=== PATIENT | male | born 1945 | race Caucasian/White ===

== ENCOUNTER 2017-10-19 10:55 | Inpatient (IN) | payer OTHER ==
[~2017-10-19] VITALS: Ht 170.2 cm; Wt 89.4 kg
[~2017-10-19 10:55] MED LIST: ALBUTEROL 3 ML3 ML INH; ASPIR 8181 MG PO; ATORVASTATIN CA10 MG PO; ATROVENT 0.02%2.5 ML INH; CADUET 5 MG-101 TAB PO; COUMADIN 5 MG TA5 MG PO; Compazine PO; HYGROTON 25MG T25 MG PO; LOVENOX40 MG/0.4 SC; PREDNISONE5 MG PO; PREVACID 30MG30 MG PO; PRINIVIL 5MG5 MG PO; ZOFRAN 4MG ORALL4 MG PO; [UNRECOGNIZED DRUG - OTHER] PO
--- NOTE | 2017-10-19 11:20 | ED DYSPNEA/ASTHMA COMPLAINT ---
History of Present Illness General Chief Complaint: General Adult Stated Complaint: WEAK,LOW O2 SAT,COUGH,CONGESTION FEVE Source: patient, old records Exam Limitations: no limitations Vital Signs & Intake/Output Vital Signs & Intake/Output Vital Signs Date Time Temp Pulse Resp B/P B/P Pulse O2 O2 Flow FiO2 Mean Ox Delivery Rate 10/19 1310 96.9 101 24 118/69 96 Venti Mask 45% 10/19 1154 84 Nasal 6.0L Cannula 10/19 1106 97.2 110 22 123/76 86 Nasal 2.5L Cannula Allergies Coded Allergies: NO KNOWN ALLERGIES (10/05/14) Reconcile Medications Apixaban (Eliquis) 5 MG TABLET 1 TAB PO BID BLOOD THINNER (Reported) Atorvastatin Calcium (Lipitor) 10 MG TABLET 1 TAB PO DAILY CHOLESTEROL ( Reported) Lisinopril 5 MG TABLET 1 TAB PO DAILY BP (Reported) Prednisone 20 MG TABLET 1 TAB PO DAILY STEROID (Reported) Triage Note: PT STATES THAT HE IS O2 DEPENDENT AND HAS HISTORY OF LUNG CANCER AND THAT HE STARTED WITH A COUGH CLEAR SPUTUM FRIDAY AND THEN LAST PM HE STARTED WITH INCREASED SOB, ON 2.5L VIA NC AT TRIAGE O2 SAT 84-86 % . DENIES CP. Triage Nurses Notes Reviewed? yes HPI: 71 year old male with past medical history significant for hypertension, hyperlipidemia, lung cancer (08/2015 presented with b/l PNA/PE and right hilar/ subcarinal lymphadenopathy) presents with acute hypoxic respiratory failure, dyspnea, increased cough and congestion. The patient has been undergoing chemotherapy weekly since diagnosis with Dr. Ross. For the past week the patient has had worsening cough with white sputum production and hypoxia with acute worsening of chronic exertional dyspnea. The patient has been on continuous supplemental oxygen for over the past year at two liters nasal cannula. He has had some nasal congestion and chills, denies any sore throat or fevers. He has had sick contact with his who is currently admitted to with bronchitis and hypoxic respiratory failure. (Vladimir NICOLAS,Dru) Past History Travel History Traveled to [place] past 21 day No Medical History Any Pertinent Medical History? see below for history Neurological: NONE EENT: NONE Cardiovascular: hyperlipidemia Respiratory: COPD, pneumonia Gastrointestinal: NONE Hepatic: NONE Renal: NONE Musculoskeletal: NONE Psychiatric: NONE Endocrine: NONE Blood Disorders: PE Cancer(s): lung cancer History of MRSA: No History of VRE: No History of CDIFF: No Pneumonia Vaccine: 09/29/12 Influenza Vaccine: 08/29/14 Surgical History Surgical History: mediastinoscopy Psychosocial History Who do you live with Spouse What is your primary language Spanish Tobacco Use: Quit >30 days ago ETOH Use: denies use Illicit Drug Use: denies illicit drug use Family History Family History, If Any: FATHER, , Age 40-50; Cause: Myocardial infarct. BROTHER, ; Cause: Heart disease. BROTHER FH: CABG (coronary artery bypass surgery) MOTHER FH: cancer of genital organ Hx Contributory? No (Dru Gilbert MD) Review of Systems Review of Systems Constitutional: Reports: chills. Denies: fever. EENTM: Reports: nasal congestion. Respiratory: Reports: cough, orthopnea, short of breath, sputum production. Cardiovascular: Denies: chest pain, peripheral edema. GI: Denies: abdominal pain, constipation, diarrhea, nausea, vomiting. Genitourinary: Denies: dysuria, frequency. Musculoskeletal: Reports: no symptoms. Skin: Reports: no symptoms. Neurological/Psychological: Reports: no symptoms. Hematologic/Endocrine: Reports: no symptoms. Immunologic/Allergic: Reports: no symptoms. All Other Systems: Reviewed and Negative (Dru Gilbert MD) Physical Exam Physical Exam General Appearance: well developed/nourished, no apparent distress, alert, awake , moderate distress (respiratory), tachypnea with accessory muscle use Head: atraumatic, normal appearance Eyes: Bilateral: normal appearance, PERRL, EOMI. Respiratory: chest non-tender, decreased breath sounds, rhonchi, respiratory distress, diminished at the bases, diffuse rhonchi Cardiovascular: regular rate/rhythm, normal peripheral pulses, tachycardia Gastrointestinal: normal bowel sounds, soft, non-tender Extremities: normal inspection, no edema Core Measures ACS in differential dx? No CVA/TIA Diagnosis No Sepsis Present: No Sepsis Focused Exam Completed? No (Dru Gilbert MD) Progress Differential Diagnosis: asthma, AMI, bronchitis, COPD, pulmonary embolism, pneumonia, progression of lung cancer Plan of Care: Orders Procedure Date/time Status Heart Healthy Diet 10/19 D Active LACTIC ACID 10/19 1500 Active Vital Signs 10/19 1338 Active ED Holding Orders 10/19 1331 Active Admit to inpatient 10/19 1331 Active Code Status 10/19 1331 Active CULTURE,URINE 10/19 1325 Active URINALYSIS 10/19 1325 Active Add-on Test (ER Only) 10/19 1234 Active Lab Add-on Test 10/19 1230 Active Lab Add-on Test 10/19 1216 Active TROPONIN LEVEL 10/19 1148 Complete PARTIAL THROMBOPLASTIN TIME 10/19 1148 Active PROTHROMBIN TIME 10/19 1148 Active LACTIC ACID 10/19 1148 Complete ARTERIAL BLOOD GAS (GEN) 10/19 1145 Complete COMPREHENSIVE METABOLIC PANEL 10/19 1119 Complete CBC WITHOUT DIFFERENTIAL 10/19 1119 Complete EKG 10/19 1056 Active Laboratory Tests 10/19/17 1155: pH 7.53 H, pCO2 24 L, pO2 54 L, HCO3 20 L, ABG O2 Sat (Measured) 87.0 L, P- 50 (Temp Corrected) N, Carboxyhemoglobin 0.7 L, O2 Concentration % 5LPM, O2 Delivery Method NC, Phlebotomy Draw Site RIGHT RADIAL 10/19/17 1148: Anion Gap 15, Estimated GFR > 60, BUN/Creatinine Ratio 27.1 H, Glucose 128 H, Lactic Acid 3.2 H, Calcium 8.8, Total Bilirubin 1.2, AST 25, ALT 50, Alkaline Phosphatase 96, Troponin I 0.02, Total Protein 6.5, Albumin 3.9, Globulin 2.6, Albumin/Globulin Ratio 1.5, CBC w Diff NO MAN DIFF REQ, RBC 4.42 L, MCV 90.4, MCH 29.8, RDW 16.2 H, MPV 8.1, Gran % 93.8 H, Lymphocytes % 3.0 L, Monocytes % 2.8, Eosinophils % 0.1, Basophils % 0.3, Absolute Granulocytes 7.2 H, Absolute Lymphocytes 0.2 L, Absolute Monocytes 0.2, Absolute Eosinophils 0, Absolute Basophils 0, PUBS MCHC 32.9 L Microbiology 10/19 132 URINE ROUT: Urine Culture - ORD Initial ED EKG: right bundle branch block (Vladimir NICOLAS,Dru) Departure Departure Time of Disposition: 1338 Disposition: STILL A PATIENT Condition: Stable Clinical Impression Primary Impression: Acute hypoxemic respiratory failure Referrals: Gabbi Farias DO (PCP/Family) Departure Forms: Customer Survey General Discharge Information Admission Note Spoke With: Bryant Redd MD Documentation of Exam: Documentation of any treatments & extenuating circumstances including Concerns Regarding Discharge (functional status, medication knowledge or non-compliance, living conditions, etc.) that warrant an admission rather than observation: sepsis with lactic acidemia, acute on chronic hypoxemic respiratory failure, intravenous steroids, high fio2 requirement and tachypnea with possible mechanical respiratory failure with increased work of breathing (Dru Gilbert MD) Resident Co-Sign Statement Statement: ED Attending supervision documentation- [X] I saw and evaluated the patient. I have also reviewed all the pertinent lab results and diagnostic results. I agree with the findings and the plan of care as documented in the Resident's documentation. [X] I have reviewed the ED Record and agree with the Resident's documentation. [] Additions or exceptions (if any) to the Resident's note and plan are summarized below: [Patient to be admitted for hypoxic respiratory failure. Patient does have a history of lung cancer as well as pulmonary embolus. Patient is already on Elaquis. Patient is requiring high levels FiO2. A pulmonary consultation.] (Betsy NICOLAS,Ayan Kang) Critical Care Note Critical Care Note Critical Care Time: non-applicable (Dru Gilbert MD)
[2017-10-19 11:56] LABS: ABSOLUTE BASOPHIL COUNT 0 /CUMM (0.0-0.2); ABSOLUTE EOSINOPHIL COUNT 0 /CUMM (0.0-0.7); ABSOLUTE GRANULOCYTE CT 7.2 /CUMM (1.4-6.5); ABSOLUTE LYMPH COUNT 0.2 /CUMM (1.2-3.4); ABSOLUTE MONOCYTE COUNT 0.2 /CUMM (0.10-0.60); BASOPHIL % 0.3 % (0.0-2.0); EOSINOPHIL % 0.1 % (0-5); HEMATOCRIT 39.9 % (42-52); MEAN CORPUSCULAR HGB 29.8 PG (27.0-31.0); MEAN CORPUSCULAR HGB CONC 32.9 G/DL (33.0-37.0); MEAN CORPUSCULAR VOLUME 90.4 FL (80.0-94.0); MEAN PLATELET VOLUME 8.1 FL (7.4-10.4); PLATELET COUNT 284 /CUMM (130-400); RBC DISTRIBUTION WIDTH 16.2 % (11.5-14.5); RED BLOOD CELL CT 4.42 /CUMM (4.70-6.10); WHITE BLOOD CELL COUNT 7.7 /CUMM (4.8-10.8)
[2017-10-19 12:10] LABS: GRANULOCYTE % 93.8 % (42.2-75.2)
--- NOTE | 2017-10-19 13:14 | RADIOLOGY REPORT ---
EXAMINATION: XR PORTABLE CHEST CLINICAL INFORMATION: Cough. Previous lung cancer. COMPARISON: Chest 02/28/2017. CT PET exam 09/16/2017. TECHNIQUE: Portable frontal view of the chest was obtained. FINDINGS: Is cardiomegaly with normal-appearing pulmonary vascularity. There is a right paramediastinal soft tissue density likely scarring. The lungs are expanded with bibasilar patchy atelectasis and/or scarring or atelectatic vessels. No gross bony abnormality seen. IMPRESSION: Cardiomegaly. Bibasilar patchy atelectasis and/or scarring. Prominent right paramediastinal soft tissue density likely scarring overall ectatic vessels. No abnormality was seen on the CT PET exam 09/16/2017.
--- NOTE | 2017-10-19 13:27 | RADIOLOGY REPORT ---
EXAMINATION: XR PORTABLE CHEST CLINICAL INFORMATION: Cough. COMPARISON: Chest done on 02/28/2017. TECHNIQUE: Portable frontal view of the chest was obtained. FINDINGS: Mild diffuse linear prominent interstitial lung markings are present predominantly at both mid to lower lung field, similar to prior study, appear chronic. Mild hyperinflation is noted at both upper lobes. Persistent asymmetric low lung volume is noted within the right hemithorax. The cardiomediastinal silhouette is remarkable for abnormal widening of the aorta however, appear unchanged. There is no pleural or pericardial effusion present. There is no pneumothorax seen. The visualized upper abdomen is unremarkable. IMPRESSION: Persistent nonspecific linear mild diffuse interstitial lung markings are noted with asymmetric low right sided lung volume, appears similar to 02/28/2017. No radiographic evidence of any new abnormalities.
[2017-10-19] MEDS ORDERED: LIPITOR10 M1 PO (13:35)
[2017-10-19] MEDS ORDERED: ELIQUIS5 M1 PO (13:36)
[2017-10-19] MEDS ORDERED: PREDNISONE20 M1 PO (13:36)
[2017-10-19] MEDS ORDERED: LISINOPRIL5 M1 PO (13:36)
--- NOTE | 2017-10-19 14:10 | History & Physical ---
Belkis Segal MD 10/19/17 1410: General Information and HPI MD Statement: I have seen and personally examined DALTON TAMEZ SR and documented this H&P. The patient is a 71 year old M who presented with a patient stated chief complaint of [weakness, runny nose, cough, frequent desaturation]. Source of Information: patient, old records Exam Limitations: no limitations History of Present Illness: 71 years old male with past medical history of hypertension, hyperlipidemia, lung cancer (08/2015) is on weekly chemotherapy and follow-up with Dr. Barron , and home oxygen of 2 L nasal cannula, who presents to [facility] complaining of runny nose, weakness, chills, cough, whitish sputum, frequent oxygen desaturation which he measured at home which was in the range of 88, of note the patient's was admitted to [facility] over the weekend for complaints of COPD exacerbation. Patient denies any fever, chest pain, palpitation, dizziness, orthopneaa, he also denies any recent travel Patient is an ex-smoker he used to smoke one pack of cigarettes daily for 40 years, quit 10 years ago,Drink alcohol 2 glasses of wine daily, Denies recreational drug use In the ED the patient was noticed to have respiratory alkalosis with frequent desaturation and he had to be started on 45% Ventimask He received 1 dose of IV Solu-Medrol 125 mg, albuterol inhaler, Atrovent Allergies/Medications Allergies: Coded Allergies: NO KNOWN ALLERGIES (10/05/14) Home Med list Apixaban (Eliquis) 5 MG TABLET 1 TAB PO BID BLOOD THINNER (Reported) Atorvastatin Calcium (Lipitor) 10 MG TABLET 1 TAB PO DAILY CHOLESTEROL ( Reported) Lisinopril 5 MG TABLET 1 TAB PO DAILY BP (Reported) Prednisone 20 MG TABLET 1 TAB PO DAILY STEROID (Reported) Past History Travel History Traveled to [place] past 21 day No Medical History Neurological: NONE EENT: NONE Cardiovascular: hyperlipidemia Respiratory: COPD, pneumonia Gastrointestinal: NONE Hepatic: NONE Renal: NONE Musculoskeletal: NONE Psychiatric: NONE Endocrine: NONE Blood Disorders: PE Cancer(s): lung cancer History of MRSA: No History of VRE: No History of CDIFF: No Pneumonia Vaccine: 09/29/12 Influenza Vaccine: 08/29/14 Surgical History Surgical History: mediastinoscopy Past Family/Social History Family History Relations & Conditions if any FATHER, , Age 40-50; Cause: Myocardial infarct. BROTHER, ; Cause: Heart disease. BROTHER FH: CABG (coronary artery bypass surgery) MOTHER FH: cancer of genital organ Psychosocial History Smoking Status: Former Smoker ETOH Use: denies use (2 glasses of wine/daily), occasional use Illicit Drug Use: denies illicit drug use Review of Systems Review of Systems Constitutional: Reports: chills, diaphoresis, malaise, weakness. Denies: fever. EENTM: Reports: nasal congestion, throat pain. Cardiovascular: Denies: chest pain, edema, orthopena, palpitations, peripheral edema. Respiratory: Reports: cough, orthopnea, short of breath, sputum production. GI: Denies: bloating, constipation, diarrhea, nausea, vomiting. Genitourinary: Denies: no symptoms. Musculoskeletal: Denies: no symptoms. Skin: Denies: no symptoms. Neurological/Psychological: Denies: no symptoms. Hematologic/Endocrine: Denies: no symptoms. Exam & Diagnostic Data Last 24 Hrs of Vital Signs/I&O Vital Signs Date Time Temp Pulse Resp B/P B/P Pulse O2 O2 Flow FiO2 Mean Ox Delivery Rate 10/19 1515 96.0 89 20 119/69 95 Venti Mask 45% 10/19 1310 96.9 101 24 118/69 96 Venti Mask 45% 10/19 1200 87 Nasal 5.0L Cannula 10/19 1154 84 Nasal 6.0L Cannula 10/19 1106 97.2 110 22 123/76 86 Nasal 2.5L Cannula Intake & Output 10/19 1600 10/19 0800 10/19 0000 Intake Total 2000 Output Total Balance 2000 Intake, IV 2000 Patient 197 lb Weight Physical Exam General Appearance Alert, Oriented X3, Cooperative HEENT Atraumatic, PERRLA, EOMI, Mucous Membr. moist/pink Neck Supple, No JVD, No thryomegaly Cardiovascular Normal S1, Normal S2, No Murmurs Lungs bilateral rales, crep and wheezes Abdomen Normal Bowel Sounds, Soft, No Tenderness Neurological Normal Speech Extremities No Clubbing, No Cyanosis, No Edema Vascular Normal Pulses Sepsis Peripheral Pulse Location: Radial Sepsis Peripheral Pulse Exam: Normal Assessment/Plan Assessment: 71 years old male with past medical history of hypertension, hyperlipidemia, high lung cancer (08/2015) home is on weekly chemotherapy and follow-up with Dr. Orrell , and home oxygen of 2 L nasal cannula, who presents to [facility] complaining of runny nose, weakness, chills, cough, whitish sputum, frequent oxygen desaturation which he measured at home which was in the range of 88, of note the patient's was admitted to [facility] over the weekend for complaints of COPD exacerbation. Vital Signs on admission: Blood pressure 118/69, pulse 101, temperature 96.9, pulse ox 96 on 45% Ventimask Labs on admission: WBC 7.7, RBCs 4.42, hemoglobin 13.1, platelet 284, sodium 138 , potassium 4.5, co2 24, anion gap 15, BUN 19, creatinine 0.7, glucose 128, lactic acid 3.2, ABG was significant for respiratory alkalosis with pH 7.53, PCO2 24, PO2 54, HCO3 20 rapid flu test was negative EKG showed heart rate showed RBBB, hr 110, NC 148, QTC 504 Chest x-ray: Cardiomegaly. Bibasilar patchy atelectasis and/or scarring. Prominent right paramediastinal soft tissue density likely scarring overall ectatic vessels. No abnormality was seen on the CT PET exam 09/16/2017 Persistent nonspecific linear mild diffuse interstitial lung markings are noted with asymmetric low right sided lung volume, appears similar to 02/28/2017. No radiographic evidence of any new abnormalities. Problem list: 1.Acute on chronic hypoxic resp failure 2.hx of PE 3. 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 COPD 5. Hyperlipidemia 6.Hypertension # Acute on chronic hypoxic respiratory failure Most likely the cause is due to the history of lung cancer in addition to possible acute bronchits pt is on chemotherapy, we have to rule out cardiac cause of his SOB as well - admit to floor - edda down the oxygen to high flow oxygen -TRC, Nebs -Solumedrol 60 Q 8 - Pulm consult appreciated -onc consult muriel #Hx of PE: Continue home dose of Eliquis # chronic medical cond including HTN, HLD continue home meds Full code DVT prophylaxis with subcutaneous heparin Regular diet As Ranked By This Provider Problem List: 1. Acute hypoxemic respiratory failure Core Measures/Misc (06/15) Acute Coronary Syndrome ACS Diagnosis: No Congestive Heart Failure Congestive Heart Failure Diagnosis No Cerebrovascular Accident CVA/TIA Diagnosis: No VTE (View Protocol) VTE Risk Factors Age>40 No Mechanical VTE Prophylaxis d/t N/A MechProphylax Ordered No VTE Pharm Prophylaxis d/t NA PharmProphylax ordered Sepsis (View protocol) Sepsis Present: No Hima Crews 10/19/17 2204: Resident Review Statement Resident Statement: examined this patient, discussed with lab intern, agreed with lab intern, reviewed EMR data (avail), discussed with nursing, discussed with case mgmt, reviewed images, amended to note Other Findings: This is 71 years old male with medical history of hypertension, hyperlipidemia, squamous cell lung cancer currently on weekly chemotherapy and follow-up with Dr. Barron , COPD on home oxygen of 2 L nasal cannula, pulmonary embolism currently on Eliquis. He presented to the emergency department with chief complain of of runny nose, weakness, chills, cough, whitish sputum, frequent oxygen desaturation which he measured at home which was in the range of 88%, denying any fever, heart racing. Chest x-ray in ED showed persistent nonspecific leaner moderate diffuse interstitial lung marking. Patient received nebs treatment and 125 IV Solu-Medrol along with one IV fluid bolus in the ED. Physical examination, lab and imaging as above. Problem list: -Acute and chronic hypoxic respiratory failure -COPD exacerbation -Lactic acidosis -Squamous cell lung CA currently on chemotherapy. Plan: -Admit patient to general medicine floor -Vitals every shift -IV Solu-Medrol 60 mg every 8 -TRC nebs as needed -Trend his lactic acid -Pulmonary consultation in a.m. -Cardiac consultation in a.m. -Continue home medication including Eliquis -Hold off home medication of prednisone -Repeat CBC and basic electrolyte in a.m. -Accu-Chek every 8 -Start the patient on PPI -Heart healthy diet -Pain pathway -DVT prophylaxis on eliquis -full code Bryant Redd MD 10/19/17 2342: Attending MD Review Statement Attending Statement Attending MD Statement: examined this patient, discuss w/resident/PA/PHARMACY SERVICES REPRESENTATIVE, agreed w/resident/PA/PHARMACY SERVICES REPRESENTATIVE, discussed with nursing Attending Assessment/Plan: 71 y/o male with PMH of HTN, DLD, Lung cancer (08/2015 on weekly chemo - follows up with Dr. Ross, on 2 liters of home oxygen presents with flu like symptoms and oxygen desaturation to mid 80's. The patient's was admitted to [facility] over the weekend for complaints of COPD exacerbation. Rapid flu negative. Acute on chronic hypoxic respiratory failure with chronic respiratory alkalosis. Solumedrol q 8 hrly. Obtain pulmonology consult. Patient currently requiring venti mask - but talking in between giving breaks for the mask. Can be tried on hi-fawad oxygen as needed. Cxr is not remarkable for acute process.
[2017-10-19 16:31] LABS: PT 16.6 SEC (9.4-12.5); PTT 29 SEC (25-37)
[2017-10-19 17:36] VITALS: BP 122/78
[2017-10-19 21:57] VITALS: BP 128/76
[2017-10-20 06:42] VITALS: BP 102/62
--- NOTE | 2017-10-20 07:17 | Cons- Oncology ---
General Information and HPI Consulting Request Date of Consult: 10/20/17 Requested By: Bryant Redd MD History of Present Illness: 71-year-old man with known with locally advanced non-small cell lung carcinomanow admitted with marked shortness of breath nonproductive cough. patient denies hemoptysis chest pain or leg swelling.The patient has severe underlying COPD,oxygen dependent. Patient also has a pulmonary embolism on a anticoagulation, diagnosed several years ago. Patient is currently being treated with single agent Taxol. Allergies/Medications Allergies: Coded Allergies: NO KNOWN ALLERGIES (10/05/14) Home Med List: Apixaban (Eliquis) 5 MG TABLET 1 TAB PO BID BLOOD THINNER (Reported) Atorvastatin Calcium (Lipitor) 10 MG TABLET 1 TAB PO DAILY CHOLESTEROL ( Reported) Lisinopril 5 MG TABLET 1 TAB PO DAILY BP (Reported) Prednisone 20 MG TABLET 1 TAB PO DAILY STEROID (Reported) Current Medications: Current Medications Sig/Joel Start time Last Medication Dose Route Stop Time Status Admin Acetaminophen 650 MG Q6P PRN 10/19 1530 AC PO Albuterol Sulfate 3 ML EVERY 4 HRS/AWAKE 10/19 2000 AC 10/19 INH 2027 Albuterol Sulfate 2 PUF Q4 PRN 10/19 1615 AC 10/20 INH 0605 Albuterol Sulfate 3 ML ONCE ONE 10/19 1145 DC 10/19 INH 10/19 1146 1200 Apixaban 5 MG BID 10/19 2200 AC PO Atorvastatin Calcium 10 MG DAILY 10/20 1000 AC PO Ibuprofen 600 MG Q6P PRN 10/19 1530 DC PO Ipratropium [place] 2.5 ML ONCE ONE 10/19 1200 DC 10/19 INH 10/19 1201 1200 Lisinopril 5 MG DAILY 10/20 1000 AC PO Methylprednisolone 60 MG Q8 10/19 2200 AC 10/20 IV 0601 Methylprednisolone 125 MG ONCE ONE 10/19 1200 DC 10/19 IV 10/19 1201 1159 Methylprednisolone 0 .STK-MED ONE 10/19 1200 DC .ROUTE Omeprazole 20 MG DAILY AC 10/20 0700 AC 10/20 PO 0601 Oxycodone/ 2 TAB Q6P PRN 10/19 1530 AC Acetaminophen PO Sodium Chloride 2,680.74 ML ONCE ONE 10/19 1315 DC 10/19 IV 10/19 1316 1326 Review of Systems Review of Systems: Patient denies headaches or dizziness. patient denies nausea vomiting diarrhea change in bowel habits.Patient denies dysuria or hematuria. Patient denies bone aches or focal neurologic deficit Past History Travel History Traveled to [place] past 21 day No Medical History Blood Transfusion Hx: No Neurological: NONE EENT: NONE Cardiovascular: hyperlipidemia Respiratory: COPD, pneumonia Gastrointestinal: NONE Hepatic: NONE Renal: NONE Musculoskeletal: NONE Psychiatric: NONE Endocrine: NONE Blood Disorders: PE Cancer(s): lung cancer Surgical History Surgical History: mediastinoscopy Family History Relations & Conditions If Any: FATHER, , Age 40-50; Cause: Myocardial infarct. BROTHER, ; Cause: Heart disease. BROTHER FH: CABG (coronary artery bypass surgery) MOTHER FH: cancer of genital organ Psychosocial History Where Do You Live? Home Smoking Status: Former Smoker ETOH Use: denies use (2 glasses of wine/daily), occasional use Illicit Drug Use: denies illicit drug use Exam & Diagnostic Data Vital Signs and I&O Vital Signs Date Time Temp Pulse Resp B/P B/P Pulse O2 O2 Flow FiO2 Mean Ox Delivery Rate 10/20 0652 97.4 10/20 0642 97.8 80 20 102/62 92 10/20 0000 Venti Mask 45% 10/19 2157 98.4 92 20 128/76 93 Room Air 10/19 1736 97.5 100 20 122/78 94 Venti Mask 75% 10/19 1730 94 Venti Mask 45% 10/19 1630 Venti Mask 55% 10/19 1515 96.0 89 20 119/69 95 Venti Mask 45% 10/19 1310 96.9 101 24 118/69 96 Venti Mask 45% 10/19 1200 87 Nasal 5.0L Cannula 10/19 1154 84 Nasal 6.0L Cannula 10/19 1106 97.2 110 22 123/76 86 Nasal 2.5L Cannula Intake & Output 10/20 0800 10/20 0000 10/19 1600 Intake Total 210 983 5736 Output Total 450 1 Balance -135 687 7281 Intake, IV 40 10 2000 Intake, Oral 240 240 Number 0 0 Bowel Movements Output, Stool 1 Output, Urine 450 Patient 197 lb 197 lb Weight Weight Reported by Patient Measurement Method Gen.: in NAD,Ricardo mass ENT: Sclera anicteric Chest: decreased breath sounds Cor: RRR, no extra sounds Abdomen: Soft, bowel sounds present, no tenderness, no rebound Extremities: Without clubbing, cyanosis, or asymmetric edema Neurology: Alert and oriented 3, no gross deficit Skin: No rashes Last 48 Hours of Lab Results: Laboratory Tests 10/20 10/19 0350 1605 Chemistry Lactic Acid (0.7 - 2.1 mmol/L) 1.9 Coagulation PT (9.4 - 12.5 SEC) 16.6 H INR (0.90 - 1.17) 1.59 H APTT (25 - 37 SEC) 29 Urines Urine Color (YEL,AMB,STR) YEL Urine Clarity (CLEAR) CLEAR Urine pH (5.0 - 8.0) 6.0 Ur Specific [place] (1.001 - 1.035) >= 1.030 Urine Protein (NEG,<30 MG/DL) NEG Urine Ketones (NEG) TRACE H Urine Nitrite (NEG) NEG Urine Bilirubin (NEG) NEG Urine Urobilinogen (0.1 - 1.0 EU/dl) 0.2 Ur Leukocyte Esterase (NEG) NEG Ur Microscopic EXAM NOT REQUIRED Urine Hemoglobin (NEG) NEG Urine Glucose (N MG/DL) 250 H 10/19 10/19 1155 1148 Blood Gas pH (7.35 - 7.45 PH) 7.53 H pCO2 (35 - 45 TORR) 24 L pO2 (80 - 100 TORR) 54 L HCO3 (21 - 28 MEQ/L) 20 L ABG O2 Sat (Measured) (>96.0 %) 87.0 L P-50 (Temp Corrected) N Carboxyhemoglobin (1.5 - 5.0 %) 0.7 L O2 Concentration % 5LPM O2 Delivery Method NC Chemistry Sodium (137 - 145 mmol/L) 138 Potassium (3.5 - 5.1 mmol/L) 4.5 Chloride (98 - 107 mmol/L) 99 Carbon Dioxide (22 - 30 mmol/L) 24 Anion Gap (5 - 16) 15 BUN (9 - 20 mg/dL) 19 Creatinine (0.7 - 1.2 mg/dL) 0.7 Estimated GFR (>60 ml/min) > 60 BUN/Creatinine Ratio (7 - 25 %) 27.1 H Glucose (65 - 99 mg/dL) 128 H Lactic Acid (0.7 - 2.1 mmol/L) 3.2 H Calcium (8.4 - 10.2 mg/dL) 8.8 Total Bilirubin (0.2 - 1.3 mg/dL) 1.2 AST (17 - 59 U/L) 25 ALT (21 - 72 U/L) 50 Alkaline Phosphatase (< 127 U/L) 96 Troponin I (<0.11 ng/ml) 0.02 Gyu-W-Wjkarigvmqo Pept (<125 pg/mL) 582 H Total Protein (6.3 - 8.2 g/dL) 6.5 Albumin (3.5 - 5.0 g/dL) 3.9 Globulin (1.9 - 4.2 gm/dL) 2.6 Albumin/Globulin Ratio (1.1 - 2.2 %) 1.5 Hematology CBC w Diff NO MAN DIFF REQ WBC (4.8 - 10.8 /CUMM) 7.7 RBC (4.70 - 6.10 /CUMM) 4.42 L Hgb (14.0 - 18.0 G/DL) 13.1 L Hct (42 - 52 %) 39.9 L MCV (80.0 - 94.0 FL) 90.4 MCH (27.0 - 31.0 PG) 29.8 RDW (11.5 - 14.5 %) 16.2 H Plt Count (130 - 400 /CUMM) 284 MPV (7.4 - 10.4 FL) 8.1 Gran % (42.2 - 75.2 %) 93.8 H Lymphocytes % (20.5 - 51.1 %) 3.0 L Monocytes % (1.7 - 9.3 %) 2.8 Eosinophils % (0 - 5 %) 0.1 Basophils % (0.0 - 2.0 %) 0.3 Absolute Granulocytes (1.4 - 6.5 /CUMM) 7.2 H Absolute Lymphocytes (1.2 - 3.4 /CUMM) 0.2 L Absolute Monocytes (0.10 - 0.60 /CUMM) 0.2 Absolute Eosinophils (0.0 - 0.7 /CUMM) 0 Absolute Basophils (0.0 - 0.2 /CUMM) 0 PUBS MCHC (33.0 - 37.0 G/DL) 32.9 L Miscellaneous Phlebotomy Draw Site RIGHT RADIAL Imaging/Other Studies: chest x-ray-no acute processes Assessment/Plan Assessment: 1.respiratory failure-in the setting of severe COPD and locally advanced non- small cell lung carcinoma.there is no obvious pneumonia on chest x-ray or progression of his cancer. Patient is being treated for exacerbation of COPD. Recommend- Continue current therapy Strongly consider CTA given his degree of desaturation 2. Non-small cell lung carcinoma-chemotherapy on hold Recommendations: .. Consult Acknowledgment - Thank you for your consult request.
--- NOTE | 2017-10-20 08:35 | PN- Housestaff ---
Luzma NICOLAS,Belkis 10/20/17 0835: Subjective Follow-up For: 1.Acute on chronic hypoxic resp failure 2.hx of PE 3. non small cell lung cancer on chemotherapy 4. COPD 5. Hyperlipidemia 6.Hypertension Subjective: Patient is seen and examined at bedside, he continues to complain of productive cough, with whitish sputum, denies fever, chills, nausea, vomiting remains on the high flow mask Review of Systems Constitutional: Denies: no symptoms. Cardiovascular: Denies: no symptoms. Respiratory: Reports: cough, sputum production. Gastrointestinal: Denies: no symptoms. Genitourinary: Denies: no symptoms. Musculoskeletal: Denies: no symptoms. Objective Last 24 Hrs of Vital Signs/I&O Vital Signs Date Time Temp Pulse Resp B/P B/P Pulse O2 O2 Flow FiO2 Mean Ox Delivery Rate 10/20 0915 94 Venti Mask 55% 10/20 0800 Venti Mask 45% 10/20 0652 97.4 10/20 0642 97.8 80 20 102/62 92 10/20 0000 Venti Mask 45% 10/19 2157 98.4 92 20 128/76 93 Room Air 10/19 1736 97.5 100 20 122/78 94 Venti Mask 75% 10/19 1730 94 Venti Mask 45% 10/19 1630 Venti Mask 55% 10/19 1515 96.0 89 20 119/69 95 Venti Mask 45% Intake & Output 10/20 1600 10/20 0800 10/20 0000 Intake Total 750 280 250 Output Total 450 1 Balance 750 -170 249 Intake, IV 50 40 10 Intake, Oral 700 240 240 Number 0 0 0 Bowel Movements Output, Stool 1 Output, Urine 450 Patient 197 lb Weight Weight Reported by Patient Measurement Method Physical Exam General Appearance: Alert, Oriented X3, Cooperative, No Acute Distress HEENT: Atraumatic, PERRLA, EOMI, Mucous Membr. moist/pink Cardiovascular: Normal S1, Normal S2, No Murmurs Lungs: rales and wheezes Abdomen: Normal Bowel Sounds, Soft, No Tenderness Neurological: Normal Speech, Strength at 5/5 X4 Ext, Normal Tone Extremities: No Clubbing, No Cyanosis, No Edema Assessment/Plan Assessment: 71 years old male with past medical history of hypertension, hyperlipidemia, high lung cancer (08/2015) home is on weekly chemotherapy and follow-up with Dr. Barron , and home oxygen of 2 L nasal cannula, who presents to [facility] complaining of runny nose, weakness, chills, cough, whitish sputum, frequent oxygen desaturation which he measured at home which was in the range of 88, of note the patient's was admitted to [facility] over the weekend for complaints of COPD exacerbation. Vital Signs on admission: Blood pressure 118/69, pulse 101, temperature 96.9, pulse ox 96 on 45% Ventimask Labs on admission: WBC 7.7, RBCs 4.42, hemoglobin 13.1, platelet 284, sodium 138 , potassium 4.5, co2 24, anion gap 15, BUN 19, creatinine 0.7, glucose 128, lactic acid 3.2, ABG was significant for respiratory alkalosis with pH 7.53, PCO2 24, PO2 54, HCO3 20 rapid flu test was negative EKG showed heart rate showed RBBB, hr 110, OK 148, QTC 504 Chest x-ray: Cardiomegaly. Bibasilar patchy atelectasis and/or scarring. Prominent right paramediastinal soft tissue density likely scarring overall ectatic vessels. No abnormality was seen on the CT PET exam 09/16/2017 Persistent nonspecific linear mild diffuse interstitial lung markings are noted with asymmetric low right sided lung volume, appears similar to 02/28/2017. No radiographic evidence of any new abnormalities. # Acute on chronic hypoxic respiratory failure Most likely the cause is due to the history of lung cancer in addition to possible acute bronchits pt is on chemotherapy, we have to rule out cardiac cause of his SOB as well - admit to floor - edda down the oxygen to high flow oxygen -TRC, Nebs -Solumedrol 60 Q 8 - Pulm consult appreciated -onc consult muriel #Hx of PE: Continue home dose of Eliquis # chronic medical cond including HTN, HLD continue home meds Full code DVT prophylaxis with Eliquis Regular diet Problem List: 1. Acute hypoxemic respiratory failure Pain Ratin Pain Location: n/a Pain Goal: Remain pain free Pain Plan: pathway Tomorrow's Labs & Rationales: cbc bep DVT/Prophylaxis: mechanical, pharmacological Oseas Pratt MD 10/20/17 1906: Attending Review Statement Attending Statement Attending Statement: examined this patient, discuss w/resident/PA/INSERT MOLDING OPERATOR, agreed w/resident/PA/INSERT MOLDING OPERATOR, reviewed EMR data (avail), discussed with case mgmt, reviewed images, amended to note Attending Assessment/Plan: The patient was seen and discussed with house staff. Appreciate pulmonary input. Patient states slightly improved, still with cough. Some possible erosion of tumor into distal esophagus noted on CT. Agree with GI consult re narrowing of esophagus. Continue Medrol/aerosol as per pulmonary.
--- NOTE | 2017-10-20 08:45 | CT SCAN REPORT ---
EXAMINATION: CT ANGIOGRAM CHEST CLINICAL INFORMATION: History lung carcinoma. Frequent desaturation. Shortness of breath COMPARISON: Multiple prior CT chest and PET/CT with most recent prior dated 09/16/2017 TECHNIQUE: Multiple axial images were obtained through the chest after the administration of 95 mL of Optiray 350 intravenous contrast. Images were reviewed on a dedicated 3-D workstation. DLP: 543.16 mGy-cm FINDINGS: Vasculature: There is no CT evidence of acute pulmonary embolism. Limited assessment of the right lower lobe pulmonary artery branches due to surrounding consolidation. No evidence of pulmonary embolism noted in the central or visualized portions of the segmental pulmonary arteries. Narrowed right lower lobe pulmonary artery segmental branches (series 201 image 60) by surrounding masslike consolidation. Atherosclerotic disease of the aorta and coronary arteries. LUNGS: Masslike consolidation right infrahilar region (image 37/65). It appears to be encasing right lower lobe pulmonary artery branches. There is mass effect on the bronchovascular structures. Narrowing of the lower lobe segmental pulmonary arteries and bronchi (series 201 image 60). There is mass effect and narrowing of the esophagus. Lesion measures approximately 4.1 x 4.1 cm (series 4 image 38) with associated moderate atelectatic changes noted in the right lower lobe. This has increased over the interval. Underlying reticular changes bilateral lungs compatible with chronic underlying interstitial lung disease. This has remained stable compared to the prior study. No new or suspicious pulmonary nodules identified. Mild bronchiectatic changes right middle lobe and right lower lobe similar to the prior study. Mediastinum: Right hilar adenopathy appears inseparable from the right infrahilar mass. Subcarinal lymphadenopathy measuring approximately 3 cm, with no significant interval change compared to the prior examination. Prevascular lymph node measuring approximately 1 cm in short axis. Mildly enlarged pretracheal and right paratracheal lymph nodes.There is mass effect with narrowing of the mid to distal esophagus. Invasion of the esophageal wall cannot be excluded. (Series 4 image 29) Upper abdomen: Adrenal glands are within normal limits. Visualized liver, spleen, pancreas are within normal limits. Osseous structures: No gross bony destructive changes identified. IMPRESSION: 1. There is no definite CTA evidence of acute pulmonary embolism. 2. Right hilar/infrahilar mass encasing right lower lobe vessels with narrowing of the right lower lobe pulmonary artery branches. 3. No significant interval change in the overall size of the mass or associated lymphadenopathy. 4. Interval increase in the atelectatic changes right lower lobe. 5. There is mass effect with narrowing of the mid to distal esophagus. Invasion of the esophageal wall cannot be excluded.
[2017-10-20 12:14] LABS: ABSOLUTE BASOPHIL COUNT 0 /CUMM (0.0-0.2); ABSOLUTE EOSINOPHIL COUNT 0 /CUMM (0.0-0.7); ABSOLUTE GRANULOCYTE CT 6.5 /CUMM (1.4-6.5); ABSOLUTE LYMPH COUNT 0.2 /CUMM (1.2-3.4); ABSOLUTE MONOCYTE COUNT 0.1 /CUMM (0.10-0.60); BASOPHIL % 0 % (0.0-2.0); EOSINOPHIL % 0 % (0-5); GRANULOCYTE % 95.8 % (42.2-75.2); HEMATOCRIT 36.6 % (42-52); MEAN CORPUSCULAR HGB 29.8 PG (27.0-31.0); MEAN CORPUSCULAR HGB CONC 32.7 G/DL (33.0-37.0); MEAN CORPUSCULAR VOLUME 91.1 FL (80.0-94.0); MEAN PLATELET VOLUME 9.1 FL (7.4-10.4); PLATELET COUNT 241 /CUMM (130-400); RBC DISTRIBUTION WIDTH 15.9 % (11.5-14.5); RED BLOOD CELL CT 4.01 /CUMM (4.70-6.10)
[2017-10-20 14:29] LABS: WHITE BLOOD CELL COUNT 6.8 /CUMM (4.8-10.8)
--- NOTE | 2017-10-20 15:25 | Cons- Pulmonary ---
General Information and HPI Consulting Request Date of Consult: 10/20/17 Requested By: medical team Reason for Consult: dyspnea Source of Information: patient Exam Limitations: no limitations History of Present Illness: Consultation for dyspnea. 71 year old man. NSCLC. Hx of PE on a/c. Treated with Taxol by Dr. Ross. Progressive dyspnea, dry cough, no hemoptysis. Has been on home oxygen. Has had ILD changes. No PFTs on record. ECHO 2014 showed pulmonary htn. CTA without acute PE. Right hilar/infrahilar mass encasing RLLL vessels, narrowing of RLL PA branches. No signficant change. RLL atelectasis, mass effect with narrowing of the mid to distal esophagus. Difficulty swallowing that was intermitent, but now has been persistent. 84% spo2 on admission. Now on 55% ventimask. Allergies/Medications Allergies: Coded Allergies: NO KNOWN ALLERGIES (10/05/14) Home Med List: Apixaban (Eliquis) 5 MG TABLET 1 TAB PO BID BLOOD THINNER (Reported) Atorvastatin Calcium (Lipitor) 10 MG TABLET 1 TAB PO DAILY CHOLESTEROL ( Reported) Lisinopril 5 MG TABLET 1 TAB PO DAILY BP (Reported) Prednisone 20 MG TABLET 1 TAB PO DAILY STEROID (Reported) Current Medications: Current Medications Sig/Joel Start time Last Medication Dose Route Stop Time Status Admin Acetaminophen 650 MG Q6P PRN 10/19 1530 AC PO Albuterol Sulfate 3 ML EVERY 4 HRS/AWAKE 10/19 2000 AC 10/20 INH 1152 Albuterol Sulfate 2 PUF Q4 PRN 10/19 1615 AC 10/20 INH 0605 Apixaban 5 MG BID 10/19 2200 AC 10/20 PO 1028 Atorvastatin Calcium 10 MG 1700 10/20 1700 AC PO Atorvastatin Calcium 10 MG DAILY 10/20 1000 DC PO Benzonatate 100 MG TID 10/20 1006 AC 10/20 PO 1211 Budesonide/ 2 PUF BID 10/20 1502 AC Formoterol Fumarate INH Guaifenesin 600 MG Q12 10/20 1006 AC 10/20 PO 1028 Ibuprofen 600 MG Q6P PRN 10/19 1530 DC PO Lisinopril 5 MG DAILY 10/20 1000 AC 10/20 PO 1028 Methylprednisolone 60 MG Q8 10/19 2200 AC 10/20 IV 1336 Omeprazole 20 MG DAILY AC 10/20 0700 AC 10/20 PO 0601 Oxycodone/ 2 TAB Q6P PRN 10/19 1530 AC Acetaminophen PO Review of Systems Comments 18 point review of systems was performed and reviewed. Please see pertinent positives and pertinent negatives in the HPI. Otherwise ROS is negative. Past History Travel History Traveled to [place] past 21 day No Medical History Blood Transfusion Hx: No Neurological: NONE EENT: NONE Cardiovascular: hyperlipidemia Respiratory: COPD, pneumonia Gastrointestinal: NONE Hepatic: NONE Renal: NONE Musculoskeletal: NONE Psychiatric: NONE Endocrine: NONE Blood Disorders: PE Cancer(s): lung cancer Surgical History Surgical History: mediastinoscopy Family History Relations & Conditions If Any: FATHER, , Age 40-50; Cause: Myocardial infarct. BROTHER, ; Cause: Heart disease. BROTHER FH: CABG (coronary artery bypass surgery) MOTHER FH: cancer of genital organ Psychosocial History Where Do You Live? Home Smoking Status: Former Smoker ETOH Use: denies use (2 glasses of wine/daily), occasional use Illicit Drug Use: denies illicit drug use Exam & Diagnostic Data Last 24 Hrs of Vital Signs/I&O Vital Signs Date Time Temp Pulse Resp B/P B/P Pulse O2 O2 Flow FiO2 Mean Ox Delivery Rate 10/20 0915 94 Venti Mask 55% 10/20 0800 Venti Mask 45% 10/20 0652 97.4 10/20 0642 97.8 80 20 102/62 92 10/20 0000 Venti Mask 45% 10/19 2157 98.4 92 20 128/76 93 Room Air 10/19 1736 97.5 100 20 122/78 94 Venti Mask 75% 10/19 1730 94 Venti Mask 45% 10/19 1630 Venti Mask 55% Intake & Output 10/20 1600 10/20 0800 10/20 0000 Intake Total 750 280 250 Output Total 450 1 Balance 750 -170 249 Intake, IV 50 40 10 Intake, Oral 700 240 240 Number 0 0 0 Bowel Movements Output, Stool 1 Output, Urine 450 Patient 197 lb Weight Weight Reported by Patient Measurement Method Physical Exam Other Physical Findings: Generally - Awake, alert Head and neck - wearing a Ventimask Cardiovascular - S1, S2 Lungs -rare rhonchi Abdomen - Bowel sounds positive, soft, non-tender Extremities - without edema Last 48 Hrs of Labs/Luis: Laboratory Tests 10/20/17 1117: CBC w Diff NO MAN DIFF REQ, RBC 4.01 L, MCV 91.1, MCH 29.8, RDW 15.9 H, MPV 9.1, Gran % 95.8 H, Lymphocytes % 2.3 L, Monocytes % 1.9, Eosinophils % 0, Basophils % 0, Absolute Granulocytes 6.5, Absolute Lymphocytes 0.2 L, Absolute Monocytes 0.1, Absolute Eosinophils 0, Absolute Basophils 0, PUBS MCHC 32.7 L 10/20/17 1113: Anion Gap 15, Estimated GFR > 60, BUN/Creatinine Ratio 28.3 H 10/20/17 0350: Urine Color YEL, Urine Clarity CLEAR, Urine pH 6.0, Ur Specific [place] >= 1.030 , Urine Protein NEG, Urine Ketones TRACE H, Urine Nitrite NEG, Urine Bilirubin NEG, Urine Urobilinogen 0.2, Ur Leukocyte Esterase NEG, Ur Microscopic EXAM NOT REQUIRED, Urine Hemoglobin NEG, Urine Glucose 250 H 10/19/17 1605: Lactic Acid 1.9, PT 16.6 H, INR 1.59 H, APTT 29 10/19/17 1155: pH 7.53 H, pCO2 24 L, pO2 54 L, HCO3 20 L, ABG O2 Sat (Measured) 87.0 L, P- 50 (Temp Corrected) N, Carboxyhemoglobin 0.7 L, O2 Concentration % 5LPM, O2 Delivery Method NC, Phlebotomy Draw Site RIGHT RADIAL 10/19/17 1148: Anion Gap 15, Estimated GFR > 60, BUN/Creatinine Ratio 27.1 H, Glucose 128 H, Lactic Acid 3.2 H, Calcium 8.8, Total Bilirubin 1.2, AST 25, ALT 50, Alkaline Phosphatase 96, Troponin I 0.02, Rwr-L-Rzftxclwtge Pept 582 H, Total Protein 6.5, Albumin 3.9, Globulin 2.6, Albumin/Globulin Ratio 1.5, CBC w Diff NO MAN DIFF REQ, RBC 4.42 L, MCV 90.4, MCH 29.8, RDW 16.2 H, MPV 8.1, Gran % 93.8 H, Lymphocytes % 3.0 L, Monocytes % 2.8, Eosinophils % 0.1, Basophils % 0.3, Absolute Granulocytes 7.2 H, Absolute Lymphocytes 0.2 L, Absolute Monocytes 0.2, Absolute Eosinophils 0, Absolute Basophils 0, PUBS MCHC 32.9 L [facility] 10/20 1134 NASOPHARYN: Influenza Virus A & B Rapid Smear - COMP 10/19 1550 NASOPHARYN: Influenza Virus A & B Rapid Smear - COMP Assessment/Plan Impression/Plan: Impression Consultation for dyspnea. 71 year old man. NSCLC. Hx of PE on a/c. Treated with Taxol by Dr. Ross. Progressive dyspnea, dry cough, no hemoptysis. Has been on home oxygen. Has had ILD changes. No PFTs on record. ECHO 2014 showed pulmonary htn. CTA without acute PE. Right hilar/infrahilar mass encasing RLL vessels, narrowing of RLL PA branches. No signficant change. RLL atelectasis, mass effect with narrowing of the mid to distal esophagus. Difficulty swallowing that was intermitent, but now has been persistent. 84% spo2 on admission. Now on 55% ventimask. * Acute hypoxemic respiratory failure - this could be secondary to significant pulmonary hypertension which needs to be investigated or possibly an exacerbation of COPD * Non-small cell lung carcinoma * Difficulty swallowing with a narrowing of the mid to distal esophagus * hx of PE on eliquis Plan -solumedrol - continue today - reduce tomorrow -trc/nebs -begin symbicort with rinsing of the mouth -tessalon perles for cough -check ECHO -would investigate esophageal narrowing and recommend GI evaluation -incentive spirometry -flutter device -out of bed as tolerated -reduce fio2 to a goal spo2 of >92% DVT prophylaxis at all times Consult Acknowledgment - Thank you for your consult request.
[2017-10-20 17:00] VITALS: BP 110/60
[2017-10-20 22:59] VITALS: BP 130/70
--- NOTE | 2017-10-21 06:57 | PN- Oncology ---
Subjective Subjective: Feeling somewhat improved, less short of breath Review of Systems: 12 point review of systems otherwise unchanged Objective Vital Signs and I&Os Vital Signs Date Time Temp Pulse Resp B/P B/P Pulse O2 O2 Flow FiO2 Mean Ox Delivery Rate 10/21 0000 Venti Mask 50% 10/20 2259 99.7 68 20 130/70 95 Nasal Cannula 10/20 1700 99.1 99 24 110/60 91 Venti Mask 50% 10/20 1630 93 Venti Mask 50% 10/20 1600 91 Venti Mask 50% 10/20 0915 94 Venti Mask 55% 10/20 0800 Venti Mask 45% Intake & Output 10/21 0800 10/21 0000 10/20 1600 10/20 0800 10/20 0000 10/19 1600 Intake Total 480 450 750 242 837 9968 Output Total 500 450 1 Balance 480 -50 750 -672 569 4144 Intake, IV 50 40 10 2000 Intake, Oral 480 450 700 240 240 Number 1 0 0 0 Bowel Movements Output, Stool 1 Output, Urine 500 450 Patient 197 lb 197 lb Weight Weight Reported by Patient Measurement Method Gen.: in NAD ENT: Sclera anicteric Chest: Decreased breath sounds Cor: RRR, no extra sounds Abdomen: Soft, bowel sounds present, no tenderness, no rebound Extremities: Without clubbing, cyanosis, or asymmetric edema Neurology: Alert and oriented 3, n Current Medications: Current Medications Sig/Joel Start time Last Medication Dose Route Stop Time Status Admin Acetaminophen 650 MG Q6P PRN 10/19 1530 AC PO Albuterol Sulfate 3 ML EVERY 4 HRS/AWAKE 10/19 2000 AC 10/20 INH 2110 Albuterol Sulfate 2 PUF Q4 PRN 10/19 1615 AC 10/20 INH 0605 Apixaban 5 MG BID 10/19 2200 AC 10/20 PO 2207 Atorvastatin Calcium 10 MG 1700 10/20 1700 AC 10/20 PO 1659 Atorvastatin Calcium 10 MG DAILY 10/20 1000 DC PO Benzonatate 100 MG TID 10/20 1006 AC 10/20 PO 2208 Budesonide/ 2 PUF BID 10/20 1502 AC 10/20 Formoterol Fumarate INH 2208 Guaifenesin 600 MG Q12 10/20 1006 AC 10/20 PO 2207 Lisinopril 5 MG DAILY 10/20 1000 AC 10/20 PO 1028 Methylprednisolone 60 MG Q8 10/19 2200 AC 10/21 IV 0508 Omeprazole 20 MG DAILY AC 10/20 0700 AC 10/21 PO 0509 Oxycodone/ 2 TAB Q6P PRN 10/19 1530 AC Acetaminophen PO Results Last 24 Hours of Lab Results: Laboratory Tests 10/20 10/20 10/20 1735 1117 1113 Chemistry Sodium (137 - 145 mmol/L) 134 L Potassium (3.5 - 5.1 mmol/L) 3.9 Chloride (98 - 107 mmol/L) 99 Carbon Dioxide (22 - 30 mmol/L) 21 L Anion Gap (5 - 16) 15 BUN (9 - 20 mg/dL) 17 Creatinine (0.7 - 1.2 mg/dL) 0.6 L Estimated GFR (>60 ml/min) > 60 BUN/Creatinine Ratio (7 - 25 %) 28.3 H Hematology CBC w Diff NO MAN DIFF REQ WBC (4.8 - 10.8 /CUMM) 6.8 RBC (4.70 - 6.10 /CUMM) 4.01 L Hgb (14.0 - 18.0 G/DL) 12.0 L Hct (42 - 52 %) 36.6 L MCV (80.0 - 94.0 FL) 91.1 MCH (27.0 - 31.0 PG) 29.8 RDW (11.5 - 14.5 %) 15.9 H Plt Count (130 - 400 /CUMM) 241 MPV (7.4 - 10.4 FL) 9.1 Gran % (42.2 - 75.2 %) 95.8 H Lymphocytes % (20.5 - 51.1 %) 2.3 L Monocytes % (1.7 - 9.3 %) 1.9 Eosinophils % (0 - 5 %) 0 Basophils % (0.0 - 2.0 %) 0 Absolute Granulocytes (1.4 - 6.5 /CUMM) 6.5 Absolute Lymphocytes (1.2 - 3.4 /CUMM) 0.2 L Absolute Monocytes (0.10 - 0.60 /CUMM) 0.1 Absolute Eosinophils (0.0 - 0.7 /CUMM) 0 Absolute Basophils (0.0 - 0.2 /CUMM) 0 PUBS MCHC (33.0 - 37.0 G/DL) 32.7 L Toxicology Serum Alcohol (<10 MG/DL) < 10.0 Recent Imaging Studies: [id number] pulmonary emboli, obvious changes of lung cancer, external compression of esophagus Assessment/Plan Assessment/Recommendations: 1. Respiratory failure-etiology most likely exacerbation of COPD Recommend-as per Dr. Boykin 2. Lung cancer-systemic chemotherapy to continue as an outpatient
--- NOTE | 2017-10-21 07:45 | PN- Housestaff ---
Luzma NICOLAS,Belkis 10/21/17 0745: Subjective Follow-up For: 1.Acute on chronic hypoxic resp failure 2.hx of PE 3. non small cell lung cancer on chemotherapy 4. COPD 5. Hyperlipidemia 6.Hypertension Subjective: Patient is seen and examined at bedside, he continues to complain of productive cough, with whitish sputum, denies fever, chills, nausea, vomiting remains on the high flow mask, yesterday he was started on 2 L nasal cannula however the patient felt short of breath and had to be put back on the high flow mask Review of Systems Constitutional: Denies: no symptoms. Cardiovascular: Denies: no symptoms. Respiratory: Reports: cough, short of breath, sputum production. Gastrointestinal: Denies: no symptoms. Genitourinary: Denies: no symptoms. Musculoskeletal: Denies: no symptoms. Objective Last 24 Hrs of Vital Signs/I&O Vital Signs Date Time Temp Pulse Resp B/P B/P Pulse O2 O2 Flow FiO2 Mean Ox Delivery Rate 10/21 1022 98.3 90 18 102/60 92 10/21 0859 68 122/70 10/21 0805 89 Venti Mask 55% 10/21 0800 Venti Mask 55% 10/21 0000 Venti Mask 50% 10/20 2259 99.7 68 20 130/70 95 Nasal Cannula 10/20 1700 99.1 99 24 110/60 91 Venti Mask 50% 10/20 1630 93 Venti Mask 50% 10/20 1600 91 Venti Mask 50% Intake & Output 10/21 1600 10/21 0800 10/21 0000 Intake Total 480 450 Output Total 500 Balance 480 -50 Intake, Oral 480 450 Number 1 1 Bowel Movements Output, Urine 500 Physical Exam General Appearance: Alert, Oriented X3, Cooperative, No Acute Distress HEENT: Atraumatic, PERRLA, EOMI, Mucous Membr. moist/pink Cardiovascular: Normal S1, Normal S2, No Murmurs Lungs: Clear to Auscultation Abdomen: Normal Bowel Sounds, Soft, No Tenderness Extremities: No Clubbing, No Cyanosis, No Edema Vascular: Normal Pulses Assessment/Plan Assessment: 71 years old male with past medical history of hypertension, hyperlipidemia, high lung cancer (08/2015) home is on weekly chemotherapy and follow-up with Dr. Barron , and home oxygen of 2 L nasal cannula, who presents to [facility] complaining of runny nose, weakness, chills, cough, whitish sputum, frequent oxygen desaturation which he measured at home which was in the range of 88, of note the patient's was admitted to [facility] over the weekend for complaints of COPD exacerbation. Vital Signs on admission: Blood pressure 118/69, pulse 101, temperature 96.9, pulse ox 96 on 45% Ventimask Labs on admission: WBC 7.7, RBCs 4.42, hemoglobin 13.1, platelet 284, sodium 138 , potassium 4.5, co2 24, anion gap 15, BUN 19, creatinine 0.7, glucose 128, lactic acid 3.2, ABG was significant for respiratory alkalosis with pH 7.53, PCO2 24, PO2 54, HCO3 20 rapid flu test was negative EKG showed heart rate showed RBBB, hr 110, CA 148, QTC 504 Chest x-ray: Cardiomegaly. Bibasilar patchy atelectasis and/or scarring. Prominent right paramediastinal soft tissue density likely scarring overall ectatic vessels. No abnormality was seen on the CT PET exam 09/16/2017 Persistent nonspecific linear mild diffuse interstitial lung markings are noted with asymmetric low right sided lung volume, appears similar to 02/28/2017. No radiographic evidence of any new abnormalities. # Acute on chronic hypoxic respiratory failure Most likely due to COPD exacerbation PE was ruled out with CTA -continue to monitor on GM floor - edda down the oxygen to high flow oxygen -TRC, Nebs -incentive spirometery -Symbicort with rinsing of the mouth -Flutter device -Out of bed as toleratedo -Solumedrol 60 Q 8 - folow up on Pulm and Oncology recomm. #Hx of PE: Continue home dose of Eliquis # chronic medical cond including HTN, HLD continue home meds Full code DVT prophylaxis with Eliquis Regular diet Problem List: 1. Acute hypoxemic respiratory failure Pain Ratin Pain Location: N/A Pain Goal: Remain pain free Pain Plan: per pathway Tomorrow's Labs & Rationales: cbc bep DVT/Prophylaxis: mechanical, pharmacological Kervin Aguirre MD 10/21/17 1333: Attending Review Statement Attending Statement Attending MD Statement: examined this patient, discuss w/resident/PA/CRACKER SPRAYER, agreed w/resident/PA/CRACKER SPRAYER, reviewed EMR data (avail) Attending Assessment/Plan: 71M PMH HTN, HLD, locally advanced non-small cell lung cancer receiving chemotherapy admitted with shortness of breath and hypoxia in the setting of COPD exacerbation, being treated with nebulizer treatments and Solumedrol taper. Imaging shows esophageal narrowing likely secondary to mass effect from malignancy. Breathing steadily improving, but still short of breath when not on venti mask. 1. Acute hypoxemic respiratory failure 2. COPD Exacerbation 3. Non-small cell lung cancer of the right lung Plan - Continue on general medicine - Solumedrol 40mg q8h - Nebulizer treatments - Obtain Echocardiogram - Obtain GI consult for esophageal narrowing - Follow pulmonary recommendations - Continue home medications - DVT PPx
[2017-10-21 09:01] LABS: ABSOLUTE BASOPHIL COUNT 0 /CUMM (0.0-0.2); ABSOLUTE EOSINOPHIL COUNT 0 /CUMM (0.0-0.7); ABSOLUTE GRANULOCYTE CT 6.8 /CUMM (1.4-6.5); ABSOLUTE LYMPH COUNT 0.3 /CUMM (1.2-3.4); ABSOLUTE MONOCYTE COUNT 0.2 /CUMM (0.10-0.60); BASOPHIL % 0 % (0.0-2.0); EOSINOPHIL % 0 % (0-5); HEMATOCRIT 32.9 % (42-52); MEAN CORPUSCULAR HGB 30.1 PG (27.0-31.0); MEAN CORPUSCULAR HGB CONC 33.2 G/DL (33.0-37.0); MEAN CORPUSCULAR VOLUME 90.6 FL (80.0-94.0); PLATELET COUNT 233 /CUMM (130-400); RBC DISTRIBUTION WIDTH 16.6 % (11.5-14.5); RED BLOOD CELL CT 3.63 /CUMM (4.70-6.10); WHITE BLOOD CELL COUNT 7.3 /CUMM (4.8-10.8)
[2017-10-21 10:22] VITALS: BP 102/60
[2017-10-21 11:06] LABS: GRANULOCYTE % 93.1 % (42.2-75.2)
--- NOTE | 2017-10-21 11:39 | PN- Pulmonary ---
Subjective HPI/Critical Care Issues: Patient seen and examined this morning. He appears to be less labored in his breathing. He is awaiting studies and evaluation by GI. Objective Current Medications: Current Medications Sig/Joel Start time Last Medication Dose Route Stop Time Status Admin Acetaminophen 650 MG Q6P PRN 10/19 1530 AC PO Albuterol Sulfate 3 ML EVERY 4 HRS/AWAKE 10/19 2000 AC 10/21 INH 0805 Albuterol Sulfate 2 PUF Q4 PRN 10/19 1615 AC 10/20 INH 0605 Apixaban 5 MG BID 10/19 2200 AC 10/21 PO 0858 Atorvastatin Calcium 10 MG 1700 10/20 1700 AC 10/20 PO 1659 Benzonatate 100 MG TID 10/20 1006 AC 10/21 PO 0858 Budesonide/ 2 PUF BID 10/20 1502 AC 10/21 Formoterol Fumarate INH 0859 Guaifenesin 600 MG Q12 10/20 1006 AC 10/21 PO 0858 Lisinopril 5 MG DAILY 10/20 1000 AC 10/21 PO 0859 Methylprednisolone 60 MG Q8 10/19 2200 AC 10/21 IV 0508 Omeprazole 20 MG DAILY AC 10/20 0700 AC 10/21 PO 0509 Oxycodone/ 2 TAB Q6P PRN 10/19 1530 AC Acetaminophen PO Vital Signs & I&O Last 24 Hrs of Vitals and I&O: Vital Signs Date Time Temp Pulse Resp B/P B/P Pulse O2 O2 Flow FiO2 Mean Ox Delivery Rate 10/21 1022 98.3 90 18 102/60 92 10/21 0859 68 122/70 10/21 0805 89 Venti Mask 55% 10/21 08 Venti Mask 55% 10/21 0000 Venti Mask 50% 10/20 2259 99.7 68 20 130/70 95 Nasal Cannula 10/20 1700 99.1 99 24 110/60 91 Venti Mask 50% 10/20 1630 93 Venti Mask 50% 10/20 1600 91 Venti Mask 50% Intake & Output 10/21 1600 10/21 0800 10/21 0000 Intake Total 480 450 Output Total 500 Balance 480 -50 Intake, Oral 480 450 Number 1 1 Bowel Movements Output, Urine 500 Exam Other Physical Findings: Generally - Awake, alert Head and neck - wearing a Ventimask Cardiovascular - S1, S2 Lungs -rare rhonchi Abdomen - Bowel sounds positive, soft, non-tender Extremities - without edema Results Last 24 Hrs of Lab Results: Laboratory Tests 10/21/17 0735: Anion Gap 14, Estimated GFR > 60, BUN/Creatinine Ratio 31.7 H, CBC w Diff NO MAN DIFF REQ, RBC 3.63 L, MCV 90.6, MCH 30.1, RDW 16.6 H, MPV 9.0, Gran % 93.1 H, Lymphocytes % 3.7 L, Monocytes % 3.2, Eosinophils % 0, Basophils % 0, Absolute Granulocytes 6.8 H, Absolute Lymphocytes 0.3 L, Absolute Monocytes 0.2, Absolute Eosinophils 0, Absolute Basophils 0, PUBS MCHC 33.2 10/20/17 1735: Serum Alcohol < 10.0 Impression/Plan Impression/Plan Impression/Plan: Impression 71 year old man. NSCLC. Hx of PE on a/c. Treated with Taxol by Dr. Ross. * Acute hypoxemic respiratory failure - this could be secondary to significant pulmonary hypertension which needs to be investigated or possibly an exacerbation of COPD * Non-small cell lung carcinoma * Difficulty swallowing with a narrowing of the mid to distal esophagus * hx of PE on eliquis Plan -REDUCE solumedrol to 40mg iv q8h -trc/nebs -begin symbicort with rinsing of the mouth -tessalon perles for cough -check ECHO -would investigate esophageal narrowing and recommend GI evaluation -incentive spirometry - ensure in room and instructed on use -flutter device -out of bed as tolerated -reduce fio2 to a goal spo2 of >92% DVT prophylaxis at all times
--- NOTE | 2017-10-21 13:52 | Cons- Gastroenterology ---
General Information and HPI Consulting Request Date of Consult: 10/21/17 Requested By: Kervin Aguirre MD Reason for Consult: Dysphagia, abnormal ct scan showing esophageal narrowing. Source of Information: patient, old records Exam Limitations: no limitations History of Present Illness: Mr. Soriano is a 51 year old male with with locally advanced non-small cell lung carcinoma on taxol and a PE/DVT on eliquis who was admitted to on for progressive shortness of breath being treated as a COPD exacerbation. Secondary to his history of PEs a ct scan of his chest was obtained which was negaive for a PE, but did show esophageal narrowing from extrinsic compression, but a tumor infiltrating his esophagus could not be ruled out. He notes that he has had some intermittent dysphagia to solids over the past few months, but not to liquids. All the food he eats does eventually go down and he is without any vomiting. He also denies any abdominal pain or heartburn which he states has been an issue for him in the past. He also notes that his malignancy was initially discovered after presenting with dysphagia which he notes improved after getting chemotherapy. He also ultimately received radiation which he notes also caused problems swallowing, but that discomfort has since resolved. He also notes that the dysphagia he is experiencing now isn't as severe as when he was first diatgnosed. He is without any rectal bleeding or melena and for the most part he has normal bowel movements. He has had improvement in his shortness of breath since admission, but he is still requiring supplemental oxygen. Allergies/Medications Allergies: Coded Allergies: NO KNOWN ALLERGIES (10/05/14) Home Med List: Apixaban (Eliquis) 5 MG TABLET 1 TAB PO BID BLOOD THINNER (Reported) Atorvastatin Calcium (Lipitor) 10 MG TABLET 1 TAB PO DAILY CHOLESTEROL ( Reported) Lisinopril 5 MG TABLET 1 TAB PO DAILY BP (Reported) Prednisone 20 MG TABLET 1 TAB PO DAILY STEROID (Reported) Current Medications: Current Medications Sig/Joel Start time Last Medication Dose Route Stop Time Status Admin Acetaminophen 650 MG Q6P PRN 10/19 1530 AC PO Albuterol Sulfate 3 ML EVERY 4 HRS/AWAKE 10/19 1999 AC 10/21 INH 1142 Albuterol Sulfate 2 PUF Q4 PRN 10/19 1615 AC 10/20 INH 0605 Apixaban 5 MG BID 10/19 2200 AC 10/21 PO 0858 Atorvastatin Calcium 10 MG 1700 10/20 1700 AC 10/20 PO 1659 Benzonatate 100 MG TID 10/20 1006 AC 10/21 PO 0858 Budesonide/ 2 PUF BID 10/20 1502 AC 10/21 Formoterol Fumarate INH 0859 Guaifenesin 600 MG Q12 10/20 1006 AC 10/21 PO 0858 Lisinopril 5 MG DAILY 10/20 1000 AC 10/21 PO 0859 Methylprednisolone 60 MG Q8 10/19 2200 AC 10/21 IV 1337 Omeprazole 20 MG DAILY AC 10/20 0700 AC 10/21 PO 0509 Oxycodone/ 2 TAB Q6P PRN 10/19 1530 AC Acetaminophen PO Past History Travel History Traveled to [place] past 21 day No Medical History Blood Transfusion Hx: No Neurological: NONE EENT: NONE Cardiovascular: hyperlipidemia Respiratory: COPD, pneumonia Gastrointestinal: NONE Hepatic: NONE Renal: NONE Musculoskeletal: NONE Psychiatric: NONE Endocrine: NONE Blood Disorders: PE Cancer(s): lung cancer Surgical History Surgical History: mediastinoscopy Family History Relations & Conditions If Any: FATHER, , Age 40-50; Cause: Myocardial infarct. BROTHER, ; Cause: Heart disease. BROTHER FH: CABG (coronary artery bypass surgery) MOTHER FH: cancer of genital organ Psychosocial History Where Do You Live? Home Smoking Status: Former Smoker ETOH Use: denies use (2 glasses of wine/daily), occasional use Illicit Drug Use: denies illicit drug use Review of Systems Review of Systems Constitutional: Reports: malaise, weakness. Denies: diaphoresis, fever. EENTM: Denies: no symptoms. Cardiovascular: Reports: orthopena. Denies: chest pain, palpitations, syncope. Respiratory: Reports: cough, short of breath. Denies: hemoptysis, sputum production. GI: Reports: see HPI. Genitourinary: Denies: no symptoms. Musculoskeletal: Reports: joint pain. Denies: joint swelling, muscle pain, muscle stiffness. Skin: Denies: no symptoms. Neurological/Psychological: Denies: no symptoms. Hematologic/Endocrine: Denies: no symptoms. Immunologic/Allergic: Denies: no symptoms. All Other Systems: Reviewed and Negative Exam & Diagnostic Data Vital Signs and I&O Vital Signs Date Time Temp Pulse Resp B/P B/P Pulse O2 O2 Flow FiO2 Mean Ox Delivery Rate 10/21 1022 98.3 90 18 102/60 92 10/21 0859 68 122/70 10/21 0805 89 Venti Mask 55% 10/21 0800 Venti Mask 55% 10/21 0000 Venti Mask 50% 10/20 2259 99.7 68 20 130/70 95 Nasal Cannula 10/20 1700 99.1 99 24 110/60 91 Venti Mask 50% 10/20 1630 93 Venti Mask 50% 10/20 1600 91 Venti Mask 50% Intake & Output 10/21 1600 10/21 0400 10/20 1600 10/20 0400 10/19 1600 10/19 0400 Intake Total 548 798 7005 250 2000 Output Total 500 250 201 Balance 480 -50 570 42 0323 Intake, IV 90 10 1999 Intake, Oral 480 450 940 240 Number 1 1 0 0 Bowel Movements Output, Stool 1 Output, Urine 500 250 200 Patient 197 lb 197 lb Weight Weight Reported by Patient Measurement Method Physical Exam General Appearance: well developed/nourished, alert, awake, mild distress Head: atraumatic, normal appearance Eyes: Bilateral: normal appearance. Ears, Nose, Throat: normal pharynx, normal ENT inspection Neck: normal inspection, supple, full range of motion Respiratory: decreased breath sounds, wheezing Cardiovascular: regular rate/rhythm Gastrointestinal: normal bowel sounds, soft, non-tender, no organomegaly Rectal: deferred Back: normal inspection, normal range of motion Extremities: normal inspection, no edema Neurologic/Psych: no motor/sensory deficits, awake, alert, oriented x 3 Skin: intact, normal color, warm/dry Results Pertinent Lab Results: Laboratory Tests 10/21 10/20 0735 1735 Chemistry Sodium (137 - 145 mmol/L) 137 Potassium (3.5 - 5.1 mmol/L) 4.4 Chloride (98 - 107 mmol/L) 100 Carbon Dioxide (22 - 30 mmol/L) 24 Anion Gap (5 - 16) 14 BUN (9 - 20 mg/dL) 19 Creatinine (0.7 - 1.2 mg/dL) 0.6 L Estimated GFR (>60 ml/min) > 60 BUN/Creatinine Ratio (7 - 25 %) 31.7 H Hematology CBC w Diff NO MAN DIFF REQ WBC (4.8 - 10.8 /CUMM) 7.3 RBC (4.70 - 6.10 /CUMM) 3.63 L Hgb (14.0 - 18.0 G/DL) 10.9 L Hct (42 - 52 %) 32.9 L MCV (80.0 - 94.0 FL) 90.6 MCH (27.0 - 31.0 PG) 30.1 RDW (11.5 - 14.5 %) 16.6 H Plt Count (130 - 400 /CUMM) 233 MPV (7.4 - 10.4 FL) 9.0 Gran % (42.2 - 75.2 %) 93.1 H Lymphocytes % (20.5 - 51.1 %) 3.7 L Monocytes % (1.7 - 9.3 %) 3.2 Eosinophils % (0 - 5 %) 0 Basophils % (0.0 - 2.0 %) 0 Absolute Granulocytes (1.4 - 6.5 /CUMM) 6.8 H Absolute Lymphocytes (1.2 - 3.4 /CUMM) 0.3 L Absolute Monocytes (0.10 - 0.60 /CUMM) 0.2 Absolute Eosinophils (0.0 - 0.7 /CUMM) 0 Absolute Basophils (0.0 - 0.2 /CUMM) 0 PUBS MCHC (33.0 - 37.0 G/DL) 33.2 Toxicology Serum Alcohol (<10 MG/DL) < 10.0 10/20 10/20 1117 1113 Chemistry Sodium (137 - 145 mmol/L) 134 L Potassium (3.5 - 5.1 mmol/L) 3.9 Chloride (98 - 107 mmol/L) 99 Carbon Dioxide (22 - 30 mmol/L) 21 L Anion Gap (5 - 16) 15 BUN (9 - 20 mg/dL) 17 Creatinine (0.7 - 1.2 mg/dL) 0.6 L Estimated GFR (>60 ml/min) > 60 BUN/Creatinine Ratio (7 - 25 %) 28.3 H Hematology CBC w Diff NO MAN DIFF REQ WBC (4.8 - 10.8 /CUMM) 6.8 RBC (4.70 - 6.10 /CUMM) 4.01 L Hgb (14.0 - 18.0 G/DL) 12.0 L Hct (42 - 52 %) 36.6 L MCV (80.0 - 94.0 FL) 91.1 MCH (27.0 - 31.0 PG) 29.8 RDW (11.5 - 14.5 %) 15.9 H Plt Count (130 - 400 /CUMM) 241 MPV (7.4 - 10.4 FL) 9.1 Gran % (42.2 - 75.2 %) 95.8 H Lymphocytes % (20.5 - 51.1 %) 2.3 L Monocytes % (1.7 - 9.3 %) 1.9 Eosinophils % (0 - 5 %) 0 Basophils % (0.0 - 2.0 %) 0 Absolute Granulocytes (1.4 - 6.5 /CUMM) 6.5 Absolute Lymphocytes (1.2 - 3.4 /CUMM) 0.2 L Absolute Monocytes (0.10 - 0.60 /CUMM) 0.1 Absolute Eosinophils (0.0 - 0.7 /CUMM) 0 Absolute Basophils (0.0 - 0.2 /CUMM) 0 PUBS MCHC (33.0 - 37.0 G/DL) 32.7 L 10/20 10/19 0350 1605 Chemistry Lactic Acid (0.7 - 2.1 mmol/L) 1.9 Coagulation PT (9.4 - 12.5 SEC) 16.6 H INR (0.90 - 1.17) 1.59 H APTT (25 - 37 SEC) 29 Urines Urine Color (YEL,AMB,STR) YEL Urine Clarity (CLEAR) CLEAR Urine pH (5.0 - 8.0) 6.0 Ur Specific [place] (1.001 - 1.035) >= 1.030 Urine Protein (NEG,<30 MG/DL) NEG Urine Ketones (NEG) TRACE H Urine Nitrite (NEG) NEG Urine Bilirubin (NEG) NEG Urine Urobilinogen (0.1 - 1.0 EU/dl) 0.2 Ur Leukocyte Esterase (NEG) NEG Ur Microscopic EXAM NOT REQUIRED Urine Hemoglobin (NEG) NEG Urine Glucose (N MG/DL) 250 H 10/19 10/19 1155 1148 Blood Gas pH (7.35 - 7.45 PH) 7.53 H pCO2 (35 - 45 TORR) 24 L pO2 (80 - 100 TORR) 54 L HCO3 (21 - 28 MEQ/L) 20 L ABG O2 Sat (Measured) (>96.0 %) 87.0 L P-50 (Temp Corrected) N Carboxyhemoglobin (1.5 - 5.0 %) 0.7 L O2 Concentration % 5LPM O2 Delivery Method NC Chemistry Sodium (137 - 145 mmol/L) 138 Potassium (3.5 - 5.1 mmol/L) 4.5 Chloride (98 - 107 mmol/L) 99 Carbon Dioxide (22 - 30 mmol/L) 24 Anion Gap (5 - 16) 15 BUN (9 - 20 mg/dL) 19 Creatinine (0.7 - 1.2 mg/dL) 0.7 Estimated GFR (>60 ml/min) > 60 BUN/Creatinine Ratio (7 - 25 %) 27.1 H Glucose (65 - 99 mg/dL) 128 H Lactic Acid (0.7 - 2.1 mmol/L) 3.2 H Calcium (8.4 - 10.2 mg/dL) 8.8 Total Bilirubin (0.2 - 1.3 mg/dL) 1.2 AST (17 - 59 U/L) 25 ALT (21 - 72 U/L) 50 Alkaline Phosphatase (< 127 U/L) 96 Troponin I (<0.11 ng/ml) 0.02 Mou-O-Hsjmxrolfvv Pept (<125 pg/mL) 582 H Total Protein (6.3 - 8.2 g/dL) 6.5 Albumin (3.5 - 5.0 g/dL) 3.9 Globulin (1.9 - 4.2 gm/dL) 2.6 Albumin/Globulin Ratio (1.1 - 2.2 %) 1.5 Hematology CBC w Diff NO MAN DIFF REQ WBC (4.8 - 10.8 /CUMM) 7.7 RBC (4.70 - 6.10 /CUMM) 4.42 L Hgb (14.0 - 18.0 G/DL) 13.1 L Hct (42 - 52 %) 39.9 L MCV (80.0 - 94.0 FL) 90.4 MCH (27.0 - 31.0 PG) 29.8 RDW (11.5 - 14.5 %) 16.2 H Plt Count (130 - 400 /CUMM) 284 MPV (7.4 - 10.4 FL) 8.1 Gran % (42.2 - 75.2 %) 93.8 H Lymphocytes % (20.5 - 51.1 %) 3.0 L Monocytes % (1.7 - 9.3 %) 2.8 Eosinophils % (0 - 5 %) 0.1 Basophils % (0.0 - 2.0 %) 0.3 Absolute Granulocytes (1.4 - 6.5 /CUMM) 7.2 H Absolute Lymphocytes (1.2 - 3.4 /CUMM) 0.2 L Absolute Monocytes (0.10 - 0.60 /CUMM) 0.2 Absolute Eosinophils (0.0 - 0.7 /CUMM) 0 Absolute Basophils (0.0 - 0.2 /CUMM) 0 PUBS MCHC (33.0 - 37.0 G/DL) 32.9 L Miscellaneous Phlebotomy Draw Site RIGHT RADIAL Imaging/Other Studies: SERVICE DATE: 10/20/17- EXAM TYPE: CAT - CTA CHEST EXAMINATION: CT ANGIOGRAM CHEST CLINICAL INFORMATION: History lung carcinoma. Frequent desaturation. Shortness of breath COMPARISON: Multiple prior CT chest and PET/CT with most recent prior dated 09/16/2017 TECHNIQUE: Multiple axial images were obtained through the chest after the administration of 95 mL of Optiray 350 intravenous contrast. Images were reviewed on a dedicated 3-D workstation. DLP: 543.16 mGy-cm FINDINGS: Vasculature: There is no CT evidence of acute pulmonary embolism. Limited assessment of the right lower lobe pulmonary artery branches due to surrounding consolidation. No evidence of pulmonary embolism noted in the central or visualized portions of the segmental pulmonary arteries. Narrowed right lower lobe pulmonary artery segmental branches (series 201 image 60) by surrounding masslike consolidation. Atherosclerotic disease of the aorta and coronary arteries. LUNGS: Masslike consolidation right infrahilar region (image 37/65). It appears to be encasing right lower lobe pulmonary artery branches. There is mass effect on the bronchovascular structures. Narrowing of the lower lobe segmental pulmonary arteries and bronchi (series 201 image 60). There is mass effect and narrowing of the esophagus. Lesion measures approximately 4.1 x 4.1 cm (series 4 image 38) with associated moderate atelectatic changes noted in the right lower lobe. This has increased over the interval. Underlying reticular changes bilateral lungs compatible with chronic underlying interstitial lung disease. This has remained stable compared to the prior study. No new or suspicious pulmonary nodules identified. Mild bronchiectatic changes right middle lobe and right lower lobe similar to the prior study. Mediastinum: Right hilar adenopathy appears inseparable from the right infrahilar mass. Subcarinal lymphadenopathy measuring approximately 3 cm, with no significant interval change compared to the prior examination. Prevascular lymph node measuring approximately 1 cm in short axis. Mildly enlarged pretracheal and right paratracheal lymph nodes.There is mass effect with narrowing of the mid to distal esophagus. Invasion of the esophageal wall cannot be excluded. (Series 4 image 29) Upper abdomen: Adrenal glands are within normal limits. Visualized liver, spleen, pancreas are within normal limits. Osseous structures: No gross bony destructive changes identified. IMPRESSION: 1. There is no definite CTA evidence of acute pulmonary embolism. 2. Right hilar/infrahilar mass encasing right lower lobe vessels with narrowing of the right lower lobe pulmonary artery branches. 3. No significant interval change in the overall size of the mass or associated lymphadenopathy. 4. Interval increase in the atelectatic changes right lower lobe. 5. There is mass effect with narrowing of the mid to distal esophagus. Invasion of the esophageal wall cannot be excluded. Assessment/Plan Assessment/Recommendations: Assessment: Mr. Soriano is a 71 year old male with non-small cell lung cancer for which he is currently on taxol who was admitted for shortness of breath which is currnently being attributed to a COPD exacerbation who has been noted to have a narrowed esophagus on a ct scan which was done to rule out a PE which he didn't have. He does have some intermittent dysphagia which is quite likely secondary to the extrinsic compression appreciated on the ct scan. Tumor ingrowth into the esophagus was not able to be ruled out and it would not be unreasonable to pursue a diagnostic EGD to assess for this, but as his dysphagia is mild and not limiting what he can eat this isn't urgent and I would therefore wait until his respiratory status improves. He may also ultimately benefit from an esophageal stent, but would only pursue this if he has tumor ingrowth otherwise a stent will likely migrate having nothing to 'attach' to and hold it in place. Would also wait until his dysphagia worsens and all other modalities to shrink the tumor have been exhausted to consider stenting. Recommendations: 1. Treatment of COPD exacerbation by primary care team. 2. Once respiratory status improves will plan for a diagnostic EGD to further evaluate the ct scan findings and will plan to do this on his anticoagulation considering it will likely only be a diagnostic test. This can also be pursued as an outpatient. 3. Diet as tolerated. 4. Anti-secretroy therapy as needed for heartburn or dyspeptic symptoms. I will continue to follow this patient and make further recommendations based on his clinical course and the results of the upper endoscopy if and when it is performed. Problem List: 1. Mediastinal lymphadenopathy 2. Emphysema lung Copies To: Cody NICOLAS,Stephen Ramirez. Consult Acknowledgment - Thank you for your consult request.
[2017-10-21 14:14] VITALS: BP 94/50
[2017-10-21 22:54] VITALS: BP 118/78
[2017-10-22 06:58] VITALS: BP 126/80
--- NOTE | 2017-10-22 07:11 | PN- Housestaff ---
Luzma NICOLAS,Belkis 10/22/17 0711: Subjective Follow-up For: 1.Acute on chronic hypoxic resp failure 2.hx of PE 3. non small cell lung cancer on chemotherapy 4. COPD 5. Hyperlipidemia 6.Hypertension Subjective: Symptoms seen and examined at bedside, he is on 60% high flow oxygen, started on IV Solu-Medrol 60 every 8, reports improvement of his cough and expectoration, denies fever, chills, nausea, vomiting or diarrhea Review of Systems Constitutional: Denies: no symptoms. Cardiovascular: Denies: no symptoms. Respiratory: Reports: cough, short of breath, sputum production. Gastrointestinal: Denies: no symptoms. Genitourinary: Denies: no symptoms. Musculoskeletal: Denies: no symptoms. Skin: Denies: no symptoms. Objective Last 24 Hrs of Vital Signs/I&O Vital Signs Date Time Temp Pulse Resp B/P B/P Pulse O2 O2 Flow FiO2 Mean Ox Delivery Rate 10/22 0834 91 Nasal 60% Cannula 10/22 0658 98.1 69 26 126/80 99 10/22 0242 96 Nasal 60% Cannula 10/22 0000 Nasal 60% Cannula 10/21 2254 98.4 69 22 118/78 98 Room Air 10/21 2049 90 Nasal 60% Cannula 10/21 1600 Nasal 55% Cannula 10/21 1555 93 Nasal 55% Cannula 10/21 1414 Venti Mask 55% 10/21 1414 98.3 91 22 94/50 90 10/21 1022 98.3 90 18 102/60 92 Intake & Output 10/22 1600 10/22 0800 10/22 0000 Intake Total 240 Output Total 451 Balance 240 -451 Intake, Oral 240 Output, Stool 1 Output, Urine 450 Physical Exam General Appearance: Alert, Oriented X3, Cooperative, No Acute Distress HEENT: Atraumatic, PERRLA, EOMI, Mucous Membr. moist/pink Neck: Supple, No JVD Cardiovascular: Normal S1, Normal S2, No Murmurs Lungs: mild wheezes on the right side Abdomen: Normal Bowel Sounds, Soft, No Tenderness Extremities: No Clubbing, No Cyanosis, No Edema Assessment/Plan Assessment: 71 years old male with past medical history of hypertension, hyperlipidemia, high lung cancer (08/2015) home is on weekly chemotherapy and follow-up with Dr. Barron , and home oxygen of 2 L nasal cannula, who presents to [place] ED complaining of runny nose, weakness, chills, cough, whitish sputum, frequent oxygen desaturation which he measured at home which was in the range of 88, of note the patient's was admitted to [facility] over the weekend for complaints of COPD exacerbation. Vital Signs on admission: Blood pressure 118/69, pulse 101, temperature 96.9, pulse ox 96 on 45% Ventimask Labs on admission: WBC 7.7, RBCs 4.42, hemoglobin 13.1, platelet 284, sodium 138 , potassium 4.5, co2 24, anion gap 15, BUN 19, creatinine 0.7, glucose 128, lactic acid 3.2, ABG was significant for respiratory alkalosis with pH 7.53, PCO2 24, PO2 54, HCO3 20 rapid flu test was negative EKG showed heart rate showed RBBB, hr 110, ME 148, QTC 504 Chest x-ray: Cardiomegaly. Bibasilar patchy atelectasis and/or scarring. Prominent right paramediastinal soft tissue density likely scarring overall ectatic vessels. No abnormality was seen on the CT PET exam 09/16/2017 Persistent nonspecific linear mild diffuse interstitial lung markings are noted with asymmetric low right sided lung volume, appears similar to 02/28/2017. No radiographic evidence of any new abnormalities. # Acute on chronic hypoxic respiratory failure Most likely due to COPD exacerbation PE was ruled out with CTA -continue to monitor on [facility] floor - edda down the oxygen to a goal PO2 > 92% -TRC, Nebs -incentive spirometery -Symbicort with rinsing of the mouth -Flutter device -Out of bed as toleratedo -Solumedrol 40 Q 8 - folow up on Pulm and Oncology recomm. #Hx of PE: Continue home dose of Eliquis # chronic medical cond including HTN, HLD continue home meds Full code DVT prophylaxis with Eliquis Regular diet Problem List: 1. Acute hypoxemic respiratory failure Pain Ratin Pain Location: N/A Pain Goal: Remain pain free Pain Plan: pain pathway Tomorrow's Labs & Rationales: cbc bep DVT/Prophylaxis: mechanical, pharmacological Oseas Pratt MD 10/22/17 1732: Attending Review Statement Attending Statement Attending Statement: examined this patient, discuss w/resident/PA/PAYROLL TECHNICIAN, agreed w/resident/PA/PAYROLL TECHNICIAN, reviewed EMR data (avail), discussed with case mgmt, amended to note Attending Assessment/Plan: The patient was seen and discussed with house staff. Appreciate pulmonary follow -up. Breath sounds improved today compared to my last prior exam 2 days ago. Now on high flow nasal catheter. Continue to wean as able. Steroids as per Dr. Boykin. No GI intervention needed at present for esophageal compression.
[2017-10-22 08:20] LABS: ABSOLUTE BASOPHIL COUNT 0 /CUMM (0.0-0.2); ABSOLUTE EOSINOPHIL COUNT 0 /CUMM (0.0-0.7); ABSOLUTE GRANULOCYTE CT 6.2 /CUMM (1.4-6.5); ABSOLUTE LYMPH COUNT 0.3 /CUMM (1.2-3.4); ABSOLUTE MONOCYTE COUNT 0.4 /CUMM (0.10-0.60); BASOPHIL % 0 % (0.0-2.0); EOSINOPHIL % 0 % (0-5); GRANULOCYTE % 90.9 % (42.2-75.2); HEMATOCRIT 33.2 % (42-52); MEAN CORPUSCULAR HGB 30.2 PG (27.0-31.0); MEAN CORPUSCULAR HGB CONC 33.4 G/DL (33.0-37.0); MEAN CORPUSCULAR VOLUME 90.4 FL (80.0-94.0); MEAN PLATELET VOLUME 8.8 FL (7.4-10.4); PLATELET COUNT 229 /CUMM (130-400); RBC DISTRIBUTION WIDTH 16.6 % (11.5-14.5); RED BLOOD CELL CT 3.67 /CUMM (4.70-6.10)
--- NOTE | 2017-10-22 09:03 | Discharge Summary ---
Visit Information Visit Dates Admission Date: 10/19/17 Discharge Date: 10/27/17 Hospital Course Course Attending Physician: Kervin Aguirre MD [facility] 71 years old male with past medical history of hypertension, hyperlipidemia, non -small cell lung carcinoma (08/2015) is currently being treated with single agent Taxol. and follow-up with Dr. Barron , on home oxygen of 2 L nasal cannula , who presents to [place] [facility] complaining of runny nose, weakness, chills, cough, whitish sputum, frequent oxygen desaturation which he measured at home which was in the range of 88, Patient is an ex-smoker he used to smoke one pack of cigarettes daily for 40 years, quit 10 years ago,Drink alcohol 2 glasses of wine daily, Denies recreational drug use In the ED the patient was noticed to have respiratory alkalosis with frequent desaturation and he had to be started on 45% Ventimask He received 1 dose of IV Solu-Medrol 125 mg, albuterol inhaler, Atrovent Vital Signs on admission: Blood pressure 118/69, pulse 101, temperature 96.9, pulse ox 96 on 45% Ventimask Labs on admission: WBC 7.7, RBCs 4.42, hemoglobin 13.1, platelet 284, sodium 138 , potassium 4.5, co2 24, anion gap 15, BUN 19, creatinine 0.7, glucose 128, lactic acid 3.2, ABG was significant for respiratory alkalosis with pH 7.53, PCO2 24, PO2 54, HCO3 20 rapid flu test was negative EKG showed heart rate showed RBBB, hr 110, CO 148, QTC 504 Chest x-ray: Cardiomegaly. Bibasilar patchy atelectasis and/or scarring. Prominent right paramediastinal soft tissue density likely scarring overall ectatic vessels. No abnormality was seen on the CT PET exam 09/16/2017 Persistent nonspecific linear mild diffuse interstitial lung markings are noted with asymmetric low right sided lung volume, appears similar to 02/28/2017. No radiographic evidence of any new abnormalities. CTA chest: 1. There is no definite CTA evidence of acute pulmonary embolism. 2. Right hilar/infrahilar mass encasing right lower lobe vessels with narrowing of the right lower lobe pulmonary artery branches. 3. No significant interval change in the overall size of the mass or associated lymphadenopathy. 4. Interval increase in the atelectatic changes right lower lobe. 5. There is mass effect with narrowing of the mid to distal esophagus. Invasion of the esophageal wall cannot be excluded. ECHO 10/16 Mild right ventricular dilatation, mild aortic regurg, mild aortic dilatation at the level of sinus of Valsalva, mildly dilated inferior vena cava, ef > 65 # Acute on chronic hypoxic respiratory failure -Most likely due to COPD exacerbation -PE was ruled out with CTA -He was treated on floor -Was treated with high flow oxygen to a goal PO2 > 92%, on the day of leaving the hospital AMA the patient was on high flow oxygen 55% -He was also treated with TRC, Nebs, incentive spirometery, Symbicort with rinsing of the mouth -Flutter device -Solumedrol taper, on the day of leaving he was on Solu-Medrol 40 mg every 12 hours, he was discharged on prednisone taper 60x4, 50x4, 40x4, 30x4, 20x4, stay on 10 until he sees his casting operator helper #Hx of PE: Was kept on home dose of Eliquis # chronic medical cond including HTN, HLD Was kept on home meds Full code DVT prophylaxis with Eliquis Regular diet Allergies: Coded Allergies: NO KNOWN ALLERGIES (10/05/14) Disposition Summary Disposition Principal Diagnosis: Acute on chronic hypoxic respiratory failure Most likely due to COPD exacerbation Additional Diagnosis: -Hx of PE -chronic medical cond including HTN, HLD Discharge Disposition: home health services Discharge Instructions General Discharge Information Code Status: Full Code Patient's Diet: regular diet Patient's Activity: as tolerated Follow-Up Instructions/Appts: 1- Please follow up with your PCP in 1 week of discharge 2- Please follow up with casting operator helper in 1week of discharge 3- Please follow up with oncologist in 1 week of discharge Medications at Discharge Discharge Medications: Stop taking the following medications: Prednisone (Prednisone) 20 MG TABLET ORAL DAILY Qty = 30 Continue taking these medications: Atorvastatin Calcium (Lipitor) 10 MG TABLET 1 Tablet ORAL DAILY Qty = 90 Comments: Last Taken:10/26/17 Time:5:25 PM Apixaban (Eliquis) 5 MG TABLET 1 Tablet ORAL TWICE DAILY Qty = 90 Comments: Last Taken:10/27/17 Time:9:26 AM Lisinopril (Lisinopril) 5 MG TABLET 1 Tablet ORAL DAILY Qty = 90 Comments: Last Taken:10/27/17 Time:9:26 AM Start taking the following new medications: Albuterol Sulfate (Ventolin Hfa) 90 MCG HFA.AER.AD 2 Puff Inhale through mouth Every 4 hours as needed for SOB/WHEEZING Qty = 3 No Refills Instructions: . Benzonatate (Benzonatate) 100 MG CAPSULE 100 Milligram ORAL THREE TIMES DAILY as needed for cough Qty = 60 No Refills Instructions: . Comments: Last Taken:10/27/17 Time:9:26 AM Budesonide/Formoterol Fumarate (Symbicort 80-4.5 Mcg Inhaler) 80 MCG-4.5 MCG/ ACTUATION HFA.AER.AD 2 Puff Inhale through mouth TWICE DAILY as needed for SOB Qty = 3 No Refills Instructions: . Comments: Last Taken:10/27/17 Time:9:26 AM Guaifenesin (Guaifenesin ER) 600 MG TAB.ER.12H 600 Milligram ORAL EVERY 12 HOURS as needed for COUGH Qty = 30 No Refills Instructions: . Comments: Last Taken:10/27/17 Time:9:26 AM Omeprazole (Omeprazole) 20 MG CAPSULE.DR 20 Milligram ORAL DAILY BEFORE BREAKFAST Qty = 30 No Refills Instructions: . Comments: Last Taken:10/27/17 Time:5:35 AM Prednisone (Prednisone) 10 MG TABLET 1 Tablet ORAL DAILY Qty = 78 No Refills Instructions: . Comments: take 6 tabs on 10/28-10/30 take 5 tabs on 10/31-11/03 take 4 tabs on 11/04-11/07 take 3 tabs on 11/08-11/11 take 2 tabs on 11/12-11/15 take one tab on 11/16-11/19 then stop Last Taken:10/27/17: 60 MG GIVEN Time:12:18 PM Copies To: Gabbi Farias DO
[2017-10-22 09:46] LABS: WHITE BLOOD CELL COUNT 6.9 /CUMM (4.8-10.8)
[2017-10-22] MEDS ORDERED: GUAIFENESIN ER600 MG PO (13:56)
[2017-10-22] MEDS ORDERED: BENZONATATE100 M1 PO (13:56)
--- NOTE | 2017-10-22 13:58 | Patient Discharge Instructions ---
Discharge Instructions General Discharge Information You were seen/treated for: Acute hypoxic resp failure due to COPD exacerbation Special Instructions: 1- Please follow up with your PCP in 1 week of discharge 2- Please follow up with inbound ingredient logistics specialist in 1week of discharge 3- Please follow up with oncologist in 1 week of discharge 4- Please come back to the ED if you experience SOB Diet Continue normal diet: Yes Activity Full Activity/No Limits: Yes Acute Coronary Syndrome Inclusion Criteria At DC or during hospital stay patient has or had the following: ACS DIAGNOSIS No Discharge Core Measures Meds if any: Prescribed or Continued at Discharge Meds if any: NOT Prescribed or Continued at Discharge Congestive Heart Failure Inclusion Criteria At DC or during hospital stay patient has or had the following: CHF DIAGNOSIS No Discharge Core Measures Meds if any: Prescribed or Continued at Discharge Meds if any: NOT Prescribed or Continued at Discharge Cerebrovascular accident Inclusion Criteria At DC or during hospital stay patient has or had the following: CVA/TIA Diagnosis No Discharge Core Measures Meds if any: Prescribed or Continued at Discharge Meds if any: NOT Prescribed or Continued at Discharge Venous thromboembolism Inclusion Criteria VTE Diagnosis No VTE Type NONE VTE Confirmed by (Test) NONE Discharge Core Measures - Per Current guidelines, there needs to be overlap - treatment for the first 5 days of Warfarin therapy. - If discharged on Warfarin prior to 5 days of - overlap therapy, the patient will need to be - assessed for post discharge needs including - *Post discharge parental anticoagulation - *Warfarin and/or parental anticoagulation education - *Follow up date to check INR post discharge At least 5 days overlap therapy as Inpatient No Meds if any: Prescribed or Continued at Discharge Note: Overlap Therapy is Warfarin and Anticoagulant Meds if any: NOT Prescribed or Continued at Discharge
--- NOTE | 2017-10-22 14:13 | PN- Pulmonary ---
Subjective HPI/Critical Care Issues: Patient seen and examined this morning. He is on high flow oxygen feeling relatively well today. Objective Current Medications: Current Medications Sig/Joel Start time Last Medication Dose Route Stop Time Status Admin Acetaminophen 650 MG Q6P PRN 10/19 1530 AC PO Albuterol Sulfate 3 ML EVERY 4 HRS/AWAKE 10/19 2000 AC 10/22 INH 1141 Albuterol Sulfate 2 PUF Q4 PRN 10/19 1615 AC 10/20 INH 0605 Apixaban 5 MG BID 10/19 2200 AC 10/22 PO 1043 Atorvastatin Calcium 10 MG 1700 10/20 1700 AC 10/21 PO 1632 Benzonatate 100 MG TID 10/20 1006 AC 10/22 PO 1044 Budesonide/ 2 PUF BID 10/20 1502 AC 10/22 Formoterol Fumarate INH 1045 Guaifenesin 600 MG Q12 10/20 1006 AC 10/22 PO 1043 Lisinopril 5 MG DAILY 10/20 1000 AC 10/22 PO 1043 Methylprednisolone 40 MG Q8 10/21 2200 AC 10/22 IV 0619 Methylprednisolone 60 MG Q8 10/19 2200 DC 10/21 IV 1337 Omeprazole 20 MG DAILY AC 10/20 0700 AC 10/22 PO 0619 Oxycodone/ 2 TAB Q6P PRN 10/19 1530 AC Acetaminophen PO Patient Medication 1 ED ONE ONE 10/22 1100 DC Teaching ED 10/22 1101 Vital Signs & I&O Last 24 Hrs of Vitals and I&O: Vital Signs Date Time Temp Pulse Resp B/P B/P Pulse O2 O2 Flow FiO2 Mean Ox Delivery Rate 10/22 1157 90 Nasal 60% Cannula 10/22 1043 69 126/80 10/22 0834 91 Nasal 60% Cannula 10/22 0800 92 Nasal 60% Cannula 10/22 0658 98.1 69 26 126/80 99 10/22 0242 96 Nasal 60% Cannula 10/22 0000 Nasal 60% Cannula 10/21 2254 98.4 69 22 118/78 98 Room Air 10/21 2049 90 Nasal 60% Cannula 10/21 1600 Nasal 55% Cannula 10/21 1555 93 Nasal 55% Cannula 10/21 1414 Venti Mask 55% 10/21 1414 98.3 91 22 94/50 90 Intake & Output 10/22 1600 10/22 0800 10/22 0000 Intake Total 240 Output Total 451 Balance 240 -451 Intake, Oral 240 Output, Stool 1 Output, Urine 450 Exam Other Physical Findings: Generally - Awake, alert Head and neck - wearing a Ventimask Cardiovascular - S1, S2 Lungs -rare rhonchi Abdomen - Bowel sounds positive, soft, non-tender Extremities - without edema Results Last 24 Hrs of Lab Results: Laboratory Tests 10/22/17 0710: Anion Gap 14, Estimated GFR > 60, BUN/Creatinine Ratio 38.3 H, CBC w Diff NO MAN DIFF REQ, RBC 3.67 L, MCV 90.4, MCH 30.2, RDW 16.6 H, MPV 8.8, Gran % 90.9 H, Lymphocytes % 4.0 L, Monocytes % 5.1, Eosinophils % 0, Basophils % 0, Absolute Granulocytes 6.2, Absolute Lymphocytes 0.3 L, Absolute Monocytes 0.4, Absolute Eosinophils 0, Absolute Basophils 0, PUBS MCHC 33.4 Impression/Plan Impression/Plan Impression/Plan: Impression 71 year old man. NSCLC. Hx of PE on a/c. Treated with Taxol by Dr. Ross. * Acute hypoxemic respiratory failure - this could be secondary to significant pulmonary hypertension which needs to be investigated or possibly an exacerbation of COPD * Non-small cell lung carcinoma * Difficulty swallowing with a narrowing of the mid to distal esophagus * hx of PE on eliquis Plan -keep solumedrol to 40mg iv q8h - plan for q12h tomorrow if no events -trc/nebs -begin symbicort with rinsing of the mouth -tessalon perlhayde for cough -f/u GI recs -f/u ECHO -incentive spirometry - ensure in room and instructed on use -flutter device -out of bed as tolerated -reduce fio2 to a goal spo2 of >92% DVT prophylaxis at all times
[2017-10-22 14:50] VITALS: BP 124/64
[2017-10-22 22:40] VITALS: BP 110/72
[2017-10-23 05:44] VITALS: BP 138/72
--- NOTE | 2017-10-23 07:16 | PN- Housestaff ---
Luzma NICOLAS,Belkis 10/23/17 0716: Subjective Follow-up For: Acute hypoxemic respiratory failure - this could be secondary to significant pulmonary hypertension which needs to be investigated or possibly an exacerbation of COPD Non-small cell lung carcinoma Difficulty swallowing with a narrowing of the mid to distal esophagus hx of PE on eliquis Subjective: Patient is seen and examined at bedside, saturating at 92 on 60% nasal cannula, continues to complain of cough and expectoration of whitish sputum, denies any chest pain, nausea, vomiting, diarrhea or constipation Review of Systems Constitutional: Denies: no symptoms. Cardiovascular: Denies: no symptoms. Respiratory: Reports: cough, short of breath, sputum production. Gastrointestinal: Denies: no symptoms. Genitourinary: Denies: no symptoms. Musculoskeletal: Denies: no symptoms. Skin: Denies: no symptoms. Objective Last 24 Hrs of Vital Signs/I&O Vital Signs Date Time Temp Pulse Resp B/P B/P Pulse O2 O2 Flow FiO2 Mean Ox Delivery Rate 10/23 0829 92 Nasal 60% Cannula 10/23 0544 97.9 80 24 138/72 91 10/23 0159 Nasal 60% Cannula 10/23 0000 Nasal 60% Cannula 10/22 2240 98.2 73 20 110/72 90 Venti Mask 45% 10/22 1650 89 Nasal 60% Cannula 10/22 1450 98.9 90 22 124/64 89 T Piece 60% 10/22 1157 90 Nasal 60% Cannula 10/22 1043 69 126/80 Intake & Output 10/23 1600 10/23 0800 10/23 0000 Intake Total 480 240 Output Total 300 Balance 180 240 Intake, Oral 480 240 Number 1 Bowel Movements Output, Urine 300 Physical Exam General Appearance: Alert, Oriented X3, Cooperative, No Acute Distress Skin: No Rashes, No Breakdown, No Significant Lesion HEENT: Atraumatic, PERRLA, EOMI, Mucous Membr. moist/pink Cardiovascular: Normal S1, Normal S2, No Murmurs Lungs: wide soread rales and mild wheezing Abdomen: Soft, No Tenderness Neurological: Normal Speech, Strength at 5/5 X4 Ext, Normal Tone Extremities: No Clubbing, No Cyanosis, No Edema Vascular: Normal Pulses Assessment/Plan Assessment: 71 years old male with past medical history of hypertension, hyperlipidemia, high lung cancer (08/2015) home is on weekly chemotherapy and follow-up with Dr. Barron , and home oxygen of 2 L nasal cannula, who presents to [facility] ED complaining of runny nose, weakness, chills, cough, whitish sputum, frequent oxygen desaturation which he measured at home which was in the range of 88, of note the patient's was admitted to [facility] over the weekend for complaints of COPD exacerbation. Vital Signs on admission: Blood pressure 118/69, pulse 101, temperature 96.9, pulse ox 96 on 45% Ventimask Labs on admission: WBC 7.7, RBCs 4.42, hemoglobin 13.1, platelet 284, sodium 138 , potassium 4.5, co2 24, anion gap 15, BUN 19, creatinine 0.7, glucose 128, lactic acid 3.2, ABG was significant for respiratory alkalosis with pH 7.53, PCO2 24, PO2 54, HCO3 20 rapid flu test was negative EKG showed heart rate showed RBBB, hr 110, NJ 148, QTC 504 Chest x-ray: Cardiomegaly. Bibasilar patchy atelectasis and/or scarring. Prominent right paramediastinal soft tissue density likely scarring overall ectatic vessels. No abnormality was seen on the CT PET exam 09/16/2017 Persistent nonspecific linear mild diffuse interstitial lung markings are noted with asymmetric low right sided lung volume, appears similar to 02/28/2017. No radiographic evidence of any new abnormalities. # Acute on chronic hypoxic respiratory failure Most likely due to COPD exacerbation , with possible Pulm hypertension PE was ruled out with CTA -continue to monitor on GM floor - edda down the oxygen to a goal PO2 > 92% -TRC, Nebs -incentive spirometery -Symbicort with rinsing of the mouth -Flutter device -Out of bed as toleratedo -Solumedrol 40 Q 8 - folow up on Pulm and Oncology recomm. #Hx of PE: Continue home dose of Eliquis # chronic medical cond including HTN, HLD continue home meds Full code DVT prophylaxis with Eliquis Regular diet Problem List: 1. Acute hypoxemic respiratory failure Pain Ratin Pain Location: n/a Pain Goal: Remain pain free Pain Plan: pain pathway Tomorrow's Labs & Rationales: cbc bep DVT/Prophylaxis: mechanical, pharmacological Kervin Aguirre MD 10/23/17 1225: Attending MD Review Statement Attending Statement Attending MD Statement: examined this patient, discuss w/resident/PA/HADOOP ADMINISTRATOR, agreed w/resident/PA/HADOOP ADMINISTRATOR, reviewed EMR data (avail) Attending Assessment/Plan: 71M PMH HTN, HLD, locally advanced non-small cell lung cancer receiving chemotherapy admitted with shortness of breath and hypoxia in the setting of COPD exacerbation, being treated with nebulizer treatments and Solumedrol taper. Imaging shows esophageal narrowing likely secondary to mass effect from malignancy. Breathing steadily improving, still on high flow oxygen. 1. Acute hypoxemic respiratory failure 2. COPD Exacerbation 3. Non-small cell lung cancer of the right lung Plan - Continue on general medicine - Continue high flow oxygen, titrate down as tolerated - Solumedrol 40mg q12h - Nebulizer treatments - Follow GI and pulmonary recommendations - Continue home medications - DVT PPx
[2017-10-23 08:24] LABS: ABSOLUTE BASOPHIL COUNT 0 /CUMM (0.0-0.2); ABSOLUTE EOSINOPHIL COUNT 0 /CUMM (0.0-0.7); ABSOLUTE GRANULOCYTE CT 5.9 /CUMM (1.4-6.5); ABSOLUTE LYMPH COUNT 0.3 /CUMM (1.2-3.4); ABSOLUTE MONOCYTE COUNT 0.2 /CUMM (0.10-0.60); BASOPHIL % 0.2 % (0.0-2.0); EOSINOPHIL % 0 % (0-5); HEMATOCRIT 34.4 % (42-52); MEAN CORPUSCULAR HGB 30.1 PG (27.0-31.0); MEAN CORPUSCULAR HGB CONC 33.2 G/DL (33.0-37.0); MEAN CORPUSCULAR VOLUME 90.8 FL (80.0-94.0); MEAN PLATELET VOLUME 8.9 FL (7.4-10.4); PLATELET COUNT 226 /CUMM (130-400); RBC DISTRIBUTION WIDTH 16.2 % (11.5-14.5); RED BLOOD CELL CT 3.79 /CUMM (4.70-6.10); WHITE BLOOD CELL COUNT 6.5 /CUMM (4.8-10.8)
--- NOTE | 2017-10-23 12:05 | PN- Pulmonary ---
Subjective HPI/Critical Care Issues: Patient seen and examined. He appears to be doing much better however remains on high flow oxygen. Objective Current Medications: Current Medications Sig/Joel Start time Last Medication Dose Route Stop Time Status Admin Acetaminophen 650 MG Q6P PRN 10/19 1530 AC PO Albuterol Sulfate 3 ML EVERY 4 HRS/AWAKE 10/19 1999 AC 10/23 INH 1132 Albuterol Sulfate 2 PUF Q4 PRN 10/19 1615 AC 10/20 INH 0605 Apixaban 5 MG BID 10/19 2200 AC 10/23 PO 0945 Atorvastatin Calcium 10 MG 1700 10/20 1700 AC 10/22 PO 1556 Benzonatate 100 MG TID 10/20 1006 AC 10/23 PO 0945 Budesonide/ 2 PUF BID 10/20 1502 AC 10/23 Formoterol Fumarate INH 0945 Guaifenesin 600 MG Q12 10/20 1006 AC 10/23 PO 0945 Lisinopril 5 MG DAILY 10/20 1000 AC 10/23 PO 0945 Melatonin 5 MG AT BEDTIME 10/23 2199 AC PO Methylprednisolone 40 MG Q8 10/21 2200 AC 10/23 IV 0517 Omeprazole 20 MG DAILY AC 10/20 0700 AC 10/23 PO 0517 Oxycodone/ 2 TAB Q6P PRN 10/19 1530 AC Acetaminophen PO Vital Signs & I&O Last 24 Hrs of Vitals and I&O: Vital Signs Date Time Temp Pulse Resp B/P B/P Pulse O2 O2 Flow FiO2 Mean Ox Delivery Rate 10/23 0945 138/72 10/23 0829 92 Nasal 60% Cannula 10/23 08 Nasal 65% Cannula 10/23 0544 97.9 80 24 138/72 91 10/23 0159 Nasal 60% Cannula 10/23 0000 Nasal 60% Cannula 10/22 2240 98.2 73 20 110/72 90 Venti Mask 45% 10/22 1650 89 Nasal 60% Cannula 10/22 1450 98.9 90 22 124/64 89 T Piece 60% Intake & Output 10/23 1600 10/23 0800 10/23 0000 Intake Total 480 240 Output Total 300 Balance 180 240 Intake, Oral 480 240 Number 1 Bowel Movements Output, Urine 300 Exam Other Physical Findings: Generally - Awake, alert Head and neck - wearing a Ventimask Cardiovascular - S1, S2 Lungs -rare rhonchi Abdomen - Bowel sounds positive, soft, non-tender Extremities - without edema Results Last 24 Hrs of Lab Results: Laboratory Tests 10/23/17 0740: Anion Gap 14, Estimated GFR > 60, BUN/Creatinine Ratio 43.3 H, CBC w Diff NO MAN DIFF REQ, RBC 3.79 L, MCV 90.8, MCH 30.1, MCHC 33.2, RDW 16.2 H, MPV 8.9, Gran % 91.0 H, Lymphocytes % 5.2 L, Monocytes % 3.6, Eosinophils % 0, Basophils % 0.2, Absolute Granulocytes 5.9, Absolute Lymphocytes 0.3 L, Absolute Monocytes 0.2, Absolute Eosinophils 0, Absolute Basophils 0 Impression/Plan Impression/Plan Impression/Plan: Impression 71 year old man. NSCLC. Hx of PE on a/c. Treated with Taxol by Dr. Ross. * Acute hypoxemic respiratory failure - this could be secondary to significant pulmonary hypertension which needs to be investigated or possibly an exacerbation of COPD * Non-small cell lung carcinoma * Difficulty swallowing with a narrowing of the mid to distal esophagus * hx of PE on eliquis Plan -change solumedrol to q12h -trc/nebs -begin symbicort with rinsing of the mouth -tessalon perles for cough -f/u GI recs -f/u ECHO -incentive spirometry - ensure in room and instructed on use -flutter device -out of bed as tolerated -reduce fio2 to a goal spo2 of >92% DVT prophylaxis at all times
[2017-10-23 14:00] VITALS: BP 130/70
[2017-10-23 22:29] VITALS: BP 120/64
[2017-10-24 05:30] VITALS: BP 128/86
--- NOTE | 2017-10-24 07:19 | PN- Housestaff ---
Luzma NICOLAS,Belkis 10/24/17 0719: Subjective Follow-up For: Acute hypoxemic respiratory failure - this could be secondary to significant pulmonary hypertension which needs to be investigated or possibly an exacerbation of COPD Non-small cell lung carcinoma Difficulty swallowing with a narrowing of the mid to distal esophagus hx of PE on eliquis Subjective: Patient is seen and examined at bedside, saturating at 92 on 60% nasal cannula, continues to complain of cough and expectoration of whitish sputum, denies any chest pain, nausea, vomiting, diarrhea or constipation Review of Systems Constitutional: Denies: no symptoms. Cardiovascular: Denies: no symptoms. Respiratory: Reports: cough, short of breath, sputum production, wheezing. Gastrointestinal: Denies: no symptoms. Genitourinary: Denies: no symptoms. Musculoskeletal: Denies: no symptoms. Skin: Denies: no symptoms. Objective Last 24 Hrs of Vital Signs/I&O Vital Signs Date Time Temp Pulse Resp B/P B/P Pulse O2 O2 Flow FiO2 Mean Ox Delivery Rate 10/24 1633 90 Nasal 60% Cannula 10/24 1351 98.1 79 20 110/70 93 Nasal 45% Cannula 10/24 1024 84 110/86 10/24 0853 89 Nasal 60% Cannula 10/24 0800 89 Nasal 60% Cannula 10/24 0530 97.8 66 26 128/86 92 10/24 0133 98 Nasal 60% Cannula 10/24 0000 90 Nasal 60% Cannula 10/23 2229 97.7 78 20 120/64 90 Intake & Output 10/24 1600 10/24 0800 10/24 0000 Intake Total 250 Output Total 300 300 Balance -300 -50 Intake, IV 250 Number 1 Bowel Movements Output, Urine 300 300 Physical Exam General Appearance: Alert, Oriented X3, Cooperative, No Acute Distress HEENT: Atraumatic, PERRLA, EOMI, Mucous Membr. moist/pink Neck: Supple, No JVD Cardiovascular: Normal S1, Normal S2 Lungs: Clear to Auscultation Abdomen: Normal Bowel Sounds, Soft, No Tenderness Neurological: Normal Speech, Strength at 5/5 X4 Ext, Normal Tone Extremities: No Clubbing, No Cyanosis, No Edema Assessment/Plan Assessment: 71 years old male with past medical history of hypertension, hyperlipidemia, high lung cancer (08/2015) home is on weekly chemotherapy and follow-up with Dr. Orrell , and home oxygen of 2 L nasal cannula, who presents to [place] ED complaining of runny nose, weakness, chills, cough, whitish sputum, frequent oxygen desaturation which he measured at home which was in the range of 88, of note the patient's was admitted to [facility] over the weekend for complaints of COPD exacerbation. Vital Signs on admission: Blood pressure 118/69, pulse 101, temperature 96.9, pulse ox 96 on 45% Ventimask Labs on admission: WBC 7.7, RBCs 4.42, hemoglobin 13.1, platelet 284, sodium 138 , potassium 4.5, co2 24, anion gap 15, BUN 19, creatinine 0.7, glucose 128, lactic acid 3.2, ABG was significant for respiratory alkalosis with pH 7.53, PCO2 24, PO2 54, HCO3 20 rapid flu test was negative EKG showed heart rate showed RBBB, hr 110, GA 148, QTC 504 Chest x-ray: Cardiomegaly. Bibasilar patchy atelectasis and/or scarring. Prominent right paramediastinal soft tissue density likely scarring overall ectatic vessels. No abnormality was seen on the CT PET exam 09/16/2017 Persistent nonspecific linear mild diffuse interstitial lung markings are noted with asymmetric low right sided lung volume, appears similar to 02/28/2017. No radiographic evidence of any new abnormalities. # Acute on chronic hypoxic respiratory failure Most likely due to COPD exacerbation PE was ruled out with CTA -continue to monitor on GM floor - edda down the oxygen to a goal PO2 > 92% -TRC, Nebs -incentive spirometery -Symbicort with rinsing of the mouth -Flutter device -Out of bed as toleratedo -Solumedrol 40 Q 12 , then to taper over the weekend - folow up on Pulm and Oncology recomm. -Follow up on ECHO results #Hx of PE: Continue home dose of Eliquis # chronic medical cond including HTN, HLD continue home meds Full code DVT prophylaxis with Eliquis Regular diet Problem List: 1. Acute hypoxemic respiratory failure Pain Ratin Pain Location: N/a Pain Goal: Remain pain free Pain Plan: pain pathway Tomorrow's Labs & Rationales: cbc bep DVT/Prophylaxis: mechanical, pharmacological Kervin Aguirre MD 10/24/17 1117: Attending MD Review Statement Attending Statement Attending MD Statement: examined this patient, discuss w/resident/PA/PROJECT CONTROLS SCHEDULER, agreed w/resident/PA/PROJECT CONTROLS SCHEDULER, reviewed EMR data (avail) Attending Assessment/Plan: 71M PMH HTN, HLD, locally advanced non-small cell lung cancer receiving chemotherapy admitted with shortness of breath and hypoxia in the setting of COPD exacerbation, being treated with nebulizer treatments and Solumedrol taper. Imaging shows esophageal narrowing likely secondary to mass effect from malignancy. Still dyspneic, requiring 60% high flow oxygen, desaturates to 85% just by talking. Rhonchi bilaterally on exam. Patient is anxious to go home. Refuses rehab. 1. Acute hypoxemic respiratory failure 2. COPD Exacerbation 3. Non-small cell lung cancer of the right lung Plan - Continue on general medicine - Give single dose of Lasix 40mg IV, monitor renal function tomorrow - Continue high flow oxygen, titrate down as tolerated - Solumedrol 40mg q12h - Nebulizer treatments - Follow GI and pulmonary recommendations - Continue home medications - DVT PPx
[2017-10-24 08:43] LABS: ABSOLUTE BASOPHIL COUNT 0 /CUMM (0.0-0.2); ABSOLUTE EOSINOPHIL COUNT 0 /CUMM (0.0-0.7); ABSOLUTE LYMPH COUNT 0.5 /CUMM (1.2-3.4); ABSOLUTE MONOCYTE COUNT 0.5 /CUMM (0.10-0.60); BASOPHIL % 0 % (0.0-2.0); EOSINOPHIL % 0 % (0-5); GRANULOCYTE % 86.6 % (42.2-75.2); HEMATOCRIT 33.6 % (42-52); MEAN CORPUSCULAR HGB 29.9 PG (27.0-31.0); MEAN CORPUSCULAR HGB CONC 33.1 G/DL (33.0-37.0); MEAN CORPUSCULAR VOLUME 90.2 FL (80.0-94.0); MEAN PLATELET VOLUME 8.5 FL (7.4-10.4); PLATELET COUNT 224 /CUMM (130-400); RBC DISTRIBUTION WIDTH 15.9 % (11.5-14.5); RED BLOOD CELL CT 3.72 /CUMM (4.70-6.10)
[2017-10-24 13:51] VITALS: BP 110/70
--- NOTE | 2017-10-24 14:53 | PN- Pulmonary ---
Subjective HPI/Critical Care Issues: Patient seen and examined this morning. He remains on 60% high flow oxygen. Objective Current Medications: Current Medications Sig/Joel Start time Last Medication Dose Route Stop Time Status Admin Acetaminophen 650 MG Q6P PRN 10/19 1530 AC PO Albuterol Sulfate 3 ML EVERY 4 HRS/AWAKE 10/19 2000 AC 10/24 INH 1143 Albuterol Sulfate 2 PUF Q4 PRN 10/19 1615 AC 10/20 INH 0605 Apixaban 5 MG BID 10/19 2200 AC 10/24 PO 1023 Atorvastatin Calcium 10 MG 1700 10/20 1700 AC 10/23 PO 1732 Benzonatate 100 MG TID 10/20 1006 AC 10/24 PO 1024 Budesonide/ 2 PUF BID 10/20 1502 AC 10/24 Formoterol Fumarate INH 1023 Furosemide 40 MG ONCE ONE 10/24 1045 DC 10/24 IV 10/24 1046 1138 Guaifenesin 600 MG Q12 10/20 1006 AC 10/24 PO 1024 Lisinopril 5 MG DAILY 10/20 1000 AC 10/24 PO 1024 Melatonin 5 MG AT BEDTIME 10/23 2200 AC 10/23 PO 2128 Methylprednisolone 40 MG Q12 10/23 2200 AC 10/24 IV 1023 Omeprazole 20 MG DAILY AC 10/20 0700 AC 10/24 PO 0541 Oxycodone/ 2 TAB Q6P PRN 10/19 1530 AC Acetaminophen PO Vital Signs & I&O Last 24 Hrs of Vitals and I&O: Vital Signs Date Time Temp Pulse Resp B/P B/P Pulse O2 O2 Flow FiO2 Mean Ox Delivery Rate 10/24 1351 98.1 79 20 110/70 93 Nasal 45% Cannula 10/24 1024 84 110/86 10/24 0853 89 Nasal 60% Cannula 10/24 0800 89 Nasal 60% Cannula 10/24 0530 97.8 66 26 128/86 92 10/24 0133 98 Nasal 60% Cannula 10/24 0000 90 Nasal 60% Cannula 10/23 2229 97.7 78 20 120/64 90 10/23 1643 89 Nasal 60% Cannula 10/23 1600 92 Nasal 65% Cannula Intake & Output 10/24 1600 10/24 0800 10/24 0000 Intake Total 250 Output Total 300 300 Balance -300 -50 Intake, IV 250 Number 1 Bowel Movements Output, Urine 300 300 Exam Other Physical Findings: Generally - Awake, alert Head and neck -high flow oxygen Cardiovascular - S1, S2 Lungs - rhonchi scattered bilaterally Abdomen - Bowel sounds positive, soft, non-tender Extremities - without edema Results Last 24 Hrs of Lab Results: Laboratory Tests 10/24/17 0742: Anion Gap 10, Estimated GFR > 60, BUN/Creatinine Ratio 40.0 H, Pro-B- Natriuretic Pept 729 H, CBC w Diff NO MAN DIFF REQ, RBC 3.72 L, MCV 90.2, MCH 29.9, MCHC 33.1, RDW 15.9 H, MPV 8.5, Gran % 86.6 H, Lymphocytes % 6.6 L, Monocytes % 6.8, Eosinophils % 0, Basophils % 0, Absolute Granulocytes 6.0, Absolute Lymphocytes 0.5 L, Absolute Monocytes 0.5, Absolute Eosinophils 0, Absolute Basophils 0 Impression/Plan Impression/Plan Impression/Plan: Impression 71 year old man. NSCLC. Hx of PE on a/c. Treated with Taxol by Dr. Ross. * Acute hypoxemic respiratory failure - this could be secondary to significant pulmonary hypertension which needs to be investigated or possibly an exacerbation of COPD * Non-small cell lung carcinoma * Difficulty swallowing with a narrowing of the mid to distal esophagus * hx of PE on eliquis Plan -keep solumedrol to q12h, taper over weekend -recommend trial of lasix today -trc/nebs -begin symbicort with rinsing of the mouth -tessalon perles for cough -f/u GI recs -f/u ECHO results?? -incentive spirometry - ensure in room and instructed on use -flutter device -out of bed as tolerated -reduce fio2 to a goal spo2 of >92% DVT prophylaxis at all times
[2017-10-24 22:21] VITALS: BP 118/64
[2017-10-25 06:33] VITALS: BP 120/78
[2017-10-25 09:06] LABS: ABSOLUTE BASOPHIL COUNT 0 /CUMM (0.0-0.2); ABSOLUTE EOSINOPHIL COUNT 0 /CUMM (0.0-0.7); ABSOLUTE LYMPH COUNT 0.4 /CUMM (1.2-3.4); ABSOLUTE MONOCYTE COUNT 0.2 /CUMM (0.10-0.60); BASOPHIL % 0.2 % (0.0-2.0); EOSINOPHIL % 0 % (0-5); GRANULOCYTE % 91.7 % (42.2-75.2); HEMATOCRIT 36.8 % (42-52); MEAN CORPUSCULAR HGB 29.8 PG (27.0-31.0); MEAN CORPUSCULAR HGB CONC 32.8 G/DL (33.0-37.0); MEAN CORPUSCULAR VOLUME 90.9 FL (80.0-94.0); MEAN PLATELET VOLUME 8.5 FL (7.4-10.4); PLATELET COUNT 253 /CUMM (130-400); RBC DISTRIBUTION WIDTH 16.2 % (11.5-14.5); RED BLOOD CELL CT 4.05 /CUMM (4.70-6.10)
--- NOTE | 2017-10-25 09:14 | PN- Housestaff ---
[facility]: Subjective Follow-up For: Acute hypoxic respiratory failure probably due to pulmonary hypertension and COPD exacerbation. Non-small cell lung carcinoma Subjective: No overnight events. Patient remained afebrile overnight. Seen and examined this morning. Patient denied any chest pain, palpitation, nausea, vomiting, chills, fever, abdominal pain dysuria. He is on high flow oxygen and maintaining saturation 93%. He is walking to restroom without any difficulty. Review of Systems Constitutional: Reports: no symptoms. EENTM: Reports: no symptoms. Cardiovascular: Reports: no symptoms. Respiratory: Reports: see HPI. Gastrointestinal: Reports: no symptoms. Genitourinary: Reports: no symptoms. Musculoskeletal: Reports: no symptoms. Neurological/Psychological: Reports: no symptoms. Objective Last 24 Hrs of Vital Signs/I&O Vital Signs Date Time Temp Pulse Resp B/P B/P Pulse O2 O2 Flow FiO2 Mean Ox Delivery Rate 10/25 0945 120/7 10/25 0633 98.0 64 24 120/78 93 10/25 0328 Nasal 60% Cannula 10/25 0000 92 Nasal 60% Cannula 10/24 2221 97.6 73 20 118/64 92 Room Air 10/24 1633 90 Nasal 60% Cannula 10/24 1351 98.1 79 20 110/70 93 Nasal 45% Cannula 10/24 1024 84 110/86 Intake & Output 10/25 1600 10/25 0800 10/25 0000 Intake Total 250 620 Output Total 825 Balance -575 620 Intake, IV 10 20 Intake, Oral 240 600 Number 2 Bowel Movements Output, Urine 825 Physical Exam General Appearance: Alert, Oriented X3, Cooperative Skin Temp/Moisture Exam: Warm/Dry Sepsis Skin Exam (color): Normal for Ethnicity HEENT: Atraumatic, PERRLA, EOMI Neck: Supple Cardiovascular: Normal S1, Normal S2 Lungs: Clear to Auscultation Neurological: Normal Speech, Strength at 5/5 X4 Ext, Normal Tone, Sensation Intact Extremities: No Edema Assessment/Plan Assessment: 71 years old male with past medical history of hypertension, hyperlipidemia, high lung cancer (08/2015) home is on weekly chemotherapy and follow-up with Dr. Barron , and home oxygen of 2 L nasal cannula, who presents to [place] ED complaining of runny nose, weakness, chills, cough, whitish sputum, frequent oxygen desaturation which he measured at home which was in the range of 88, of note the patient's was admitted to [facility] over the weekend for complaints of COPD exacerbation. Vital Signs on admission: Blood pressure 118/69, pulse 101, temperature 96.9, pulse ox 96 on 45% Ventimask Labs on admission: WBC 7.7, RBCs 4.42, hemoglobin 13.1, platelet 284, sodium 138 , potassium 4.5, co2 24, anion gap 15, BUN 19, creatinine 0.7, glucose 128, lactic acid 3.2, ABG was significant for respiratory alkalosis with pH 7.53, PCO2 24, PO2 54, HCO3 20 rapid flu test was negative Acute on chronic hypoxic respiratory failure: -Most likely due to COPD exacerbation -PE was ruled out with CTA - On high flow oxygen, edda down the oxygen to a goal PO2 > 92% -TRC, Nebs -incentive spirometery -Symbicort with rinsing of the mouth -Out of bed as toleratedo -Solumedrol 40 Q 12 , then to taper over the weekend - folow up on Pulm and Oncology recomm. -Follow up on ECHO results Hx of PE: Continue home dose of Eliquis chronic medical cond including HTN, HLD: continue home meds CODE STATUS: Full code DVT prophylaxis: Eliquis Problem List: 1. Acute hypoxemic respiratory failure Pain Ratin Pain Location: none Pain Goal: Remain pain free Pain Plan: tylenol for mild pain Tomorrow's Labs & Rationales: cbc/bep Kervin Aguirre MD 10/25/17 1224: Attending MD Review Statement Attending Statement Attending MD Statement: examined this patient, discuss w/resident/PA/MANAGER SOFTWARE DEVELOPMENT, agreed w/resident/PA/MANAGER SOFTWARE DEVELOPMENT, reviewed EMR data (avail) Attending Assessment/Plan: 71M PMH HTN, HLD, locally advanced non-small cell lung cancer receiving chemotherapy admitted with shortness of breath and hypoxia in the setting of COPD exacerbation, being treated with nebulizer treatments and Solumedrol taper. Imaging shows esophageal narrowing likely secondary to mass effect from malignancy. Still dyspneic, requiring 60% high flow oxygen, desaturates to 85% just by talking. Rhonchi bilaterally on exam. Patient is anxious to go home. Refuses rehab. 1. Acute hypoxemic respiratory failure 2. COPD Exacerbation 3. Non-small cell lung cancer of the right lung Plan - Continue on general medicine - Continue high flow oxygen, titrate down as tolerated - Solumedrol 40mg q12h - Nebulizer treatments - Follow GI and pulmonary recommendations - Continue home medications - DVT PPx
[2017-10-25 10:08] LABS: WHITE BLOOD CELL COUNT 7.6 /CUMM (4.8-10.8)
--- NOTE | 2017-10-25 10:59 | PN- Pulmonary ---
Subjective HPI/Critical Care Issues: Patient feels well without complaints. Remains on FiO2 0.6. Objective Current Medications: Current Medications Sig/Joel Start time Last Medication Dose Route Stop Time Status Admin Acetaminophen 650 MG Q6P PRN 10/19 1530 AC PO Albuterol Sulfate 3 ML EVERY 4 HRS/AWAKE 10/19 2000 AC 10/25 INH 0847 Albuterol Sulfate 2 PUF Q4 PRN 10/19 1615 AC 10/20 INH 0605 Apixaban 5 MG BID 10/19 2200 AC 10/25 PO 0945 Atorvastatin Calcium 10 MG 1700 10/20 1700 AC 10/24 PO 1705 Benzonatate 100 MG TID 10/20 1006 AC 10/25 PO 0945 Budesonide/ 2 PUF BID 10/20 1502 AC 10/25 Formoterol Fumarate INH 0946 Guaifenesin 600 MG Q12 10/20 1006 AC 10/25 PO 0945 Lisinopril 5 MG DAILY 10/20 1000 AC 10/25 PO 0945 Melatonin 5 MG AT BEDTIME 10/23 2200 AC 10/24 PO 2128 Methylprednisolone 40 MG Q12 10/23 2200 AC 10/25 IV 0945 Omeprazole 20 MG DAILY AC 10/20 0700 AC 10/25 PO 0601 Oxycodone/ 2 TAB Q6P PRN 10/19 1530 AC Acetaminophen PO Vital Signs & I&O Last 24 Hrs of Vitals and I&O: Vital Signs Date Time Temp Pulse Resp B/P B/P Pulse O2 O2 Flow FiO2 Mean Ox Delivery Rate 10/25 0945 120/7 10/25 0820 86 Nasal 60% Cannula 10/25 0633 98.0 64 24 120/78 93 10/25 0328 Nasal 60% Cannula 10/25 0000 92 Nasal 60% Cannula 10/24 2221 97.6 73 20 118/64 92 Room Air 10/24 1633 90 Nasal 60% Cannula 10/24 1351 98.1 79 20 110/70 93 Nasal 45% Cannula Intake & Output 10/25 1600 10/25 0800 10/25 0000 Intake Total 250 620 Output Total 825 Balance -575 620 Intake, IV 10 20 Intake, Oral 240 600 Number 2 Bowel Movements Output, Urine 825 Oxygen saturation FiO2 0.6 remains borderline exam of his chest shows decreased breath sounds are no wheezes heard cardiac exam shows regular S1 and S2 without murmurs Impression/Plan Impression/Plan Impression/Plan: 71-year-old gentleman with persistent hypoxic respiratory failure Recommendations: Follow-up cardiac ultrasound results. Decrease steroids to 30 mg every 12 hours. Taper FiO2 his saturations allow.
[2017-10-25 14:03] VITALS: BP 122/74
[2017-10-25 22:54] VITALS: BP 124/65
[2017-10-26 07:38] VITALS: BP 135/83
[2017-10-26 08:34] LABS: ABSOLUTE BASOPHIL COUNT 0 /CUMM (0.0-0.2); ABSOLUTE EOSINOPHIL COUNT 0 /CUMM (0.0-0.7); ABSOLUTE GRANULOCYTE CT 6.8 /CUMM (1.4-6.5); ABSOLUTE LYMPH COUNT 0.3 /CUMM (1.2-3.4); ABSOLUTE MONOCYTE COUNT 0 /CUMM (0.10-0.60); BASOPHIL % 0.1 % (0.0-2.0); EOSINOPHIL % 0 % (0-5); HEMATOCRIT 37.8 % (42-52); MEAN CORPUSCULAR HGB 29.7 PG (27.0-31.0); MEAN CORPUSCULAR HGB CONC 32.8 G/DL (33.0-37.0); MEAN CORPUSCULAR VOLUME 90.5 FL (80.0-94.0); MEAN PLATELET VOLUME 8.7 FL (7.4-10.4); PLATELET COUNT 270 /CUMM (130-400); RBC DISTRIBUTION WIDTH 16.1 % (11.5-14.5); RED BLOOD CELL CT 4.18 /CUMM (4.70-6.10); WHITE BLOOD CELL COUNT 7.2 /CUMM (4.8-10.8)
[2017-10-26 09:49] LABS: GRANULOCYTE % 94.6 % (42.2-75.2)
--- NOTE | 2017-10-26 10:59 | PN- Pulmonary ---
Subjective HPI/Critical Care Issues: Patient is comfortable continues to require high flow oxygen. His cough is more productive Objective Current Medications: Current Medications Sig/Joel Start time Last Medication Dose Route Stop Time Status Admin Acetaminophen 650 MG Q6P PRN 10/19 1530 AC PO Albuterol Sulfate 3 ML EVERY 4 HRS/AWAKE 10/19 2000 AC 10/26 INH 0816 Albuterol Sulfate 2 PUF Q4 PRN 10/19 1615 AC 10/20 INH 0605 Apixaban 5 MG BID 10/19 2200 AC 10/26 PO 1015 Atorvastatin Calcium 10 MG 1700 10/20 1700 AC 10/25 PO 1701 Benzonatate 100 MG TID 10/20 1006 AC 10/26 PO 1015 Budesonide/ 2 PUF BID 10/20 1502 AC 10/26 Formoterol Fumarate INH 1015 Guaifenesin 600 MG Q12 10/20 1006 AC 10/26 PO 1015 Lisinopril 5 MG DAILY 10/20 1000 AC 10/26 PO 1015 Melatonin 5 MG AT BEDTIME 10/23 2200 AC 10/25 PO 2112 Methylprednisolone 30 MG Q12 10/25 2200 AC 10/26 IV 1015 Methylprednisolone 40 MG Q12 10/23 2200 DC 10/25 IV 0945 Omeprazole 20 MG DAILY AC 10/20 0700 AC 10/25 PO 0601 Oxycodone/ 2 TAB Q6P PRN 10/19 1530 AC Acetaminophen PO Potassium Chloride 40 MEQ ONCE ONE 10/25 1315 DC 10/25 PO 10/25 1316 1701 Vital Signs & I&O Last 24 Hrs of Vitals and I&O: Vital Signs Date Time Temp Pulse Resp B/P B/P Pulse O2 O2 Flow FiO2 Mean Ox Delivery Rate 10/26 1015 138/83 10/26 0738 97.8 67 20 135/83 93 Nasal 55% Cannula 10/26 0232 92 Nasal 60% Cannula 10/26 0000 90 Nasal 55% Cannula 10/25 2254 98.5 94 20 124/65 88 Nasal 55% Cannula 10/258 89 Nasal 55% Cannula 10/25 2000 98 Nasal 60% Cannula 10/25 1645 90 Nasal 60% Cannula 10/25 1600 92 Nasal 60% Cannula 10/25 1403 97.8 89 22 122/74 91 Nasal Cannula Intake & Output 10/26 1600 10/26 0800 10/26 0000 Intake Total 250 610 Output Total Balance 250 610 Intake, IV 10 10 Intake, Oral 240 600 Number 1 Bowel Movements Oxygen decreased to 55% exam of his chest continues to show scattered rhonchi and wheezing cardiac exam shows regular S1 and S2 without murmurs Impression/Plan Impression/Plan Impression/Plan: 71-year-old gentleman with persistent hypoxic respiratory failure he has evidence of persistent bronchospasm Recommendations: Follow-up cardiac ultrasound results. Decrease steroids to 30 mg every 12 hours. Taper FiO2 his saturations allow. Increase mobility out of bed
--- NOTE | 2017-10-26 13:22 | PN- Att Addend ---
Attending Addendum Attending Brief Note 71M PMH HTN, HLD, locally advanced non-small cell lung cancer receiving chemotherapy admitted with shortness of breath and hypoxia in the setting of COPD exacerbation, being treated with nebulizer treatments and Solumedrol taper. Imaging shows esophageal narrowing likely secondary to mass effect from malignancy. Still dyspneic, requiring 55% high flow oxygen, desaturates to 85% just by talking. Rhonchi bilaterally on exam. Patient is anxious to go home. Refuses rehab. AFVSS NAD NCAT MMM Supple RRR Bilateral rhonchi Soft, NTND No c/c/e Pulses intact A&Ox3 no focal deficits Current Medications Sig/Joel Start time Last Medication Dose Route Stop Time Status Admin Acetaminophen 650 MG Q6P PRN 10/19 1530 AC PO Albuterol Sulfate 3 ML EVERY 4 HRS/AWAKE 10/19 2000 AC 10/26 INH 1320 Albuterol Sulfate 2 PUF Q4 PRN 10/19 1615 AC 10/20 INH 0605 Apixaban 5 MG BID 10/19 2200 AC 10/26 PO 1015 Atorvastatin Calcium 10 MG 1700 10/20 1700 AC 10/25 PO 1701 Benzonatate 100 MG TID 10/20 1006 AC 10/26 PO 1015 Budesonide/ 2 PUF BID 10/20 1502 AC 10/26 Formoterol Fumarate INH 1015 Guaifenesin 600 MG Q12 10/20 1006 AC 10/26 PO 1015 Lisinopril 5 MG DAILY 10/20 1000 AC 10/26 PO 1015 Melatonin 5 MG AT BEDTIME 10/23 2200 AC 10/25 PO 2112 Methylprednisolone 30 MG Q12 10/25 2200 AC 10/26 IV 1015 Methylprednisolone 40 MG Q12 10/23 2200 DC 10/25 IV 0945 Omeprazole 20 MG DAILY AC 10/20 0700 AC 10/25 PO 0601 Oxycodone/ 2 TAB Q6P PRN 10/19 1530 AC Acetaminophen PO Laboratory Tests 10/26 0730 Chemistry Sodium (137 - 145 mmol/L) 141 Potassium (3.5 - 5.1 mmol/L) 4.2 Chloride (98 - 107 mmol/L) 98 Carbon Dioxide (22 - 30 mmol/L) 29 Anion Gap (5 - 16) 13 BUN (9 - 20 mg/dL) 28 H Creatinine (0.7 - 1.2 mg/dL) 0.6 L Estimated GFR (>60 ml/min) > 60 BUN/Creatinine Ratio (7 - 25 %) 46.7 H Hematology CBC w Diff NO MAN DIFF REQ WBC (4.8 - 10.8 /CUMM) 7.2 RBC (4.70 - 6.10 /CUMM) 4.18 L Hgb (14.0 - 18.0 G/DL) 12.4 L Hct (42 - 52 %) 37.8 L MCV (80.0 - 94.0 FL) 90.5 MCH (27.0 - 31.0 PG) 29.7 MCHC (33.0 - 37.0 G/DL) 32.8 L RDW (11.5 - 14.5 %) 16.1 H Plt Count (130 - 400 /CUMM) 270 MPV (7.4 - 10.4 FL) 8.7 Gran % (42.2 - 75.2 %) 94.6 H Lymphocytes % (20.5 - 51.1 %) 4.7 L Monocytes % (1.7 - 9.3 %) 0.6 L Eosinophils % (0 - 5 %) 0 Basophils % (0.0 - 2.0 %) 0.1 Absolute Granulocytes (1.4 - 6.5 /CUMM) 6.8 H Absolute Lymphocytes (1.2 - 3.4 /CUMM) 0.3 L Absolute Monocytes (0.10 - 0.60 /CUMM) 0 L Absolute Eosinophils (0.0 - 0.7 /CUMM) 0 Absolute Basophils (0.0 - 0.2 /CUMM) 0 Vital Signs Date Time Temp Pulse Resp B/P B/P Pulse O2 O2 Flow FiO2 Mean Ox Delivery Rate 10/26 1015 138/83 10/26 0800 Nasal 55% Cannula 10/26 0738 97.8 67 20 135/83 93 Nasal 55% Cannula 10/26 0232 92 Nasal 60% Cannula 10/26 0000 90 Nasal 55% Cannula 10/25 2254 98.5 94 20 124/65 88 Nasal 55% Cannula 10/25 2148 89 Nasal 55% Cannula 10/25 2000 98 Nasal 60% Cannula 10/25 1645 90 Nasal 60% Cannula 10/25 1600 92 Nasal 60% Cannula 10/25 1403 97.8 89 22 122/74 91 Nasal Cannula Intake & Output 10/26 1600 10/26 0800 10/26 0000 Intake Total 250 610 Output Total 350 Balance -350 250 610 Intake, IV 10 10 Intake, Oral 240 600 Number 1 Bowel Movements Output, Urine 350 1. Acute hypoxemic respiratory failure 2. COPD Exacerbation 3. Non-small cell lung cancer of the right lung Plan - Continue on general medicine - Give single dose of Lasix 40mg IV, monitor renal function tomorrow - Continue high flow oxygen, titrate down as tolerated - Solumedrol 40mg q12h - Nebulizer treatments - Follow GI and pulmonary recommendations - Continue home medications - DVT PPx
[2017-10-26 14:02] VITALS: BP 118/64
[2017-10-26 22:06] VITALS: BP 122/72
[2017-10-27 05:49] VITALS: BP 130/62
--- NOTE | 2017-10-27 07:08 | PN- Housestaff ---
Luzma NICOLAS,Belkis 10/27/17 0708: Subjective Follow-up For: 71 years old male with past medical history of hypertension, hyperlipidemia, high lung cancer (08/2015) home is on weekly chemotherapy and follow-up with Dr. Barron , and home oxygen of 2 L nasal cannula, who presents to [place] ED complaining of runny nose, weakness, chills, cough, whitish sputum, frequent oxygen desaturation which he measured at home which was in the range of 88 Subjective: No overnight events. Patient remained afebrile overnight. Seen and examined this morning. Patient denied any chest pain, palpitation, nausea, vomiting, chills, fever, abdominal pain dysuria. He is on high flow oxygen and maintaining saturation 90%. on 55 % nasal oxygen Review of Systems Constitutional: Denies: no symptoms. Cardiovascular: Denies: no symptoms. Respiratory: Reports: cough, short of breath, sputum production. Gastrointestinal: Denies: no symptoms. Genitourinary: Denies: no symptoms. Musculoskeletal: Denies: no symptoms. Skin: Denies: no symptoms. Objective Last 24 Hrs of Vital Signs/I&O Vital Signs Date Time Temp Pulse Resp B/P B/P Pulse O2 O2 Flow FiO2 Mean Ox Delivery Rate 10/27 0926 72 128/70 10/27 0809 92 Nasal 60% Cannula 10/27 0800 Nasal 55% Cannula 10/27 0549 98.1 71 22 130/62 90 10/27 0000 Nasal 55% Cannula 10/26 2206 91 Nasal 60% Cannula 10/26 2206 98.4 77 22 122/72 90 10/26 1900 90 Nasal 60% Cannula 10/26 1645 89 Nasal 60% Cannula 10/26 1600 Nasal 55% Cannula 10/26 1402 98.0 88 20 118/64 91 Nasal 55% Cannula Intake & Output 10/27 1600 10/27 0800 10/27 0000 Intake Total Output Total 600 Balance -600 Output, Urine 600 Physical Exam General Appearance: Alert, Oriented X3, Cooperative, No Acute Distress HEENT: Atraumatic, PERRLA, EOMI, Mucous Membr. moist/pink Cardiovascular: Normal S1, Normal S2, No Murmurs Lungs: bilateral rales and wheezes more on the right side Abdomen: Normal Bowel Sounds, Soft, No Tenderness Neurological: Normal Speech Extremities: No Clubbing, No Cyanosis, No Edema Assessment/Plan Assessment: 71 years old male with past medical history of hypertension, hyperlipidemia, high lung cancer (08/2015) home is on weekly chemotherapy and follow-up with Dr. Barron , and home oxygen of 2 L nasal cannula, who presents to [place] ED complaining of runny nose, weakness, chills, cough, whitish sputum, frequent oxygen desaturation which he measured at home which was in the range of 88, of note the patient's was admitted to [facility] over the weekend for complaints of COPD exacerbation. Vital Signs on admission: Blood pressure 118/69, pulse 101, temperature 96.9, pulse ox 96 on 45% Ventimask Labs on admission: WBC 7.7, RBCs 4.42, hemoglobin 13.1, platelet 284, sodium 138 , potassium 4.5, co2 24, anion gap 15, BUN 19, creatinine 0.7, glucose 128, lactic acid 3.2, ABG was significant for respiratory alkalosis with pH 7.53, PCO2 24, PO2 54, HCO3 20 rapid flu test was negative Acute on chronic hypoxic respiratory failure: -Most likely due to COPD exacerbation -PE was ruled out with CTA - On high flow oxygen, edda down the oxygen to a goal PO2 > 92% -TRC, Nebs -incentive spirometery -Symbicort with rinsing of the mouth -Out of bed as toleratedo -Solumedrol 40 Q 12 , (pt refused IV solu this Am and had to be given 60 mg PO Prednisone) - folow up on Pulm and Oncology recomm. -ECHO showed: Mild right ventricular dilatation, mild aortic regurg, mild aortic dilatation at the level of sinus of Valsalva, mildly dilated inferior vena cava Hx of PE: Continue home dose of Eliquis chronic medical cond including HTN, HLD: continue home meds CODE STATUS: Full code DVT prophylaxis: Eliquis Problem List: 1. Acute hypoxemic respiratory failure Pain Ratin Pain Location: n/a Pain Goal: Remain pain free Pain Plan: pathway Tomorrow's Labs & Rationales: none DVT/Prophylaxis: mechanical, pharmacological Kervin Aguirre MD 10/27/17 1054: Attending Review Statement Attending Statement Attending MD Statement: examined this patient, discuss w/resident/PA/EDUCATION SITE MANAGER, agreed w/resident/PA/EDUCATION SITE MANAGER, reviewed EMR data (avail) Attending Assessment/Plan: 71M PMH HTN, HLD, locally advanced non-small cell lung cancer receiving chemotherapy admitted with shortness of breath and hypoxia in the setting of COPD exacerbation, being treated with nebulizer treatments and Solumedrol taper. Imaging shows esophageal narrowing likely secondary to mass effect from malignancy. Patient has decided to leave against medical advice. He is still on 55% high flow oxygen. It has been explained that he will likely not be able to tolerate going home and all the risks involved, including respiratory failure, UT, coma, . His oxygen saturation was 96% when he was discussing this, and he had clear decision making capacity and insight. He understands the risks, and just wishes to go home. 1. Acute hypoxemic respiratory failure 2. COPD Exacerbation 3. Non-small cell lung cancer of the right lung Plan - Leaving AMA - Continue oxygen on discharge - Slow Prednisone taper - Continue home medications
[2017-10-27 08:54] LABS: ABSOLUTE BASOPHIL COUNT 0 /CUMM (0.0-0.2); ABSOLUTE EOSINOPHIL COUNT 0 /CUMM (0.0-0.7); ABSOLUTE GRANULOCYTE CT 7.6 /CUMM (1.4-6.5); ABSOLUTE LYMPH COUNT 0.4 /CUMM (1.2-3.4); ABSOLUTE MONOCYTE COUNT 0.3 /CUMM (0.10-0.60); BASOPHIL % 0.2 % (0.0-2.0); EOSINOPHIL % 0 % (0-5); GRANULOCYTE % 91.8 % (42.2-75.2); MEAN CORPUSCULAR HGB 29.8 PG (27.0-31.0); MEAN CORPUSCULAR HGB CONC 33.1 G/DL (33.0-37.0); MEAN CORPUSCULAR VOLUME 89.9 FL (80.0-94.0); MEAN PLATELET VOLUME 8.8 FL (7.4-10.4); PLATELET COUNT 262 /CUMM (130-400); RBC DISTRIBUTION WIDTH 16.3 % (11.5-14.5); RED BLOOD CELL CT 4.45 /CUMM (4.70-6.10); WHITE BLOOD CELL COUNT 8.3 /CUMM (4.8-10.8)
[2017-10-27 09:26] VITALS: BP 128/70
[2017-10-27] MEDS ORDERED: OMEPRAZOLE20 M2 PO ×2 (10:22→10:53)
[2017-10-27] MEDS ORDERED: VENTOLIN HFA18 GM INH ×2 (10:22→10:53)
[2017-10-27] MEDS ORDERED: SYMBICORT 80-10.2 GM INH ×2 (10:22→10:53)
[2017-10-27] MEDS ORDERED: PREDNISONE10 M2 PO ×2 (10:52→10:53)
[2017-10-27] MEDS ORDERED: BENZONATATE100 M1 PO (10:53)
[2017-10-27] MEDS ORDERED: GUAIFENESIN ER600 MG PO (10:53)
--- NOTE | 2017-10-27 11:04 | Event Note ---
Event Note Event Note: Situation: Patient requested to leave AGAINST MEDICAL ADVICE, he is still on the IV Solu- Medrol 40 mg Q 12 and saturating at 91% on high flow oxygen 55%, he was advised that he needs to stay in the hospital to taper his steroids and his oxygen, He was also advised that leaving at this point can cause deterioration of his breathing, worsening resp failure, right heart strain, GA and even endanger his life. Dr. Boykin operations team leader saw him this morning and advised him as well , to stay for the aforementioned reasons, however the patient insisted on leaving AMAPatrick Blanton refused his morning dose of IV Solu-Medrol, he was given by mouth prednisone 60 mg, he was prescribed prednisone taper which was sent to his pharmacy. He was provided a referral see Dr. Boykin within 1 week. Background: 71 years old male with past medical history of hypertension, hyperlipidemia, high lung cancer (08/2015) home is on weekly chemotherapy and follow-up with Dr. Barron , and home oxygen of 2 L nasal cannula, who presents to [place] ED complaining of runny nose, weakness, chills, cough, whitish sputum, frequent oxygen desaturation which he measured at home which was in the range of 88
--- NOTE | 2017-10-27 12:18 | PN- Pulmonary ---
Subjective HPI/Critical Care Issues: Patient seen and examined this morning. She continues to be on high flow oxygen and he is mentating fully and his oxygen status is acceptable to make a decision and informed decision to leave the hospital against routine advice. Objective Current Medications: Current Medications Sig/Joel Start time Last Medication Dose Route Stop Time Status Admin Acetaminophen 650 MG Q6P PRN 10/19 1530 AC PO Albuterol Sulfate 3 ML EVERY 4 HRS/AWAKE 10/19 2000 AC 10/27 INH 1200 Albuterol Sulfate 2 PUF Q4 PRN 10/19 1615 AC 10/20 INH 0605 Apixaban 5 MG BID 10/19 2200 AC 10/27 PO 0926 Atorvastatin Calcium 10 MG 1700 10/20 1700 AC 10/26 PO 1725 Benzonatate 100 MG TID 10/20 1006 AC 10/27 PO 0926 Budesonide/ 2 PUF BID 10/20 1502 AC 10/27 Formoterol Fumarate INH 0926 Furosemide 40 MG ONCE ONE 10/26 1830 DC 10/26 IV 10/26 1831 2134 Guaifenesin 600 MG Q12 10/20 1006 AC 10/27 PO 0926 Lisinopril 5 MG DAILY 10/20 1000 AC 10/27 PO 0926 Melatonin 5 MG AT BEDTIME 10/23 2200 AC 10/26 PO 2140 Methylprednisolone 40 MG Q12 10/26 2200 DC 10/26 IV 2145 Methylprednisolone 30 MG Q12 10/25 2200 DC 10/26 IV 1015 Omeprazole 20 MG DAILY AC 10/20 0700 AC 10/27 PO 0535 Oxycodone/ 2 TAB Q6P PRN 10/19 1530 DC Acetaminophen PO Prednisone 60 MG ONCE ONE 10/27 1045 DC PO 10/27 1046 Vital Signs & I&O Last 24 Hrs of Vitals and I&O: Vital Signs Date Time Temp Pulse Resp B/P B/P Pulse O2 O2 Flow FiO2 Mean Ox Delivery Rate 10/27 0926 72 128/70 10/27 0809 92 Nasal 60% Cannula 10/27 0800 Nasal 55% Cannula 10/27 0549 98.1 71 22 130/62 90 10/27 0000 Nasal 55% Cannula 10/26 2206 91 Nasal 60% Cannula 10/266 98.4 77 22 122/72 90 10/26 1900 90 Nasal 60% Cannula 10/26 1645 89 Nasal 60% Cannula 10/26 1599 Nasal 55% Cannula 10/26 1402 98.0 88 20 118/64 91 Nasal 55% Cannula Intake & Output 10/27 1600 10/27 0800 10/27 0000 Intake Total Output Total 600 Balance -600 Output, Urine 600 Exam Other Physical Findings: Generally - Awake, alert Head and neck -high flow oxygen Cardiovascular - S1, S2 Lungs - rhonchi scattered bilaterally Abdomen - Bowel sounds positive, soft, non-tender Extremities - without edema Results Last 24 Hrs of Lab Results: Laboratory Tests 10/27/17 0800: Anion Gap 15, Estimated GFR > 60, BUN/Creatinine Ratio 44.3 H, CBC w Diff NO MAN DIFF REQ, RBC 4.45 L, MCV 89.9, MCH 29.8, MCHC 33.1, RDW 16.3 H, MPV 8.8, Gran % 91.8 H, Lymphocytes % 5.0 L, Monocytes % 3.0, Eosinophils % 0, Basophils % 0.2, Absolute Granulocytes 7.6 H, Absolute Lymphocytes 0.4 L, Absolute Monocytes 0.3, Absolute Eosinophils 0, Absolute Basophils 0 Impression/Plan Impression/Plan Impression/Plan: Impression 71 year old man. NSCLC. Hx of PE on a/c. Treated with Taxol by Dr. Ross. * Acute hypoxemic respiratory failure - this could be secondary to significant pulmonary hypertension which needs to be investigated or possibly an exacerbation of COPD * Non-small cell lung carcinoma * Difficulty swallowing with a narrowing of the mid to distal esophagus * hx of PE on eliquis Plan -prednisone taper 60x4, 50x4, 40x4, 30x4, 20x4, stay on 10 until seen in office -pt understands risks of dc, he is clear that he understands risks including not doing well and even , he will leave against our advice. -nebs -symbicort with rinsing of the mouth -tessalon perles for cough -f/u GI recs -incentive spirometry - ensure in room and instructed on use -flutter device -out of bed as tolerated -reduce fio2 to a goal spo2 of >92% DVT prophylaxis at all times
--- NOTE | 2017-10-27 17:28 | ECHOCARDIOGRAM REPORT ---
DALTON TAMEZ Age: 71 : 1945 Gender: M Exam Date: 10/20/2017 16:18 Exam Location: [address] [place] [address] Ht (in): 67 Wt (lb): 197 BSA: 2.08 BP: 102 / 62 Ordering Physician: Hima Crews MD Referring Physician: Hima Crews MD Technologist: Triny De La Cruz [facility] Room Number: 219-01 Indications: SHORTNESS OF BREATH Rhythm: Sinus Technical Quality: Poor FINDINGS Left Ventricle Normal size left ventricle. Normal left ventricular wall thickness. No obvious regional wall motion abnormalities. Normal left ventricular ejection fraction visually estimated at >65%. Abnormal relaxation filling pattern of the left ventricle for age (stage 1 diastolic dysfunction). Right Ventricle Mild right ventricular dilatation. Right Atrium Normal right atrial size. Left Atrium Normal left atrial size. Mitral Valve Mild mitral annular calcification. Mitral valve thickened. No mitral regurgitation. Aortic Valve Aortic valve not well visualized. Diffuse thickening of the aortic valve cusps with reduced excursion. No hemodynamically significant aortic stenosis. Mild aortic regurgitation. Tricuspid Valve Tricuspid valve not well visualized, grossly normal. No tricuspid regurgitation. Pulmonic Valve Pulmonic valve not well visualized, grossly normal. No pulmonic regurgitation. Pericardium No pericardial effusion. Great Vessels Mild aortic dilatation at the level of the sinuses of valsalva (root). Mildly dilated proximal ascending aorta (tube). Mildly dilated inferior vena cava. CONCLUSIONS Normal size left ventricle. Normal left ventricular wall thickness. Normal left ventricular ejection fraction visually estimated at > 65%. Abnormal relaxation filling pattern of the left ventricle for age (stage 1 diastolic dysfunction). Mild right ventricular dilatation. Normal atrial size. Mild aortic regurgitation. Mild aortic dilatation at the level of the sinuses of valsalva (root). Mildly dilated proximal ascending aorta (tube). Mildly dilated inferior vena cava. Report amended to correct patient identifiers.. Myron Gaytan M.D. (Electronically Signed) Final Date: 21 October 2017 14:27 Amended: 24 October 2017 19:45 MEASUREMENTS (Male / Female) Normal Values 2D ECHO LV Diastolic Diameter PLAX 4.1 cm 4.2 - 5.9 / 3.9 - 5.3 cm LV Systolic Diameter PLAX 2.3 cm 2.1 - 4.0 cm LV Fractional Shortening PLAX 43.9 % 25 - 46 % LV Ejection Fraction 2D Teich 75.6 % IVS Diastolic Thickness 1.0 cm LVPW Diastolic Thickness 1.1 cm LV Relative Wall Thickness 0.5 RV Internal Dim ED PLAX 4.1 cm 1.9 - 3.8 cm LVOT Diameter 2.2 cm Aortic Root Diameter 3.9 cm LA Systolic Diameter LX 3.0 cm 3.0 - 4.0 / 2.7 - 3.8 cm Ascending Aorta Diameter 3.6 cm DOPPLER AV Peak Velocity 185.0 cm/s AV Peak Gradient 13.7 mmHg AV Mean Velocity 126.0 cm/s AV Mean Gradient 7.0 mmHg AV Velocity Time Integral 25.0 cm LVOT Peak Velocity 121.0 cm/s LVOT Peak Gradient 5.9 mmHg LVOT Mean Velocity 87.2 cm/s LVOT Mean Gradient 4.0 mmHg LVOT Velocity Time Integral 17.1 cm LVOT Stroke Volume 65.0 cm AV Area Cont Eq vti 2.6 cm AV Area Cont Eq pk 2.5 cm MV Peak Velocity 146.0 cm/s MV Peak Gradient 8.5 mmHg MV Mean Velocity 71.2 cm/s MV Mean Gradient 2.0 mmHg Mitral E Point Velocity 53.3 cm/s Mitral A Point Velocity 71.6 cm/s Mitral E to A Ratio 0.7 MV PHT Velocity 152.0 cm/s MV Deceleration [place] 1279.0 cm/s MV Pressure Half Time 35.7 ms MV Area PHT 6.2 cm MV Deceleration Time 137.0 ms PV Peak Velocity 135.0 cm/s PV Peak Gradient 7.3 mmHg PV Mean Velocity 78.6 cm/s PV Mean Gradient 3.0 mmHg PV Velocity Time Integral 19.4 cm LV E' Lateral Velocity 17.2 cm/s Mitral E to LV E' Lateral Ratio 3.1 LV E' Septal Velocity 17.9 cm/s Mitral E to LV E' Septal Ratio 3.0
== END 2017-10-27 13:41 | disposition home health service (06) | DRG 189 ==
LOC: ERH 10:55 → 2NB 13:31 → ERHI 13:31 → ENRESERV 14:08 → CANRESERV 14:08 → ENRESERV 15:52 → ENTRNSPT 17:06 → EDTRNSPTSTS 17:09 → 2NB 17:15 → CMPTRNSPT 17:32 → 2NB 10-21 09:34 → ENTRNSPT 10-27 13:26 → EDTRNSPT 10-27 13:38 → EDTRNSPTSTS 10-27 13:38 → 2NB 10-27 13:41 → CMPTRNSPT 10-27 13:42
PROVIDERS: Internal Medicine Hematology & Oncology; Student in an Organized Health Care Education/Training Program
DX: J96.21 Acute and chronic respiratory failure with hypoxia (principal); E87.2 Acidosis; I27.20 Pulmonary hypertension, unspecified; E87.3 Alkalosis; J44.1 Chronic obstructive pulmonary disease with (acute) exacerbation; Z99.81 Dependence on supplemental oxygen; K22.2 Esophageal obstruction; C34.91 Malignant neoplasm of unspecified part of right bronchus or lung; Z86.718 Personal history of other venous thrombosis and embolism; Z79.01 Long term (current) use of anticoagulants; Z92.21 Personal history of antineoplastic chemotherapy; E78.5 Hyperlipidemia, unspecified; Z87.891 Personal history of nicotine dependence; Z82.49 Family history of ischemic heart disease and other diseases of the circulatory system; Z80.49 Family history of malignant neoplasm of other genital organs; Z92.241 Personal history of systemic steroid therapy
CPT/HCPCS: 2NSBP; 36415; 71045; 81003; 82436; 87070; 87071; 87086; 87804; 87804-59; 93005; 93010; 93306; 96374; 97116-GO; 97161-GP; 97530-GO; G0480; J1940; J2920; J2930; J3490

== ENCOUNTER 2017-11-29 09:35 | Inpatient (IN) | payer OTHER ==
[~2017-11-29] VITALS: Ht 182.9 cm; Wt 84.0 kg
[~2017-11-29 09:35] MED LIST changes: +BENZONATATE100 M1 PO; +ELIQUIS5 M1 PO; +GUAIFENESIN ER600 MG PO; +LIPITOR10 M1 PO; +LISINOPRIL5 M1 PO; +OMEPRAZOLE20 M2 PO; +PREDNISONE10 M2 PO; +PREDNISONE20 M1 PO; +SYMBICORT 80-10.2 GM INH; +VENTOLIN HFA18 GM INH
--- NOTE | 2017-11-29 09:55 | ED DYSPNEA/ASTHMA COMPLAINT ---
History of Present Illness General Chief Complaint: Dyspnea (COPD, CHF, Other) Stated Complaint: BIBA SOB Source: patient Exam Limitations: no limitations Vital Signs & Intake/Output Vital Signs & Intake/Output Vital Signs Date Time Temp Pulse Resp B/P B/P Pulse O2 O2 Flow FiO2 Mean Ox Delivery Rate 11/29 1141 95 Nasal 5.0L Cannula 11/29 1035 Non 100% ReBreather 11/29 1009 98.3 112 32 123/71 97 Non 10L ReBreather Allergies Coded Allergies: NO KNOWN ALLERGIES (10/05/14) Triage Nurses Notes Reviewed? yes Onset: Gradual Duration: day(s): (2) Timing: recent history Severity: moderate Activities at Onset: none Prior Episodes/Possible Cause: occasional episodes HPI: Patient is a 72-year-old male with history of lung cancer, COPD presenting to the emergency department via EMS with chief complaint of worsening shortness of breath over the past 2 days. Patient also reporting generalized malaise and weakness. He felt too weak to even get out of bed today. History of similar symptoms when he was diagnosed with pneumonia. Patient still getting treatment for his lung cancer and has been for the past 3 years. Patient also reports history of pulmonary and wasn't is on request. No changes in medication recently. Denies sick contacts or travel. Patient does report that over the past day he developed some right-sided chest pressure, he describes as an ache that comes and goes with movement. No nausea or vomiting. Denies any change in bowel or bladder function. Denies abdominal pain. Patient does report coughing with slight sputum production but says that this is normal for him. (Beau BLACKWOOD,Leigh) Reconcile Medications Albuterol Sulfate (Ventolin Hfa) 90 MCG HFA.AER.AD 2 PUF INH AD PRN RESP. ( Reported) Apixaban (Eliquis) 5 MG TABLET 1 TAB PO BID BLOOD THINNER (Reported) Atorvastatin Calcium (Lipitor) 10 MG TABLET 1 TAB PO DAILY CHOLESTEROL ( Reported) Budesonide/Formoterol Fumarate (Symbicort 80-4.5 Mcg Inhaler) 80 MCG-4.5 MCG/ ACTUATION HFA.AER.AD 2 PUF INH BID PRN SOB . Lisinopril 5 MG TABLET 1 TAB PO DAILY BP (Reported) (Lizet NICOLAS,Elias Pinto) Past History Travel History Traveled to [place] past 21 day No Medical History Any Pertinent Medical History? see below for history Neurological: NONE EENT: NONE Cardiovascular: hyperlipidemia Respiratory: COPD, pneumonia Gastrointestinal: NONE Hepatic: NONE Renal: NONE Musculoskeletal: NONE Psychiatric: NONE Endocrine: NONE Blood Disorders: PE Cancer(s): lung cancer History of MRSA: No History of VRE: No History of CDIFF: No Influenza Vaccine: 09/25/17 Surgical History Surgical History: mediastinoscopy Psychosocial History Who do you live with Spouse What is your primary language [place] Tobacco Use: Quit >30 days ago ETOH Use: denies use Illicit Drug Use: denies illicit drug use Family History Family History, If Any: FATHER, , Age 40-50; Cause: Myocardial infarct. BROTHER, ; Cause: Heart disease. BROTHER FH: CABG (coronary artery bypass surgery) MOTHER FH: cancer of genital organ Hx Contributory? No (Leigh Jimenez) Review of Systems Review of Systems Constitutional: Reports: see HPI, chills, malaise, weakness. Comments Review of systems: See HPI, All other systems negative. Constitutional, no fever or weight loss HEENT: No visual changes no sore throat Cardiovascular: No palpitation , orthopnea or ankle swelling Skin, no jaundice no rashes Respiratory: No hemoptysis GI: No nausea no vomiting : No dysuria No hematuria Muscle skeletal: no back pain, no neck pain, Neurologic: No numbness no confusion, no headaches Psych: No stress anxiety or depression,. Heme/endocrine: No bruising no bleeding no polyuria or polydipsia Immunology: No splenectomy or history of AIDS (Leigh Jimenez) Physical Exam Physical Exam General Appearance: well developed/nourished, alert, awake, moderate distress Respiratory: decreased breath sounds, accessory muscle use, respiratory distress Comments: Well-developed well-nourished person in MILD-MOD DISTRESS HEENT:Pupils equally round and reactive to light and accommodation. Nose is atraumatic. External auditory canal and Tympanic membranes clear. Moderate pharyngeal erythema, white spots noted in the posterior pharynx. No tonsillar enlargement. Dry oral mucosa. Neck: Normal inspection Back: Nontender Cardiovascular: Tachycardic rate and rhythms Respiratory: Chest nontender. Moderate respiratory distress.breath sounds diminished to auscultation bilaterally at the bases, increased work of breathing Abdomen: Soft, nontender nondistended, no appreciable organomegaly. Normal bowel sounds. No ascites, no rebound or guarding. Extremity: No edema, no calf tenderness to palpation, normal and equal pulses. Neuro: Alert oriented x3, motor sensory normal, cranial nerves II through XII grossly intact. Skin: No appreciable rash on exposed skin, skin is warm and dry. Psych: Mood and affect is normal, memory and judgment is normal. Core Measures ACS in differential dx? Yes CVA/TIA Diagnosis No Sepsis Present: No Sepsis Focused Exam Completed? No (Beau BLACKWOOD,Leigh) Progress Differential Diagnosis: asthma, AMI, bronchitis, costochondritis, CHF, COPD, pericarditis, pulmonary embolism, pneumonia Plan of Care: Orders Procedure Date/time Status Clear Liquid Diet 11/29 D Active Misc Message 11/29 1317 Active ED Holding Orders 11/29 1317 Active Admit to inpatient 11/29 1317 Active Vital Signs 11/29 1317 Active Code Status 11/29 1317 Active Add-on Test (ER Only) 11/29 1259 Active BLOOD CULTURE 11/29 1259 Active RAPID VIRAL INFLUENZA A 11/29 1258 Active ARTERIAL BLOOD GAS (GEN) 11/29 1002 Active LACTIC ACID 11/29 0956 Complete TROPONIN LEVEL 11/29 0954 Complete PARTIAL THROMBOPLASTIN TIME 11/29 0954 Complete PROTHROMBIN TIME 11/29 0954 Complete COMPREHENSIVE METABOLIC PANEL 11/29 0954 Complete CBC WITHOUT DIFFERENTIAL 11/29 0954 Complete B-TYPE NATRIURETIC PEP (BNP) 11/29 0954 Complete EKG 11/29 0936 Active Current Medications Sig/Joel Start time Last Medication Dose Stop Time Status Admin Sodium Chloride 1,000 ML ONCE ONE 11/29 1330 AC (Normal Saline 0.9%) 11/30 0249 Azithromycin 500 MG ONCE ONE 11/29 1315 AC (Zithromax) 11/29 1414 Dextrose/Water 250 ML (D5W) Laboratory Tests 11/29/17 1035: pH 7.53 H, pCO2 24 L, pO2 154 H, HCO3 19 L, ABG O2 Sat (Measured) 98.0, P-50 (Temp Corrected) N, Carboxyhemoglobin 0.4 L, O2 Concentration % 100%, Temperature 98.3, O2 Delivery Method NRB, Phlebotomy Draw Site LEFT RADIAL 11/29/17 0956: Lactic Acid 2.7 H 11/29/17 0956: Anion Gap 13, Estimated GFR > 60, BUN/Creatinine Ratio 23.3, Glucose 114 H, Calcium 8.5, Total Bilirubin 1.6 H, AST 18, ALT 33, Alkaline Phosphatase 96, Troponin I 0.02, Fjt-[id number] Pept 1460 H, Total Protein 5.9 L, Albumin 3.2 L, Globulin 2.7, Albumin/Globulin Ratio 1.2, PT 17.3 H, INR 1.66 H, APTT 31, CBC w Diff MAN DIFF ORDERED, RBC 4.24 L, MCV 86.2, MCH 28.7, MCHC 33.3, RDW 16.6 H, MPV 9.0, Gran % 88.2 H, Lymphocytes % 7.3 L, Monocytes % 4.2, Eosinophils % 0.1, Basophils % 0.2, Absolute Granulocytes 8.2 H, Absolute Lymphocytes 0.7 L, Absolute Monocytes 0.4, Absolute Eosinophils 0, Absolute Basophils 0, Platelet Estimate ADEQUATE, Hypochromic-Microcytic 1+, Poikilocytosis 2+, Anisocytosis 2+ Microbiology 11/29 1259 BLOOD: Blood Culture - ORD 11/29 1259 BLOOD: Blood Culture - ORD 11/29 1258 NASOPHARYN: Influenza Virus A & B Rapid Smear - ORD Patient on arrival is in mild respiratory distress with increased work of breathing. Breathing treatment ordered. Patient reports that he has some improvement after breathing treatment. He is informed of all lab work results and imaging study results. Patient desats to the 80s with supplemental oxygen while seated at bedside. Discussed with attending, patient will be admitted for pneumonitis and COPD exacerbation. IV antibiotics initiated. Blood cultures ordered. CT negative for pulmonary embolus. Diagnostic Imaging: Viewed by Me: CT Scan. Discussed w/RAD: CT Scan. Radiology Impression: PATIENT: DALTON TAMEZ PRESENT AGE: 72 PATIENT ACCOUNT NO: [id number] : 46 LOCATION: [facility] ORDERING PHYSICIAN: Leigh BLACKWOOD SERVICE DATE: 11/29/171001 EXAM TYPE: CAT - CTA CHEST-PULMONARY EMBOLISM EXAMINATION: CT ANGIOGRAM OF THE CHEST WITH AND WITHOUT CONTRAST (CT PULMONARY ANGIOGRAM FOR PE) CLINICAL INFORMATION: Reason for Study:
Presumptive Dx: ro pe
Signs Symptoms: sob, tachy, hx of pe
right lung cancer. COMPARISON: October 20, 2017 TECHNIQUE: Prior to contrast administration, noncontrast localization images were obtained. Subsequently, multidetector volumetric imaging was performed from the thoracic inlet to below the diaphragms following the administration of 100 mL Optiray 350 intravenous contrast. No contrast reaction reported. Sagittal, coronal, and MIP oblique sagittal reformatted images were obtained on the CT workstation, uploaded to PACS, and reviewed. Total exam dose-length product 505.07 mGy-cm. FINDINGS: QUALITY OF STUDY/CONTRAST BOLUS: Satisfactory PULMONARY ARTERIES: No central or segmental pulmonary emboli. THORACIC AORTA: There is enlargement of the ascending thoracic aorta to approximately 4.4 cm in diameter. No thoracic aortic dissection. LUNG: There has been progression in disease within the right lower lobe with right hilar mass encasing lower lobe bronchi and pulmonary vessels with appearance of postobstructive pneumonitis. There are significant changes of centrilobular emphysema seen as well as bilateral regions of bronchiectasis. There are scattered regions of groundglass opacity most prominent in regions of bronchiectasis. PLEURA: There is pleural thickening seen bilaterally as well as development of a small right pleural effusion. MEDIASTINUM: There is a large amount of streak artifact from contrast present somewhat limiting evaluation for lymphadenopathy. Heart normal size. Coronary artery calcifications present. Right hilar lymphadenopathy is seen. Subcarinal lymphadenopathy is present No evidence of septal bowing or right heart strain. CHEST WALL/AXILLA: No axillary or internal mammary lymphadenopathy. OSSEOUS STRUCTURES: There is multilevel degenerative disc disease seen. No definite destructive bony lesions appreciated. UPPER ABDOMEN: There are some enlarged supraceliac lymph nodes present. No adrenal gland masses. Remainder of upper abdominal organs imaged appear unremarkable. No reflux of contrast into the hepatic veins to suggest elevated right heart pressures. IMPRESSION: No evidence of acute pulmonary artery embolus. Encasement of right lower lobe bronchi and vessels with progression in disease with post obstructive pneumonitis within the right lower lobe and development of a small pleural effusion. Emphysematous change with bilateral regions of bronchiectasis. Right hilar and mediastinal lymphadenopathy. 4.4 cm diameter ascending thoracic aorta. DICTATED BY: Bladimir Mckinley MD DATE/TIME DICTATED:11/29/171151 DRIVE IN THEATER ATTENDANT:MARIA TERESA DATE/ TIME TRANSCRIBED:11/29/171151 CONFIDENTIAL, DO NOT COPY WITHOUT APPROPRIATE AUTHORIZATION. <Electronically signed in Other Vendor System> SIGNED BY: Bladimir Mckinley MD 11/29/17 1226 Initial ED EKG: SINUS TACHY (Leigh Jimenez) Departure Departure Time of Disposition: 1321 Disposition: STILL A PATIENT Condition: Stable Clinical Impression Primary Impression: Pneumonitis Secondary Impressions: COPD exacerbation, Respiratory alkalosis Referrals: Gabbi Farias DO (PCP/Family) Departure Forms: Customer Survey General Discharge Information Admission Note Spoke With: Oseas Pratt MD Documentation of Exam: Documentation of any treatments & extenuating circumstances including Concerns Regarding Discharge (functional status, medication knowledge or non-compliance, living conditions, etc.) that warrant an admission rather than observation: Patient requiring multidose day for admission of pneumonitis and legs COPD exacerbation, requiring serial DuoNeb treatments, IV antibiotics for likely developing pneumonia, pulmonology consultation. Patient requiring more oxygen and at baseline. Discharge at this time is medically harmful. (Leigh Jimenez) PA/PAINTER FOREMAN Co-Sign Statement Statement: ED Attending supervision documentation- [X] I saw and evaluated the patient. I have also reviewed all the pertinent lab results and diagnostic results. I agree with the findings and the plan of care as documented in the PA's/PAINTER FOREMAN's documentation. Patient presents for evaluation of severe shortness of breath and the presence of a known history of COPD and lung cancer. Patient is currently taking chemotherapy and has had radiation therapy in the past. Physical examination reveals a dyspneic-appearing patient who is otherwise alert cooperative but speaking in a breathless voice. [] I have reviewed the ED Record and agree with the PA's/PAINTER FOREMAN's documentation. [] Additions or exceptions (if any) to the PAs/PAINTER FOREMAN's note and plan are summarized below: [] (Lizet NICOLAS,Elias Pinto) Critical Care Note Critical Care Note Critical Care Time: 30-74 min (Leigh Jimenez)
[2017-11-29 10:14] LABS: PT 17.3 SEC (9.4-12.5); PTT 31 SEC (25-37)
[2017-11-29 10:15] LABS: ABSOLUTE BASOPHIL COUNT 0 /CUMM (0.0-0.2); ABSOLUTE EOSINOPHIL COUNT 0 /CUMM (0.0-0.7); ABSOLUTE GRANULOCYTE CT 8.2 /CUMM (1.4-6.5); ABSOLUTE LYMPH COUNT 0.7 /CUMM (1.2-3.4); ABSOLUTE MONOCYTE COUNT 0.4 /CUMM (0.10-0.60); BASOPHIL % 0.2 % (0.0-2.0); EOSINOPHIL % 0.1 % (0-5); GRANULOCYTE % 88.2 % (42.2-75.2); HEMATOCRIT 36.5 % (42-52); MEAN CORPUSCULAR HGB 28.7 PG (27.0-31.0); MEAN CORPUSCULAR HGB CONC 33.3 G/DL (33.0-37.0); MEAN CORPUSCULAR VOLUME 86.2 FL (80.0-94.0); PLATELET COUNT 315 /CUMM (130-400); RBC DISTRIBUTION WIDTH 16.6 % (11.5-14.5); RED BLOOD CELL CT 4.24 /CUMM (4.70-6.10); WHITE BLOOD CELL COUNT 9.3 /CUMM (4.8-10.8)
--- NOTE | 2017-11-29 12:26 | CT SCAN REPORT ---
EXAMINATION: CT ANGIOGRAM OF THE CHEST WITH AND WITHOUT CONTRAST (CT PULMONARY ANGIOGRAM FOR PE) CLINICAL INFORMATION: Reason for Study:
Presumptive Dx: ro pe
Signs Symptoms: sob, tachy, hx of pe
right lung cancer. COMPARISON: October 20, 2017 TECHNIQUE: Prior to contrast administration, noncontrast localization images were obtained. Subsequently, multidetector volumetric imaging was performed from the thoracic inlet to below the diaphragms following the administration of 100 mL Optiray 350 intravenous contrast. No contrast reaction reported. Sagittal, coronal, and MIP oblique sagittal reformatted images were obtained on the CT workstation, uploaded to PACS, and reviewed. Total exam dose-length product 505.07 mGy-cm. FINDINGS: QUALITY OF STUDY/CONTRAST BOLUS: Satisfactory PULMONARY ARTERIES: No central or segmental pulmonary emboli. THORACIC AORTA: There is enlargement of the ascending thoracic aorta to approximately 4.4 cm in diameter. No thoracic aortic dissection. LUNG: There has been progression in disease within the right lower lobe with right hilar mass encasing lower lobe bronchi and pulmonary vessels with appearance of postobstructive pneumonitis. There are significant changes of centrilobular emphysema seen as well as bilateral regions of bronchiectasis. There are scattered regions of groundglass opacity most prominent in regions of bronchiectasis. PLEURA: There is pleural thickening seen bilaterally as well as development of a small right pleural effusion. MEDIASTINUM: There is a large amount of streak artifact from contrast present somewhat limiting evaluation for lymphadenopathy. Heart normal size. Coronary artery calcifications present. Right hilar lymphadenopathy is seen. Subcarinal lymphadenopathy is present No evidence of septal bowing or right heart strain. CHEST WALL/AXILLA: No axillary or internal mammary lymphadenopathy. OSSEOUS STRUCTURES: There is multilevel degenerative disc disease seen. No definite destructive bony lesions appreciated. UPPER ABDOMEN: There are some enlarged supraceliac lymph nodes present. No adrenal gland masses. Remainder of upper abdominal organs imaged appear unremarkable. No reflux of contrast into the hepatic veins to suggest elevated right heart pressures. IMPRESSION: No evidence of acute pulmonary artery embolus. Encasement of right lower lobe bronchi and vessels with progression in disease with post obstructive pneumonitis within the right lower lobe and development of a small pleural effusion. Emphysematous change with bilateral regions of bronchiectasis. Right hilar and mediastinal lymphadenopathy. 4.4 cm diameter ascending thoracic aorta.
[2017-11-29] MEDS ORDERED: VENTOLIN HFA18 GM INH (13:42)
--- NOTE | 2017-11-29 14:23 | History & Physical ---
Tanner NICOLAS,[facility] 11/29/17 1422: General Information and HPI MD Statement: I have seen and personally examined DALTON TAMEZ SR and documented this H&P. The patient is a 72 year old M who presented with a patient stated chief complaint of shortness of breath. Source of Information: patient Exam Limitations: no limitations History of Present Illness: 71 years old male with past medical history of hypertension, hyperlipidemia, non -small cell lung carcinoma (08/2015) is currently being treated with single agent Taxol, hx of PE, PULMONARY HYPERTENSION on home oxygen of 2 L nasal cannula, recently discharged from [facility] in October 27 for acute on chronic hypoxic resp failure is BIBA after complaining of shortness of breath. Pt reports that at baseline he does have shortness of breath, however he experienced acute worsening today and decided to activate EMS, his woresning shortness of breath was not aggravated by exertion. He reports for the past 3 days, he has experienced more fatigue and lethargy. Denies any chest pain, fever /chills, cough, sputum production,abdominal pain or dysuria. No recent URI or sick contacts. Denies any weigh gain, LE edema, or PND. ED records indicate a saturation levele of 77 % on arrival by EMS. Of note, pt is seen By Dr Ross for his NSCLC and rceives Taxol (last given on Sunday 12/24). Allergies/Medications Allergies: Coded Allergies: NO KNOWN ALLERGIES (10/05/14) Home Med list Albuterol Sulfate (Ventolin Hfa) 90 MCG HFA.AER.AD 2 PUF INH AD PRN RESP. ( Reported) Apixaban (Eliquis) 5 MG TABLET 1 TAB PO BID BLOOD THINNER (Reported) Atorvastatin Calcium (Lipitor) 10 MG TABLET 1 TAB PO DAILY CHOLESTEROL ( Reported) Budesonide/Formoterol Fumarate (Symbicort 80-4.5 Mcg Inhaler) 80 MCG-4.5 MCG/ ACTUATION HFA.AER.AD 2 PUF INH BID PRN SOB . Lisinopril 5 MG TABLET 1 TAB PO DAILY BP (Reported) Past History Travel History Traveled to [place] past 21 day No Medical History Neurological: NONE EENT: NONE Cardiovascular: hyperlipidemia Respiratory: COPD, pneumonia Gastrointestinal: NONE Hepatic: NONE Renal: NONE Musculoskeletal: NONE Psychiatric: NONE Endocrine: NONE Blood Disorders: PE Cancer(s): lung cancer History of MRSA: No History of VRE: No History of CDIFF: No Influenza Vaccine: 09/25/17 Surgical History Surgical History: mediastinoscopy Past Family/Social History Family History Relations & Conditions if any FATHER, , Age 40-50; Cause: Myocardial infarct. BROTHER, ; Cause: Heart disease. BROTHER FH: CABG (coronary artery bypass surgery) MOTHER FH: cancer of genital organ Psychosocial History ETOH Use: denies use Illicit Drug Use: denies illicit drug use Review of Systems Review of Systems Constitutional: Reports: see HPI. EENTM: Reports: no symptoms. Cardiovascular: Reports: no symptoms. Respiratory: Reports: see HPI. GI: Reports: no symptoms. Genitourinary: Reports: no symptoms. Musculoskeletal: Reports: no symptoms. Skin: Reports: no symptoms. Neurological/Psychological: Reports: no symptoms. Hematologic/Endocrine: Reports: no symptoms. Immunologic/Allergic: Reports: no symptoms. All Other Systems: Reviewed and Negative Exam & Diagnostic Data Last 24 Hrs of Vital Signs/I&O Vital Signs Date Time Temp Pulse Resp B/P B/P Pulse O2 O2 Flow FiO2 Mean Ox Delivery Rate 11/29 1412 98.7 100 20 94/63 92 Nasal 5.0L Cannula 11/29 1225 98.9 98 22 110/70 94 Nasal 2.0L Cannula 11/29 1141 95 Nasal 5.0L Cannula 11/29 1035 Non 100% ReBreather 11/29 1009 98.3 112 32 123/71 97 Non 10L ReBreather Intake & Output 11/29 1600 11/29 0800 11/29 0000 Intake Total Output Total Balance Patient 85.729 kg Weight Weight Reported by Patient Measurement Method Physical Exam General Appearance Alert, Oriented X3, Cooperative Skin No Significant Lesion Skin Temp/Moisture Exam: Warm/Dry Sepsis Skin Exam (color): Normal for Ethnicity HEENT Atraumatic, Mucous Membr. moist/pink Neck Supple, No JVD Cardiovascular Regular Rate, Normal S1, Normal S2 Lungs diminished breath sounds b/l Abdomen Normal Bowel Sounds, Soft, No Tenderness Neurological Normal Speech, Strength at 5/5 X4 Ext, Normal Tone, Sensation Intact Extremities No Edema Vascular Normal Pulses, Pulses Symmetrical Sepsis Peripheral Pulse Location: Dorsalis Pedis Sepsis Peripheral Pulse Exam: Normal Sepsis Cap Refill Exam: <2 Sec Last 24 Hrs of Labs/Luis: Laboratory Tests 11/29/17 1035: pH 7.53 H, pCO2 24 L, pO2 154 H, HCO3 19 L, ABG O2 Sat (Measured) 98.0, P-50 (Temp Corrected) N, Carboxyhemoglobin 0.4 L, O2 Concentration % 100%, Temperature 98.3, O2 Delivery Method NRB, Phlebotomy Draw Site LEFT RADIAL 11/29/17 0956: Lactic Acid 2.7 H 11/29/17 0956: Anion Gap 13, Estimated GFR > 60, BUN/Creatinine Ratio 23.3, Glucose 114 H, Calcium 8.5, Total Bilirubin 1.6 H, AST 18, ALT 33, Alkaline Phosphatase 96, Troponin I 0.02, Wzo-I-Sicwwkhugjr Pept 1460 H, Total Protein 5.9 L, Albumin 3.2 L, Globulin 2.7, Albumin/Globulin Ratio 1.2, PT 17.3 H, INR 1.66 H, APTT 31, CBC w Diff MAN DIFF ORDERED, RBC 4.24 L, MCV 86.2, MCH 28.7, MCHC 33.3, RDW 16.6 H, MPV 9.0, Gran % 88.2 H, Lymphocytes % 7.3 L, Monocytes % 4.2, Eosinophils % 0.1, Basophils % 0.2, Absolute Granulocytes 8.2 H, Absolute Lymphocytes 0.7 L, Absolute Monocytes 0.4, Absolute Eosinophils 0, Absolute Basophils 0, Platelet Estimate ADEQUATE, Hypochromic-Microcytic 1+, Poikilocytosis 2+, Anisocytosis 2+ Microbiology 11/29 1414 NASOPHARYN: Influenza Virus A & B Rapid Smear - COMP 11/29 1413 BLOOD: Blood Culture - RECD 11/29 1401 BLOOD: Blood Culture - RECD Diagnostic Data Other Results SERVICE DATE: 11/29/17-1001 EXAM TYPE: CAT - CTA CHEST-PULMONARY EMBOLISM EXAMINATION: CT ANGIOGRAM OF THE CHEST WITH AND WITHOUT CONTRAST (CT PULMONARY ANGIOGRAM FOR PE) CLINICAL INFORMATION: Reason for Study:
Presumptive Dx: ro pe
Signs Symptoms: sob, tachy, hx of pe
right lung cancer. COMPARISON: October 20, 2017 TECHNIQUE: Prior to contrast administration, noncontrast localization images were obtained. Subsequently, multidetector volumetric imaging was performed from the thoracic inlet to below the diaphragms following the administration of 100 mL Optiray 350 intravenous contrast. No contrast reaction reported. Sagittal, coronal, and MIP oblique sagittal reformatted images were obtained on the CT workstation, uploaded to PACS, and reviewed. Total exam dose-length product 505.07 mGy-cm. FINDINGS: QUALITY OF STUDY/CONTRAST BOLUS: Satisfactory PULMONARY ARTERIES: No central or segmental pulmonary emboli. THORACIC AORTA: There is enlargement of the ascending thoracic aorta to approximately 4.4 cm in diameter. No thoracic aortic dissection. LUNG: There has been progression in disease within the right lower lobe with right hilar mass encasing lower lobe bronchi and pulmonary vessels with appearance of postobstructive pneumonitis. There are significant changes of centrilobular emphysema seen as well as bilateral regions of bronchiectasis. There are scattered regions of groundglass opacity most prominent in regions of bronchiectasis. PLEURA: There is pleural thickening seen bilaterally as well as development of a small right pleural effusion. MEDIASTINUM: There is a large amount of streak artifact from contrast present somewhat limiting evaluation for lymphadenopathy. Heart normal size. Coronary artery calcifications present. Right hilar lymphadenopathy is seen. Subcarinal lymphadenopathy is present No evidence of septal bowing or right heart strain. CHEST WALL/AXILLA: No axillary or internal mammary lymphadenopathy. OSSEOUS STRUCTURES: There is multilevel degenerative disc disease seen. No definite destructive bony lesions appreciated. UPPER ABDOMEN: There are some enlarged supraceliac lymph nodes present. No adrenal gland masses. Remainder of upper abdominal organs imaged appear unremarkable. No reflux of contrast into the hepatic veins to suggest elevated right heart pressures. IMPRESSION: No evidence of acute pulmonary artery embolus. Encasement of right lower lobe bronchi and vessels with progression in disease with post obstructive pneumonitis within the right lower lobe and development of a small pleural effusion. Emphysematous change with bilateral regions of bronchiectasis. Right hilar and mediastinal lymphadenopathy. 4.4 cm diameter ascending thoracic aorta. DICTATED BY: Bladimir Mckinley MD Assessment/Plan Assessment: 72 yo male with significant hx of NSCLC on Taxol treatment, and baseline shortness of breath, presents with acute hypoxic respiratory failure in the setting of radiological finding suggestive of post obstructive PNA. Impression * Acute on chronic Hypoxic respiratory failure. As evident by ED triage note indicating a sat level of 77% on arrival. Most likely 2/2 to post obstructive pneumonitis vs Post obstructive Community acquired pneumonia (Even though there is no leukocytosis or fever, infection is not ruled out as patient chemotherapy can exert myelosuppressive properties preventing a rising WBC). PE was a very high clinical concern given the malignancy and an ABG showing hypocarbia with resp alkalosis, however CTA was negative. * Hyperlactetemia. Most likely 2/2 to hypoxia, given the desturation to 77%. Expected to correct with o2 supplementation. 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 TR/nebs Sputum cultures Legionella and strep antigen Consider Pulm consult am, if resp status worsens, may need bronchial stent placement? Continue chronic home meds Surveillance if descending thoraci aneurysm on outpatient basis, probably annual. DVT PPX: Patient already being managed with Eliquis (LMWH enoxaparin would be the ideal choice for PE ppx in a malignant patient). As Ranked By This Provider Problem List: 1. Acute hypoxemic respiratory failure 2. Hypoxia 3. Pneumonitis Core Measures/Misc (06/15) Acute Coronary Syndrome ACS Diagnosis: No Congestive Heart Failure Congestive Heart Failure Diagnosis No Cerebrovascular Accident CVA/TIA Diagnosis: No VTE (View Protocol) VTE Risk Factors Acute Medical Illness No Mechanical VTE Prophylaxis d/t N/A MechProphylax Ordered No VTE Pharm Prophylaxis d/t Other (already on a NOAC) Sepsis (View protocol) Sepsis Present: No Oseas Pratt MD 11/30/17 0826: Attending MD Review Statement Attending Statement Attending MD Statement: examined this patient, discuss w/resident/PA/CUP MACHINE OPERATOR, agreed w/resident/PA/CUP MACHINE OPERATOR, reviewed EMR data (avail), reviewed images, amended to note Attending Assessment/Plan: The patient is a 71 yo male with h/o HTN, HL, NSC lung ca (09/12- on Taxol, followed by Dr. Ross), h/o pulmonary embolism/pulmonary HTN on chronic oxygen at home (2L nasal) who presented in the ED on the day of admission with c/o increased dyspnea. He also described increased fatigue x 3 days. Denied any CP, palpitations, fever/chills, cough/sputum production. On arrival he was noted to have a pulse of of 77% (?on oxygen). He initially required a non-rebreather mask. Last chemotherapy was 12/24. Physical Exam: VS: T 98.3, P 112-100, R 32-20, BP 123/71-94/63, PO 97% on NRB then 92% on 5 L nasal HEENT: eyes- PERRLA, EOMI adair- dry mucosa, no lesions Neck: no JVD/bruits Chest: severely diminished breath sounds diffusely Cor: RRR (at time of my later exam- prior was tachy), nl S1, S2 w/o murm Abd: BS+, soft, NT Ext: no edema, pulses 2+ Neuro: patient was fatigued, however easily aroused, non-focal exam Labs/Tests- as above Impression/Plan: #Acute on Chronic Hypoxic Respiratory Failure- patient normally only requiring 2 L nasal at home and now requiring significant increase in oxygen to maintain saturation. Symptoms most likely related to COPD and obstructive pneumonitis/ post obstructive pneumonia. CTA was negative. Plan: Admit to medical service. Close respiratory monitoring. Maintain O2 sat >= 90%. Agree with Abx- Ceftriaxone/Zithromax initially- may need to broaden if not responding. Pulmonary consultation- Dr. Boykin. Check sputum C&S if able. Will discuss steroids with Dr. Boykin. #RLL Post Obstructive Pneumonitis- on CTA. Plan: As above, will begin antibiotics- pulmonary consult pending. #NSC Lung Ca- right hilar and mediastinal mets on CT. Plan: Chemo as per Oncology- currently has been receiving Taxol. #H/O PE- on Apixaban. Negative CTPA for new PE. Plan: Continue Apixaban. #HTN- on Lisinopril. Plan: Continue Lisinopril.
[2017-11-29 16:23] VITALS: BP 94/62
[2017-11-29 21:43] VITALS: BP 122/90; BP 150/72
--- NOTE | 2017-11-30 00:15 | Admission Certification ---
Admission Certification Certification Statement - As attending physician, I certify that at the time of - admission, based on clinical presentation, severity of - symptoms, need for further diagnostic testing and - therapeutic interventions, and risk of adverse outcomes - without in-hospital treatment, in my clinical assessment, - this patient requires an acute hospital stay for a minimum - of two nights or longer. I have also considered psychsocial - factors such as support system, advanced age, financial - issues, cognitive issues, and failed out-patient treatments, - past re-admission history, safety of patient, and lack of - compliance as applicable. Specific rationale supporting this admission is: The patient with h/o non-small cell lung ca on Taxol Rx, dyspnea/hypoxie noted. Acute hypoxemic respiratory filure (77% pulse ox). Needs admission for treatment for pneumonia. Folllow-up H/H.
[2017-11-30 05:44] VITALS: BP 100/50
[2017-11-30 08:53] LABS: ABSOLUTE BASOPHIL COUNT 0 /CUMM (0.0-0.2); ABSOLUTE EOSINOPHIL COUNT 0 /CUMM (0.0-0.7); ABSOLUTE GRANULOCYTE CT 6.4 /CUMM (1.4-6.5); EOSINOPHIL % 0.3 % (0-5)
[2017-11-30 09:19] LABS: ABSOLUTE MONOCYTE COUNT 0.1 /CUMM (0.10-0.60); BASOPHIL % 0.4 % (0.0-2.0); GRANULOCYTE % 84.4 % (42.2-75.2); HEMATOCRIT 31.8 % (42-52); MEAN CORPUSCULAR HGB 28.3 PG (27.0-31.0); MEAN CORPUSCULAR HGB CONC 32.4 G/DL (33.0-37.0); MEAN CORPUSCULAR VOLUME 87.4 FL (80.0-94.0); MEAN PLATELET VOLUME 9.3 FL (7.4-10.4); PLATELET COUNT 270 /CUMM (130-400); RBC DISTRIBUTION WIDTH 16.4 % (11.5-14.5); RED BLOOD CELL CT 3.64 /CUMM (4.70-6.10); WHITE BLOOD CELL COUNT 7.6 /CUMM (4.8-10.8)
--- NOTE | 2017-11-30 10:29 | PN- Housestaff ---
See Addendum Subjective Follow-up For: post obstructive pneumonia Subjective: Patient was seen and examined at bedside. He was found to be hypoxic at 82% on 6L of oxygen. RT gave a neb treatment and switched him to high flow which increased his pulse ox > 90%. Patient himself feels much better from yesterday. He denies feeling short of breath and offers no complaints. Review of Systems Constitutional: Reports: no symptoms. Objective Last 24 Hrs of Vital Signs/I&O Vital Signs Date Time Temp Pulse Resp B/P B/P Pulse O2 O2 Flow FiO2 Mean Ox Delivery Rate 12/01 543 98.3 65 20 100/50 92 / 0000 Nasal 6.0L Cannula 11/29 2210 93 Nasal 6.0L Cannula 11/29 2143 98.6 96 20 122/90 90 Nasal 5.0L Cannula 11/29 2018 Nasal 5.0L Cannula 11/29 1623 98.6 95 22 94/62 93 Nasal 5.0L Cannula 11/29 1615 93 Nasal 5.0L Cannula 11/29 1609 88 24 112/68 95 Nasal 5.0L Cannula 11/29 1412 98.7 100 20 94/63 92 Nasal 5.0L Cannula 11/29 1225 98.9 98 22 110/70 94 Nasal 2.0L Cannula 11/29 1141 95 Nasal 5.0L Cannula Intake & Output 11/30 1600 /04 0800 / 0000 Intake Total 240 480 Output Total 250 Balance 240 230 Intake, Oral 240 480 Number 0 Bowel Movements Output, Urine 250 Patient 188 lb 189 lb Weight Weight Bed scale Reported by Patient Measurement Method Physical Exam General Appearance: Alert, Oriented X3, Cooperative, Mild Distress Skin: No Rashes, No Breakdown Skin Temp/Moisture Exam: Warm/Dry Sepsis Skin Exam (color): Normal for Ethnicity HEENT: Atraumatic Cardiovascular: Normal S1, Normal S2, No Murmurs Lungs: Normal Air Movement, wheezes b/l Abdomen: Soft, No Tenderness Neurological: Normal Speech Extremities: No Edema Assessment/Plan Assessment: 72 yo male with significant hx of NSCLC on Taxol treatment, and baseline shortness of breath, presents with acute hypoxic respiratory failure in the setting of radiological finding suggestive of post obstructive PNA. Assessment: 1. Acute on chronic Hypoxic respiratory failure. Most likely 2/2 to post obstructive pneumonitis vs post obstructive Community acquired pneumonia 2. Hyperlactetemia. No metabolic acidosis. 3. Small pleural effusion 4. 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 Mild hyponatremia Plan: * Cotninue 02 supplementation to keep sats above 90%. Currently on high flow. * Continue Ceftriaxone and Azithromycin for possible CAP. * TRC/nebs as needed * Will follow up Sputum cultures * Pulm consult * Continue chronic home meds * DVT PPX: Eliquis (LMWH enoxaparin would be the ideal choice for PE ppx in a malignant patient). * Diet: Regular * Code: DNR/DNI Problem List: 1. COPD exacerbation Pain Ratin Pain Location: none Pain Goal: Remain pain free Pain Plan: none Tomorrow's Labs & Rationales: CBC, BEP
--- NOTE | 2017-11-30 14:29 | Cons- Pulmonary ---
See Addendum General Information and HPI Consulting Request Date of Consult: 11/30/17 Requested By: Dr. Pratt Reason for Consult: dyspnea Source of Information: patient Exam Limitations: no limitations History of Present Illness: Consultation for dyspnea. 72 year old man. NSCLC. Hx of PE on a/c. Treated with Taxol by Dr. Ross. Progressive dyspnea, dry cough, no hemoptysis. Has been on home oxygen. Has had ILD changes. No PFTs on record. ECHO 2018 - diastolic dysfunction, RV dilatation. CTA without acute PE. Right hilar/infrahilar mass encasing RLL vessels, narrowing of RLL PA branches. No signficant change. RLL atelectasis, mass effect with narrowing of the mid to distal esophagus. Small pleural effusion. Patient has had worsened dyspnea over past few days and presented to ED. No cp, no n/v/d/c. Has had issues swallowing previously, not an issue at present, no leg edema or tenderness. Previous admission left with a low o2 sat after informed decision making and risks. Hypoxemic, now on inhalers. On steroids, abx, feels better. Allergies/Medications Allergies: Coded Allergies: NO KNOWN ALLERGIES (10/05/14) Home Med List: Albuterol Sulfate (Ventolin Hfa) 90 MCG HFA.AER.AD 2 PUF INH AD PRN RESP. ( Reported) Apixaban (Eliquis) 5 MG TABLET 1 TAB PO BID BLOOD THINNER (Reported) Atorvastatin Calcium (Lipitor) 10 MG TABLET 1 TAB PO DAILY CHOLESTEROL ( Reported) Budesonide/Formoterol Fumarate (Symbicort 80-4.5 Mcg Inhaler) 80 MCG-4.5 MCG/ ACTUATION HFA.AER.AD 2 PUF INH BID PRN SOB . Lisinopril 5 MG TABLET 1 TAB PO DAILY BP (Reported) Current Medications: Current Medications Sig/Joel Start time Last Medication Dose Route Stop Time Status Admin Albuterol Sulfate 3 ML EVERY 4 HRS/AWAKE 11/30 1999 AC 11/30 INH 1138 Apixaban 5 MG BID 11/30 1000 AC 11/30 PO 0916 Azithromycin 500 MG DAILY@1400 11/30 1400 AC 11/30 Dextrose/Water 250 ML IV 1409 Benzonatate 100 MG TID 11/29 1848 AC 11/30 PO 0916 Ceftriaxone Sodium 1,000 MG DAILY@1400 11/30 1400 AC 11/30 IV 1404 Sodium Chloride 1,000 ML ONCE ONE 11/29 1330 DC 11/29 IV 11/30 0249 1417 Review of Systems Comments 18 point review of systems was performed and reviewed. Please see pertinent positives and pertinent negatives in the HPI. Otherwise ROS is negative. Past History Travel History Traveled to [place] past 21 day No Medical History Blood Transfusion Hx: No Neurological: NONE EENT: NONE Cardiovascular: hypertension, hyperlipidemia Respiratory: COPD, pulmonary embolism, pneumonia, NON-SM CELL CA Gastrointestinal: NONE Hepatic: NONE Renal: NONE Musculoskeletal: R KNEE REPAIR Psychiatric: NONE Endocrine: NONE Blood Disorders: PE Cancer(s): lung cancer Surgical History Surgical History: mediastinoscopy R KNEE REPAIR Family History Relations & Conditions If Any: FATHER, , Age 40-50; Cause: Myocardial infarct. BROTHER, ; Cause: Heart disease. BROTHER FH: CABG (coronary artery bypass surgery) MOTHER FH: cancer of genital organ Psychosocial History Where Do You Live? Home Smoking Status: Former Smoker ETOH Use: denies use Illicit Drug Use: denies illicit drug use Exam & Diagnostic Data Last 24 Hrs of Vital Signs/I&O Vital Signs Date Time Temp Pulse Resp B/P B/P Pulse O2 O2 Flow FiO2 Mean Ox Delivery Rate 11/30 0840 82 Nasal 6.0L Cannula 11/30 0800 95 Nasal 70% Cannula 11/30 0544 98.3 65 20 100/50 92 11/30 0000 Nasal 6.0L Cannula 11/29 2210 93 Nasal 6.0L Cannula 11/29 2143 98.6 96 20 122/90 90 Nasal 5.0L Cannula 11/29 2018 Nasal 5.0L Cannula 11/29 1623 98.6 95 22 94/62 93 Nasal 5.0L Cannula 11/29 1615 93 Nasal 5.0L Cannula 11/29 1609 88 24 112/68 95 Nasal 5.0L Cannula Intake & Output 11/30 1600 11/30 0800 11/30 0000 Intake Total 240 480 Output Total 250 Balance 240 230 Intake, Oral 240 480 Number 0 Bowel Movements Output, Urine 250 Patient 188 lb 189 lb Weight Weight Bed scale Reported by Patient Measurement Method Physical Exam Other Physical Findings: Generally - Awake, alert Head and neck -high flow oxygen Cardiovascular - S1, S2 Lungs - rhonchi scattered bilaterally Abdomen - Bowel sounds positive, soft, non-tender Extremities - without edema Last 48 Hrs of Labs/Luis: Laboratory Tests 11/30/17 0720: Anion Gap 8, Estimated GFR > 60, BUN/Creatinine Ratio 24.0, CBC w Diff NO MAN DIFF REQ, RBC 3.64 L, MCV 87.4, MCH 28.3, MCHC 32.4 L, RDW 16.4 H, MPV 9.3, Gran % 84.4 H, Lymphocytes % 13.2 L, Monocytes % 1.7, Eosinophils % 0.3, Basophils % 0.4, Absolute Granulocytes 6.4, Absolute Lymphocytes 1.0 L, Absolute Monocytes 0.1, Absolute Eosinophils 0, Absolute Basophils 0 11/29/17 1035: pH 7.53 H, pCO2 24 L, pO2 154 H, HCO3 19 L, ABG O2 Sat (Measured) 98.0, P-50 (Temp Corrected) N, Carboxyhemoglobin 0.4 L, O2 Concentration % 100%, Temperature 98.3, O2 Delivery Method NRB, Phlebotomy Draw Site LEFT RADIAL 11/29/17 0956: Lactic Acid 2.7 H 11/29/17 0956: Anion Gap 13, Estimated GFR > 60, BUN/Creatinine Ratio 23.3, Glucose 114 H, Calcium 8.5, Total Bilirubin 1.6 H, AST 18, ALT 33, Alkaline Phosphatase 96, Troponin I 0.02, Rrk-F-Isaczynaugr Pept 1460 H, Total Protein 5.9 L, Albumin 3.2 L, Globulin 2.7, Albumin/Globulin Ratio 1.2, PT 17.3 H, INR 1.66 H, APTT 31, CBC w Diff MAN DIFF ORDERED, RBC 4.24 L, MCV 86.2, MCH 28.7, MCHC 33.3, RDW 16.6 H, MPV 9.0, Gran % 88.2 H, Lymphocytes % 7.3 L, Monocytes % 4.2, Eosinophils % 0.1, Basophils % 0.2, Absolute Granulocytes 8.2 H, Absolute Lymphocytes 0.7 L, Absolute Monocytes 0.4, Absolute Eosinophils 0, Absolute Basophils 0, Platelet Estimate ADEQUATE, Hypochromic-Microcytic 1+, Poikilocytosis 2+, Anisocytosis 2+ Microbiology 11/29 1414 NASOPHARYN: Influenza Virus A & B Rapid Smear - COMP Assessment/Plan Impression/Plan: Consultation for dyspnea. 72 year old man. NSCLC. Hx of PE on a/c. Treated with Taxol by Dr. Ross. Progressive dyspnea, dry cough, no hemoptysis. Has been on home oxygen. Has had ILD changes. No PFTs on record. ECHO 2018 - diastolic dysfunction, RV dilatation. CTA without acute PE. Right hilar/infrahilar mass encasing RLL vessels, narrowing of RLL PA branches. No signficant change. RLL atelectasis, mass effect with narrowing of the mid to distal esophagus. Small pleural effusion. Patient has had worsened dyspnea over past few days and presented to ED. No cp, no n/v/d/c. Has had issues swallowing previously, not an issue at present, no leg edema or tenderness. Previous admission left with a low o2 sat after informed decision making and risks. Hypoxemic, now on inhalers. On steroids, abx, feels better. Impression 71 year old man. NSCLC. Hx of PE on a/c. Treated with Taxol by Dr. Ross. * Acute hypoxemic respiratory failure - this could be secondary to significant pulmonary hypertension which needs to be investigated or possibly an exacerbation of COPD * Non-small cell lung carcinoma * Difficulty swallowing with a narrowing of the mid to distal esophagus * hx of PE on eliquis Plan -cont solumedrol -trc/nebs -empiric abx -sputum cx -given extent of disease and encasement of the RLL vessels and vessels, interventional pulmonary procedures may not be feasible and given his high flow use, bronchoscopy will pose a risk for indefinite intubation, will continue to monitor -please alert oncology that patient has been admitted -symbicort with rinsing of the mouth -incentive spirometry - ensure in room and instructed on use -flutter device -out of bed if tolerated -reduce fio2 to a goal spo2 of >88% DVT prophylaxis at all times Consult Acknowledgment - Thank you for your consult request.
[2017-11-30 15:15] VITALS: BP 100/60
[2017-11-30 22:45] VITALS: BP 100/61
[2017-12-01 06:28] VITALS: BP 100/62
--- NOTE | 2017-12-01 07:28 | PN- Housestaff ---
Yue NICOLAS,[facility] 12/01/17 0727: Subjective Follow-up For: Shortness of breath Non small cell lung cancer Subjective: Patient was seen and examined at bedside. He reports feeling better than yesterday. Denies feeling short of breath. Offers no complaints. No active issues. Review of Systems Constitutional: Reports: no symptoms. Objective Last 24 Hrs of Vital Signs/I&O Vital Signs Date Time Temp Pulse Resp B/P B/P Pulse O2 O2 Flow FiO2 Mean Ox Delivery Rate 12/02 627 99.0 82 20 100/62 92 12/01 0104 91 Nasal 70% Cannula 12/01 0000 96 Nasal 70% Cannula 11/30 2248 94 Nasal 70% Cannula 11/30 2245 100.0 87 18 100/61 95 T Piece 11/30 2024 93 Nasal 70% Cannula 11/30 1601 93 Nasal 70% Cannula 11/30 1600 96 Nasal 70% Cannula 11/30 1515 98.3 92 18 100/60 96 Nasal 70% Cannula 11/30 0840 82 Nasal 6.0L Cannula Intake & Output 12/01 1600 12/01 0800 12/01 0000 Intake Total 240 720 Output Total 750 Balance 240 -30 Intake, Oral 240 720 Number 1 Bowel Movements Output, Urine 750 Patient 190 lb Weight Physical Exam General Appearance: Alert, Oriented X3, Cooperative, Mild Distress Skin: No Rashes, No Breakdown Skin Temp/Moisture Exam: Warm/Dry Sepsis Skin Exam (color): Normal for Ethnicity HEENT: Atraumatic Cardiovascular: Normal S1, Normal S2, No Murmurs Lungs: decreased air entry on right, with wheezing Abdomen: Soft, No Tenderness Neurological: Normal Speech Extremities: No Edema Assessment/Plan Assessment: 72 yo male with significant hx of NSCLC on Taxol treatment, and baseline shortness of breath, presents with acute hypoxic respiratory failure in the setting of radiological finding suggestive of post obstructive PNA. Assessment: 1. Acute on chronic Hypoxic respiratory failure. Most likely 2/2 to post obstructive pneumonitis vs post obstructive Community acquired pneumonia 2. Hyperlactetemia. No metabolic acidosis. 3. Small pleural effusion 4. 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 Hyponatremia Plan: * Cotninue O2 supplementation to keep sats above 90%. Currently on high flow at 70%. His home oxygen is 2L. * Continue Ceftriaxone and Azithromycin for possible CAP. * TRC/nebs as needed * Sputum cultures * Pulm recs appreciated. * Goals of care discussion. * Dr Ross has been informed of patient's admission. * Continue chronic home meds. Will hold lisinopril as the patient is borderline hypotensive. * DVT PPX: Eliquis (LMWH enoxaparin would be the ideal choice for PE ppx in a malignant patient). * Diet: Regular * Code: DNR/DNI Problem List: 1. COPD exacerbation Pain Ratin Pain Location: none Pain Goal: Remain pain free Pain Plan: none Tomorrow's Labs & Rationales: CBC, BEP Tereza Rayo 12/01/17 1055: Attending MD Review Statement Attending Statement Attending MD Statement: examined this patient, discuss w/resident/PA/GREEN HOUSE MANAGER, agreed w/resident/PA/GREEN HOUSE MANAGER, discussed with family, reviewed EMR data (avail), discussed with nursing, discussed with case mgmt, reviewed images, amended to note Attending Assessment/Plan: ASSESSMENT AND PLAN #Acute on Chronic Hypoxic Respiratory Failure- patient normally only requiring 2 L nasal at home and now requiring significant increase in oxygen to maintain saturation. Symptoms most likely related to COPD and obstructive pneumonitis/ post obstructive pneumonia. CTA was negative. Plan: Continue with abx, afebrile Pulmonary f/u f/u sputum C&S if able. #RLL Post Obstructive Pneumonitis- on CTA. Plan: continue antibiotics- f/u pulmoanry. #NSC Lung Ca- right hilar and mediastinal mets on CT. Plan: Chemo as per Oncology- currently has been receiving Taxol. Inform oncology Dr Ross. #H/O PE- on Apixaban. Negative CTA for new PE. Plan: Continue Apixaban. #HTN- on Lisinopril. Plan: Continue Lisinopril. DNR/DNI. Goals of care discussion with family/oncology.
[2017-12-01 08:10] LABS: ABSOLUTE BASOPHIL COUNT 0 /CUMM (0.0-0.2); ABSOLUTE EOSINOPHIL COUNT 0 /CUMM (0.0-0.7); ABSOLUTE GRANULOCYTE CT 5.5 /CUMM (1.4-6.5); ABSOLUTE LYMPH COUNT 0.7 /CUMM (1.2-3.4); ABSOLUTE MONOCYTE COUNT 0.4 /CUMM (0.10-0.60); BASOPHIL % 0.3 % (0.0-2.0); EOSINOPHIL % 0.3 % (0-5); HEMATOCRIT 29.5 % (42-52); MEAN CORPUSCULAR HGB 29.1 PG (27.0-31.0); MEAN CORPUSCULAR HGB CONC 33.6 G/DL (33.0-37.0); MEAN CORPUSCULAR VOLUME 86.6 FL (80.0-94.0); MEAN PLATELET VOLUME 9.2 FL (7.4-10.4); PLATELET COUNT 265 /CUMM (130-400); RBC DISTRIBUTION WIDTH 16.2 % (11.5-14.5); RED BLOOD CELL CT 3.41 /CUMM (4.70-6.10); WHITE BLOOD CELL COUNT 6.6 /CUMM (4.8-10.8)
[2017-12-01 09:13] LABS: GRANULOCYTE % 83.2 % (42.2-75.2)
--- NOTE | 2017-12-01 11:59 | PN- Pulmonary ---
Subjective HPI/Critical Care Issues: pt seen and examined tmax 100 saturating 92% on 70% high flow o2 Objective Current Medications: Current Medications Sig/Joel Start time Last Medication Dose Route Stop Time Status Admin Albuterol Sulfate 3 ML EVERY 4 HRS/AWAKE 11/30 1999 AC 12/01 INH 0812 Apixaban 5 MG BID 11/30 1000 AC 12/01 PO 0848 Azithromycin 500 MG DAILY@11/30 1400 AC 11/30 Dextrose/Water 250 ML IV 1409 Benzonatate 100 MG TID 11/29 1848 AC 12/01 PO 0848 Ceftriaxone Sodium 1,000 MG DAILY@11/30 1400 AC 11/30 IV 1404 Melatonin 5 MG AT BEDTIME 12/01 2200 AC PO Vital Signs & I&O Last 24 Hrs of Vitals and I&O: Vital Signs Date Time Temp Pulse Resp B/P B/P Pulse O2 O2 Flow FiO2 Mean Ox Delivery Rate 12/01 0819 92 Nasal 70% Cannula 12/01 0800 92 Nasal 70% Cannula 12/01 0628 99.0 82 20 100/62 92 12/01 0104 91 Nasal 70% Cannula 12/01 0000 96 Nasal 70% Cannula 11/30 2248 94 Nasal 70% Cannula 11/30 2245 100.0 87 18 100/61 95 T Piece 11/30 2025 93 Nasal 70% Cannula 11/30 1601 93 Nasal 70% Cannula 11/30 1600 96 Nasal 70% Cannula / 1515 98.3 92 18 100/60 96 Nasal 70% Cannula Intake & Output 12/01 1600 12/01 0800 03/ 0000 Intake Total 240 720 Output Total 750 Balance 240 -30 Intake, Oral 240 720 Number 1 Bowel Movements Output, Urine 750 Patient 190 lb Weight Exam Other Physical Findings: Generally - Awake, alert Head and neck -high flow oxygen Cardiovascular - S1, S2 Lungs - rhonchi scattered bilaterally Abdomen - Bowel sounds positive, soft, non-tender Extremities - without edema Results Last 24 Hrs of Lab Results: Laboratory Tests 12/01/17 0700: Anion Gap 8, Estimated GFR > 60, BUN/Creatinine Ratio 16.7, CBC w Diff NO MAN DIFF REQ, RBC 3.41 L, MCV 86.6, MCH 29.1, MCHC 33.6, RDW 16.2 H, MPV 9.2, Gran % 83.2 H, Lymphocytes % 10.7 L, Monocytes % 5.5, Eosinophils % 0.3, Basophils % 0.3, Absolute Granulocytes 5.5, Absolute Lymphocytes 0.7 L, Absolute Monocytes 0.4, Absolute Eosinophils 0, Absolute Basophils 0 Impression/Plan Impression/Plan Impression/Plan: Impression 71 year old man. NSCLC. Hx of PE on a/c. Treated with Taxol by Dr. Ross. * Acute hypoxemic respiratory failure - this could be secondary to significant pulmonary hypertension which needs to be investigated or possibly an exacerbation of COPD * Non-small cell lung carcinoma * Difficulty swallowing with a narrowing of the mid to distal esophagus * hx of PE on eliquis Plan -cont solumedrol -trc/nebs -empiric abx -sputum cx -given extent of disease and encasement of the RLL vessels and vessels, interventional pulmonary procedures may not be feasible and given his high flow use, bronchoscopy will pose a risk for indefinite intubation, will continue to monitor -please alert oncology that patient has been admitted -symbicort with rinsing of the mouth -incentive spirometry - ensure in room and instructed on use -flutter device -out of bed if tolerated -reduce fio2 to a goal spo2 of >88% DVT prophylaxis at all times DNR/DNI
[2017-12-01 14:21] VITALS: BP 108/68
[2017-12-01 22:35] VITALS: BP 106/56
[2017-12-02 06:43] VITALS: BP 100/66
--- NOTE | 2017-12-02 07:01 | PN- Housestaff ---
Yeu NICOLAS,[facility] 12/02/17 0701: Subjective Follow-up For: Shortness of breath Non small cell lung cancer Subjective: Patient was seen and examined at bedside. He reports doing okay. His breathing has been the same. He managed to get a good night sleep. Offers no complaints. Review of Systems Constitutional: Reports: no symptoms. Objective Last 24 Hrs of Vital Signs/I&O Vital Signs Date Time Temp Pulse Resp B/P B/P Pulse O2 O2 Flow FiO2 Mean Ox Delivery Rate 12/02 0736 70 12/02 0643 97.7 42 20 100/66 95 Nasal Cannula 12/02 0039 92 Nasal 75% Cannula 12/02 0000 93 Nasal 75% Cannula 12/01 2235 98.9 47 20 106/56 91 Nasal 75% Cannula 12/01 2018 91 Nasal 75% Cannula 12/01 1600 95 Nasal 75% Cannula 12/01 1421 99.3 94 20 108/68 94 Nasal 70% Cannula 12/01 0819 92 Nasal 70% Cannula 12/01 0800 92 Nasal 70% Cannula Intake & Output 12/02 0800 12/02 0000 12/01 1600 Intake Total 100 400 300 Output Total 150 Balance -50 400 300 Intake, IV 200 Intake, Oral 100 200 300 Number 0 0 Bowel Movements Output, Urine 150 Patient 180 lb Weight Physical Exam General Appearance: Alert, Oriented X3, Cooperative, No Acute Distress Skin: No Rashes, No Breakdown Skin Temp/Moisture Exam: Warm/Dry Sepsis Skin Exam (color): Normal for Ethnicity HEENT: Atraumatic Cardiovascular: Normal S1, Normal S2, No Murmurs Lungs: diminished air entry on right Abdomen: Soft, No Tenderness Neurological: Normal Speech Extremities: No Edema Assessment/Plan Assessment: 72 yo male with significant hx of NSCLC on Taxol treatment, and baseline shortness of breath, presents with acute hypoxic respiratory failure in the setting of radiological finding suggestive of post obstructive PNA. Assessment: 1. Acute on chronic Hypoxic respiratory failure. Most likely 2/2 to post obstructive pneumonitis vs post obstructive Community acquired pneumonia 2. Hyperlactetemia. No metabolic acidosis. 3. Small pleural effusion 4. 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 Hyponatremia Plan: * Cotninue O2 supplementation to keep sats above 90%. Currently on high flow at 75%. His home oxygen is 2L. * Switch to PO Augmentin today. * TRC/nebs as needed * Pulm recs appreciated. * Goals of care discussion. * Oncology consult. * His hyponatremia is improving. would continue fluid restriction. * Continue chronic home meds. Will hold lisinopril as the patient continues to be borderline hypotensive. * DVT PPX: Eliquis (LMWH enoxaparin would be the ideal choice for PE ppx in a malignant patient). * Diet: Regular. * Likely discharge tomorrow to pulmonary rehab. * Code: DNR/DNI Problem List: 1. Acute hypoxemic respiratory failure Pain Ratin Pain Location: none Pain Goal: Remain pain free Pain Plan: none Tomorrow's Labs & Rationales: CBC, BEP Tereza Rayo 12/02/17 1147: Attending MD Review Statement Attending Statement Attending MD Statement: examined this patient, discuss w/resident/PA/LIME BOILER, agreed w/resident/PA/LIME BOILER, discussed with family, reviewed EMR data (avail), discussed with nursing, discussed with case mgmt, reviewed images, amended to note Attending Assessment/Plan: Patient with known history of lung cancer admitted for acute on chronic hypoxic respiratroy failure 2/2 pneumoniaits and requiring iv antibiotics. Pulmonary consulted, remains in high flow oxygen and ask pumonary if ok to change PO abx. Informed oncology. Chemotherapy plan as per oncology as outpatient. Appointment with oncology. Anticipate dc planning to pulmonary rehab. gi/dvt prophyalxis DNR /DNI.
[2017-12-02 07:58] LABS: ABSOLUTE BASOPHIL COUNT 0 /CUMM (0.0-0.2); ABSOLUTE EOSINOPHIL COUNT 0 /CUMM (0.0-0.7); ABSOLUTE GRANULOCYTE CT 5.2 /CUMM (1.4-6.5); ABSOLUTE MONOCYTE COUNT 0.5 /CUMM (0.10-0.60); BASOPHIL % 0.4 % (0.0-2.0); EOSINOPHIL % 0.6 % (0-5); HEMATOCRIT 29.1 % (42-52); MEAN CORPUSCULAR HGB 28.6 PG (27.0-31.0); MEAN CORPUSCULAR HGB CONC 33.2 G/DL (33.0-37.0); MEAN CORPUSCULAR VOLUME 86.1 FL (80.0-94.0); MEAN PLATELET VOLUME 9.1 FL (7.4-10.4); PLATELET COUNT 290 /CUMM (130-400); RBC DISTRIBUTION WIDTH 16.3 % (11.5-14.5); RED BLOOD CELL CT 3.38 /CUMM (4.70-6.10); WHITE BLOOD CELL COUNT 6.8 /CUMM (4.8-10.8)
--- NOTE | 2017-12-02 11:25 | PN- Pulmonary ---
Subjective HPI/Critical Care Issues: Patient seen and examined this morning. He is still high flow oxygen we will evaluate him for outpatient rehabilitation. Objective Current Medications: Current Medications Sig/Joel Start time Last Medication Dose Route Stop Time Status Admin Albuterol Sulfate 3 ML EVERY 4 HRS/AWAKE 11/30 1999 AC 12/02 INH 1122 Apixaban 5 MG BID 11/30 1000 AC 12/02 PO 0929 Atorvastatin Calcium 10 MG DAILY 12/01 1407 AC 12/02 PO 0929 Azithromycin 500 MG DAILY@1400 11/30 1400 AC 12/01 Dextrose/Water 250 ML IV 1433 Benzonatate 100 MG TID 11/29 1848 AC 12/02 PO 0929 Ceftriaxone Sodium 1,000 MG DAILY@1400 11/30 1400 AC 12/01 IV 1427 Melatonin 5 MG AT BEDTIME 12/01 2200 AC 12/01 PO 2305 Patient Medication 1 ED ONE ONE 12/01 1600 DC 12/01 Teaching ED 12/01 1601 1624 Vital Signs & I&O Last 24 Hrs of Vitals and I&O: Vital Signs Date Time Temp Pulse Resp B/P B/P Pulse O2 O2 Flow FiO2 Mean Ox Delivery Rate 12/02 0805 93 Nasal 75% Cannula 12/02 08 95 Nasal 75% Cannula 12/02 0736 70 12/02 0643 97.7 42 20 100/66 95 Nasal Cannula 12/02 0039 92 Nasal 75% Cannula 12/02 0000 93 Nasal 75% Cannula 12/01 2235 98.9 47 20 106/56 91 Nasal 75% Cannula 12/01 2018 91 Nasal 75% Cannula 12/01 1600 95 Nasal 75% Cannula 12/01 1421 99.3 94 20 108/68 94 Nasal 70% Cannula Intake & Output 12/02 1600 12/02 0800 03 0000 Intake Total 100 400 Output Total 150 Balance -50 400 Intake, IV 200 Intake, Oral 100 200 Number 0 0 Bowel Movements Output, Urine 150 Patient 180 lb Weight Exam Other Physical Findings: Generally - Awake, alert Head and neck -high flow oxygen Cardiovascular - S1, S2 Lungs - rhonchi scattered bilaterally Abdomen - Bowel sounds positive, soft, non-tender Extremities - without edema Results Last 24 Hrs of Lab Results: Laboratory Tests 12/02/17 0615: Anion Gap 9, Estimated GFR > 60, BUN/Creatinine Ratio 20.0, CBC w Diff NO MAN DIFF REQ, RBC 3.38 L, MCV 86.1, MCH 28.6, MCHC 33.2, RDW 16.3 H, MPV 9.1, Gran % 77.0 H, Lymphocytes % 14.0 L, Monocytes % 8.0, Eosinophils % 0.6, Basophils % 0.4, Absolute Granulocytes 5.2, Absolute Lymphocytes 1.0 L, Absolute Monocytes 0.5, Absolute Eosinophils 0, Absolute Basophils 0 Impression/Plan Impression/Plan Impression/Plan: Impression 71 year old man. NSCLC. Hx of PE on a/c. Treated with Taxol by Dr. Ross. * Acute hypoxemic respiratory failure - this could be secondary to significant pulmonary hypertension which needs to be investigated or possibly an exacerbation of COPD * Non-small cell lung carcinoma * Difficulty swallowing with a narrowing of the mid to distal esophagus * hx of PE on eliquis Plan -add prednisone 40 mg today for 5 days -trc/nebs -empiric abx -sputum cx -given extent of disease and encasement of the RLL vessels and vessels, interventional pulmonary procedures may not be feasible and given his high flow use, bronchoscopy will pose a risk for indefinite intubation, will continue to monitor -please alert oncology that patient has been admitted -symbicort with rinsing of the mouth -incentive spirometry - ensure in room and instructed on use -flutter device -out of bed if tolerated -reduce fio2 to a goal spo2 of >88% DVT prophylaxis at all times DNR/DNI
--- NOTE | 2017-12-02 12:23 | Cons- Oncology ---
General Information and HPI Consulting Request Date of Consult: 12/02/17 Requested By: Girma NICOLAS,Tereza History of Present Illness: 72-year-old man well known to me with locally advanced non-small cell lung carcinoma now admitted with progressive respiratory distress. Patient denied high fevers, rigors productive sputum or hemoptysis,. Patient has been treated in the past with irradiation and chemotherapy, now on single agent Taxol, Allergies/Medications Allergies: Coded Allergies: NO KNOWN ALLERGIES (10/05/14) Home Med List: Albuterol Sulfate (Ventolin Hfa) 90 MCG HFA.AER.AD 2 PUF INH AD PRN RESP. ( Reported) Apixaban (Eliquis) 5 MG TABLET 1 TAB PO BID BLOOD THINNER (Reported) Atorvastatin Calcium (Lipitor) 10 MG TABLET 1 TAB PO DAILY CHOLESTEROL ( Reported) Budesonide/Formoterol Fumarate (Symbicort 80-4.5 Mcg Inhaler) 80 MCG-4.5 MCG/ ACTUATION HFA.AER.AD 2 PUF INH BID PRN SOB . Lisinopril 5 MG TABLET 1 TAB PO DAILY BP (Reported) Current Medications: Current Medications Sig/Joel Start time Last Medication Dose Route Stop Time Status Admin Albuterol Sulfate 3 ML EVERY 4 HRS/AWAKE 11/29 2000 AC 12/02 INH 1122 Apixaban 5 MG BID 11/30 1000 AC / PO 0929 Atorvastatin Calcium 10 MG DAILY 12/01 1407 AC / PO 0929 Azithromycin 500 MG DAILY@1400 / 1400 AC 03/ Dextrose/Water 250 ML IV 1433 Benzonatate 100 MG TID 11/29 1848 AC / PO 0929 Ceftriaxone Sodium 1,000 MG DAILY@1400 /04 1400 AC 03/ IV 1427 Melatonin 5 MG AT BEDTIME 12/01 2200 AC / PO 2305 Patient Medication 1 ED ONE ONE 12/01 1600 DC 12/01 Teaching ED 12/01 1601 1624 Prednisone 40 MG DAILY 12/02 1127 AC PO Review of Systems Review of Systems: Patient denies new headaches or dizziness. Patient denies nausea vomiting or abdominal pain. Patient denies dysuria or hematuria. Patient denies bone aches or focal neurologic deficit Past History Travel History Traveled to [place] past 21 day No Medical History Blood Transfusion Hx: No Neurological: NONE EENT: NONE Cardiovascular: hypertension, hyperlipidemia Respiratory: COPD, pulmonary embolism, pneumonia, NON-SM CELL CA Gastrointestinal: NONE Hepatic: NONE Renal: NONE Musculoskeletal: R KNEE REPAIR Psychiatric: NONE Endocrine: NONE Blood Disorders: PE Cancer(s): lung cancer Surgical History Surgical History: mediastinoscopy R KNEE REPAIR Family History Relations & Conditions If Any: FATHER, , Age 40-50; Cause: Myocardial infarct. BROTHER, ; Cause: Heart disease. BROTHER FH: CABG (coronary artery bypass surgery) MOTHER FH: cancer of genital organ Psychosocial History Where Do You Live? Home Smoking Status: Former Smoker ETOH Use: denies use Illicit Drug Use: denies illicit drug use Exam & Diagnostic Data Vital Signs and I&O Vital Signs Date Time Temp Pulse Resp B/P B/P Pulse O2 O2 Flow FiO2 Mean Ox Delivery Rate 12/02 1216 Nasal 75% Cannula 12/02 1201 Nasal 75% Cannula 12/02 0805 93 Nasal 75% Cannula 12/02 0800 95 Nasal 75% Cannula 12/02 0736 70 12/02 0643 97.7 42 20 100/66 95 Nasal Cannula 12/02 0039 92 Nasal 75% Cannula 12/02 0000 93 Nasal 75% Cannula 12/01 2235 98.9 47 20 106/56 91 Nasal 75% Cannula 12/01 2018 91 Nasal 75% Cannula 12/01 1600 95 Nasal 75% Cannula 12/01 1421 99.3 94 20 108/68 94 Nasal 70% Cannula Intake & Output 12/02 1600 12/02 0800 03/ 0000 Intake Total 100 400 Output Total 150 Balance -50 400 Intake, IV 200 Intake, Oral 100 200 Number 0 0 Bowel Movements Output, Urine 150 Patient 180 lb Weight Gen.: in NAD ENT: Sclera anicteric Chest: Markedly decreased breath sounds Cor: RRR, no extra sounds Abdomen: Soft, bowel sounds present, no tenderness, no rebound Extremities: Without clubbing, cyanosis, or asymmetric edema Neurology: Alert and oriented 3, no gross deficit Skin: No rashes Last 48 Hours of Lab Results: Laboratory Tests 12/02 12/01 0615 0700 Chemistry Sodium (137 - 145 mmol/L) 133 L 131 L Potassium (3.5 - 5.1 mmol/L) 3.5 3.5 Chloride (98 - 107 mmol/L) 98 96 L Carbon Dioxide (22 - 30 mmol/L) 27 27 Anion Gap (5 - 16) 9 8 BUN (9 - 20 mg/dL) 10 10 Creatinine (0.7 - 1.2 mg/dL) 0.5 L 0.6 L Estimated GFR (>60 ml/min) > 60 > 60 BUN/Creatinine Ratio (7 - 25 %) 20.0 16.7 Hematology CBC w Diff NO MAN DIFF REQ NO MAN DIFF REQ WBC (4.8 - 10.8 /CUMM) 6.8 6.6 RBC (4.70 - 6.10 /CUMM) 3.38 L 3.41 L Hgb (14.0 - 18.0 G/DL) 9.7 L 9.9 L Hct (42 - 52 %) 29.1 L 29.5 L MCV (80.0 - 94.0 FL) 86.1 86.6 MCH (27.0 - 31.0 PG) 28.6 29.1 MCHC (33.0 - 37.0 G/DL) 33.2 33.6 RDW (11.5 - 14.5 %) 16.3 H 16.2 H Plt Count (130 - 400 /CUMM) 290 265 MPV (7.4 - 10.4 FL) 9.1 9.2 Gran % (42.2 - 75.2 %) 77.0 H 83.2 H Lymphocytes % (20.5 - 51.1 %) 14.0 L 10.7 L Monocytes % (1.7 - 9.3 %) 8.0 5.5 Eosinophils % (0 - 5 %) 0.6 0.3 Basophils % (0.0 - 2.0 %) 0.4 0.3 Absolute Granulocytes (1.4 - 6.5 /CUMM) 5.2 5.5 Absolute Lymphocytes (1.2 - 3.4 /CUMM) 1.0 L 0.7 L Absolute Monocytes (0.10 - 0.60 /CUMM) 0.5 0.4 Absolute Eosinophils (0.0 - 0.7 /CUMM) 0 0 Absolute Basophils (0.0 - 0.2 /CUMM) 0 0 Imaging/Other Studies: [id number] pulmonary emboli, progression of cancer Assessment/Plan Assessment: 1. Respiratory failure likely multifactorial in origin including progression of his known lung cancer. 2. Locally advanced non-small cell lung carcinoma-patient has not documented progression. He has never been a surgical candidate. He has received radiation therapy in the past. Recommend- Patient will require a change in his systemic therapy I will ask pathology to perform tumor profiling Overall prognosis-poor. I have Discussed this with the patient and his family. He has persistently avoided a discussion about code status Recommendations: .. Consult Acknowledgment - Thank you for your consult request.
[2017-12-02 14:27] VITALS: BP 110/72
--- NOTE | 2017-12-02 15:58 | Patient Discharge Instructions ---
Discharge Instructions General Discharge Information You were seen/treated for: Postobstructive Pneumonia Special Instructions: Please follow up with your PCP, oncologist and world language teacher within one week of discharge. Diet Continue normal diet: Yes Activity Full Activity/No Limits: Yes Acute Coronary Syndrome Inclusion Criteria At DC or during hospital stay patient has or had the following: ACS DIAGNOSIS No Discharge Core Measures Meds if any: Prescribed or Continued at Discharge Meds if any: NOT Prescribed or Continued at Discharge Congestive Heart Failure Inclusion Criteria At DC or during hospital stay patient has or had the following: CHF DIAGNOSIS No Discharge Core Measures Meds if any: Prescribed or Continued at Discharge Meds if any: NOT Prescribed or Continued at Discharge Cerebrovascular accident Inclusion Criteria At DC or during hospital stay patient has or had the following: CVA/TIA Diagnosis No Discharge Core Measures Meds if any: Prescribed or Continued at Discharge Meds if any: NOT Prescribed or Continued at Discharge Venous thromboembolism Inclusion Criteria VTE Diagnosis No VTE Type NONE VTE Confirmed by (Test) NONE Discharge Core Measures - Per Current guidelines, there needs to be overlap - treatment for the first 5 days of Warfarin therapy. - If discharged on Warfarin prior to 5 days of - overlap therapy, the patient will need to be - assessed for post discharge needs including - *Post discharge parental anticoagulation - *Warfarin and/or parental anticoagulation education - *Follow up date to check INR post discharge At least 5 days overlap therapy as Inpatient No Meds if any: Prescribed or Continued at Discharge Note: Overlap Therapy is Warfarin and Anticoagulant Meds if any: NOT Prescribed or Continued at Discharge
[2017-12-02] MEDS ORDERED: PREDNISONE20 M1 PO (16:00)
[2017-12-02] MEDS ORDERED: AMOX-CLAV 875-1 EACH PO (16:00)
[2017-12-02 20:40] VITALS: BP 100/66
[2017-12-03 05:56] VITALS: BP 124/62
--- NOTE | 2017-12-03 07:14 | PN- Housestaff ---
Yue NICOLAS,[facility] 12/03/17 0713: Subjective Follow-up For: Shortness of breath Non small cell lung cancer Subjective: Patient was seen and examined at bedside. He states he feels the same. His breathing has not improved but he has no distress at rest. He is unable to mobilize as he gets significantly short of breath with exertion. Review of Systems Constitutional: Reports: no symptoms. Respiratory: Reports: short of breath. Objective Last 24 Hrs of Vital Signs/I&O Vital Signs Date Time Temp Pulse Resp B/P B/P Pulse O2 O2 Flow FiO2 Mean Ox Delivery Rate 12/03 0556 97.7 58 20 124/62 100 Nasal 7.0L Cannula 12/02 2040 97.6 92 18 100/66 91 Nasal 7.0L Cannula 12/02 1607 88 Nasal 7.0L Cannula 12/02 1600 Nasal 7.0L Cannula 12/02 1427 98.6 90 20 110/72 88 Nasal 7.0L Cannula 12/02 1324 93 Nasal 7.0L Cannula 12/02 1216 Nasal 75% Cannula 12/02 1201 Nasal 75% Cannula Intake & Output 12/03 1600 12/03 0800 12/03 0000 Intake Total 240 650 Output Total 300 Balance 240 350 Intake, Oral 240 650 Number 1 Bowel Movements Output, Urine 300 Patient 185 lb Weight Physical Exam General Appearance: Alert, Oriented X3, Cooperative, No Acute Distress Skin: No Rashes, No Breakdown Skin Temp/Moisture Exam: Warm/Dry Sepsis Skin Exam (color): Normal for Ethnicity HEENT: Atraumatic Cardiovascular: Normal S1, Normal S2, No Murmurs Lungs: diminished air entry on right side. Abdomen: Soft, No Tenderness Neurological: Normal Speech Extremities: No Edema Assessment/Plan Assessment: 72 yo male with significant hx of NSCLC on Taxol treatment, and baseline shortness of breath, presents with acute hypoxic respiratory failure in the setting of radiological finding suggestive of post obstructive PNA. Assessment: 1. Acute on chronic Hypoxic respiratory failure. Most likely 2/2 to post obstructive pneumonitis vs post obstructive Community acquired pneumonia 2. Hyperlactetemia. No metabolic acidosis. 3. Small pleural effusion 4. 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 Hyponatremia Plan: * Cotninue O2 supplementation to keep sats above 90%. Currently on the pendant with 7L of O2. His baseline is 2L. * Switched to PO Augmentin yesterday. Will keep this on discharge. * TRC/nebs as needed * Pulm recs appreciated. * Oncology consult. Patient will likely have a change in his systemic therapy. * He does not wish to have goals of care discussion or change in code status. * His hyponatremia is improving. No need for further fluid restriction * Continue chronic home meds. * DVT PPX: Eliquis * Diet: Regular. * Likely discharge to pulmonary rehab today. * Code: DNR/DNI Problem List: 1. Acute hypoxemic respiratory failure Pain Ratin Pain Location: none Pain Goal: Remain pain free Pain Plan: none Tomorrow's Labs & Rationales: none Tereza Rayo 12/03/17 1034: Attending MD Review Statement Attending Statement Attending MD Statement: examined this patient, discuss w/resident/PA/VEGETABLES COOK, agreed w/resident/PA/VEGETABLES COOK, discussed with family, reviewed EMR data (avail), discussed with nursing, discussed with case mgmt, reviewed images, amended to note Attending Assessment/Plan: Patient with known history of lung cancer admitted for acute on chronic hypoxic respiratroy failure 2/2 pneumoniaits and requiring iv antibiotics. Pulmonary consulted, remains in high flow oxygen and now changed to PO abx. Informed oncology. Chemotherapy plan as per oncology as outpatient. Appointment with oncology. Anticipate dc planning to pulmonary rehab if ok with pulmonary. gi/dvt prophyalxis DNR/DNI. Case management aware. cont current care and anticipate dc soon.
[2017-12-03 08:05] LABS: ABSOLUTE BASOPHIL COUNT 0 /CUMM (0.0-0.2); ABSOLUTE EOSINOPHIL COUNT 0 /CUMM (0.0-0.7); ABSOLUTE GRANULOCYTE CT 5.5 /CUMM (1.4-6.5); ABSOLUTE LYMPH COUNT 0.7 /CUMM (1.2-3.4); ABSOLUTE MONOCYTE COUNT 0.5 /CUMM (0.10-0.60); BASOPHIL % 0.3 % (0.0-2.0); EOSINOPHIL % 0.1 % (0-5); GRANULOCYTE % 81.7 % (42.2-75.2); HEMATOCRIT 29.4 % (42-52); MEAN CORPUSCULAR HGB 28.8 PG (27.0-31.0); MEAN CORPUSCULAR HGB CONC 33.4 G/DL (33.0-37.0); MEAN CORPUSCULAR VOLUME 86.2 FL (80.0-94.0); MEAN PLATELET VOLUME 9.2 FL (7.4-10.4); PLATELET COUNT 315 /CUMM (130-400); RBC DISTRIBUTION WIDTH 16.1 % (11.5-14.5); RED BLOOD CELL CT 3.41 /CUMM (4.70-6.10); WHITE BLOOD CELL COUNT 6.8 /CUMM (4.8-10.8)
--- NOTE | 2017-12-03 08:59 | Discharge Summary ---
Visit Information Visit Dates Admission Date: 11/29/17 Discharge Date: 12/03/2017 Hospital Course Course Attending Physician: Tereza Rayo MD Primary Care Physician: Gabbi Farias DO Consulting Request: Consulting Specialty: Pulmonary Disease Hospital Course: 72 yo male with past medical history of hypertension, hyperlipidemia, non-small cell lung carcinoma (08/2015) currently being treated with single agent Taxol, history of PE on Eliquis, pulmonary hyeprtension presented to the ED for acute onset of shortness of breath. He was seen and admitted for: Acute on Chronic Hypoxic Respiratory Failure: On presentation the patient was found to be severely hypoxic 77% on arrival, requiring up to 10L of O2. He is on 2L of oxygen at baseline. His chest imaging showed post obstructive pneumonia likely secondary to community acquired pneumonia and extension of his metastasis. He was started on IV Ceftriaxone and Azithromycin along with TRC/nebs as needed. The patient reported significant improvement in his symptoms within 24 hours of admission, though his oxygen requirement continues to be high. He was transitioned to high flow oxygen for 2 days to maintain his sats. Given extent of disease and encasement of the RLL vessels interventional pulmonary procedures may not be feasible and given his high flow use, bronchoscopy poses a risk for indefinite intubation. At rest, he feels comfortable, however, he gets dyspneic with ambulation. He was evaluated by his oncologist and he is most likely going to require a change in his systemic therapy. Currently he is on 7L of O2 with a pendent. He will require pulmonary rehab. He is started on a short course of steroids for 5 days to help with his breathing. His IV antibiotics have been switched to oral Augmentin to complete a total course of 7-10 days of antibiotics. Hyponatremia: Patient was found to be mildly hyponatremic on admission (134) which later progressed to 131. He was placed on a fluid restriction of 1L/day which improved his hyponatremia. At the time of discharge his sodium levels was 136 DVT Prophylaxis: Patient is on Eliquis Allergies: Coded Allergies: NO KNOWN ALLERGIES (10/05/14) Significant Procedures: SERVICE DATE: 11/29/17-1001 EXAM TYPE: CAT - CTA CHEST-PULMONARY EMBOLISM FINDINGS: QUALITY OF STUDY/CONTRAST BOLUS: Satisfactory PULMONARY ARTERIES: No central or segmental pulmonary emboli. THORACIC AORTA: There is enlargement of the ascending thoracic aorta to approximately 4.4 cm in diameter. No thoracic aortic dissection. LUNG: There has been progression in disease within the right lower lobe with right hilar mass encasing lower lobe bronchi and pulmonary vessels with appearance of postobstructive pneumonitis. There are significant changes of centrilobular emphysema seen as well as bilateral regions of bronchiectasis. There are scattered regions of groundglass opacity most prominent in regions of bronchiectasis. PLEURA: There is pleural thickening seen bilaterally as well as development of a small right pleural effusion. MEDIASTINUM: There is a large amount of streak artifact from contrast present somewhat limiting evaluation for lymphadenopathy. Heart normal size. Coronary artery calcifications present. Right hilar lymphadenopathy is seen. Subcarinal lymphadenopathy is present No evidence of septal bowing or right heart strain. CHEST WALL/AXILLA: No axillary or internal mammary lymphadenopathy. OSSEOUS STRUCTURES: There is multilevel degenerative disc disease seen. No definite destructive bony lesions appreciated. UPPER ABDOMEN: There are some enlarged supraceliac lymph nodes present. No adrenal gland masses. Remainder of upper abdominal organs imaged appear unremarkable. No reflux of contrast into the hepatic veins to suggest elevated right heart pressures. IMPRESSION: No evidence of acute pulmonary artery embolus. Encasement of right lower lobe bronchi and vessels with progression in disease with post obstructive pneumonitis within the right lower lobe and development of a small pleural effusion. Emphysematous change with bilateral regions of bronchiectasis. Right hilar and mediastinal lymphadenopathy. 4.4 cm diameter ascending thoracic aorta. Disposition Summary Disposition Principal Diagnosis: Acute on chronic Hypoxic respiratory failure Hyponatremia Additional Diagnosis: Nonsmall Cell Lung Carcinoma Discharge Disposition: SNF Discharge Instructions General Discharge Information Code Status: Do Not Resucitate/Intubat Patient's Diet: Regular Patient's Activity: As tolerated Follow-Up Instructions/Appts: Please follow up with your PCP, oncologist and supervisor malted milk within one week of discharge. Please follow up with PCP regarding the stable descending thoracic aorta aneurysm Medications at Discharge Discharge Medications: Continue taking these medications: Atorvastatin Calcium (Lipitor) 10 MG TABLET 1 Tablet ORAL DAILY Qty = 90 Comments: Last Taken: 12/03/17 Time: 0745AM Apixaban (Eliquis) 5 MG TABLET 1 Tablet ORAL TWICE DAILY Qty = 90 Comments: Last Taken: 12/03/17 Time: 0745AM Lisinopril (Lisinopril) 5 MG TABLET 1 Tablet ORAL DAILY Qty = 90 Comments: NOT GIVEN IN HOSPITAL Budesonide/Formoterol Fumarate (Symbicort 80-4.5 Mcg Inhaler) 80 MCG-4.5 MCG/ ACTUATION HFA.AER.AD 2 Puff Inhale through mouth TWICE DAILY as needed for SOB Qty = 3 Instructions: . Comments: NOT GIVEN IN HOSPITAL Albuterol Sulfate (Ventolin Hfa) 90 MCG HFA.AER.AD 2 Puff Inhale through mouth As Directed as needed for RESP. Comments: NOT GIVEN IN HOSPITAL Start taking the following new medications: Amoxicillin/Clavulanate Potass (Amox-Clav 875-125 MG Tablet) 875 MG-125 MG TABLET 875 Milligram ORAL EVERY 12 HOURS Qty = 14 No Refills Comments: Last Taken: 12/03/17 Time: 0745AM Prednisone (Prednisone) 20 MG TABLET 40 Milligram ORAL DAILY Qty = 6 No Refills Comments: Last Taken:12/03/17 Time: 0745AM Copies To: Gabbi Farias DO
--- NOTE | 2017-12-03 10:24 | PN- Pulmonary ---
Subjective HPI/Critical Care Issues: pt seen and examined on oxygen pendant Objective Current Medications: Current Medications Sig/Joel Start time Last Medication Dose Route Stop Time Status Admin Albuterol Sulfate 3 ML EVERY 4 HRS/AWAKE 12/03 1999 AC 12/03 INH 0822 Albuterol Sulfate 3 ML EVERY 4 HRS/AWAKE .. 12/02 1602 DC 12/02 INH 12/02 1959 1609 Albuterol Sulfate 3 ML EVERY 4 HRS/AWAKE 12/02 1600 DC INH Albuterol Sulfate 3 ML EVERY 4 HRS/AWAKE 11/30 1999 DC 12/02 INH 1122 Amoxicillin/ 875 MG Q12 12/02 2200 AC 12/03 Clavulanate Potassium PO 0752 Apixaban 5 MG BID 11/30 1000 AC 12/03 PO 0753 Atorvastatin Calcium 10 MG DAILY 12/01 1407 AC 12/03 PO 0752 Azithromycin 500 MG DAILY@1400 / 1400 DC 12/02 Dextrose/Water 250 ML IV 1346 Benzonatate 100 MG TID 11/29 1848 AC 12/03 PO 0752 Ceftriaxone Sodium 1,000 MG DAILY@1400 11/30 1400 DC 12/02 IV 1346 Melatonin 5 MG AT BEDTIME 12/01 2200 AC 12/02 PO 2035 Patient Medication 1 ED ONE ONE 12/03 1030 Teaching ED 12/03 1031 Prednisone 40 MG DAILY 12/02 1127 AC 12/03 PO 0753 Vital Signs & I&O Last 24 Hrs of Vitals and I&O: Vital Signs Date Time Temp Pulse Resp B/P B/P Pulse O2 O2 Flow FiO2 Mean Ox Delivery Rate 12/03 0841 22 90 Nasal 7.0L Cannula 12/03 0853 Nasal 75% Cannula 12/03 08 88 Nasal 7.0L Cannula 12/03 08 100 Nasal 7.0L Cannula 12/03 0556 97.7 58 20 124/62 100 Nasal 7.0L Cannula 12/02 2040 97.6 92 18 100/66 91 Nasal 7.0L Cannula 12/02 1607 88 Nasal 7.0L Cannula 12/02 1600 Nasal 7.0L Cannula 12/02 1427 98.6 90 20 110/72 88 Nasal 7.0L Cannula 12/02 1324 93 Nasal 7.0L Cannula 12/02 1216 Nasal 75% Cannula 12/02 1201 Nasal 75% Cannula Intake & Output 03/07 1600 12/03 0800 12/03 0000 Intake Total 300 650 Output Total 300 Balance 300 350 Intake, Oral 300 650 Number 0 1 Bowel Movements Output, Urine 300 Patient 185 lb Weight Exam Other Physical Findings: Generally - Awake, alert Head and neck -high flow oxygen Cardiovascular - S1, S2 Lungs - rhonchi scattered bilaterally Abdomen - Bowel sounds positive, soft, non-tender Extremities - without edema Results Last 24 Hrs of Lab Results: Laboratory Tests 12/03/17 0605: Anion Gap 10, Estimated GFR > 60, BUN/Creatinine Ratio 26.0 H, CBC w Diff NO MAN DIFF REQ, RBC 3.41 L, MCV 86.2, MCH 28.8, MCHC 33.4, RDW 16.1 H, MPV 9.2, Gran % 81.7 H, Lymphocytes % 10.6 L, Monocytes % 7.3, Eosinophils % 0.1, Basophils % 0.3, Absolute Granulocytes 5.5, Absolute Lymphocytes 0.7 L, Absolute Monocytes 0.5, Absolute Eosinophils 0, Absolute Basophils 0 Impression/Plan Impression/Plan Impression/Plan: Impression 71 year old man. NSCLC. Hx of PE on a/c. Treated with Taxol by Dr. Ross. * Acute hypoxemic respiratory failure - this could be secondary to significant pulmonary hypertension which needs to be investigated or possibly an exacerbation of COPD * Non-small cell lung carcinoma * Difficulty swallowing with a narrowing of the mid to distal esophagus * hx of PE on eliquis Plan -prednisone 40 mg today for 5 days -dc planning to rehab -trc/nebs -cont course of abx -given extent of disease and encasement of the RLL vessels and vessels, interventional pulmonary procedures may not be feasible and given his high flow use, bronchoscopy will pose a risk for indefinite intubation, will continue to monitor -f/u oncology as outpatient -symbicort with rinsing of the mouth -incentive spirometry - ensure in room and instructed on use -flutter device -out of bed if tolerated -reduce fio2 to a goal spo2 of >88% DVT prophylaxis at all times DNR/DNI
[2017-12-03 11:03] VITALS: BP 124/62
== END 2017-12-03 15:10 | DRG 193 ==
LOC: ERH 09:35 → 2NB 13:17 → ERHI 13:17 → CANRESERV 14:56 → ENRESERV 14:56 → ENTRNSPT 15:50 → EDTRNSPTSTS 16:00 → EDTRNSPT 16:00 → 2NB 16:11 → CMPTRNSPT 16:23 → 2NB 12-01 07:35 → ENPENDDIS 12-03 09:54 → 2NB 12-03 15:10
PROVIDERS: Internal Medicine; Physician Assistant; Student in an Organized Health Care Education/Training Program
DX: J18.9 Pneumonia, unspecified organism (principal); J96.21 Acute and chronic respiratory failure with hypoxia; I27.20 Pulmonary hypertension, unspecified; E87.1 Hypo-osmolality and hyponatremia; K22.2 Esophageal obstruction; I71.2 Thoracic aortic aneurysm, without rupture; C34.31 Malignant neoplasm of lower lobe, right bronchus or lung; Z99.81 Dependence on supplemental oxygen; Z86.711 Personal history of pulmonary embolism; Z79.01 Long term (current) use of anticoagulants; E78.5 Hyperlipidemia, unspecified; Z79.51 Long term (current) use of inhaled steroids; Z87.891 Personal history of nicotine dependence; Z66 Do not resuscitate; Z92.21 Personal history of antineoplastic chemotherapy
CPT/HCPCS: 2NBSP; 36592; 82436; 87040; 87804; 87804-59; 99291; J0456; J0696; J7060

== ENCOUNTER 2018-01-05 07:36 | Inpatient (IN) | payer OTHER ==
[~2018-01-05] VITALS: Ht 170.2 cm; Wt 81.6 kg
[~2018-01-05 07:36] MED LIST changes: +AMOX-CLAV 875-1 EACH PO
[2018-01-05] MEDS ORDERED: TRAMADOL HCL50 M1 PO (08:11)
[2018-01-05] MEDS ORDERED: PROCHLORPERAZIN10 MG PO (08:11)
--- NOTE | 2018-01-05 08:40 | RADIOLOGY REPORT ---
EXAMINATION: XR PORTABLE CHEST CLINICAL INFORMATION: Shortness of breath, cough, lung cancer, pneumonia COMPARISON: 11/29/2017 and earlier TECHNIQUE: Portable frontal view of the chest was obtained. FINDINGS: Significant interval increase in large right pleural effusion with associated right lung consolidation. Fluid tracks along the right lateral upper chest wall. There is interstitial prominence particularly in the right upper lobe but seen at the left lung base as well. Cardiac mediastinal silhouette is partially visualized but appears grossly unchanged from the prior study. IMPRESSION: Significant interval increase in now large right pleural effusion with associated right lung consolidation, presumably at least in part compressive atelectasis though superimposed aspiration or pneumonia are possible as well. There is increasing prominence of the pulmonary interstitium, new from the chest x-ray 10/19/2017, suggesting pulmonary edema. Interstitial pneumonitis or bronchitis could have this appearance in the appropriate clinical setting. Lymphangitic spread of carcinoma considered less likely given the rapid time course.
--- NOTE | 2018-01-05 08:45 | ED DYSPNEA/ASTHMA COMPLAINT ---
History of Present Illness General Chief Complaint: Dyspnea (COPD, CHF, Other) Stated Complaint: SOB Source: patient, old records Exam Limitations: no limitations Vital Signs & Intake/Output Vital Signs & Intake/Output Vital Signs Date Time Temp Pulse Resp B/P B/P Pulse O2 O2 Flow FiO2 Mean Ox Delivery Rate 01/05 909 98/52 01/06 0856 97.4 118 24 96/54 98 Non 100% ReBreather 01/05 842 96 Non 100% ReBreather 01/05 0746 Nasal Cannula 01/05 743 96.0 120 30 144/89 86 Non 100% ReBreather Allergies Coded Allergies: NO KNOWN ALLERGIES (NONE 01/05/18) Reconcile Medications Albuterol Sulfate (Ventolin Hfa) 90 MCG HFA.AER.AD 2 PUF INH AD PRN RESP. ( Reported) Apixaban (Eliquis) 5 MG TABLET 1 TAB PO BID BLOOD THINNER (Reported) Atorvastatin Calcium (Lipitor) 10 MG TABLET 1 TAB PO DAILY CHOLESTEROL ( Reported) Budesonide/Formoterol Fumarate (Symbicort 80-4.5 Mcg Inhaler) 80 MCG-4.5 MCG/ ACTUATION HFA.AER.AD 2 PUF INH BID PRN SOB . Lisinopril 5 MG TABLET 1 TAB PO DAILY BP (Reported) Prochlorperazine Maleate 10 MG TABLET 1 TAB PO Q6 nausea and vomiting ( Reported) Tramadol HCl 50 MG TABLET 1 TAB PO Q6P PRN pain (Reported) Core Measure Meds Pre-Hospital eliquis Triage Note: PT TO ED C/O SOB. PT WITH H/O LUNG CA, ON HOME 02. PT APPEARS SOB AT REST. PT TO ROOM 1 FOR EVAL. Triage Nurses Notes Reviewed? yes Onset: 2 days Duration: day(s):, constant, continues in ED, getting worse Timing: recent history Severity: severe Activities at Onset: rest Prior Episodes/Possible Cause: illness exposure Modifying Factors: Improves With: rest. Worsens With: movement. Associated Symptoms: cough, weakness HPI: 2-3 days prior to admission patient complains of progressive shortness of breath nonproductive cough and weakness. He denies fever chills chest pain headache dysuria rash bleeding nausea vomiting diarrhea abdominal pain. Past History Travel History Traveled to [place] past 21 day No Medical History Any Pertinent Medical History? see below for history Neurological: NONE EENT: NONE Cardiovascular: hypertension, hyperlipidemia Respiratory: COPD, pulmonary embolism, pneumonia, NON-SM CELL CA Gastrointestinal: NONE Hepatic: NONE Renal: NONE Musculoskeletal: R KNEE REPAIR Psychiatric: NONE Endocrine: NONE Blood Disorders: PE Cancer(s): lung cancer History of MRSA: No History of VRE: No History of CDIFF: No Influenza Vaccine: 07/30/17 Surgical History Surgical History: mediastinoscopy R KNEE REPAIR Psychosocial History Who do you live with Spouse What is your primary language Lithuanian Tobacco Use: Quit >30 days ago ETOH Use: denies use Illicit Drug Use: denies illicit drug use Family History Family History, If Any: FATHER, , Age 40-50; Cause: Myocardial infarct. BROTHER, ; Cause: Heart disease. BROTHER FH: CABG (coronary artery bypass surgery) MOTHER FH: cancer of genital organ Hx Contributory? No Review of Systems Review of Systems Constitutional: Reports: see HPI, weakness. EENTM: Reports: no symptoms. Respiratory: Reports: see HPI, cough. Cardiovascular: Reports: no symptoms. GI: Reports: no symptoms. Genitourinary: Reports: no symptoms. Musculoskeletal: Reports: no symptoms. Skin: Reports: no symptoms. Neurological/Psychological: Reports: no symptoms. Hematologic/Endocrine: Reports: no symptoms. Immunologic/Allergic: Reports: no symptoms. All Other Systems: Reviewed and Negative Physical Exam Physical Exam General Appearance: well developed/nourished, no apparent distress, awake, anxious, severe distress Head: atraumatic, normal appearance Eyes: Bilateral: normal appearance, PERRL, EOMI. Ears, Nose, Throat: normal pharynx, normal ENT inspection, hearing grossly normal Neck: normal inspection, supple, full range of motion, no midline tenderness Respiratory: chest non-tender, decreased breath sounds, crackles, respiratory distress Cardiovascular: regular rate/rhythm, normal peripheral pulses, tachycardia, norml femoral pulses equa Peripheral Pulses: 4+ carotid (R), 4+ carotid (L) Gastrointestinal: normal bowel sounds, soft, non-tender, no organomegaly Extremities: normal inspection, normal capillary refill, normal range of motion, no edema Neurologic/Psych: no motor/sensory deficits, awake, alert, oriented x 3, normal mood/affect, 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 No CVA/TIA Diagnosis No Sepsis Present: No Sepsis Focused Exam Completed? No Progress Differential Diagnosis: asthma, CHF, COPD, pneumonia Plan of Care: Orders Procedure Date/time Status Regular Diet 01/05 L Active Weight 01/05 842 Active Patient Data 01/06 836 Active D-DIMER 01/05 835 Complete OXYGEN SETUP (GEN) 01/05 829 Active Saline Lock 01/05 829 Active Admit to inpatient 01/05 829 Active Vital Signs 01/05 829 Active Activity/Ambulation 01/05 829 Active BLOOD CULTURE 01/05 829 Active Code Status 01/05 829 Active ARTERIAL BLOOD GAS (GEN) 01/05 805 Complete TROPONIN LEVEL 01/05 805 Complete PROTHROMBIN TIME 01/05 805 Complete MAGNESIUM 01/05 805 Complete COMPREHENSIVE METABOLIC PANEL 01/05 805 Complete CBC WITHOUT DIFFERENTIAL 01/05 805 Complete B-TYPE NATRIURETIC PEP (BNP) 01/05 805 Complete EKG 01/05 805 Active Lab Add-on Test 01/05 UNK Active Laboratory Tests 01/05/18834: Anion Gap 15, Estimated GFR > 60, BUN/Creatinine Ratio 32.5 H, Glucose 174 H, Calcium 8.9, Magnesium 1.8, Total Bilirubin 1.7 H, AST 43, ALT 57, Alkaline Phosphatase 165 H, Troponin I 0.05, Wrk-Q-Jlnrjxkthel Pept 78353 H, Total Protein 6.1 L, Albumin 2.8 L, Globulin 3.3, Albumin/Globulin Ratio 0.8 L, PT 18.5 H, INR 1.69 H, D-Dimer High Sensitivty 5585 H, CBC w Diff NO MAN DIFF REQ, RBC 3.94 L, MCV 85.8, MCH 27.9, MCHC 32.5 L, RDW 17.8 H, MPV 7.7, Gran % 96.2 H, Lymphocytes % 3.4 L, Monocytes % 0.2 L, Eosinophils % 0.1, Basophils % 0.1, Absolute Granulocytes 6.8 H, Absolute Lymphocytes 0.2 L, Absolute Monocytes 0 L, Absolute Eosinophils 0, Absolute Basophils 0 01/05/18823: pH 7.54 H, pCO2 25 L, pO2 78 L, HCO3 21, ABG O2 Sat (Measured) 96.0, P-50 ( Temp Corrected) Y, Carboxyhemoglobin 0.7 L, O2 Concentration % 100%, Temperature 96.0 L, O2 Delivery Method NRB, Phlebotomy Draw Site RIGHT RADIAL Microbiology 01/05 829 BLOOD: Blood Culture - ORD 01/05 829 BLOOD: Blood Culture - ORD Diagnostic Imaging: Viewed by Me: Radiology Read. Discussed w/RAD: Radiology Read. Radiology Impression: foreign body seen Initial ED EKG: normal axis, normal intervals, normal p-waves, rhythm (sinus tachycardia w artifact), nonspecific ST T wave chg Prior EKG: unchanged Rhythm Strip: sinus tachycardia Departure Departure Time of Disposition: 799 Disposition: STILL A PATIENT Condition: Stable Clinical Impression Primary Impression: Pleural effusion associated with pulmonary infection Referrals: Gabbi Farias DO (PCP/Family) Departure Forms: Customer Survey General Discharge Information Admission Note Spoke With: Kervin Aguirre MD Documentation of Exam: Documentation of any treatments & extenuating circumstances including Concerns Regarding Discharge (functional status, medication knowledge or non-compliance, living conditions, etc.) that warrant an admission rather than observation: Supplemental oxygen frequent beta agonist nebs follow cultures oncology evaluation end-of-life planning pulmonary evaluation medication adjustment physical therapy continuing care discharge planning Critical Care Note Critical Care Note Critical Care Time: 30-74 min (35)
[2018-01-05 08:47] LABS: ABSOLUTE BASOPHIL COUNT 0 /CUMM (0.0-0.2); ABSOLUTE EOSINOPHIL COUNT 0 /CUMM (0.0-0.7); ABSOLUTE GRANULOCYTE CT 6.8 /CUMM (1.4-6.5); ABSOLUTE LYMPH COUNT 0.2 /CUMM (1.2-3.4); ABSOLUTE MONOCYTE COUNT 0 /CUMM (0.10-0.60); BASOPHIL % 0.1 % (0.0-2.0); EOSINOPHIL % 0.1 % (0-5); HEMATOCRIT 33.8 % (42-52); MEAN CORPUSCULAR HGB 27.9 PG (27.0-31.0); MEAN CORPUSCULAR HGB CONC 32.5 G/DL (33.0-37.0); MEAN CORPUSCULAR VOLUME 85.8 FL (80.0-94.0); MEAN PLATELET VOLUME 7.7 FL (7.4-10.4); RBC DISTRIBUTION WIDTH 17.8 % (11.5-14.5); RED BLOOD CELL CT 3.94 /CUMM (4.70-6.10); WHITE BLOOD CELL COUNT 7.1 /CUMM (4.8-10.8)
[2018-01-05 08:51] LABS: PT 18.5 SEC (9.4-12.5)
[2018-01-05 08:59] LABS: GRANULOCYTE % 96.2 % (42.2-75.2); PLATELET COUNT 190 /CUMM (130-400)
--- NOTE | 2018-01-05 09:36 | History & Physical ---
Mendez Purdy 01/05/18 0936: General Information and HPI MD Statement: I have seen and personally examined DLATON TAMEZ SR and documented this H&P. The patient is a 72 year old M who presented with a patient stated chief complaint of [SOB]. Source of Information: patient, old records Exam Limitations: no limitations History of Present Illness: Mr. Tamez is a 72 yo male with past medical history of hypertension, hyperlipidemia, non-small cell lung carcinoma (08/2015) his chemotherapy last week changed to Gemzar , he has a history of PE on Eliquis, pulmonary hyeprtension presented to the ED for acute onset of shortness of breath. Patient was recently discharged from on 12/03/2017 to [facility] ([place]) stayed there for 1 week and then discharge home, came in to emergency department with a chief complaint of shortness of breath over the last week . History obtained from the patient himself and his family was at bedside , after discharge from [facility] he was able initially to walk around the house with some shortness of breath but over the last week the family noticed that he became progressively short of breath with short distance, they also notes that the patient become delirious, they couldn't understand sometimes what he wants and he saying stuff that doesn't make sense, he also had decreased appetite, he is not eating or drinking well, per his over the last 2 days he was on the bed all the time, yesterday he couldn't get out off the bed. Family attributed his delirium to tramadol which was recently prescribed by his oncologist last week, his chemotherapy per family was also recently changed from Taxol is to Gemzar. Patient himself reports that the only concern that he has today is shortness of breath and the pain in the right side of his back, he is not able to take deep breath because of that, patient also has difficulty urination, he feels he is full but he couldn't empty his bladder, family noticed that color of urine became darker and his state that could be secondary to the new chemotherapy. he denies any substernal chest pain, no sore throat, no fever, chills, dizziness , and there is no change in bowel habits Allergies/Medications Allergies: Coded Allergies: NO KNOWN ALLERGIES (NONE 01/05/18) Home Med list Albuterol Sulfate (Ventolin Hfa) 90 MCG HFA.AER.AD 2 PUF INH AD PRN RESP. ( Reported) Apixaban (Eliquis) 5 MG TABLET 1 TAB PO BID BLOOD THINNER (Reported) Atorvastatin Calcium (Lipitor) 10 MG TABLET 1 TAB PO DAILY CHOLESTEROL ( Reported) Budesonide/Formoterol Fumarate (Symbicort 80-4.5 Mcg Inhaler) 80 MCG-4.5 MCG/ ACTUATION HFA.AER.AD 2 PUF INH BID PRN SOB . Lisinopril 5 MG TABLET 1 TAB PO DAILY BP (Reported) Prochlorperazine Maleate 10 MG TABLET 1 TAB PO Q6 nausea and vomiting ( Reported) Tramadol HCl 50 MG TABLET 1 TAB PO Q6P PRN pain (Reported) Past History Travel History Traveled to [place] past 21 day No Medical History Neurological: NONE EENT: NONE Cardiovascular: hypertension, hyperlipidemia Respiratory: COPD, pulmonary embolism, pneumonia, NON-SM CELL CA Gastrointestinal: NONE Hepatic: NONE Renal: NONE Musculoskeletal: R KNEE REPAIR Psychiatric: NONE Endocrine: NONE Blood Disorders: PE Cancer(s): lung cancer History of MRSA: No History of VRE: No History of CDIFF: No Influenza Vaccine: 07/30/17 Surgical History Surgical History: mediastinoscopy R KNEE REPAIR Past Family/Social History Family History Relations & Conditions if any FATHER, , Age 40-50; Cause: Myocardial infarct. BROTHER, ; Cause: Heart disease. BROTHER FH: CABG (coronary artery bypass surgery) MOTHER FH: cancer of genital organ Psychosocial History ETOH Use: denies use Illicit Drug Use: denies illicit drug use Review of Systems Review of Systems Constitutional: Reports: no symptoms. EENTM: Reports: no symptoms. Cardiovascular: Reports: no symptoms. Respiratory: Reports: short of breath, wheezing. GI: Reports: no symptoms. Genitourinary: Reports: dysuria. Musculoskeletal: Reports: see HPI, back pain. Skin: Reports: no symptoms. Neurological/Psychological: Reports: no symptoms. Hematologic/Endocrine: Reports: no symptoms. Immunologic/Allergic: Reports: no symptoms. All Other Systems: Reviewed and Negative Exam & Diagnostic Data Last 24 Hrs of Vital Signs/I&O Vital Signs Date Time Temp Pulse Resp B/P B/P Pulse O2 O2 Flow FiO2 Mean Ox Delivery Rate 01/05 1041 99.2 98 18 102/64 99 Room Air 01/05 0909 98/52 01/05 0856 97.4 118 24 96/54 98 Non 100% ReBreather 01/05 0842 96 Non 100% ReBreather 01/05 0746 Nasal Cannula 01/05 0743 96.0 120 30 144/89 86 Non 100% ReBreather Intake & Output 01/05 1600 01/05 0800 01/05 0000 Intake Total Output Total Balance Patient 182 lb Weight Physical Exam General Appearance Alert, Oriented X3, Severe Distress Skin No Rashes, No Breakdown, No Significant Lesion Skin Temp/Moisture Exam: Warm/Dry Sepsis Skin Exam (color): Normal for Ethnicity HEENT Atraumatic (family call in a), PERRLA, EOMI, Mucous Membr. moist/pink Neck Supple, No JVD, No thryomegaly, +2 Carotid Pulse wo Bruit Lymphatic Axillary nl, Cervical nl Cardiovascular Normal S1, Normal S2, No Murmurs Lungs decreased air movement on the right side more at base with bilateral wheezing Abdomen Normal Bowel Sounds, Soft, No Tenderness Neurological Normal Speech, Sensation Intact, Cranial Nerves 3-12 NL Extremities Normal Pulses, +2 edema in bilateral lower extremities Vascular Normal Pulses, Pulses Symmetrical Last 24 Hrs of Labs/Luis: Laboratory Tests 01/05/18 0835: Anion Gap 15, Estimated GFR > 60, BUN/Creatinine Ratio 32.5 H, Glucose 174 H, Calcium 8.9, Magnesium 1.8, Total Bilirubin 1.7 H, AST 43, ALT 57, Alkaline Phosphatase 165 H, Troponin I 0.05, Nou-L-Qgpjytcoejc Pept 30469 H, Total Protein 6.1 L, Albumin 2.8 L, Globulin 3.3, Albumin/Globulin Ratio 0.8 L, PT 18.5 H, INR 1.69 H, D-Dimer High Sensitivty 5585 H, CBC w Diff NO MAN DIFF REQ, RBC 3.94 L, MCV 85.8, MCH 27.9, MCHC 32.5 L, RDW 17.8 H, MPV 7.7, Gran % 96.2 H, Lymphocytes % 3.4 L, Monocytes % 0.2 L, Eosinophils % 0.1, Basophils % 0.1, Absolute Granulocytes 6.8 H, Absolute Lymphocytes 0.2 L, Absolute Monocytes 0 L, Absolute Eosinophils 0, Absolute Basophils 0 01/05/18 0824: pH 7.54 H, pCO2 25 L, pO2 78 L, HCO3 21, ABG O2 Sat (Measured) 96.0, P-50 ( Temp Corrected) Y, Carboxyhemoglobin 0.7 L, O2 Concentration % 100%, Temperature 96.0 L, O2 Delivery Method NRB, Phlebotomy Draw Site RIGHT RADIAL Microbiology 01/05 945 BLOOD: Blood Culture - RECD 01/05 829 BLOOD: Blood Culture - ORD Diagnostic Data CXR Results IMPRESSION: Significant interval increase in now large right pleural effusion with associated right lung consolidation, presumably at least in part compressive atelectasis though superimposed aspiration or pneumonia are possible as well. There is increasing prominence of the pulmonary interstitium, new from the chest x-ray 10/19/2017, suggesting pulmonary edema. Interstitial pneumonitis or bronchitis could have this appearance in the appropriate clinical setting. Lymphangitic spread of carcinoma considered less likely given the rapid time course. Assessment/Plan Assessment: Mr. Tamez is a 72 yo male with past medical history of hypertension, hyperlipidemia, non-small cell lung carcinoma (08/2015) his chemotherapy last week changed to Gemzar , he has a history of PE on Eliquis, pulmonary hyeprtension presented to the ED for acute onset of shortness of breath. Patient was recently discharged from on 12/03/2017 to [facility] ([place]) stayed there for 1 week and then discharge home, came in to emergency department with a chief complaint of shortness of breath over the last week . Vitals, examination, labs, and imaging as above Assessment : #Acute hypoxic respiratory failure secondary to worsening right pleural effusion in the setting of NSCLC which could cause obstruction with development of aspiration/pneumonia especially with chest x-ray finding of right lung consolidation #NSCLC currently on chemotherapy (Gemzar) #? COPD/ wheezing #Elevated alkaline phosphatase, bilirubin #History of PE currently on Eliquis #History of hypertension and hyperlipidemia Plan: * Will admit the patient to telemetry floor * Wells criteria is 8.5 points, d-dimer is elevated at 5585, and his ABGs showed respiratory alkalosis ,he is in the high risk group for PE as such we going to order stat CTA as there is a possibility that the anticoagulation failed on Eliquis * Pulmonology consult with Dr. Boykin, the above discussed with him * EKG at ED with a lot of artifact, I'll repeat EKG, will order another set of EKG and troponin at 3 PM * Patient has bilateral wheezing, I will hold on ordering steroid to the patient evaluated by reserve officer * Will notify oncologist about patient's admission * We'll start the patient on IV Unasyn given that finding on the chest x-ray * Patient needs thoracentesis, will evaluate the size of pleural effusion on the CTA, based on the size please place IR consult for thoracentesis as needed * Right upper quadrant ultrasound * TRC/Nebs * Continue Eliquis 5 mg twice a day * We'll continue all his home medications except for lisinopril as his BP is borderline low, resume that if BP improved * Will send UA * Check bedside bladder scan DVT prophylaxis Eliquis He is full code As Ranked By This Provider Problem List: 1. Pleural effusion associated with pulmonary infection 2. Non-small cell lung cancer (NSCLC) Core Measures/Misc (06/15) Acute Coronary Syndrome ACS Diagnosis: No Congestive Heart Failure Congestive Heart Failure Diagnosis No Cerebrovascular Accident CVA/TIA Diagnosis: No VTE (View Protocol) VTE Risk Factors Cancer/chemo/othr therapy No Mechanical VTE Prophylaxis d/t N/A MechProphylax Ordered No VTE Pharm Prophylaxis d/t NA PharmProphylax ordered Sepsis (View protocol) Sepsis Present: No GirmaTereza 01/05/18 1307: Attending MD Review Statement Attending Statement Attending MD Statement: examined this patient, discuss w/resident/PA/SUPPLY CHAIN MANAGER, agreed w/resident/PA/SUPPLY CHAIN MANAGER, discussed with family, reviewed EMR data (avail), discussed with nursing, discussed with case mgmt, reviewed images, amended to note Attending Assessment/Plan: Patient with pmh of lung cancer admitted for acute on chronic hypoxic respiratroy failure possible pnuemonia likely aspiration. Patient has baseline poor lung reserves with baseline home oxyegn 5-6L. Pulmoanry conuslted and recommended CTA chest. PE ruled out. He has right lower lobe consolidation. Patient is started empiric on iv unasyn, send blood cultures, eliquis for h/o PE. monitor labs. Inform oncology about admsison, plan for chemotherpay as per Dr Ross. Patient might need pulmoanry rehab at [facility] [place] [facility]. gi/dvt prophyalxis.
--- NOTE | 2018-01-05 12:39 | CT SCAN REPORT ---
EXAMINATION: CT ANGIOGRAM OF THE CHEST WITH AND WITHOUT CONTRAST (CT PULMONARY ANGIOGRAM FOR PE) CLINICAL INFORMATION: SOB, TACHYCARDIA, DESATING. Rule out PE COMPARISON: CTA chest 11/29/2017 TECHNIQUE: Prior to contrast administration, noncontrast localization images were obtained. Subsequently, multidetector volumetric imaging was performed from the thoracic inlet to below the diaphragms following the administration of 95 mL Optiray 320 intravenous contrast. No contrast reaction reported. Sagittal, coronal, and MIP oblique sagittal reformatted images were obtained on the CT workstation, uploaded to PACS, and reviewed. Total exam dose-length product 494 mGy-cm. FINDINGS: QUALITY OF STUDY/CONTRAST BOLUS: Fair, degraded by contrast under filling and the segmental and subsegmental pulmonary arteries, motion artifact, and right greater than left bilateral lower lobe consolidation. PULMONARY ARTERIES: No central pulmonary embolus seen. Evaluation for segmental or subsegmental pulmonary emboli are limited but none are seen. THORACIC AORTA: Ascending thoracic aorta is dilated to 4.2 cm. Descending thoracic aorta normal in caliber. Mild calcified atherosclerotic changes. LUNG: There is dense right lower lobe consolidation largely similar to the prior study. There is a lesser degree of enhancement of the consolidated right lower lobe presently however. There is worsened aeration in the right middle lobe with right middle lobe consolidation and air bronchograms. Slightly decreased aeration of the right upper lobe. There is a background of diffuse moderate emphysema. Patchy areas of reticular opacity and streaky atelectasis are seen at the left lung base, worsened from the prior study. There is motion artifact as well. Amorphous soft tissue encasing the right mainstem bronchus and lobar bronchi less well seen. PLEURA: There is a large right pleural effusion, increased from the prior study, tracking along the right lateral chest. There does not appear to be pleural enhancement but the fluid does not appear to be freely layering suggesting it may be loculated. MEDIASTINUM: The main pulmonary artery is dilated to 3.6 cm suggesting pulmonary arterial hypertension. The right pulmonary artery is nearly 3 cm in diameter. There is persistent subcarinal lymphadenopathy measuring 4.4 x 3.2 cm. Previously seen right hilar lymphadenopathy no longer readily appreciated with the degree of right lung consolidation that is now present. Mild cardiomegaly. Coronary artery calcification. No pericardial effusion. No septal bowing. CHEST WALL/AXILLA: No axillary or internal mammary lymphadenopathy. OSSEOUS STRUCTURES: No acute or suspicious osseous abnormality. UPPER ABDOMEN: No adrenal mass. No reflux of contrast into the hepatic veins to suggest elevated right heart pressures. IMPRESSION: Limited study but no central pulmonary embolus seen. Worsened, large right pleural effusion increased from prior study with persistent dense right lower lobe consolidation, new dense right middle lobe consolidation, and worsened aeration of the right upper lobe. The amorphous soft tissue encasing the right bronchus and the right lobar bronchi, as well as the previously seen seen right hilar lymphadenopathy, are not as well seen. Persistent subcarinal lymphadenopathy. VTE: negative
--- NOTE | 2018-01-05 14:51 | ULTRASOUND REPORT ---
EXAMINATION: US ABDOMEN LIMITED CLINICAL INFORMATION: Elevated alkaline phosphatase and bilirubin. COMPARISON: CTA of the chest dated 01/05/2018. TECHNIQUE: Real-time imaging of the right upper quadrant abdominal viscera. FINDINGS: PANCREAS: Normal. LIVER: Normal. The liver demonstrates normal size, contour and echogenicity. No focal lesion or intrahepatic biliary duct dilatation. GALLBLADDER: There is a moderate amount of sludge seen layering within the dependent portion of the gallbladder. The gallbladder is physiologically distended without evidence of stones, polyps, wall thickening or pericholecystic fluid. COMMON BILE DUCT: Normal in caliber measuring 0.3 cm in diameter. RIGHT KIDNEY: Normal. No hydronephrosis. No renal calculi or focal parenchymal lesions. The kidney measures 10.5 cm in maximum dimension. FREE FLUID: There is a small right-sided pleural effusion seen, similar to the CT scan. IMPRESSION: 1. Moderate amount of sludge in the gallbladder. Gallbladder otherwise unremarkable. No biliary dilatation. 2. Small right-sided pleural effusion, incompletely imaged. 3. Otherwise unremarkable right upper quadrant ultrasound.
--- NOTE | 2018-01-05 15:05 | Cons- Pulmonary ---
General Information and HPI Consulting Request Date of Consult: 01/05/18 Requested By: Dr. Schmid Reason for Consult: dyspnea Source of Information: patient Exam Limitations: no limitations History of Present Illness: 72 year old man. NSCLC. Hx of PE on a/c. Treated with Taxol by Dr. Ross. Progressive dyspnea, dry cough, no hemoptysis. Has been on home oxygen. Has had ILD changes. No PFTs on record. ECHO 2018 - diastolic dysfunction, RV dilatation. CXR with evidence of pleural fluid that has increased. Requires 100% o2. No fever ,no leukocytosis. Patient has had worsened dyspnea over past few weeks. No cp, no n/v/d/c. Has had issues swallowing previously, not an issue at present , no leg edema or tenderness. Previous admission left with a low o2 sat after informed decision making and risks. Hypoxemic, now on inhalers. Allergies/Medications Allergies: Coded Allergies: NO KNOWN ALLERGIES (NONE 01/05/18) Home Med List: Albuterol Sulfate (Ventolin Hfa) 90 MCG HFA.AER.AD 2 PUF INH AD PRN RESP. ( Reported) Apixaban (Eliquis) 5 MG TABLET 1 TAB PO BID BLOOD THINNER (Reported) Atorvastatin Calcium (Lipitor) 10 MG TABLET 1 TAB PO DAILY CHOLESTEROL ( Reported) Budesonide/Formoterol Fumarate (Symbicort 80-4.5 Mcg Inhaler) 80 MCG-4.5 MCG/ ACTUATION HFA.AER.AD 2 PUF INH BID PRN SOB . Lisinopril 5 MG TABLET 1 TAB PO DAILY BP (Reported) Prochlorperazine Maleate 10 MG TABLET 1 TAB PO Q6 nausea and vomiting ( Reported) Tramadol HCl 50 MG TABLET 1 TAB PO Q6P PRN pain (Reported) Current Medications: Current Medications Sig/Joel Start time Last Medication Dose Route Stop Time Status Admin Albuterol Sulfate 3 ML ONCE ONE 01/05 815 DC 01/05 INH 01/06 816 0838 Ampicillin Sodium/ 0 .STK-MED ONE 01/05 1211 DC Sulbactam Sodium .ROUTE Ampicillin Sodium/ 1,500 MG Q6 01/05 1200 AC 01/05 Sulbactam Sodium IV 1212 Sodium Chloride 100 ML Ceftazidime 1,000 MG Q8 01/05 2200 DC IV Ceftazidime 1,000 MG ONCE ONE 01/05 830 DC 01/05 IV 01/05 0831 1015 Ipratropium [place] 2.5 ML ONCE ONE 01/06 0815 DC 01/05 INH 01/06 0816 0838 Vancomycin HCl 1,000 MG Q12 01/05 2200 CAN IV Vancomycin HCl 1,000 MG ONCE ONE 01/05 830 DC 01/05 Dextrose/Water 250 ML IV 01/05 929 1015 Review of Systems Comments 18 point review of systems was performed and reviewed. Please see pertinent positives and pertinent negatives in the HPI. Otherwise ROS is negative. Past History Travel History Traveled to [place] past 21 day No Medical History Neurological: NONE EENT: NONE Cardiovascular: hypertension, hyperlipidemia Respiratory: COPD, pulmonary embolism, pneumonia, NON-SM CELL CA Gastrointestinal: NONE Hepatic: NONE Renal: NONE Musculoskeletal: R KNEE REPAIR Psychiatric: NONE Endocrine: NONE Blood Disorders: PE Cancer(s): lung cancer Surgical History Surgical History: mediastinoscopy R KNEE REPAIR Family History Relations & Conditions If Any: FATHER, , Age 40-50; Cause: Myocardial infarct. BROTHER, ; Cause: Heart disease. BROTHER FH: CABG (coronary artery bypass surgery) MOTHER FH: cancer of genital organ Psychosocial History ETOH Use: denies use Illicit Drug Use: denies illicit drug use Exam & Diagnostic Data Last 24 Hrs of Vital Signs/I&O Vital Signs Date Time Temp Pulse Resp B/P B/P Pulse O2 O2 Flow FiO2 Mean Ox Delivery Rate 01/05 1311 98.4 96 20 104/68 100 Non 100% ReBreather 01/05 1041 99.2 98 18 102/64 99 Room Air 01/05 0909 98/52 01/05 0856 97.4 118 24 96/54 98 Non 100% ReBreather 01/05 0842 96 Non 100% ReBreather 01/05 0746 Nasal Cannula 01/05 0743 96.0 120 30 144/89 86 Non 100% ReBreather Intake & Output 01/05 1600 01/05 0800 01/05 0000 Intake Total Output Total Balance Patient 182 lb Weight Physical Exam Other Physical Findings: Generally - Awake, alert Head and neck - NRB Cardiovascular - S1, S2 Lungs - rhonchi scattered bilaterally, diminished bs Abdomen - Bowel sounds positive, soft, non-tender Extremities - without edema Last 48 Hrs of Labs/Luis: Laboratory Tests 01/05/18 0835: Anion Gap 15, Estimated GFR > 60, BUN/Creatinine Ratio 32.5 H, Glucose 174 H, Calcium 8.9, Magnesium 1.8, Total Bilirubin 1.7 H, AST 43, ALT 57, Alkaline Phosphatase 165 H, Troponin I 0.05, Pgx-N-Gccceblouze Pept 92814 H, Total Protein 6.1 L, Albumin 2.8 L, Globulin 3.3, Albumin/Globulin Ratio 0.8 L, PT 18.5 H, INR 1.69 H, D-Dimer High Sensitivty 5585 H, CBC w Diff NO MAN DIFF REQ, RBC 3.94 L, MCV 85.8, MCH 27.9, MCHC 32.5 L, RDW 17.8 H, MPV 7.7, Gran % 96.2 H, Lymphocytes % 3.4 L, Monocytes % 0.2 L, Eosinophils % 0.1, Basophils % 0.1, Absolute Granulocytes 6.8 H, Absolute Lymphocytes 0.2 L, Absolute Monocytes 0 L, Absolute Eosinophils 0, Absolute Basophils 0 01/05/18 0824: pH 7.54 H, pCO2 25 L, pO2 78 L, HCO3 21, ABG O2 Sat (Measured) 96.0, P-50 ( Temp Corrected) Y, Carboxyhemoglobin 0.7 L, O2 Concentration % 100%, Temperature 96.0 L, O2 Delivery Method NRB, Phlebotomy Draw Site RIGHT RADIAL Assessment/Plan Impression/Plan: Impression 71 year old man. NSCLC. Hx of PE on a/c. Treated with Taxol by Dr. Ross. * Acute hypoxemic respiratory failure * Non-small cell lung carcinoma * hx of PE on eliquis Plan -CTA without obvious PE (on eliquis) -pleural effusion - IR thoracentesis - send for pleural ph, cytology, LDH (and serum), t.protein, t.cholesterol, cell count, microbiology -alert oncology of admission -cont solumedrol -unasyn empirically (may have post obstructive pna) -begin solumedrol 40mg iv q8h -trc/nebs -sputum cx -given extent of disease and encasement of the RLL vessels and vessels, interventional pulmonary procedures may not be feasible and given his high o2 requirement, bronchoscopy will pose a risk for indefinite intubation, will continue to monitor -symbicort with rinsing of the mouth -out of bed if tolerated -reduce fio2 to a goal spo2 of >88% DVT prophylaxis at all times A discussion regarding code status is appropriate, also a palliative care consultation is reasonable if patient is agreeable. Consult Acknowledgment - Thank you for your consult request.
[2018-01-05 22:14] VITALS: BP 109/81
--- NOTE | 2018-01-06 07:00 | Cons- Oncology ---
See Addendum General Information and HPI Consulting Request Date of Consult: 01/06/18 Requested By: Kervin Aguirre MD History of Present Illness: 72-year-old man well known to me with advanced non-small cell lung cancer now admitted with progressive shortness of breath. The patient's recent course has been characterized by respiratory insufficiency requiring high flow oxygen, cancer progression and a recent switch to single agent gemcitabine chemotherapy. Patient denies fevers, rigors or hemoptysis. Allergies/Medications Allergies: Coded Allergies: NO KNOWN ALLERGIES (NONE 01/05/18) Home Med List: Albuterol Sulfate (Ventolin Hfa) 90 MCG HFA.AER.AD 2 PUF INH AD PRN RESP. ( Reported) Apixaban (Eliquis) 5 MG TABLET 1 TAB PO BID BLOOD THINNER (Reported) Atorvastatin Calcium (Lipitor) 10 MG TABLET 1 TAB PO DAILY CHOLESTEROL ( Reported) Budesonide/Formoterol Fumarate (Symbicort 80-4.5 Mcg Inhaler) 80 MCG-4.5 MCG/ ACTUATION HFA.AER.AD 2 PUF INH BID PRN SOB . Lisinopril 5 MG TABLET 1 TAB PO DAILY BP (Reported) Prochlorperazine Maleate 10 MG TABLET 1 TAB PO Q6 nausea and vomiting ( Reported) Tramadol HCl 50 MG TABLET 1 TAB PO Q6P PRN pain (Reported) Current Medications: Current Medications Sig/Joel Start time Last Medication Dose Route Stop Time Status Admin Albuterol Sulfate 3 ML ONCE ONE 01/05 815 DC 01/05 INH 01/06 816 0838 Ampicillin Sodium/ 0 .STK-MED ONE 01/06 0603 DC Sulbactam Sodium .ROUTE Ampicillin Sodium/ 0 .STK-MED ONE 01/06 0117 DC Sulbactam Sodium .ROUTE Ampicillin Sodium/ 0 .STK-MED ONE 01/05 1211 DC Sulbactam Sodium .ROUTE Ampicillin Sodium/ 1,500 MG Q6 01/05 1200 AC 01/06 Sulbactam Sodium IV 0620 Sodium Chloride 100 ML Ceftazidime 1,000 MG Q8 01/05 2200 DC IV Ceftazidime 1,000 MG ONCE ONE 01/05 0830 DC 01/05 IV 01/05 0831 1015 Ipratropium [place] 2.5 ML ONCE ONE 01/05 815 DC 01/05 INH 04/09 0816 0838 Methylprednisolone 40 MG Q8 01/05 1506 AC 01/06 IV 0620 Vancomycin HCl 1,000 MG Q12 01/05 2200 CAN IV Vancomycin HCl 1,000 MG ONCE ONE 01/05 830 DC 01/05 Dextrose/Water 250 ML IV 01/05 0929 1015 Review of Systems Review of Systems: Patient denies new headaches or dizziness. Patient denies nausea vomiting or abdominal pain. Patient denies dysuria or hematuria. Patient denies new bone aches or focal neurologic deficit. Patient does complain of mouth pain. Past History Travel History Traveled to [place] past 21 day No Medical History Neurological: NONE EENT: NONE Cardiovascular: hypertension, hyperlipidemia Respiratory: COPD, pulmonary embolism, pneumonia, NON-SM CELL CA Gastrointestinal: NONE Hepatic: NONE Renal: NONE Musculoskeletal: R KNEE REPAIR Psychiatric: NONE Endocrine: NONE Blood Disorders: PE Cancer(s): lung cancer Surgical History Surgical History: mediastinoscopy R KNEE REPAIR Family History Relations & Conditions If Any: FATHER, , Age 40-50; Cause: Myocardial infarct. BROTHER, ; Cause: Heart disease. BROTHER FH: CABG (coronary artery bypass surgery) MOTHER FH: cancer of genital organ Psychosocial History Smoking Status: Former Smoker ETOH Use: denies use Illicit Drug Use: denies illicit drug use Exam & Diagnostic Data Vital Signs and I&O Vital Signs Date Time Temp Pulse Resp B/P B/P Pulse O2 O2 Flow FiO2 Mean Ox Delivery Rate 01/06 0556 97.6 84 22 126/72 92 Nasal Cannula 01/06 0000 Venti Mask 50% 01/05 2214 98.6 86 20 109/81 95 Non 50% ReBreather 01/05 1831 Venti Mask 50% 01/05 1501 98.1 94 16 118/72 100 Non 100% ReBreather 01/05 1311 98.4 96 20 104/68 100 Non 100% ReBreather 01/05 1041 99.2 98 18 102/64 99 Room Air 01/05 0909 98/52 01/05 0856 97.4 118 24 96/54 98 Non 100% ReBreather 01/05 0842 96 Non 100% ReBreather 01/05 0746 Nasal Cannula 01/05 0743 96.0 120 30 144/89 86 Non 100% ReBreather Intake & Output 01/06 0800 01/06 0000 01/05 1600 Intake Total 200 0 Output Total 200 Balance 0 0 Intake, Oral 200 0 Output, Urine 200 Patient 182 lb 182 lb Weight Weight Reported by Patient Measurement Method Gen.: in moderate respiratory distress ENT: Sclera anicteric, thrush Chest: Labored breathing is markedly decreased right>Left breath sounds Cor: RRR, Abdomen: Soft, bowel sounds present, no tenderness, no rebound Extremities: Without clubbing, cyanosis, or asymmetric edema Neurology: Alert and oriented 3, no gross deficit Last 48 Hours of Lab Results: Laboratory Tests 01/06 01/05 01/05 0607 1537 0835 Chemistry Sodium (137 - 145 mmol/L) 132 L 130 L Potassium (3.5 - 5.1 mmol/L) 4.5 4.7 Chloride (98 - 107 mmol/L) 93 L 90 L Carbon Dioxide (22 - 30 mmol/L) 28 25 Anion Gap (5 - 16) 11 15 BUN (9 - 20 mg/dL) 23 H 26 H Creatinine (0.7 - 1.2 mg/dL) 0.5 L 0.8 Estimated GFR (>60 ml/min) > 60 > 60 BUN/Creatinine Ratio (7 - 25 %) 46.0 H 32.5 H Glucose (65 - 99 mg/dL) 174 H Calcium (8.4 - 10.2 mg/dL) 8.9 Magnesium (1.6 - 2.3 mg/dL) 1.8 Total Bilirubin (0.2 - 1.3 mg/dL) 1.7 H AST (17 - 59 U/L) 43 ALT (21 - 72 U/L) 57 Alkaline Phosphatase (< 127 U/L) 165 H Troponin I (<0.11 ng/ml) 0.09 0.05 Xio-M-Xoqwfhpxugu Pept (<125 pg/mL) 92435 H Total Protein (6.3 - 8.2 g/dL) 6.1 L Albumin (3.5 - 5.0 g/dL) 2.8 L Globulin (1.9 - 4.2 gm/dL) 3.3 Albumin/Globulin Ratio (1.1 - 2.2 %) 0.8 L Coagulation PT (9.4 - 12.5 SEC) 18.5 H INR (0.90 - 1.17) 1.69 H D-Dimer High Sensitivty (0 - 243 ng/ml) 5585 H Hematology CBC w Diff Pending NO MAN DIFF REQ WBC (4.8 - 10.8 /CUMM) Pending 7.1 RBC (4.70 - 6.10 /CUMM) Pending 3.94 L Hgb (14.0 - 18.0 G/DL) Pending 11.0 L Hct (42 - 52 %) Pending 33.8 L MCV (80.0 - 94.0 FL) Pending 85.8 MCH (27.0 - 31.0 PG) Pending 27.9 MCHC (33.0 - 37.0 G/DL) Pending 32.5 L RDW (11.5 - 14.5 %) Pending 17.8 H Plt Count (130 - 400 /CUMM) Pending 190 MPV (7.4 - 10.4 FL) Pending 7.7 Gran % (42.2 - 75.2 %) 96.2 H Lymphocytes % (20.5 - 51.1 %) 3.4 L Monocytes % (1.7 - 9.3 %) 0.2 L Eosinophils % (0 - 5 %) 0.1 Basophils % (0.0 - 2.0 %) 0.1 Absolute Granulocytes (1.4 - 6.5 /CUMM) 6.8 H Absolute Lymphocytes (1.2 - 3.4 /CUMM) 0.2 L Absolute Monocytes (0.10 - 0.60 /CUMM) 0 L Absolute Eosinophils (0.0 - 0.7 /CUMM) 0 Absolute Basophils (0.0 - 0.2 /CUMM) 0 / 0824 Blood Gas pH (7.35 - 7.45 PH) 7.54 H pCO2 (35 - 45 TORR) 25 L pO2 (80 - 100 TORR) 78 L HCO3 (21 - 28 MEQ/L) 21 ABG O2 Sat (Measured) (>96.0 %) 96.0 P-50 (Temp Corrected) Y Carboxyhemoglobin (1.5 - 5.0 %) 0.7 L O2 Concentration % 100% Temperature (97.0 - 100.0 FARH) 96.0 L O2 Delivery Method NRB Miscellaneous Phlebotomy Draw Site RIGHT RADIAL Imaging/Other Studies: [id number] central pulmonary emboli, increased right pleural effusion, right middle lobe consolidation Assessment/Plan Assessment: 1. Respiratory failure- ? Disease progression, infection, chemotherapy toxicity Recommend- Agree with recommendation for thoracentesis Antibiotics High flow oxygen 2. Locally advanced non-small cell lung carcinoma-chemotherapy on hold, not likely a candidate for any further systemic therapy. Overall, patient continues to demonstrate marked deterioration in his clinical status. Today, as an multiple times in the past, I tried to discuss with the patient his very poor prognosis. Patient still wishes full support. Recommendations: .. Consult Acknowledgment - Thank you for your consult request.
[2018-01-06 07:55] LABS: ABSOLUTE BASOPHIL COUNT 0 /CUMM (0.0-0.2); ABSOLUTE EOSINOPHIL COUNT 0 /CUMM (0.0-0.7); ABSOLUTE GRANULOCYTE CT 8.7 /CUMM (1.4-6.5); ABSOLUTE LYMPH COUNT 0.2 /CUMM (1.2-3.4); BASOPHIL % 0 % (0.0-2.0); EOSINOPHIL % 0 % (0-5)
--- NOTE | 2018-01-06 08:05 | PN- Housestaff ---
Booker Camacho 01/06/18 0805: Subjective Follow-up For: Dyspnea Tele-Events Since Last Visit: NSR Subjective: Pt feels about the same. No new complaints. Vitals stable overnight. No chest pain, or worsening dyspnea. Currently on nonrebreather. Review of Systems Constitutional: Reports: see HPI. Objective Last 24 Hrs of Vital Signs/I&O Vital Signs Date Time Temp Pulse Resp B/P B/P Pulse O2 O2 Flow FiO2 Mean Ox Delivery Rate 01/06 0556 97.6 84 22 126/72 92 Nasal Cannula 01/06 0000 Venti Mask 50% 01/05 2214 98.6 86 20 109/81 95 Non 50% ReBreather 01/05 1831 Venti Mask 50% 01/05 1501 98.1 94 16 118/72 100 Non 100% ReBreather 01/05 1311 98.4 96 20 104/68 100 Non 100% ReBreather 01/05 1041 99.2 98 18 102/64 99 Room Air 01/05 0909 98/52 01/05 0856 97.4 118 24 96/54 98 Non 100% ReBreather 01/05 0842 96 Non 100% ReBreather Intake & Output 01/06 1600 01/06 0800 01/06 0000 Intake Total 320 200 Output Total 375 200 Balance -55 0 Intake, IV 200 Intake, Oral 120 200 Output, Urine 375 200 Patient 182 lb Weight Weight Reported by Patient Measurement Method Physical Exam General Appearance: No Acute Distress Other Physical Findings: General Exam: AAOx3, mild distress, Skin: No rashes, no breakdown;HEENT: PERRLA, EOMI;Neck: Supple, No JVD; No cervical lymphadenopathy;CVS: Reg Rate, Normal S1, S2, No MGR;Resp: Decreased air entry bilaterally, no rales;Abdomen: Soft, No tenderness, Normal Bowel Sounds;Neuro: Normal Speech, Strength 5/5 b/l x 4 extremities, Sensation intact, CN III-XII NL, Reflexes 2+;Extremities: No cyanosis, pedal edema trace, Current Medications: Current Medications Sig/Joel Start time Last Medication Dose Route Stop Time Status Admin Albuterol Sulfate 3 ML ONCE ONE 01/05 815 DC 01/05 INH 01/06 816 0838 Ampicillin Sodium/ 0 .STK-MED ONE 01/06 603 DC Sulbactam Sodium .ROUTE Ampicillin Sodium/ 0 .STK-MED ONE 01/06 0117 DC Sulbactam Sodium .ROUTE Ampicillin Sodium/ 0 .STK-MED ONE 01/05 1211 DC Sulbactam Sodium .ROUTE Ampicillin Sodium/ 1,500 MG Q6 01/05 1200 AC 01/06 Sulbactam Sodium IV 0620 Sodium Chloride 100 ML Ceftazidime 1,000 MG Q8 01/05 2200 DC IV Ceftazidime 1,000 MG ONCE ONE 01/05 0830 DC 01/05 IV 01/05 0831 1015 Heparin Sodium 5,000 UNIT Q8 01/06 1400 AC (Porcine) SC Ipratropium [place] 2.5 ML ONCE ONE 01/05 0815 DC 01/05 INH 01/06 816 0838 Methylprednisolone 40 MG Q8 01/05 1506 AC 01/06 IV 0620 Vancomycin HCl 1,000 MG Q12 01/05 2200 CAN IV Vancomycin HCl 1,000 MG ONCE ONE 01/05 830 DC 01/05 Dextrose/Water 250 ML IV 01/05 09 1015 Last 24 Hrs of Lab/Luis Results Last 24 Hrs of Labs/Mics: Laboratory Tests 01/06/18 0607: Anion Gap 11, Estimated GFR > 60, BUN/Creatinine Ratio 46.0 H, CBC w Diff Pending, WBC Pending, RBC Pending, Hgb Pending, Hct Pending, MCV Pending, MCH Pending, MCHC Pending, RDW Pending, Plt Count Pending, MPV Pending 01/05/18 1537: Troponin I 0.09 01/05/18 0835: Anion Gap 15, Estimated GFR > 60, BUN/Creatinine Ratio 32.5 H, Glucose 174 H, Calcium 8.9, Magnesium 1.8, Total Bilirubin 1.7 H, AST 43, ALT 57, Alkaline Phosphatase 165 H, Troponin I 0.05, Gbe-A-Oublntmkidd Pept 21891 H, Total Protein 6.1 L, Albumin 2.8 L, Globulin 3.3, Albumin/Globulin Ratio 0.8 L, PT 18.5 H, INR 1.69 H, D-Dimer High Sensitivty 5585 H, CBC w Diff NO MAN DIFF REQ, RBC 3.94 L, MCV 85.8, MCH 27.9, MCHC 32.5 L, RDW 17.8 H, MPV 7.7, Gran % 96.2 H, Lymphocytes % 3.4 L, Monocytes % 0.2 L, Eosinophils % 0.1, Basophils % 0.1, Absolute Granulocytes 6.8 H, Absolute Lymphocytes 0.2 L, Absolute Monocytes 0 L, Absolute Eosinophils 0, Absolute Basophils 0 01/05/18823: pH 7.54 H, pCO2 25 L, pO2 78 L, HCO3 21, ABG O2 Sat (Measured) 96.0, P-50 ( Temp Corrected) Y, Carboxyhemoglobin 0.7 L, O2 Concentration % 100%, Temperature 96.0 L, O2 Delivery Method NRB, Phlebotomy Draw Site RIGHT RADIAL Microbiology 01/05 1318 LOWER RESP: Respiratory Culture - COLB 01/05 1318 LOWER RESP: Gram Stain - COLB 01/05 945 BLOOD: Blood Culture - RES 01/05 829 BLOOD: Blood Culture - CAN Cancelled: SPECIMEN NEVER RECEIVED. REORDER IF NEEDED Assessment/Plan Assessment: Mr. Soriano is a 72 year old gentleman w/ a PMHx of hypertension, hyperlipidemia, non-small cell lung carcinoma (08/2015) his chemotherapy last week changed to Gemzar , he has a history of PE on Eliquis, pulmonary hyeprtension presented to the ED for acute onset of dyspnea likely secondary to disease progression or side effect to chemotherapy. At the time of presentation vitals-temperature 96.0, pulse rate 120, respirations 30, blood pressure 144/84, 86% on 100% nonrebreather. Pertinent lab findings: WBC 7.1, hemoglobin 11.0, platelet count 190. Sodium 1: 30, potassium 4.7, chloride 90, BUN 26, serum creatinine 0.8, total bilirubin 1.7, AST 43, ALT 57, alkaline phosphatase 165, proBNP 54476, INR 1.69. ABG revealed pH 7.54, PCO2 25, PO2 78 on nonrebreather. CTA was negative for PE. Limited study but no central pulmonary embolus seen. Worsened, large right pleural effusion increased from prior study with persistent dense right lower lobe consolidation, new dense right middle lobe consolidation, and worsened aeration of the right upper lobe. The amorphous soft tissue encasing the right bronchus and the right lobar bronchi, as well as the previously seen seen right hilar lymphadenopathy, are not as well seen. Persistent subcarinal lymphadenopathy. Right upper quadrant ultrasound 1. Moderate amount of sludge in the gallbladder. Gallbladder otherwise unremarkable. No biliary dilatation. 2. Small right-sided pleural effusion, incompletely imaged. 3. Otherwise unremarkable right upper quadrant ultrasound. Etiology in this case could likely be due to his worsening carcinoma, or secondary to systemic chemotherapy. He has an increasing right-sided pleural effusion likely secondary to his carcinoma, but needs to be tapped and sent for analysis. 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 #2 Thoracentesis to be attempted, and sent for analysis. #3 continue intravenous Unasyn to treat any obstructive pneumonia #4 patient on IV Solu-Medrol, given his chronic prednisone use #5 restart IV heparin, after confirming from the IR about the timing of centesis. Housekeeping: #1 DVT prophylaxis-subcutaneous heparin for now. Would have to start intravenous heparin, since the patient has taken Eliquis on 01/03/2018. Problem List: 1. Pleural effusion associated with pulmonary infection 2. Respiratory alkalosis Pain Ratin Pain Location: Back Pain Goal: Pain 4 or less Pain Plan: Tylenol as needed Tomorrow's Labs & Rationales: CBCs, basic electrolyte panel. Tereza Rayo 01/06/18 1447: Attending MD Review Statement Attending Statement Attending MD Statement: examined this patient, discuss w/resident/PA/DATA SERVICES DEVELOPER, agreed w/resident/PA/DATA SERVICES DEVELOPER, discussed with family, reviewed EMR data (avail), discussed with nursing, discussed with case mgmt, reviewed images, amended to note Attending Assessment/Plan: Patient with pmh of lung cancer admitted for acute on chronic hypoxic respiratroy failure possible pnuemonia likely aspiration. Patient has baseline poor lung reserves with baseline home oxyegn 5-6L. Pulmoanry conuslted and recommended CTA chest. PE ruled out. He has right lower lobe consolidation. Patient is started empiric on iv unasyn, send blood cultures, eliquis for h/o PE. monitor labs. Inform oncology about admsison, plan for chemotherpay as per Dr Ross. IR consult for thoracentesis. Plan for tomorrow, bridge with heparin. (eliquis held) [facility] gi/dvt prophyalxis.
[2018-01-06 08:20] LABS: ABSOLUTE MONOCYTE COUNT 0.1 /CUMM (0.10-0.60); GRANULOCYTE % 97.1 % (42.2-75.2); MEAN CORPUSCULAR HGB 28.5 PG (27.0-31.0); MEAN CORPUSCULAR HGB CONC 33.4 G/DL (33.0-37.0); MEAN CORPUSCULAR VOLUME 85.4 FL (80.0-94.0); MEAN PLATELET VOLUME 8.4 FL (7.4-10.4); PLATELET COUNT 142 /CUMM (130-400); RBC DISTRIBUTION WIDTH 17.8 % (11.5-14.5); RED BLOOD CELL CT 3.24 /CUMM (4.70-6.10)
[2018-01-06 08:26] LABS: HEMATOCRIT 27.7 % (42-52)
[2018-01-06 08:55] VITALS: BP 110/66
--- NOTE | 2018-01-06 13:54 | PN- Pulmonary ---
Subjective HPI/Critical Care Issues: pt seen and examined feeling better on ventimask Objective Current Medications: Current Medications Sig/Joel Start time Last Medication Dose Route Stop Time Status Admin Ampicillin Sodium/ 0 .STK-MED ONE 01/06 0603 DC Sulbactam Sodium .ROUTE Ampicillin Sodium/ 0 .STK-MED ONE 01/06 0117 DC Sulbactam Sodium .ROUTE Ampicillin Sodium/ 1,500 MG Q6 01/05 1200 AC 01/06 Sulbactam Sodium IV 1203 Sodium Chloride 100 ML Ceftazidime 1,000 MG Q8 01/05 2200 DC IV Heparin Sodium 5,000 UNIT Q8 01/06 1400 AC 01/06 (Porcine) SC 1324 Heparin Sodium 25,000 UNIT Q24H 01/06 1300 DC (Porcine) IV Sodium Chloride 500 ML Methylprednisolone 40 MG Q8 01/05 1506 AC 01/06 IV 1324 Vital Signs & I&O Last 24 Hrs of Vitals and I&O: Vital Signs Date Time Temp Pulse Resp B/P B/P Pulse O2 O2 Flow FiO2 Mean Ox Delivery Rate 01/06 0855 93 Venti Mask 01/06 0855 98.6 79 18 110/66 92 Venti Mask 01/06 0556 97.6 84 22 126/72 92 Nasal Cannula 01/06 0000 Venti Mask 50% 01/05 2214 98.6 86 20 109/81 95 Non 50% ReBreather 01/05 1831 Venti Mask 50% 01/05 1501 98.1 94 16 118/72 100 Non 100% ReBreather Intake & Output 01/06 1600 01/06 0800 01/06 0000 Intake Total 320 200 Output Total 375 200 Balance -55 0 Intake, IV 200 Intake, Oral 120 200 Output, Urine 375 200 Patient 182 lb Weight Weight Reported by Patient Measurement Method Exam Other Physical Findings: alert awake, speaks in full sentences, reduced breath sounds with rhonchi, no leg edema Results Last 24 Hrs of Lab Results: Laboratory Tests 01/06/18 0607: Anion Gap 11, Estimated GFR > 60, BUN/Creatinine Ratio 46.0 H, CBC w Diff MAN DIFF ORDERED, RBC 3.24 L, MCV 85.4, MCH 28.5, MCHC 33.4, RDW 17.8 H, MPV 8.4, Gran % 97.1 H, Lymphocytes % 2.3 L, Monocytes % 0.6 L, Eosinophils % 0, Basophils % 0, Absolute Granulocytes 8.7 H, Segmented Neutrophils 92 H, Band Neutrophils 6 H, Absolute Lymphocytes 0.2 L, Lymphocytes 2 L, Absolute Monocytes 0.1, Absolute Eosinophils 0, Absolute Basophils 0, Platelet Estimate DECREASED, Hypochromic-Microcytic 1+, Poikilocytosis 2+, Anisocytosis 1+ 01/05/18 1537: Serum Osmolality 283 L, Troponin I 0.09 Impression/Plan Impression/Plan Impression/Plan: Impression 71 year old man. NSCLC. Hx of PE on a/c. Treated with Taxol by Dr. Ross. * Acute hypoxemic respiratory failure * Non-small cell lung carcinoma * hx of PE on eliquis Plan -pleural effusion - IR thoracentesis - send for pleural ph, cytology, LDH (and serum), t.protein, t.cholesterol, cell count, microbiology -cont solumedrol -unasyn empirically (may have post obstructive pna) -trc/nebs -sputum cx -given extent of disease and encasement of the RLL vessels and vessels, interventional pulmonary procedures may not be feasible and given his high o2 requirement, bronchoscopy will pose a risk for indefinite intubation, will continue to monitor -symbicort with rinsing of the mouth -out of bed if tolerated -reduce fio2 to a goal spo2 of >88% -palliative consultation if patient agreeable DVT prophylaxis at all times
[2018-01-06 14:00] VITALS: BP 120/72
--- NOTE | 2018-01-06 14:24 | Event Note ---
Event Note Event Note: At the time of admission, the pt mentioned that the last dose of Eliquis was likely on 01/05/18. Arrangements were made for ultrasound-guided thoracentesis on 01/08/2018. This morning, when his family was around who brought all the medications, it was brought to our attention that he may have taken his last dose of Eliquis on 01/03/2018; and interventional radiology was contacted if they could perform the thoracentesis today or latest by tomorrow. Intravenous heparin was ordered, but was kept on hold, if procedure is planned during the day today. If a procedure is planned, IV heparin has to be discontinued at least for hours prior to the planned procedure. Await a call back from IR. A rapid response was called, when Mr Soriano was found to be in acute distress. He was just moved from emergency room, and was found to be in acute distress. On examination, he was comfortable, with oxygen saturation around 87% on Ventimask 15 L. Vitals-blood pressure 1:30/90, heart rate 150-180s, respiratory rate around 30. Lung examination revealed no abnormal lung sounds; decreased air entry on the right side. 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 This could be due to acute hypoxia. We reviewed the EKG with the travel money advisor-Dr. Ochoa. Ordered IV Cardizem 20 mg push. Updated the family. Patient to be started on IV heparin; continue monitoring the patient pending cardiology evaluation. Updated attending physician by Dr. Abraham.
[2018-01-06 16:36] LABS: ABSOLUTE BASOPHIL COUNT 0 /CUMM (0.0-0.2); ABSOLUTE EOSINOPHIL COUNT 0 /CUMM (0.0-0.7); ABSOLUTE GRANULOCYTE CT 12.9 /CUMM (1.4-6.5); ABSOLUTE LYMPH COUNT 0.3 /CUMM (1.2-3.4); ABSOLUTE MONOCYTE COUNT 0 /CUMM (0.10-0.60); BASOPHIL % 0 % (0.0-2.0); EOSINOPHIL % 0 % (0-5); HEMATOCRIT 29.8 % (42-52); MEAN CORPUSCULAR HGB 28.4 PG (27.0-31.0); MEAN CORPUSCULAR HGB CONC 33.6 G/DL (33.0-37.0); MEAN CORPUSCULAR VOLUME 84.6 FL (80.0-94.0); MEAN PLATELET VOLUME 7.7 FL (7.4-10.4); PLATELET COUNT 144 /CUMM (130-400); RBC DISTRIBUTION WIDTH 18.1 % (11.5-14.5); RED BLOOD CELL CT 3.52 /CUMM (4.70-6.10); WHITE BLOOD CELL COUNT 13.2 /CUMM (4.8-10.8)
[2018-01-06 16:46] LABS: GRANULOCYTE % 97.7 % (42.2-75.2)
--- NOTE | 2018-01-06 16:53 | RADIOLOGY REPORT ---
EXAMINATION: XR PORTABLE CHEST CLINICAL INFORMATION: Desaturations and tachycardia. Rule out pneumonia or pleural effusion. COMPARISON: Chest x-ray and chest CTA 01/05/2018 TECHNIQUE: Portable frontal view of the chest was obtained. FINDINGS: Similar appearing large right pleural effusion with adjacent airspace disease. Interstitial prominence within the right upper lobe and at the left lung base is similar to the prior study. There is central vascular congestion. Cardiac silhouette and osseous structures are stable. A small 3 mm curvilinear radiodensity within the right supraclavicular soft tissues has been present in comparison to multiple examinations dated back to 2013, presumably a small foreign body. IMPRESSION: - Similar appearing large right pleural effusion with adjacent airspace disease. Stable interstitial opacities within the right upper lobe and at the left lung base. - A small 3 mm curvilinear radiodensity within the right supraclavicular soft tissues has been present in comparison to multiple examinations dated back to 2013, presumably a small foreign body. The covering provider has been paged with these findings at 4:50 PM on 01/06/2018.
--- NOTE | 2018-01-06 21:35 | Cons- Cardiology ---
General Information and HPI Consulting Request Date of Consult: 01/06/18 Requested By: Tereza Rayo MD History of Present Illness: Mr. Soriano is a 72 year old male with history of hypertension, dyslipidemia and non-small cell lung cancer. He also carreis a history of DVT and pulmonary embolism on Eliquis. Recently this patient has noted an acute episode of shortness of breath beyond his baseline with severe lethargy. He also has orthopnea. The patient has a chronic mild lower midsternal chest discomfort. Otherwise he denies lightheadedness or palptiations. Today, this patient was noted to be in atrial fibrillation with rapid heart rate. The patient was in respiratory distress during this event but he was unaware of any palpitations. The patient anticipates a thoracentesis. He has spontaneously converted to a sinus rhythm. Allergies/Medications Allergies: Coded Allergies: NO KNOWN ALLERGIES (NONE 01/05/18) Home Med List: Albuterol Sulfate (Ventolin Hfa) 90 MCG HFA.AER.AD 2 PUF INH AD PRN RESP. ( Reported) Apixaban (Eliquis) 5 MG TABLET 1 TAB PO BID BLOOD THINNER (Reported) Atorvastatin Calcium (Lipitor) 10 MG TABLET 1 TAB PO DAILY CHOLESTEROL ( Reported) Budesonide/Formoterol Fumarate (Symbicort 80-4.5 Mcg Inhaler) 80 MCG-4.5 MCG/ ACTUATION HFA.AER.AD 2 PUF INH BID PRN SOB . Lisinopril 5 MG TABLET 1 TAB PO DAILY BP (Reported) Prochlorperazine Maleate 10 MG TABLET 1 TAB PO Q6 nausea and vomiting ( Reported) Tramadol HCl 50 MG TABLET 1 TAB PO Q6P PRN pain (Reported) Review of Systems Review of Systems: The patient is hard of hearing. Past History Travel History Traveled to [place] past 21 day No Medical History Neurological: NONE EENT: NONE Cardiovascular: hypertension, hyperlipidemia Respiratory: COPD, pulmonary embolism, pneumonia, NON-SM CELL CA Gastrointestinal: NONE Hepatic: NONE Renal: NONE Musculoskeletal: R KNEE REPAIR Psychiatric: NONE Endocrine: NONE Blood Disorders: PE Cancer(s): lung cancer Surgical History Surgical History: mediastinoscopy R KNEE REPAIR Family History Relations & Conditions If Any: FATHER, , Age 40-50; Cause: Myocardial infarct. BROTHER, ; Cause: Heart disease. BROTHER FH: CABG (coronary artery bypass surgery) MOTHER FH: cancer of genital organ Psychosocial History Smoking Status: Former Smoker ETOH Use: denies use Illicit Drug Use: denies illicit drug use Exam & Diagnostic Data Vital Signs and I&O Vital Signs Date Time Temp Pulse Resp B/P B/P Pulse O2 O2 Flow FiO2 Mean Ox Delivery Rate 01/061 Nasal 80% Cannula 01/06 1627 179 130/90 01/06 1600 90 Non 100% ReBreather 01/06 1400 98.0 98 20 120/72 92 01/06 0855 93 Venti Mask 01/06 0855 98.6 79 18 110/66 92 Venti Mask 01/06 0556 97.6 84 22 126/72 92 Nasal Cannula 01/06 0000 Venti Mask 50% 01/05 2214 98.6 86 20 109/81 95 Non 50% ReBreather Intake & Output 01/06 1600 01/06 0800 01/06 0000 01/05 1600 01/05 0800 01/05 0000 Intake Total 320 200 0 Output Total 250 375 200 Balance -250 -55 0 0 Intake, IV 200 Intake, Oral 120 200 0 Number 1 Bowel Movements Output, Urine 250 375 200 Patient 182 lb 182 lb Weight Weight Reported by Patient Measurement Method Physical Exam: General: WD/overweight male in NAD; alert and oriented x 3 HEENT: NC/AT, PERRL, EOMI Neck: no JVD, no carotid bruit Heart: RRR with 2/6 systolic murmur Lungs: decreased breath sounds in right base Abdomen: soft, NT, +ve bowel sounds Extremities: no edema Assessment/Plan Assessment/Plan * This patient demonstrated atrial fibrillation with rapid heart rate which occured in the setting of lung disease. I suspect this patient has elevated RV pressures which will predispose him to atrial fibrillation. He has likely had multiple similar episodes which he is not aware of since he does not feel palpitations during his bout of atrial fibrillation. I would not be inclined to begin a beta feroz such as Sotolol since he has some wheezing and would not begin Amiodarone due to his underlying lung disease. Begin Multaq 400mg BID to try and maintain a sinus rhythm. The patient anticipates a procedure so we will avoid anticoagulation for now which is reasonable if we can maintain a sinus rhythm. * Obtain a echocardiogram * Check a TSH and free T4 Consult Acknowledgment - Thank you for your consult request.
[2018-01-06 21:41] VITALS: BP 128/80
[2018-01-06 22:57] LABS: PTT 37 SEC (25-37)
[2018-01-07 06:59] VITALS: BP 124/80
--- NOTE | 2018-01-07 07:38 | PN- Housestaff ---
David NICOLAS,Izaiah 01/07/18 0737: Subjective Follow-up For: SOB Subjective: Overnight pt desatted on his hiflow NC and was transitioned to non-rebreather and titrated up to 100% for sats between 92-93%. Pt is very anxious this morning and states that he feels like he is constantly SOB and feels like he is "going to take his last breath any minute." He would still like to remain full code status. He is aware of his grim prognosis but wished to pursue all necessary heroic measures. Review of Systems Constitutional: Denies: chills, fever. EENTM: Denies: blurred vision. Cardiovascular: Denies: chest pain, palpitations. Respiratory: Reports: short of breath. Gastrointestinal: Denies: abdominal pain, nausea, vomiting. Genitourinary: Reports: no symptoms. Musculoskeletal: Reports: no symptoms. Objective Last 24 Hrs of Vital Signs/I&O Vital Signs Date Time Temp Pulse Resp B/P B/P Pulse O2 O2 Flow FiO2 Mean Ox Delivery Rate 01/07 1442 85 95 01/07 1427 98.8 90 22 118/68 92 01/07 1056 130/84 01/07 0954 93 Non 100% ReBreather 01/07 0800 93 Non 100% ReBreather 01/07 0659 97.3 86 20 124/80 95 Non ReBreather 01/07 0320 96 Non 100% ReBreather 01/07 0051 94 Nasal 80% Cannula 01/06 2248 93 Nasal 80% Cannula 01/06 2201 150 128/80 01/06 2141 97.8 150 22 128/80 95 Room Air 01/06 1921 Nasal 80% Cannula 01/06 1627 179 130/90 01/06 1600 90 Non 100% ReBreather Intake & Output 01/07 1600 01/07 0800 01/07 0000 Intake Total 350 344 Output Total 200 300 200 Balance -200 50 144 Intake, IV 350 104 Intake, Oral 240 Number 1 1 Bowel Movements Output, Urine 200 300 200 Patient 80.467 kg Weight Physical Exam General Appearance: Alert, Oriented X3, Cooperative, No Acute Distress HEENT: Atraumatic, PERRLA, EOMI Neck: Supple Cardiovascular: Regular Rate, Normal S1, Normal S2 Lungs: diminished air movement Abdomen: Soft, No Tenderness Extremities: No Edema Current Medications: Current Medications Sig/Joel Start time Last Medication Dose Route Stop Time Status Admin Acetaminophen 650 MG Q8P PRN 01/06 1430 AC PO Ampicillin Sodium/ 1,500 MG Q6 01/05 1200 AC 01/07 Sulbactam Sodium IV 1255 Sodium Chloride 100 ML Benzocaine/Menthol 1 MAKSIM Q4 HRS NEEDED PRN 01/06 2015 AC 01/06 PO 2201 Benzonatate 100 MG TID 01/06 2200 AC 01/07 PO 1056 Diltiazem HCl 20 MG ONCE ONE 01/06 1615 DC 01/06 IV 01/06 161 1627 Dronedarone 400 MG BID 01/06 2200 AC 01/07 PO 1056 Heparin Sodium 6,000 UNIT ONCE ONE 01/07 0100 DC 01/07 (Porcine) IV 01/07 010 0109 Heparin Sodium 25,000 UNIT Q24H 01/06 1515 DC 01/06 (Porcine) IV 1700 Sodium Chloride 500 ML Heparin Sodium 5,000 UNIT Q8 01/06 1400 DC 01/06 (Porcine) SC 1324 Methylprednisolone 40 MG Q8 01/05 1506 AC 01/07 IV 1252 Last 24 Hrs of Lab/Luis Results Last 24 Hrs of Labs/Mics: Laboratory Tests 01/07/18 1540: Phlebotomy Draw Site RT.PLEURAL, Pleural pH 6.85 01/07/18 1540: Phlebotomy Draw Site Pending, Pleural pH Pending 01/07/18 0710: Anion Gap 9, Estimated GFR > 60, BUN/Creatinine Ratio 32.9 H, Lactate Dehydrogenase 729 H, Total Protein 5.5 L, Albumin 2.5 L, TSH 0.338, Free T4 1.26, CBC w Diff NO MAN DIFF REQ, RBC 3.17 L, MCV 85.6, MCH 28.4, MCHC 33.2, RDW 17.6 H, MPV 8.3, Gran % 98.0 H, Lymphocytes % 1.9 L, Monocytes % 0.1 L, Eosinophils % 0, Basophils % 0, Absolute Granulocytes 11.4 H, Absolute Lymphocytes 0.2 L, Absolute Monocytes 0 L, Absolute Eosinophils 0, Absolute Basophils 0 01/06/18 2234: APTT 37 01/06/18 1619: Anion Gap 14, Estimated GFR > 60, BUN/Creatinine Ratio 30.0 H, Magnesium 2.0, Troponin I 0.04, CBC w Diff NO MAN DIFF REQ, RBC 3.52 L, MCV 84.6, MCH 28.4, MCHC 33.6, RDW 18.1 H, MPV 7.7, Gran % 97.7 H, Lymphocytes % 2.3 L, Monocytes % 0 L, Eosinophils % 0, Basophils % 0, Absolute Granulocytes 12.9 H, Absolute Lymphocytes 0.3 L, Absolute Monocytes 0 L, Absolute Eosinophils 0, Absolute Basophils 0 Microbiology 01/07 1228 BODY FLUID: Body Fluid Culture - COLB 01/07 1228 BODY FLUID: Gram Stain - COLB Assessment/Plan Assessment: This is a 72 year old gentleman w/ a PMHx of hypertension, hyperlipidemia, non- small cell lung carcinoma (08/2015) his chemotherapy last week changed to Gemzar , PE on Eliquis, pulmonary hyeprtension who presented to the ED for CC SOB. CTA was negative for PE. Limited study but no central pulmonary embolus seen. There was evidence of wrosening large r. pleural effusion w/ dense RLL consolidation and new dense RML consolidation. He was also noted to have "amorphous soft tissue encasing the right bronchus and the right lobar bronchi" along with subcarinal lymphadenopathy. Problem list: Acute hypoxic respiratory failure: DDX of SOB includes worsening pleural effusion, chemotherapy side effect, worsening of NSCLC causing bronchial obstruction or a post-obstructive PNA. PE was ruled out with CT PE. * Going for thora today; corresponding labs ordered * swallow eval to rule out aspriation * con't non-rebreather but with goal sats of 88% * Appreciate pulm consult * Will attempt to discuss palliative care with patient * Appreciate Onc recommendations * Sputum cx pending AFIB W/ RVR: Today he has been rate controlled but yesterday he was in 160-180s. * Appreciate cardio consult * Started on Multaq today * Check TSH * Eliquis on hold; pt on heparin in anticipation of thora. Will resume eliquis post-procedure Problem List: 1. Hypoxia Pain Ratin Pain Location: NONE Pain Goal: Remain pain free Pain Plan: NONE Tomorrow's Labs & Rationales: CBC BEP GirmaTereza 01/07/18 1111: Attending MD Review Statement Attending Statement Attending MD Statement: examined this patient, discuss w/resident/PA/PASSENGER FLAGMAN, agreed w/resident/PA/PASSENGER FLAGMAN, discussed with family, reviewed EMR data (avail), discussed with nursing, discussed with case mgmt, reviewed images, amended to note Attending Assessment/Plan: Patient with pmh of lung cancer admitted for acute on chronic hypoxic respiratroy failure possible pnuemonia likely aspiration. Patient has baseline poor lung reserves with baseline home oxyegn 5-6L. Pulmoanry conuslted and recommended CTA chest. PE ruled out. He has right lower lobe consolidation. Patient is started empiric on iv unasyn, send blood cultures, eliquis for h/o PE. monitor labs. Informed oncology about admsison, plan for chemotherpay as per Dr Ross. IR consulted for thoracentesis. Plan for today, NPO, bridge with heparin. ( eliquis held), restart after procedure. F/u pulmonary. Patient might need pulmoanry rehab at [facility], [place]. gi/dvt prophyalxis.
[2018-01-07 08:40] LABS: ABSOLUTE BASOPHIL COUNT 0 /CUMM (0.0-0.2); ABSOLUTE EOSINOPHIL COUNT 0 /CUMM (0.0-0.7); ABSOLUTE GRANULOCYTE CT 11.4 /CUMM (1.4-6.5); ABSOLUTE LYMPH COUNT 0.2 /CUMM (1.2-3.4); ABSOLUTE MONOCYTE COUNT 0 /CUMM (0.10-0.60); BASOPHIL % 0 % (0.0-2.0); EOSINOPHIL % 0 % (0-5); HEMATOCRIT 27.2 % (42-52); MEAN CORPUSCULAR HGB 28.4 PG (27.0-31.0); MEAN CORPUSCULAR HGB CONC 33.2 G/DL (33.0-37.0); MEAN CORPUSCULAR VOLUME 85.6 FL (80.0-94.0); MEAN PLATELET VOLUME 8.3 FL (7.4-10.4); RBC DISTRIBUTION WIDTH 17.6 % (11.5-14.5); RED BLOOD CELL CT 3.17 /CUMM (4.70-6.10); WHITE BLOOD CELL COUNT 11.6 /CUMM (4.8-10.8)
[2018-01-07 09:58] LABS: PLATELET COUNT 107 /CUMM (130-400)
--- NOTE | 2018-01-07 11:16 | PN- Pulmonary ---
Subjective HPI/Critical Care Issues: pt seen and examined 100% nrb some distress awaiting thoracentesis Objective Current Medications: Current Medications Sig/Joel Start time Last Medication Dose Route Stop Time Status Admin Acetaminophen 650 MG Q8P PRN 01/06 1430 AC PO Ampicillin Sodium/ 1,500 MG Q6 01/05 1200 AC 01/07 Sulbactam Sodium IV 0631 Sodium Chloride 100 ML Benzocaine/Menthol 1 MAKSIM Q4 HRS NEEDED PRN 01/06 2015 AC 01/06 PO 2201 Benzonatate 100 MG TID 01/06 2200 AC 01/07 PO 1056 Diltiazem HCl 20 MG ONCE ONE 01/06 1615 DC 01/06 IV 01/06 1616 1627 Dronedarone 400 MG BID 01/06 2200 AC 01/07 PO 1056 Heparin Sodium 6,000 UNIT ONCE ONE 01/07 0100 DC 01/07 (Porcine) IV 01/07 0101 0109 Heparin Sodium 25,000 UNIT Q24H 01/06 1515 DC 01/06 (Porcine) IV 1700 Sodium Chloride 500 ML Heparin Sodium 5,000 UNIT Q8 01/06 1400 DC 01/06 (Porcine) SC 1324 Heparin Sodium 25,000 UNIT Q24H 01/06 1300 DC (Porcine) IV Sodium Chloride 500 ML Methylprednisolone 40 MG Q8 01/05 1506 AC 01/07 IV 0631 Vital Signs & I&O Last 24 Hrs of Vitals and I&O: Vital Signs Date Time Temp Pulse Resp B/P B/P Pulse O2 O2 Flow FiO2 Mean Ox Delivery Rate 01/07 1056 130/84 01/07 0659 97.3 86 20 124/80 95 Non ReBreather 01/07 0320 96 Non 100% ReBreather 01/07 0051 94 Nasal 80% Cannula 01/06 2248 93 Nasal 80% Cannula 01/06 2201 150 128/80 01/06 2141 97.8 150 22 128/80 95 Room Air 01/06 1921 Nasal 80% Cannula 01/06 1627 179 130/90 01/06 1600 90 Non 100% ReBreather 01/06 1400 98.0 98 20 120/72 92 Intake & Output 01/07 1600 01/07 0800 01/07 0000 Intake Total 350 344 Output Total 300 200 Balance 50 144 Intake, IV 350 104 Intake, Oral 240 Number 1 1 Bowel Movements Output, Urine 300 200 Patient 177 lb Weight Exam Other Physical Findings: alert awake coral distress breath sounds diminished bilaterally with rhonchi no leg edema Results Last 24 Hrs of Lab Results: Laboratory Tests 01/07/18 0710: Anion Gap 9, Estimated GFR > 60, BUN/Creatinine Ratio 32.9 H, Lactate Dehydrogenase 729 H, Total Protein 5.5 L, Albumin 2.5 L, TSH 0.338, Free T4 1.26, CBC w Diff NO MAN DIFF REQ, RBC 3.17 L, MCV 85.6, MCH 28.4, MCHC 33.2, RDW 17.6 H, MPV 8.3, Gran % 98.0 H, Lymphocytes % 1.9 L, Monocytes % 0.1 L, Eosinophils % 0, Basophils % 0, Absolute Granulocytes 11.4 H, Absolute Lymphocytes 0.2 L, Absolute Monocytes 0 L, Absolute Eosinophils 0, Absolute Basophils 0 01/06/18 2234: APTT 37 01/06/18 1619: Anion Gap 14, Estimated GFR > 60, BUN/Creatinine Ratio 30.0 H, Magnesium 2.0, Troponin I 0.04, CBC w Diff NO MAN DIFF REQ, RBC 3.52 L, MCV 84.6, MCH 28.4, MCHC 33.6, RDW 18.1 H, MPV 7.7, Gran % 97.7 H, Lymphocytes % 2.3 L, Monocytes % 0 L, Eosinophils % 0, Basophils % 0, Absolute Granulocytes 12.9 H, Absolute Lymphocytes 0.3 L, Absolute Monocytes 0 L, Absolute Eosinophils 0, Absolute Basophils 0 01/06/18 1542: pH 7.51 H, pCO2 33 L, pO2 144 H, HCO3 26, ABG O2 Sat (Measured) 99.0, Carboxyhemoglobin 0.3 L, O2 Concentration % 100%, O2 Delivery Method NRB, Phlebotomy Draw Site RIGHT RADIAL Impression/Plan Impression/Plan Impression/Plan: Impression 71 year old man. NSCLC. Hx of PE on a/c. Treated with Taxol by Dr. Ross. * Acute hypoxemic respiratory failure * Non-small cell lung carcinoma * hx of PE on eliquis Plan -pleural effusion - IR thoracentesis - send for pleural ph, cytology, LDH (and serum), t.protein, t.cholesterol, cell count, microbiology -cont solumedrol -unasyn empirically (may have post obstructive pna) -trc/nebs -sputum cx -given extent of disease and encasement of the RLL vessels and vessels, interventional pulmonary procedures may not be feasible and given his high o2 requirement, bronchoscopy will pose a risk for indefinite intubation, will continue to monitor -symbicort with rinsing of the mouth -out of bed if tolerated -reduce fio2 to a goal spo2 of >88% -palliative consultation if patient agreeable DVT prophylaxis at all times
[2018-01-07 14:27] VITALS: BP 118/68
--- NOTE | 2018-01-07 16:17 | RADIOLOGY REPORT ---
EXAMINATION:\H\ \N\XR CHEST CLINICAL INFORMATION: Status post thoracentesis COMPARISON: Multiple priors, most recent from 01/06/2018. TECHNIQUE: Frontal view of the chest was obtained. FINDINGS: Interval decrease in right pleural effusion, with moderate residual. There is no demonstrable pneumothorax. Persistent right basilar opacity. Left basilar opacity is slightly increased. Diffuse interstitial prominence is similar compared to prior. Cardiomediastinal silhouette is unchanged. Linear radiodensity again seen in the right supraclavicular region. IMPRESSION: Status post thoracentesis with decrease in right pleural effusion. No evidence of pneumothorax. Persistent right basilar airspace disease. Slight increased left basilar airspace disease. Interstitial opacities are unchanged.
--- NOTE | 2018-01-07 16:18 | ULTRASOUND REPORT ---
PROCEDURE: Thoracentesis CLINICAL INFORMATION: Pleural Effusion COMPARISON: CTA chest 01/05/2018 TECHNIQUE: Direct ultrasound guided thoracentesis using a 5 [place] Yueh catheter. FINDINGS: Informed consent was obtained from the patient prior to the procedure. During this process, the procedure alternatives were explained, along with the intended outcome and benefits. The risks of the procedure, as well as the risk of not doing the procedure, was discussed. The patient was given the opportunity to ask questions regarding the procedure and appeared competent to make medical decisions. A signed consent form which documents this discussion was placed in the medical record. A timeout procedure was performed. Ultrasound evaluation of the chest for pleural fluid was performed. A moderate to large pleural effusion is noted on the right side. Using standard interventional and sterile techniques, lidocaine was used to anesthetize the region. A 5 [place] Yueh catheter was introduced into the right pleural fluid using standard safety needle technique. Approximately 860 mL of serosanguineous, nonclotting fluid was removed into the Vacutainer bottles. The catheter was then removed. Good hemostasis was achieved. Sample sent for requested analysis. The patient tolerated the procedure well. A sterile dressing was placed. The patient was discharged from the department in stable condition. Postprocedure x-ray demonstrated no pneumothorax. COMPLICATIONS: None. IMPRESSION: Successful ultrasound-guided thoracentesis yielding 860 mL's of fluid.
--- NOTE | 2018-01-07 22:31 | PN- Cardiology ---
Subjective Subjective: * Breathing is somewhat improved compared with admission. * sinus rhythm * status post thoracentesis Objective Vital Signs and I&Os Vital Signs Date Time Temp Pulse Resp B/P B/P Pulse O2 O2 Flow FiO2 Mean Ox Delivery Rate 01/07 2201 94 Nasal 80% Cannula 01/07 2112 112/86 01/07 1925 89 Nasal 80% Cannula 01/07 1615 90 Nasal 80% Cannula 01/07 1600 90 Nasal 80% Cannula 01/07 1442 85 95 01/07 1427 98.8 90 22 118/68 92 01/07 1056 130/84 01/07 0954 93 Non 100% ReBreather 01/07 0800 93 Non 100% ReBreather 01/07 0659 97.3 86 20 124/80 95 Non ReBreather 01/07 0320 96 Non 100% ReBreather 01/07 0051 94 Nasal 80% Cannula 01/06 2248 93 Nasal 80% Cannula Intake & Output 01/07 1600 01/07 0800 01/07 0000 01/06 1600 01/06 0800 01/06 0000 Intake Total 350 344 320 200 Output Total 200 300 200 250 375 200 Balance -200 50 144 -250 -55 0 Intake, IV 350 104 200 Intake, Oral 240 120 200 Number 1 1 1 Bowel Movements Output, Urine 200 300 200 250 375 200 Patient 177 lb 182 lb Weight Weight Reported by Patient Measurement Method Physical Exam: General: WD/overweight male in NAD; alert and oriented x 3 HEENT: NC/AT, PERRL, EOMI Neck: no JVD, no carotid bruit Heart: RRR with 2/6 systolic murmur Lungs: decreased breath sounds Abdomen: soft, NT, +ve bowel sounds Extremities: no edema Assessment/Plan Assessment/Plan * This patient demonstrated atrial fibrillation with rapid heart rate which occured in the setting of lung disease. I suspect this patient has elevated RV pressures which will predispose him to atrial fibrillation. He has likely had multiple similar episodes which he is not aware of since he does not feel palpitations during his bout of atrial fibrillation. I would not be inclined to begin a beta feroz such as Sotolol since he has some wheezing and would not begin Amiodarone due to his underlying lung disease. Begin Multaq 400mg BID to try and maintain a sinus rhythm. This patient should be on chronic anticoagulation if no additional procedures are anticipated. * Obtain a echocardiogram Continue telemetry? Yes
[2018-01-07 23:21] VITALS: BP 118/70
[2018-01-08 06:38] VITALS: BP 120/76
--- NOTE | 2018-01-08 07:33 | PN- Oncology ---
Subjective Subjective: Remains markedly short of breath 12 point review of systems otherwise unchanged Objective Vital Signs and I&Os Vital Signs Date Time Temp Pulse Resp B/P B/P Pulse O2 O2 Flow FiO2 Mean Ox Delivery Rate 01/08 0638 98.2 77 22 120/76 90 Nasal Cannula 01/08 0620 81 Nasal 80% Cannula 01/08 0011 89 Nasal 80% Cannula 01/08 0000 Nasal 50% Cannula 01/07 2321 98.1 83 16 118/70 93 01/07 2201 94 Nasal 80% Cannula 01/07 2112 112/86 01/07 1925 89 Nasal 80% Cannula 01/07 1615 90 Nasal 80% Cannula 01/07 1600 90 Nasal 80% Cannula 01/07 1442 85 95 01/07 1427 98.8 90 22 118/68 92 01/07 1056 130/84 01/07 0954 93 Non 100% ReBreather 01/07 08 93 Non 100% ReBreather Intake & Output 01/08 0800 01/08 0000 01/07 1600 01/07 0800 01/07 0000 01/06 1600 Intake Total 360 120 350 344 Output Total 450 450 200 300 200 250 Balance -90 -330 -200 50 144 -250 Intake, IV 240 350 104 Intake, Oral 120 120 240 Number 1 1 1 Bowel Movements Output, Urine 450 450 200 300 200 250 Patient 179 lb 177 lb Weight Gen.: in moderate respiratory distress ENT: Sclera anicteric, thrush Chest: Decreased breath sounds Cor: IRRR, Abdomen: Soft, bowel sounds present, no tenderness, Extremities: Without clubbing, cyanosis, or asymmetric edema Neurology: Alert and oriented 3, no gross deficit Current Medications: Current Medications Sig/Joel Start time Last Medication Dose Route Stop Time Status Admin Acetaminophen 650 MG Q8P PRN 01/06 1430 AC PO Albuterol Sulfate 3 ML TID 01/07 2200 AC 01/07 INH 220 Ampicillin Sodium/ 1,500 MG Q6 01/05 1200 AC 01/08 Sulbactam Sodium IV 0534 Sodium Chloride 100 ML Apixaban 5 MG BID 01/07 2200 AC 01/07 PO 2107 Benzocaine/Menthol 1 MAKSIM Q4 HRS NEEDED PRN 01/06 2015 AC 01/07 PO 1946 Benzonatate 100 MG TID 01/06 2200 AC 01/07 PO 2108 Dronedarone 400 MG BID 01/06 2200 AC 01/07 PO 2112 Heparin Sodium 25,000 UNIT Q24H 01/06 1515 DC 01/06 (Porcine) IV 1700 Sodium Chloride 500 ML Hydroxyzine HCl 25 MG ONCE PRN 01/07 1615 AC PO Lidocaine 1 ML .STK-MED ONE 01/07 1601 DC ID 01/07 1602 Methylprednisolone 40 MG Q8 01/05 1506 AC 01/08 IV 0534 Results Last 24 Hours of Lab Results: Laboratory Tests 01/08 01/07 01/07 01/07 01/07 0635 1540 1540 1525 1525 Chemistry Sodium Pending Potassium Pending Chloride Pending Carbon Dioxide Pending Anion Gap Pending BUN Pending Creatinine Pending BUN/Creatinine Ratio Pending Hematology CBC w Diff Pending WBC Pending RBC Pending Hgb Pending Hct Pending MCV Pending MCH Pending MCHC Pending RDW Pending Plt Count Pending MPV Pending Lymphocytes (%) 7 % Normal PMNs (%) 85 Misc Hematology Test (%) Miscellaneous Phlebotomy Draw Site RT.PLEURAL Pending Other Body Source Fluid WBC (0 - 5 /CUMM) 62203 H Fld Total RBCs Counted (0 /CUMM) 51056 H Fluid Total Protein (g/dL) 4.3 Fluid Albumin (g/dL) 2.0 Fluid LDH (U/L) 6372 Fluid Cholesterol (mg/dL) 72 Pleural pH (PH) 6.85 Pending Assessment/Plan Assessment/Recommendations: 1. Respiratory failure-multiple etiologies. Pleural fluid analysis reveals significant leukocytosis, ? Empyema Recommend- As per pulmonary service Await cytology Antibiotics ? Need for chest tube/Pleurx catheter 2. Advanced lung cancer- Await cytology No plans for immediate further chemotherapy 3. Atrial fibrillation-await echocardiogram,? Involvement with cancer pericardial space 4. Thrush-minimally need to treat with Mycostatin, consider ketoconazole Overall prognosis-very poor. I again discussed this with the patient.
[2018-01-08 07:51] LABS: ABSOLUTE BASOPHIL COUNT 0 /CUMM (0.0-0.2); ABSOLUTE EOSINOPHIL COUNT 0 /CUMM (0.0-0.7); ABSOLUTE GRANULOCYTE CT 7.7 /CUMM (1.4-6.5); ABSOLUTE LYMPH COUNT 0.4 /CUMM (1.2-3.4); ABSOLUTE MONOCYTE COUNT 0.2 /CUMM (0.10-0.60); BASOPHIL % 0 % (0.0-2.0); EOSINOPHIL % 0.1 % (0-5); HEMATOCRIT 25.9 % (42-52); MEAN CORPUSCULAR HGB 28.2 PG (27.0-31.0); MEAN CORPUSCULAR HGB CONC 32.9 G/DL (33.0-37.0); MEAN CORPUSCULAR VOLUME 85.7 FL (80.0-94.0); MEAN PLATELET VOLUME 9.3 FL (7.4-10.4); PLATELET COUNT 113 /CUMM (130-400); RBC DISTRIBUTION WIDTH 17.8 % (11.5-14.5); RED BLOOD CELL CT 3.02 /CUMM (4.70-6.10); WHITE BLOOD CELL COUNT 8.3 /CUMM (4.8-10.8)
--- NOTE | 2018-01-08 07:58 | PN- Housestaff ---
David NICOLAS,Diegospencer 01/08/18 0758: Subjective Follow-up For: Shortness of breath pleural effusion Subjective: Saw pt at bedside this AM. He was feeling much better, much less short of breath. He was back to high flow nasal cannula at 90% instead of 100% non- rebreather yesterday. He went for thoracentesis yesterday about 850cc was removed. The team spoke extensively with the patient and we have agreed to pursue trial of palliative care. Patient agreed to speaking with a palliative director career with the understanding that he wishes to still be full code. Review of Systems Constitutional: Reports: no symptoms. EENTM: Denies: blurred vision. Cardiovascular: Denies: chest pain, palpitations. Respiratory: Reports: cough, short of breath. Gastrointestinal: Reports: no symptoms. Genitourinary: Reports: no symptoms. Musculoskeletal: Reports: no symptoms. Skin: Reports: no symptoms. Objective Last 24 Hrs of Vital Signs/I&O Vital Signs Date Time Temp Pulse Resp B/P B/P Pulse O2 O2 Flow FiO2 Mean Ox Delivery Rate 01/08 1338 92 Nasal 90% Cannula 01/08 0956 88 26 136/82 01/08 0851 89 Nasal 90% Cannula 01/08 0638 98.2 77 22 120/76 90 Nasal Cannula 01/08 0620 81 Nasal 80% Cannula 01/08 0011 89 Nasal 80% Cannula 01/08 0000 Nasal 50% Cannula 01/07 2321 98.1 83 16 118/70 93 01/07 2201 94 Nasal 80% Cannula 01/07 2112 112/86 01/07 1925 89 Nasal 80% Cannula 01/07 1615 90 Nasal 80% Cannula 01/07 1600 90 Nasal 80% Cannula Intake & Output 01/08 1600 01/08 0800 01/08 0000 Intake Total 360 120 Output Total 450 450 Balance -90 -330 Intake, IV 240 Intake, Oral 120 120 Output, Urine 450 450 Patient 81.335 kg Weight Physical Exam General Appearance: Alert, Oriented X3, Cooperative, No Acute Distress Skin: No Significant Lesion HEENT: Atraumatic, PERRLA, EOMI, he has some blood oozing from nose. He also has high flow nasal cannula in place. Neck: Supple Cardiovascular: Normal S1, Normal S2 Lungs: diminished air entry. significant crackles and rhonchi at bases. Abdomen: Soft, No Tenderness Extremities: No Edema Assessment/Plan Assessment: ASSESSMENT: This is a 72 year old gentleman w/ a PMHx of hypertension, hyperlipidemia, non-small cell lung carcinoma (08/2015) his chemotherapy last week changed to Gemzar, PE on Eliquis, pulmonary hyeprtension who presented to the ED for CC SOB. CTA was negative for PE and it showed evidence of wrosening large r. pleural effusion w/ dense RLL consolidation and new dense RML consolidation. He was also noted to have "amorphous soft tissue encasing the right bronchus and the right lobar bronchi" along with subcarinal lymphadenopathy. His hospitalization was complicated by afib w/ RVR, which is now rate controlled, and worsening respiratory status. PROBLEM LIST: Acute hypoxic respiratory failure: DDX of SOB includes worsening pleural effusion/empyema, chemotherapy side effect, worsening of NSCLC causing bronchial obstruction or a post-obstructive PNA. PE was ruled out with CT PE. He went for thoracentesis yesterday and it seems to show an exudative effusion. More concerning is that the fluid is showing +GPC suggesting infectious source, but cannot rule out malignancy such as pericardial invasion of malignancy. We also did a swallow eval today and pt started coughing in the middle of the evaluation. Speech therapist informed me that pt seemed hesitant to eat after that episode. Pt will under go repeat swallow eval tomorrow but until then he will continue on current dietary regimen. * Repeat swallow eval tomorrow * Placed ID consult today regarding the GPC in fluid and possible treatment of empyema * con't oxygen supplementation but with goal sats of 88% * Appreciate pulm consult * Appreciate Onc recommendations * Sputum cx pending * F/U Body fluid cx * Await cytology NSCLC: Pt has advanced stage NSCLS. Per Dr. Ross's note no plan for resumption of systemic chemotherapy. Have placed a palliative consult today * Appreciate palliative care recs AFIB W/ RVR: Today he has been rate controlled. * Appreciate cardio consult * Started on Multaq on 01/07/2018 * TSH wnl * Eliquis re-started on 01/07/2018 Problem List: 1. Mediastinal lymphadenopathy 2. Non-small cell lung cancer (NSCLC) Pain Ratin Pain Location: none Pain Goal: Remain pain free Pain Plan: none Tomorrow's Labs & Rationales: cbc bep Girma,Manik 01/08/18 1349: Attending MD Review Statement Attending Statement Attending MD Statement: examined this patient, discuss w/resident/PA/APPLICATION COUNSELOR, agreed w/resident/PA/APPLICATION COUNSELOR, discussed with family, reviewed EMR data (avail), discussed with nursing, discussed with case mgmt, reviewed images, amended to note Attending Assessment/Plan: Patient with pmh of lung cancer admitted for acute on chronic hypoxic respiratroy failure possible pnuemonia likely gram positive possiblie worsening of underlying lung cancer. Patient has baseline poor lung reserves with baseline home oxyegn 5-6L. CTA chest PE ruled out. He has right lower lobe consolidation. Continue on iv unasyn, f/u blood cultures remian negative, Consult ID ???[email or web address]. Informed oncology about admission, plan for chemotherpay as per Dr Ross. S/P thoracentesis, F/u pulmonary. restarted eliquis. Await cytology, f/u final cultures Afib on multaq 400 bid, cardiology on board. ECHO as per cardiology. Today patient said he is interested in palliative approach to his advanced lung cancer. Consutl palliative.
[2018-01-08 08:41] LABS: GRANULOCYTE % 93.1 % (42.2-75.2)
--- NOTE | 2018-01-08 11:30 | PN- Pulmonary ---
See Addendum Subjective HPI/Critical Care Issues: pt seen and examined had relief from thoracentesis Objective Current Medications: Current Medications Sig/Joel Start time Last Medication Dose Route Stop Time Status Admin Acetaminophen 650 MG Q8P PRN 01/06 1430 AC PO Albuterol Sulfate 3 ML TID 01/07 2200 AC 01/08 INH 0851 Ampicillin Sodium/ 1,500 MG Q6 01/05 1200 AC 01/08 Sulbactam Sodium IV 0534 Sodium Chloride 100 ML Apixaban 5 MG BID 01/07 2200 AC 01/08 PO 1000 Benzocaine/Menthol 1 MAKSIM Q4 HRS NEEDED PRN 01/06 2015 AC 01/07 PO 1946 Benzonatate 100 MG TID 01/06 2200 AC 01/08 PO 1000 Dronedarone 400 MG BID 01/06 2200 AC 01/08 PO 0956 Hydroxyzine HCl 25 MG ONCE PRN 01/07 1615 AC PO Lidocaine 1 ML .STK-MED ONE 01/07 1601 DC ID 01/07 1602 Methylprednisolone 40 MG Q8 01/05 1506 AC 01/08 IV 0534 Patient Medication 1 ED ONE ONE 01/08 0945 DC Teaching ED 01/08 0946 Vital Signs & I&O Last 24 Hrs of Vitals and I&O: Vital Signs Date Time Temp Pulse Resp B/P B/P Pulse O2 O2 Flow FiO2 Mean Ox Delivery Rate 01/08 0956 88 26 136/82 01/08 0851 89 Nasal 90% Cannula 01/08 0638 98.2 77 22 120/76 90 Nasal Cannula 01/08 0620 81 Nasal 80% Cannula 01/08 0011 89 Nasal 80% Cannula 01/08 0000 Nasal 50% Cannula 01/07 2321 98.1 83 16 118/70 93 01/07 2201 94 Nasal 80% Cannula 01/07 2112 112/86 01/07 1925 89 Nasal 80% Cannula 01/07 1615 90 Nasal 80% Cannula 01/07 1600 90 Nasal 80% Cannula 01/07 1442 85 95 01/07 1427 98.8 90 22 118/68 92 Intake & Output 01/08 1600 01/08 0800 01/08 0000 Intake Total 360 120 Output Total 450 450 Balance -90 -330 Intake, IV 240 Intake, Oral 120 120 Output, Urine 450 450 Patient 179 lb Weight Exam Other Physical Findings: alert awake coral distress breath sounds diminished bilaterally with rhonchi no leg edema Results Last 24 Hrs of Lab Results: Laboratory Tests 01/08/18 0635: Anion Gap 11, Estimated GFR > 60, BUN/Creatinine Ratio 40.0 H, CBC w Diff NO MAN DIFF REQ, RBC 3.02 L, MCV 85.7, MCH 28.2, MCHC 32.9 L, RDW 17.8 H, MPV 9.3, Gran % 93.1 H, Lymphocytes % 4.9 L, Monocytes % 1.9, Eosinophils % 0.1, Basophils % 0, Absolute Granulocytes 7.7 H, Absolute Lymphocytes 0.4 L, Absolute Monocytes 0.2, Absolute Eosinophils 0, Absolute Basophils 0 01/07/18 1540: Phlebotomy Draw Site RT.PLEURAL, Pleural pH 6.85 01/07/18 1540: Phlebotomy Draw Site Pending, Pleural pH Pending 01/07/18 1525: Fluid WBC 66365 H, Fld Total RBCs Counted 31962 H 01/07/18 1525: Lymphocytes 7, % Normal PMNs 85, Misc Hematology Test , Fluid Total Protein 4.3, Fluid Albumin 2.0, Fluid LDH 6372, Fluid Cholesterol 72 Impression/Plan Impression/Plan Impression/Plan: Impression 71 year old man. NSCLC. Hx of PE on a/c. Treated with Taxol by Dr. Ross. * Acute hypoxemic respiratory failure * Non-small cell lung carcinoma * hx of PE on eliquis Plan -pleural effusion - exudative - concerning for malignancy, ensure cytology has been sent -repeat cxr in am 01/09 -cont solumedrol -unasyn empirically (may have post obstructive pna) -trc/nebs -sputum cx -given extent of disease and encasement of the RLL vessels and vessels, interventional pulmonary procedures may not be feasible and given his high o2 requirement, bronchoscopy will pose a risk for indefinite intubation, will continue to monitor -symbicort with rinsing of the mouth -out of bed if tolerated -reduce fio2 to a goal spo2 of >88% -palliative consultation is acceptable to patient - please call DVT prophylaxis at all times
[2018-01-08 15:42] VITALS: BP 124/64
--- NOTE | 2018-01-08 17:20 | Cons- Infect Disease ---
General Information and HPI Consulting Request Date of Consult: 01/08/18 Requested By: Tereza Rayo MD Reason for Consult: Rule out empyema right chest Source of Information: patient, family, old records History of Present Illness: This is a 72-year-old man with a history of non-small cell lung cancer diagnosed 2-1/2 years prior to admission, treated with Taxol but recently changed to Gemzar, pulmonary embolism, maintained on Eliquis, COPD/pulmonary hypertension, maintained on 2 L of oxygen, and hypertension, hospitalized 5 weeks prior to admission with what was felt to be a postobstructive pneumonia and progression of his lung cancer, treated with a 10 day course of antibiotics, which was completed at a short-term rehabilitation facility, admitted on January 05 after presenting to the emergency room with increased shortness of breath, right-sided chest pain, anorexia, with decreased oral intake, confusion and increasing weakness. On admission he was afebrile, with an O2 sat in the 60s on room air. Laboratory data revealed a white blood cell count of 7000, BUN/creatinine 26 and 0.8, sodium 130, bilirubin 1.7, alkaline phosphatase 165, proBNP 12,700, INR 1.69, ABG 7.54/25/78 on a 100% nonrebreather. Chest x-ray revealed a significant interval increase in the right pleural effusion with associated right lung consolidation with, at least in part, compressive atelectasis. Right upper quadrant ultrasound revealed a moderate amount of sludge in the gallbladder with no biliary dilatation. CTA of the chest revealed an increased right pleural effusion with persistent, dense right lower lobe consolidation, new dense right middle lobe consolidation and worsening aeration of the right upper lobe. He was given Vancomycin and Ceftazidime in the emergency room and was then changed to Unasyn. He was also begun on Solumedrol. He underwent a right thoracentesis on January 07, which revealed 17,000 white blood cells and a pH of 6.85, with the culture today reported positive for gram-positive cocci. He has been afebrile since admission (on steroids). His white blood cell count did increase to 13,000 on January 06 but has since normalized. He has remained in respiratory failure, currently on high flow oxygen, but he does not report any further chest pain at this time. He was noted to have thrush but denies any dysphagia or odynophagia. Allergies/Medications Allergies: Coded Allergies: NO KNOWN ALLERGIES (NONE 01/05/18) Home Med List: Albuterol Sulfate (Ventolin Hfa) 90 MCG HFA.AER.AD 2 PUF INH AD PRN RESP. ( Reported) Apixaban (Eliquis) 5 MG TABLET 1 TAB PO BID BLOOD THINNER (Reported) Atorvastatin Calcium (Lipitor) 10 MG TABLET 1 TAB PO DAILY CHOLESTEROL ( Reported) Budesonide/Formoterol Fumarate (Symbicort 80-4.5 Mcg Inhaler) 80 MCG-4.5 MCG/ ACTUATION HFA.AER.AD 2 PUF INH BID PRN SOB . Lisinopril 5 MG TABLET 1 TAB PO DAILY BP (Reported) Prochlorperazine Maleate 10 MG TABLET 1 TAB PO Q6 nausea and vomiting ( Reported) Tramadol HCl 50 MG TABLET 1 TAB PO Q6P PRN pain (Reported) Past History Travel History Traveled to [place] past 21 day No Medical History Neurological: NONE EENT: NONE Cardiovascular: hypertension, hyperlipidemia Respiratory: COPD, pulmonary embolism, pneumonia, NON-SM CELL CA Gastrointestinal: NONE Hepatic: NONE Renal: NONE Psychiatric: NONE Endocrine: NONE Blood Disorders: PE Cancer(s): lung cancer History of MRSA: No History of VRE: No History of CDIFF: No Isolation History: Standard Influenza Vaccine: 07/30/17 Surgical History Surgical History: mediastinoscopy R KNEE REPAIR Family History Relations & Conditions If Any: FATHER, , Age 40-50; Cause: Myocardial infarct. BROTHER, ; Cause: Heart disease. BROTHER FH: CABG (coronary artery bypass surgery) MOTHER FH: cancer of genital organ Psychosocial History Smoking Status: Former Smoker ETOH Use: denies use Illicit Drug Use: denies illicit drug use Review of Systems Review of Systems All Other Systems: Reviewed and Negative Exam & Diagnostic Data Last 24 Hrs of Vital Signs/I&O Vital Signs Date Time Temp Pulse Resp B/P B/P Pulse O2 O2 Flow FiO2 Mean Ox Delivery Rate 01/08 1634 89 Nasal 90% Cannula 01/08 1542 98.2 85 23 124/64 90 01/08 1338 92 Nasal 90% Cannula 01/08 0956 88 26 136/82 01/08 0851 89 Nasal 90% Cannula 01/08 0638 98.2 77 22 120/76 90 Nasal Cannula 01/08 0620 81 Nasal 80% Cannula 01/08 0011 89 Nasal 80% Cannula 01/08 0000 Nasal 50% Cannula 01/07 2321 98.1 83 16 118/70 93 01/07 2201 94 Nasal 80% Cannula 01/07 2112 112/86 01/07 1925 89 Nasal 80% Cannula Intake & Output 01/08 1600 01/08 0800 01/08 0000 Intake Total 360 120 Output Total 450 450 Balance -90 -330 Intake, IV 240 Intake, Oral 120 120 Output, Urine 450 450 Patient 179 lb 179 lb Weight Physical Exam Other Physical Findings: Afebrile on steroids. He is awake and alert in mild respiratory distress on high flow oxygen. Skin reveals no rash. HEENT reveals a significant amount of thrush. Neck is supple with no adenopathy. Lungs decreased breath sounds at the right base. Heart regular rhythm with no murmur. Abdomen is soft, nontender with positive bowel sounds. Back no CVA tenderness. Extremities no cyanosis, clubbing or edema. Neuro is without focality. Last 24 Hours of Lab Results: Laboratory Tests 01/08 0635 Chemistry Sodium (137 - 145 mmol/L) 138 Potassium (3.5 - 5.1 mmol/L) 4.0 Chloride (98 - 107 mmol/L) 96 L Carbon Dioxide (22 - 30 mmol/L) 31 H Anion Gap (5 - 16) 11 BUN (9 - 20 mg/dL) 28 H Creatinine (0.7 - 1.2 mg/dL) 0.7 Estimated GFR (>60 ml/min) > 60 BUN/Creatinine Ratio (7 - 25 %) 40.0 H Hematology CBC w Diff NO MAN DIFF REQ WBC (4.8 - 10.8 /CUMM) 8.3 RBC (4.70 - 6.10 /CUMM) 3.02 L Hgb (14.0 - 18.0 G/DL) 8.5 L Hct (42 - 52 %) 25.9 L MCV (80.0 - 94.0 FL) 85.7 MCH (27.0 - 31.0 PG) 28.2 MCHC (33.0 - 37.0 G/DL) 32.9 L RDW (11.5 - 14.5 %) 17.8 H Plt Count (130 - 400 /CUMM) 113 L MPV (7.4 - 10.4 FL) 9.3 Gran % (42.2 - 75.2 %) 93.1 H Lymphocytes % (20.5 - 51.1 %) 4.9 L Monocytes % (1.7 - 9.3 %) 1.9 Eosinophils % (0 - 5 %) 0.1 Basophils % (0.0 - 2.0 %) 0 Absolute Granulocytes (1.4 - 6.5 /CUMM) 7.7 H Absolute Lymphocytes (1.2 - 3.4 /CUMM) 0.4 L Absolute Monocytes (0.10 - 0.60 /CUMM) 0.2 Absolute Eosinophils (0.0 - 0.7 /CUMM) 0 Absolute Basophils (0.0 - 0.2 /CUMM) 0 Last 24 Hours of Luis Results: Blood culture 1 January 05 negative Right pleural fluid culture January 07 positive for a moderate growth of gram- positive cocci, with the gram stain revealing many white blood cells and moderate gram-positive cocci Diagnostic Data Recent Imaging Findings: Chest x-ray January 05 revealed a significant interval increase in the right pleural effusion with associated right lung consolidation with, at least in part , compressive atelectasis. Right upper quadrant ultrasound January 05 revealed a moderate amount of sludge in the gallbladder with no biliary dilatation. CTA of the chest January 05 revealed an increased right pleural effusion with persistent, dense right lower lobe consolidation, new dense right middle lobe consolidation and worsening aeration of the right upper lobe. Chest x-ray January 07 (post-thoracentesis) reveals persistent right basilar airspace disease with an interval decrease in the right pleural effusion Assessment/Plan Assessment/Plan Impression: This is a 72-year-old man with a history of non-small cell lung cancer diagnosed 2-1/2 years prior to admission, treated with Taxol but recently changed to Gemzar, pulmonary embolism, maintained on Eliquis, COPD/pulmonary hypertension, maintained on 2 L of oxygen, and hypertension, admitted on January 05 with increased shortness of breath, right-sided chest pain, anorexia, with decreased oral intake, confusion and increasing weakness, found to be afebrile and markedly hypoxic with a increased right pleural effusion and associated right lung consolidation on chest x-ray and CT scan, status post a thoracentesis yesterday revealing an exudative effusion with the culture positive for gram- positive cocci. His clinical picture is worrisome for an empyema, with the elevated white blood cell count, low pH and positive pleural fluid culture. This could also represent a malignant effusion, given the progression of his lung cancer, complicated by infection. The gram-positive cocci may represent Staph aureus, and MRSA must be considered given his recent antibiotics. Other possible organisms include streptococci, including strep viridans and strep pneumoniae, and will await the final culture. He does have evidence of severe thrush, likely related to his recent antibiotics and chemotherapy, though he denies dysphagia or odynophagia. His prognosis is poor and he is being evaluated for possible hospice/palliative care. Suggestion: 1. Await decision regarding hospice 2. Follow-up final pleural fluid culture and cytology 3. Begin Nystatin 5 mL swish and swallow 4 times a day 4. Discontinue Unasyn 5. Begin Vancomycin 1.5 g IV every 24 hours pending above Consult Acknowledgment - Thank you for your consult request.
[2018-01-08 19:02] LABS: ABSOLUTE BASOPHIL COUNT 0 /CUMM (0.0-0.2); ABSOLUTE EOSINOPHIL COUNT 0 /CUMM (0.0-0.7); ABSOLUTE GRANULOCYTE CT 8.3 /CUMM (1.4-6.5); ABSOLUTE LYMPH COUNT 0.4 /CUMM (1.2-3.4); ABSOLUTE MONOCYTE COUNT 0.1 /CUMM (0.10-0.60); BASOPHIL % 0 % (0.0-2.0); EOSINOPHIL % 0 % (0-5); HEMATOCRIT 26.5 % (42-52); MEAN CORPUSCULAR HGB 27.8 PG (27.0-31.0); MEAN CORPUSCULAR HGB CONC 32.7 G/DL (33.0-37.0); MEAN CORPUSCULAR VOLUME 85.1 FL (80.0-94.0); MEAN PLATELET VOLUME 10.6 FL (7.4-10.4); PLATELET COUNT 138 /CUMM (130-400); RBC DISTRIBUTION WIDTH 18.1 % (11.5-14.5); RED BLOOD CELL CT 3.11 /CUMM (4.70-6.10); WHITE BLOOD CELL COUNT 8.8 /CUMM (4.8-10.8)
[2018-01-08 19:03] LABS: GRANULOCYTE % 94.6 % (42.2-75.2)
--- NOTE | 2018-01-08 22:38 | PN- Cardiology ---
Subjective Subjective: * Breathing is a bit better. He feels that anxiety makes it worse. * echo shows a normal EF with normal left atrial dimensions * sinus rhythm Objective Vital Signs and I&Os Vital Signs Date Time Temp Pulse Resp B/P B/P Pulse O2 O2 Flow FiO2 Mean Ox Delivery Rate 01/08 2157 92 Nasal 90% Cannula 01/080 90 118/86 01/08 1900 91 Nasal 90% Cannula 01/08 1634 89 Nasal 90% Cannula 01/08 1600 90 Nasal 90% Cannula 01/08 1542 98.2 85 23 124/64 90 01/08 1338 92 Nasal 90% Cannula 01/08 0956 88 26 136/82 01/08 0851 89 Nasal 90% Cannula 01/08 0638 98.2 77 22 120/76 90 Nasal Cannula 01/08 0620 81 Nasal 80% Cannula 01/08 0011 89 Nasal 80% Cannula 01/08 0000 Nasal 50% Cannula 01/07 2321 98.1 83 16 118/70 93 Intake & Output 01/08 1600 01/08 0800 01/08 0000 01/07 1600 01/07 0800 01/07 0000 Intake Total 600 360 120 350 344 Output Total 450 450 200 300 200 Balance 600 -90 -330 -200 50 144 Intake, IV 150 240 350 104 Intake, Oral 450 120 120 240 Number 1 1 Bowel Movements Output, Urine 450 450 200 300 200 Patient 179 lb 179 lb 177 lb Weight Physical Exam: General: WD/overweight male in NAD; alert and oriented x 3 HEENT: NC/AT, PERRL, EOMI Neck: no JVD, no carotid bruit Heart: RRR with 2/6 systolic murmur Lungs: decreased breath sounds Abdomen: soft, NT, +ve bowel sounds Extremities: no edema Assessment/Plan Assessment/Plan * This patient demonstrated atrial fibrillation with rapid heart rate which occured in the setting of lung disease. I suspect this patient has elevated RV pressures which will predispose him to atrial fibrillation. He has likely had multiple similar episodes which he is not aware of since he does not feel palpitations during his bout of atrial fibrillation. I would not be inclined to begin a beta feroz such as Sotolol since he has some wheezing and would not begin Amiodarone due to his underlying lung disease. Continue Multaq 400mg BID to try and maintain a sinus rhythm. This patient should be on chronic anticoagulation if no additional procedures are anticipated. Continue telemetry? Yes
[2018-01-08 23:22] VITALS: BP 118/86
[2018-01-09 06:28] VITALS: BP 108/60
--- NOTE | 2018-01-09 07:50 | PN- Housestaff ---
David NICOLAS,Izaiah 01/09/18 0750: Subjective Follow-up For: pleural effusion NSCLC Subjective: Saw pt at bedside this AM. He said that he was feeling slightly weaker today when compared to yesterday. He decided on DNR/DNI status after speaking with palliative care yesterday. Pt is hesitant to pursue aggressive interventions if it will no change his quality of life and team is in support of his decision. Review of Systems Constitutional: Reports: weakness. Denies: chills, fever. EENTM: Reports: no symptoms. Cardiovascular: Denies: chest pain, palpitations. Respiratory: Reports: cough, short of breath. Gastrointestinal: Reports: no symptoms. Genitourinary: Reports: no symptoms. Objective Last 24 Hrs of Vital Signs/I&O Vital Signs Date Time Temp Pulse Resp B/P B/P Pulse O2 O2 Flow FiO2 Mean Ox Delivery Rate 01/09 0904 112/66 01/09 0857 83 Nasal 95% Cannula 01/09 0628 98.6 88 24 108/60 92 Nasal Cannula 01/09 0013 98 Nasal 90% Cannula 01/09 0000 Nasal 90% Cannula 01/08 2322 98.0 86 24 118/86 95 Nasal Cannula 01/08 2157 92 Nasal 90% Cannula 01/08 2050 90 118/86 01/08 1900 91 Nasal 90% Cannula 01/08 1634 89 Nasal 90% Cannula 01/08 1600 90 Nasal 90% Cannula 01/08 1542 98.2 85 23 124/64 90 01/08 1338 92 Nasal 90% Cannula Intake & Output 01/09 1600 01/09 0800 01/09 0000 Intake Total 370 Output Total 1 300 Balance -1 70 Intake, IV 250 Intake, Oral 120 Number 1 1 Bowel Movements Output, Stool 1 Output, Urine 300 Patient 81.647 kg Weight Weight Bed scale Measurement Method Physical Exam General Appearance: Alert, Oriented X3, Cooperative, Mild Distress Skin: No Significant Lesion HEENT: Atraumatic, PERRLA, EOMI Neck: Supple Cardiovascular: Regular Rate, Normal S1 Lungs: diminished airmovement with scattered wheezes and rhonchi and crackles at base Abdomen: Soft, No Tenderness Last 24 Hrs of Lab/Luis Results Last 24 Hrs of Labs/Mics: Laboratory Tests 01/09/18 0610: Anion Gap 11, Estimated GFR > 60, BUN/Creatinine Ratio 41.4 H, CBC w Diff MAN DIFF ORDERED, RBC 2.81 L, MCV 86.0, MCH 28.6, MCHC 33.3, RDW 18.2 H, MPV 9.9, Gran % 93.3 H, Lymphocytes % 6.2 L, Monocytes % 0.4 L, Eosinophils % 0.1, Basophils % 0, Absolute Granulocytes 6.4, Segmented Neutrophils 83 H, Band Neutrophils 5, Absolute Lymphocytes 0.4 L, Lymphocytes 8 L, Monocytes 4, Absolute Monocytes 0 L, Absolute Eosinophils 0, Absolute Basophils 0, Nucleated RBCs 3 H, Platelet Estimate VERIFIED BY SMEAR, Polychromasia 1+, Anisocytosis 1 + 01/08/18 1823: CBC w Diff NO MAN DIFF REQ, RBC 3.11 L, MCV 85.1, MCH 27.8, MCHC 32.7 L, RDW 18.1 H, MPV 10.6 H, Gran % 94.6 H, Lymphocytes % 4.7 L, Monocytes % 0.7 L, Eosinophils % 0, Basophils % 0, Absolute Granulocytes 8.3 H, Absolute Lymphocytes 0.4 L, Absolute Monocytes 0.1, Absolute Eosinophils 0, Absolute Basophils 0 Microbiology 01/09 0120 STOOL: Clostridium difficile Toxin A & B - RECD Assessment/Plan Assessment: ASSESSMENT: This is a 72 year old gentleman w/ a PMHx of hypertension, hyperlipidemia, non-small cell lung carcinoma (08/2015) his chemotherapy last week changed to Gemzar, PE on Eliquis, pulmonary hyeprtension who presented to the ED for CC SOB. CTA was negative for PE and it showed evidence of wrosening large r. pleural effusion w/ dense RLL consolidation and new dense RML consolidation. He was also noted to have "amorphous soft tissue encasing the right bronchus and the right lobar bronchi" along with subcarinal lymphadenopathy. His hospitalization was complicated by afib w/ RVR, which is now rate controlled, and worsening respiratory status. A thoracentesis performed on 01/07 was suggestive of empyema and further cytology is pending. PROBLEM LIST: Acute hypoxic respiratory failure: Pt does have evidence of worsening maligancy and bronchial obstructio. In addition he had thoracentesis on 01/07 which is suggestive of empyema with low pH and +GPC. He has been afebrile with mild elevation in white count but pt has been on large doses of steroids as well. Swallow eval pending today. Though chest tube would be indicated for treatment of empyema, at this time pt seems reluctant to pursue aggressive intervention as he is gradually de- escalating treatment. We are pending hospic consult and he is amenable to palliative measures. A repeat CXR does not show re-accumulation of fluid, so at this time, unless patient changes his mind, we will hold off on placement of a chest tube. * Repeat swallow eval today * Appreciate pulm consult * Appreciate Onc recommendations * Sputum cx pending * F/U Body fluid cx * Await cytology NSCLC: Pt has advanced stage NSCLS. Per Dr. Ross's note no plan for resumption of systemic chemotherapy. Have placed a palliative consult today. Currently made DNR/DNI from full code. Will consider hospice for pt. * Appreciate palliative care recs AFIB W/ RVR: Today he has been rate controlled. * Appreciate cardio consult * Started on Multaq on 01/07/2018 * TSH wnl * Eliquis re-started on 01/07/2018 Problem List: 1. Acute hypoxemic respiratory failure 2. Non-small cell lung cancer (NSCLC) Pain Ratin Pain Location: none Pain Goal: Pain 7 or less Pain Plan: current reg Tomorrow's Labs & Rationales: cbc bep Tereza Rayo 01/09/18 1216: Attending MD Review Statement Attending Statement Attending MD Statement: examined this patient, discuss w/resident/PA/ICE PLATFORM SUPERVISOR, agreed w/resident/PA/ICE PLATFORM SUPERVISOR, discussed with family, reviewed EMR data (avail), discussed with nursing, discussed with case mgmt, reviewed images, amended to note Attending Assessment/Plan: Patient with pmh of lung cancer admitted for acute on chronic hypoxic respiratroy failure possible pnuemonia likely gram positive empyema possiblle worsening of underlying lung cancer. Patient has baseline poor lung reserves with baseline home oxyegn 5-6L. CTA chest PE ruled out. Patient seen/examined , high flow oxygen supplementation. decreased breath sounds, unable tot alk in full sentences. He has right lower lobe consolidation. abx Changed to vancomycin, f/u blood cultures remian negative, f/u ID for empyema. Informed oncology about admission, plan for chemotherpay as per Dr Ross. S/P thoracentesis, F/u pulmonary. c/w eliquis. f/u cytology, f/u final cultures Afib on multaq 400 bid, cardiology on board. ECHO with preserved EF as per cardiology. Palliative consulted and consider transition to inpatient hospice.
--- NOTE | 2018-01-09 07:50 | PN- Oncology ---
Subjective Subjective: ? Slightly confused, short of breath 12 point review of systems otherwise unchanged Objective Vital Signs and I&Os Vital Signs Date Time Temp Pulse Resp B/P B/P Pulse O2 O2 Flow FiO2 Mean Ox Delivery Rate 01/09 0628 98.6 88 24 108/60 92 Nasal Cannula 01/09 0013 98 Nasal 90% Cannula 01/09 0000 Nasal 90% Cannula 01/08 2322 98.0 86 24 118/86 95 Nasal Cannula 01/08 2157 92 Nasal 90% Cannula 01/08 2050 90 118/86 01/08 1900 91 Nasal 90% Cannula 01/08 1634 89 Nasal 90% Cannula 01/08 1600 90 Nasal 90% Cannula 01/08 1542 98.2 85 23 124/64 90 01/08 1338 92 Nasal 90% Cannula 01/08 0956 88 26 136/82 01/08 0851 89 Nasal 90% Cannula Intake & Output 01/09 0800 01/09 0000 01/08 1600 01/08 0800 01/08 0000 01/07 1600 Intake Total 370 600 360 120 Output Total 300 450 450 200 Balance 70 600 -90 -330 -200 Intake, IV 250 150 240 Intake, Oral 120 450 120 120 Number 1 Bowel Movements Output, Urine 300 450 450 200 Patient 180 lb 179 lb 179 lb Weight Weight Bed scale Measurement Method Gen.: in moderate respiratory distress ENT: Sclera anicteric Chest: Normal respiratory effort, clear breath sounds Cor: RRR, no extra sounds Abdomen: Soft, bowel sounds present, no tenderness, no rebound Extremities: Without clubbing, cyanosis, or asymmetric edema Current Medications: Current Medications Sig/Joel Start time Last Medication Dose Route Stop Time Status Admin Acetaminophen 650 MG Q8P PRN 01/06 1430 AC PO Albuterol Sulfate 3 ML TID 01/07 2200 AC 01/08 INH 1900 Ampicillin Sodium/ 1,500 MG Q6 01/05 1200 DC 01/08 Sulbactam Sodium IV 1708 Sodium Chloride 100 ML Apixaban 5 MG BID 01/07 2200 AC 01/08 PO 2047 Benzocaine/Menthol 1 MAKSIM Q4 HRS NEEDED PRN 01/06 2015 AC 01/08 PO 1958 Benzonatate 100 MG TID 01/06 2200 AC 01/08 PO 2049 Dronedarone 400 MG BID 01/06 2200 AC 01/08 PO 2049 Hydroxyzine HCl 25 MG ONCE PRN 01/07 1615 DC PO Methylprednisolone 40 MG Q12 01/09 0900 AC IV Methylprednisolone 40 MG Q8 01/05 1506 DC 01/09 IV 0524 Mirtazapine 15 MG AT BEDTIME 01/08 2100 AC 01/08 PO 205 Morphine Sulfate 1 MG ONCE ONE 01/09 0345 DC IV 01/09 0346 Morphine Sulfate 1 MG ONCE ONE 01/09 0345 DC 01/09 IV 01/09 0346 0350 Morphine Sulfate 1 MG ONCE ONE 01/09 0100 DC 01/09 IV 01/09 0101 0057 Morphine Sulfate 2.5 MG Q2P PRN 01/08 1700 AC IV Nystatin 5 ML 4 TIMES/DAY 01/08 2100 AC 01/08 PO 2048 Patient Medication 1 ED ONE ONE 01/08 0945 DC Teaching ED 01/08 946 Vancomycin HCl 1,500 MG 01/08 AC 01/08 Dextrose/Water 250 ML IV 2220 Results Last 24 Hours of Lab Results: Laboratory Tests 01/09 01/08 0610 1823 Chemistry Sodium Pending Potassium Pending Chloride Pending Carbon Dioxide Pending Anion Gap Pending BUN Pending Creatinine Pending BUN/Creatinine Ratio Pending Hematology CBC w Diff Pending NO MAN DIFF REQ WBC (4.8 - 10.8 /CUMM) Pending 8.8 RBC (4.70 - 6.10 /CUMM) Pending 3.11 L Hgb (14.0 - 18.0 G/DL) Pending 8.6 L Hct (42 - 52 %) Pending 26.5 L MCV (80.0 - 94.0 FL) Pending 85.1 MCH (27.0 - 31.0 PG) Pending 27.8 MCHC (33.0 - 37.0 G/DL) Pending 32.7 L RDW (11.5 - 14.5 %) Pending 18.1 H Plt Count (130 - 400 /CUMM) Pending 138 MPV (7.4 - 10.4 FL) Pending 10.6 H Gran % (42.2 - 75.2 %) 94.6 H Lymphocytes % (20.5 - 51.1 %) 4.7 L Monocytes % (1.7 - 9.3 %) 0.7 L Eosinophils % (0 - 5 %) 0 Basophils % (0.0 - 2.0 %) 0 Absolute Granulocytes (1.4 - 6.5 /CUMM) 8.3 H Absolute Lymphocytes (1.2 - 3.4 /CUMM) 0.4 L Absolute Monocytes (0.10 - 0.60 /CUMM) 0.1 Absolute Eosinophils (0.0 - 0.7 /CUMM) 0 Absolute Basophils (0.0 - 0.2 /CUMM) 0 Pleural fluid-+GPC Assessment/Plan Assessment/Recommendations: 1. respiratory failure-data suggests empyema in the setting of advanced lung cancer and COPD 2. Advanced lung cancer-chemotherapy on hold Patient was willing to discussed options for decreased acuity of care, including hospice.
[2018-01-09 07:58] LABS: ABSOLUTE BASOPHIL COUNT 0 /CUMM (0.0-0.2); ABSOLUTE EOSINOPHIL COUNT 0 /CUMM (0.0-0.7); ABSOLUTE GRANULOCYTE CT 6.4 /CUMM (1.4-6.5); ABSOLUTE LYMPH COUNT 0.4 /CUMM (1.2-3.4); ABSOLUTE MONOCYTE COUNT 0 /CUMM (0.10-0.60); BASOPHIL % 0 % (0.0-2.0); EOSINOPHIL % 0.1 % (0-5); GRANULOCYTE % 93.3 % (42.2-75.2); HEMATOCRIT 24.1 % (42-52); MEAN CORPUSCULAR HGB 28.6 PG (27.0-31.0); MEAN CORPUSCULAR HGB CONC 33.3 G/DL (33.0-37.0); MEAN PLATELET VOLUME 9.9 FL (7.4-10.4); PLATELET COUNT 139 /CUMM (130-400); RBC DISTRIBUTION WIDTH 18.2 % (11.5-14.5); RED BLOOD CELL CT 2.81 /CUMM (4.70-6.10); WHITE BLOOD CELL COUNT 6.8 /CUMM (4.8-10.8)
--- NOTE | 2018-01-09 09:42 | Cons- Palliative Care ---
General Information and HPI Consulting Request Date of Consult: 01/08/18 Requested By: Tereza Rayo MD Reason for Consult: non-pain symptom mgmt, care/transition planning, eval for hospice care Source patient, family, old records Associated Symptoms: dyspnea, anorexia, anxiety, depression History of Present Illness: 72 year-old male with NSCLC now with symptomatic pleural effusion. His primary problem appears to be inability to oxygenate, requiring 90% high flow O2 at this point. He has already undergone thoracenetesis - consideration is already being given to placement of Pleurex catheter should effusion reaccumulate and result in worsening dyspnea. He has undergon chemotherapy and radiation therapy - with the last chemotherapy causing mucositis which the patient reports as quite distressing. A family meeting was held today with the patient, his spouse, and daughter to explore goals of care and disposition options. The patient states that he dreams of being able to visit the casino just one more time. More importantly, he values the time he is able to spend with family. He expresses understanding that his condition at this point is not amenable to pursuing experimental therapies, though he does wish he could obtain additional consultation. He has also expressed a desire to pursue an ambulatory solution to his oxygenation needs, but again, expresses understanding that this may not be possible. We discussed advance directives including CPR and intubation - and how neither of these interventions is likely to help patient achieve his goals of prioritizing his comfort and time to spend with and enjoy company of family. To that end, we have all jointly agreed not to pursue CPR, intubation, or other invasive or aggressive interventions that are not likely to assist in providing comfort. We discussed the possibilities of pursuing inpatient hospice care as that would be yet another intervention helping patient to achieve his goals. Allergies/Medications Allergies: Coded Allergies: NO KNOWN ALLERGIES (NONE 01/05/18) Home Med List: Albuterol Sulfate (Ventolin Hfa) 90 MCG HFA.AER.AD 2 PUF INH AD PRN RESP. ( Reported) Apixaban (Eliquis) 5 MG TABLET 1 TAB PO BID BLOOD THINNER (Reported) Atorvastatin Calcium (Lipitor) 10 MG TABLET 1 TAB PO DAILY CHOLESTEROL ( Reported) Budesonide/Formoterol Fumarate (Symbicort 80-4.5 Mcg Inhaler) 80 MCG-4.5 MCG/ ACTUATION HFA.AER.AD 2 PUF INH BID PRN SOB . Lisinopril 5 MG TABLET 1 TAB PO DAILY BP (Reported) Prochlorperazine Maleate 10 MG TABLET 1 TAB PO Q6 nausea and vomiting ( Reported) Tramadol HCl 50 MG TABLET 1 TAB PO Q6P PRN pain (Reported) Current Medications: Current Medications Sig/Joel Start time Last Medication Dose Route Stop Time Status Admin Acetaminophen 650 MG Q8P PRN 01/06 1430 AC PO Albuterol Sulfate 3 ML TID 01/07 2200 AC 01/09 INH 0856 Ampicillin Sodium/ 1,500 MG Q6 01/05 1200 DC 01/08 Sulbactam Sodium IV 1708 Sodium Chloride 100 ML Apixaban 5 MG BID 01/07 2200 AC 01/08 PO 2048 Benzocaine/Menthol 1 MAKSIM Q4 HRS NEEDED PRN 01/06 2015 AC 01/08 PO 1959 Benzonatate 100 MG TID 01/060 AC 01/09 PO 0905 Dronedarone 400 MG BID 01/06 2200 AC 01/09 PO 0904 Hydroxyzine HCl 25 MG ONCE PRN 01/07 1615 DC PO Methylprednisolone 40 MG Q12 01/09 0900 AC 01/09 IV 0905 Methylprednisolone 40 MG Q8 01/05 1506 DC 01/09 IV 0524 Mirtazapine 15 MG AT BEDTIME 01/08 2100 AC 01/08 PO 2050 Morphine Sulfate 1 MG ONCE ONE 01/09 0345 DC IV 01/09 0346 Morphine Sulfate 1 MG ONCE ONE 01/09 0345 DC 01/09 IV 01/09 0346 0350 Morphine Sulfate 1 MG ONCE ONE 01/09 0100 DC 01/09 IV 01/09 0101 0057 Morphine Sulfate 2.5 MG Q2P PRN 01/08 1700 AC IV Nystatin 5 ML 4 TIMES/DAY 01/08 2100 AC 01/09 PO 0905 Patient Medication 1 ED ONE ONE 01/08 0945 DC Teaching ED 01/08 0946 Vancomycin HCl 1,500 MG 2100 01/08 2100 AC 01/08 Dextrose/Water 250 ML IV 2220 Review of Systems Review of Systems Constitutional: Reports: weakness. EENTM: Reports: no symptoms, throat pain. Respiratory: Reports: short of breath. Cardiovascular: Reports: no symptoms. Gastrointestinal/Abdominal: Reports: no symptoms. Genitourinary: Reports: no symptoms. Musculoskeletal: Reports: no symptoms. Skin: Reports: no symptoms. Neurological: Reports: no symptoms. Hematologic/Endocrine: Reports: no symptoms. Immunological: Reports: no symptoms. Past History Medical History Neurological: NONE EENT: NONE Cardiovascular: hypertension, hyperlipidemia Respiratory: COPD, pulmonary embolism, pneumonia, NON-SM CELL CA Gastrointestinal: NONE Hepatic: NONE Renal: NONE Psychiatric: NONE Endocrine: NONE Blood Disorders: PE Cancer(s): lung cancer Surgical History Surgical History: mediastinoscopy R KNEE REPAIR Family History Relations & Conditions If Any FATHER, , Age 40-50; Cause: Myocardial infarct. BROTHER, ; Cause: Heart disease. BROTHER FH: CABG (coronary artery bypass surgery) MOTHER FH: cancer of genital organ Psychosocial History Where Do You Live? Home Who Do You Live With? spouse Smoking Status: Former Smoker ETOH Use: denies use Illicit Drug Use: denies illicit drug use Karnofsky Performance Scale: 20 Living Will? yes Power of Preventive Maintenance Coordinator/HCP? yes Functional Ability ADLs Independent: eating. Needs Assist: dressing, toileting, bathing. 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[employer]) Educational History Highest Level of Education: some college Exam & Diagnostic Data Last 24 Hrs of Vitals/I&Os: Vital Signs Date Time Temp Pulse Resp B/P B/P Pulse O2 O2 Flow FiO2 Mean Ox Delivery Rate 01/09 0904 112/66 01/09 0857 83 Nasal 95% Cannula 01/09 0628 98.6 88 24 108/60 92 Nasal Cannula 01/09 0013 98 Nasal 90% Cannula 01/09 0000 Nasal 90% Cannula 01/08 2322 98.0 86 24 118/86 95 Nasal Cannula 01/08 2157 92 Nasal 90% Cannula 01/08 2050 90 118/86 01/08 1900 91 Nasal 90% Cannula 01/08 1634 89 Nasal 90% Cannula 01/08 1600 90 Nasal 90% Cannula 01/08 1542 98.2 85 23 124/64 90 01/08 1338 92 Nasal 90% Cannula 01/08 0956 88 26 136/82 Intake & Output 01/09 1600 01/09 0800 01/09 0000 Intake Total 370 Output Total 1 300 Balance -1 70 Intake, IV 250 Intake, Oral 120 Number 1 1 Bowel Movements Output, Stool 1 Output, Urine 300 Patient 180 lb Weight Weight Bed scale Measurement Method Physical Exam General Appearance: well developed/nourished, mild distress Head: atraumatic, normal appearance Eyes: Bilateral: normal appearance. Ears, Nose, Throat: thrush Neck: normal inspection Respiratory: accessory muscle use Neurologic/Psych: no motor/sensory deficits, awake, alert, oriented x 3 Skin: intact Diagnostic Data Lab/Micro/Pathology Results: Laboratory Tests 01/09/18 0610: Anion Gap 11, Estimated GFR > 60, BUN/Creatinine Ratio 41.4 H, CBC w Diff MAN DIFF ORDERED, RBC 2.81 L, MCV 86.0, MCH 28.6, MCHC 33.3, RDW 18.2 H, MPV 9.9, Gran % 93.3 H, Lymphocytes % 6.2 L, Monocytes % 0.4 L, Eosinophils % 0.1, Basophils % 0, Absolute Granulocytes 6.4, Segmented Neutrophils 83 H, Band Neutrophils 5, Absolute Lymphocytes 0.4 L, Lymphocytes 8 L, Monocytes 4, Absolute Monocytes 0 L, Absolute Eosinophils 0, Absolute Basophils 0, Nucleated RBCs 3 H, Platelet Estimate VERIFIED BY SMEAR, Polychromasia 1+, Anisocytosis 1 + 01/08/18 8763: CBC w Diff NO MAN DIFF REQ, RBC 3.11 L, MCV 85.1, MCH 27.8, MCHC 32.7 L, RDW 18.1 H, MPV 10.6 H, Gran % 94.6 H, Lymphocytes % 4.7 L, Monocytes % 0.7 L, Eosinophils % 0, Basophils % 0, Absolute Granulocytes 8.3 H, Absolute Lymphocytes 0.4 L, Absolute Monocytes 0.1, Absolute Eosinophils 0, Absolute Basophils 0 Assessment/Plan Assessment advanced NSCLC - now approaching comfort care only Patient's Condition: serious Prognosis: grave Is Patient Decisional? yes Case Discussed With: patient, family, house staff Goals of Care: comfort measures only (will transition to comfort) Pain/Symptom Management: patient will benefit from: 1. Mirtazapine 15mg qhs for anxiety, sleep, appetite 2. Morphine Sulfate Oral Solution 2.5mg SL q2h PRN dyspnea - utilize SL instead IV for longer duration of action 3. Ativan Intensol 0.5mg SL q4h PRN anxiety 4. Consider Pleurex catheter placement for comfort 5. Explore options to enable patient some independence related to O2 needs - patient would benefit from ability to move about hospital as limited as it might be 6. Pastoral care to support patient, family 7. Avoid hydroxyzine as this may precipitate delirium 8. Tx thrush/mucositis as you are doing - pt would benefit from Magic Mouthwash w/ Nystatin Disposition: consider transition to inpatient hospice Consult Acknowledgment - Thank you for your consult request.
--- NOTE | 2018-01-09 11:23 | PN- Pulmonary ---
See Addendum Subjective HPI/Critical Care Issues: pt seen and examined awaiting meeting regarding goals of are code status changed to DNR/DNI Objective Current Medications: Current Medications Sig/Joel Start time Last Medication Dose Route Stop Time Status Admin Acetaminophen 650 MG Q8P PRN 01/06 1430 AC PO Albuterol Sulfate 3 ML TID 01/07 2200 AC 01/09 INH 0856 Ampicillin Sodium/ 1,500 MG Q6 01/05 1200 DC 01/08 Sulbactam Sodium IV 1708 Sodium Chloride 100 ML Apixaban 5 MG BID 01/07 2200 AC 01/09 PO 1114 Benzocaine/Menthol 1 MAKSIM Q4 HRS NEEDED PRN 01/06 2015 AC 01/08 PO 1959 Benzonatate 100 MG TID 01/06 2200 AC 01/09 PO 0905 Dronedarone 400 MG BID 01/06 2200 AC 01/09 PO 0904 Hydroxyzine HCl 25 MG ONCE PRN 01/07 1615 DC PO Methylprednisolone 40 MG DAILY 01/10 0900 CAN IV 01/10 0901 Methylprednisolone 40 MG Q12 01/09 0900 DC 01/09 IV 0905 Methylprednisolone 40 MG Q8 01/05 1506 DC 01/09 IV 0524 Mirtazapine 15 MG AT BEDTIME 01/08 2100 AC 01/08 PO 2050 Morphine Sulfate 1 MG ONCE ONE 01/09 0345 DC IV 01/09 0346 Morphine Sulfate 1 MG ONCE ONE 01/09 0345 DC 01/09 IV 01/09 0346 0350 Morphine Sulfate 1 MG ONCE ONE 01/09 0100 DC 01/09 IV 01/09 0101 0057 Morphine Sulfate 2.5 MG Q2P PRN 01/08 1700 AC IV Nystatin 5 ML 4 TIMES/DAY 01/08 2100 AC 01/09 PO 0905 Prednisone 10 MG 1015 01/12 1015 AC PO 01/12 1016 Prednisone 20 MG 1015 01/11 1015 AC PO 01/11 1016 Prednisone 40 MG 1015 01/10 1015 AC PO 01/10 1016 Vancomycin HCl 1,500 MG 01/08 AC 01/08 Dextrose/Water 250 ML IV 2220 Vital Signs & I&O Last 24 Hrs of Vitals and I&O: Vital Signs Date Time Temp Pulse Resp B/P B/P Pulse O2 O2 Flow FiO2 Mean Ox Delivery Rate 01/09 0904 112/66 01/09 0857 83 Nasal 95% Cannula 01/09 0628 98.6 88 24 108/60 92 Nasal Cannula 01/09 0013 98 Nasal 90% Cannula 01/09 0000 Nasal 90% Cannula 01/08 2322 98.0 86 24 118/86 95 Nasal Cannula 01/08 2157 92 Nasal 90% Cannula 01/08 2050 90 118/86 01/08 1900 91 Nasal 90% Cannula 01/08 1634 89 Nasal 90% Cannula 01/08 1600 90 Nasal 90% Cannula 01/08 1542 98.2 85 23 124/64 90 01/08 1338 92 Nasal 90% Cannula Intake & Output 01/09 1600 01/09 0800 01/09 0000 Intake Total 370 Output Total 1 300 Balance -1 70 Intake, IV 250 Intake, Oral 120 Number 1 1 Bowel Movements Output, Stool 1 Output, Urine 300 Patient 180 lb Weight Weight Bed scale Measurement Method Exam Other Physical Findings: alert awake mild distress breath sounds diminished bilaterally with rhonchi no leg edema Results Last 24 Hrs of Lab Results: Laboratory Tests 01/09/18 0610: Anion Gap 11, Estimated GFR > 60, BUN/Creatinine Ratio 41.4 H, CBC w Diff MAN DIFF ORDERED, RBC 2.81 L, MCV 86.0, MCH 28.6, MCHC 33.3, RDW 18.2 H, MPV 9.9, Gran % 93.3 H, Lymphocytes % 6.2 L, Monocytes % 0.4 L, Eosinophils % 0.1, Basophils % 0, Absolute Granulocytes 6.4, Segmented Neutrophils 83 H, Band Neutrophils 5, Absolute Lymphocytes 0.4 L, Lymphocytes 8 L, Monocytes 4, Absolute Monocytes 0 L, Absolute Eosinophils 0, Absolute Basophils 0, Nucleated RBCs 3 H, Platelet Estimate VERIFIED BY SMEAR, Polychromasia 1+, Anisocytosis 1 + 01/08/18 1823: CBC w Diff NO MAN DIFF REQ, RBC 3.11 L, MCV 85.1, MCH 27.8, MCHC 32.7 L, RDW 18.1 H, MPV 10.6 H, Gran % 94.6 H, Lymphocytes % 4.7 L, Monocytes % 0.7 L, Eosinophils % 0, Basophils % 0, Absolute Granulocytes 8.3 H, Absolute Lymphocytes 0.4 L, Absolute Monocytes 0.1, Absolute Eosinophils 0, Absolute Basophils 0 Impression/Plan Impression/Plan Impression/Plan: Impression 71 year old man. NSCLC. Hx of PE on a/c. Treated with Taxol by Dr. Ross. * Acute hypoxemic respiratory failure * Non-small cell lung carcinoma * hx of PE on eliquis Plan -awaiting decision regarding goals of care -f/u pathology -solumedrol -trc/nebs DVT prohpylaxis at all times
--- NOTE | 2018-01-09 11:36 | PN- Infect Dx ---
Subjective Subjective: Afebrile on steroids. He complains of increased shortness of breath. Objective Last 24 Hrs of Vital Signs/I&O Vital Signs Date Time Temp Pulse Resp B/P B/P Pulse O2 O2 Flow FiO2 Mean Ox Delivery Rate 01/09 0904 112/66 01/09 0857 83 Nasal 95% Cannula 01/09 0628 98.6 88 24 108/60 92 Nasal Cannula 01/09 0013 98 Nasal 90% Cannula 01/09 0000 Nasal 90% Cannula 01/08 2322 98.0 86 24 118/86 95 Nasal Cannula 01/08 2157 92 Nasal 90% Cannula 01/08 2050 90 118/86 01/08 1900 91 Nasal 90% Cannula 01/08 1634 89 Nasal 90% Cannula 01/08 1600 90 Nasal 90% Cannula 01/08 1542 98.2 85 23 124/64 90 01/08 1338 92 Nasal 90% Cannula Intake & Output 01/09 1600 01/09 0800 01/09 0000 Intake Total 370 Output Total 1 300 Balance -1 70 Intake, IV 250 Intake, Oral 120 Number 1 1 Bowel Movements Output, Stool 1 Output, Urine 300 Patient 180 lb Weight Weight Bed scale Measurement Method Physical Exam Other Physical Findings: He is mildly dyspneic on high flow oxygen Lungs scattered rhonchi bilaterally Heart regular rhythm with no murmur Abdomen is soft, nontender with positive bowel sounds Extremities no cyanosis, clubbing or edema Results Last 24 Hours of Lab Results: Laboratory Tests 01/09 01/08 0610 1823 Chemistry Sodium (137 - 145 mmol/L) 138 Potassium (3.5 - 5.1 mmol/L) 4.2 Chloride (98 - 107 mmol/L) 96 L Carbon Dioxide (22 - 30 mmol/L) 31 H Anion Gap (5 - 16) 11 BUN (9 - 20 mg/dL) 29 H Creatinine (0.7 - 1.2 mg/dL) 0.7 Estimated GFR (>60 ml/min) > 60 BUN/Creatinine Ratio (7 - 25 %) 41.4 H Hematology CBC w Diff MAN DIFF ORDERED NO MAN DIFF REQ WBC (4.8 - 10.8 /CUMM) 6.8 8.8 RBC (4.70 - 6.10 /CUMM) 2.81 L 3.11 L Hgb (14.0 - 18.0 G/DL) 8.1 L 8.6 L Hct (42 - 52 %) 24.1 L 26.5 L MCV (80.0 - 94.0 FL) 86.0 85.1 MCH (27.0 - 31.0 PG) 28.6 27.8 MCHC (33.0 - 37.0 G/DL) 33.3 32.7 L RDW (11.5 - 14.5 %) 18.2 H 18.1 H Plt Count (130 - 400 /CUMM) 139 138 MPV (7.4 - 10.4 FL) 9.9 10.6 H Gran % (42.2 - 75.2 %) 93.3 H 94.6 H Lymphocytes % (20.5 - 51.1 %) 6.2 L 4.7 L Monocytes % (1.7 - 9.3 %) 0.4 L 0.7 L Eosinophils % (0 - 5 %) 0.1 0 Basophils % (0.0 - 2.0 %) 0 0 Absolute Granulocytes (1.4 - 6.5 /CUMM) 6.4 8.3 H Segmented Neutrophils (42.2 - 75.2 %) 83 H Band Neutrophils (0.0 - 5.0 %) 5 Absolute Lymphocytes (1.2 - 3.4 /CUMM) 0.4 L 0.4 L Lymphocytes (20.5 - 51.1 %) 8 L Monocytes (1.7 - 9.3 %) 4 Absolute Monocytes (0.10 - 0.60 /CUMM) 0 L 0.1 Absolute Eosinophils (0.0 - 0.7 /CUMM) 0 0 Absolute Basophils (0.0 - 0.2 /CUMM) 0 0 Nucleated RBCs (0.0 - 0.0 /100WBC) 3 H Platelet Estimate (ADEQUATE) VERIFIED BY SMEAR Polychromasia 1+ Anisocytosis 1+ Last 24 Hours of Luis Results: Right pleural fluid culture January 07 positive for MRSA Stool C. difficile pending Blood culture January 05 negative Assessment/Plan ID Impression: Respiratory failure in a patient with end-stage lung cancer likely multifactorial secondary to progression of his cancer, possible postobstructive pneumonia and empyema, with his pleural fluid culture positive for MRSA. He remains afebrile (on steroids) with a normal white blood cell count, now on Vancomycin but further management, which would require placement of a pigtail catheter, may be limited by the pending decision regarding hospice. Suggestion: 1. Contact isolation for MRSA 2. Await decision regarding hospice 3. Further management of his empyema, e.g. placement of a pigtail catheter, based on above 4. Continue Vancomycin pending above Dr. Talavera will be covering over the weekend
--- NOTE | 2018-01-09 12:33 | RADIOLOGY REPORT ---
EXAMINATION: XR PORTABLE CHEST CLINICAL INFORMATION: Right pleural effusion/empyema, status post thoracentesis. For follow-up. COMPARISON: 01/06/2018 and 01/07/2018. TECHNIQUE: Portable frontal view of the chest was obtained. FINDINGS: The size of the right-sided pleural effusion/empyema has significantly decreased since the prior prethoracentesis chest radiograph done on 01/06/2018. Bilateral diffuse linear prominent interstitial lung markings are noted, appear more pronounced since the prior study, may represent interstitial edema versus fibrosis versus infiltrate or combination thereof. The cardiomediastinal silhouette is moderately enlarged, unchanged. There is no left-sided pleural effusion present. No new abnormalities. IMPRESSION: The size of the right-sided pleural effusion has significantly decreased since the pre-thoracentesis chest radiograph done on 01/06/2018 and appear unchanged since 01/07/2018. Stable nonspecific bilateral diffuse linear prominent interstitial markings.
[2018-01-09 14:56] VITALS: BP 102/62
--- NOTE | 2018-01-09 15:54 | PN- Palliative Care Social Wrk ---
Social Work Assessment/Plan Social Work Assessment/Plan: REfereal received this am for Palliative Care Consult. EHR reviewed. Patient has been evaluated by Hospice; not appropriate at this time; inpatient hospice in [place] not able to accomodate high liter flow oxygen. Will follow and full assessment to follow.
--- NOTE | 2018-01-09 21:02 | PN- Cardiology ---
Subjective Subjective: * Patient continues to have some shortness of breath although he can lie flat. * sinus rhythm * decreasing H/H Objective Vital Signs and I&Os Vital Signs Date Time Temp Pulse Resp B/P B/P Pulse O2 O2 Flow FiO2 Mean Ox Delivery Rate 01/09 1927 90 Nasal 95% Cannula 01/09 1629 89 Nasal 95% Cannula 01/09 1456 97.9 83 26 102/62 91 Nasal Cannula 01/09 0904 112/66 01/09 0857 83 Nasal 95% Cannula 01/09 0800 89 Nasal 95% Cannula 01/09 0628 98.6 88 24 108/60 92 Nasal Cannula 01/09 0013 98 Nasal 90% Cannula 01/09 0000 Nasal 90% Cannula 01/08 2322 98.0 86 24 118/86 95 Nasal Cannula 01/08 2157 92 Nasal 90% Cannula Intake & Output 01/09 1600 01/09 0800 01/09 0000 01/08 1600 01/08 0800 01/08 0000 Intake Total 200 370 600 360 120 Output Total 1 300 450 450 Balance 200 -1 70 600 -90 -330 Intake, IV 250 150 240 Intake, Oral 200 120 450 120 120 Number 4 1 1 Bowel Movements Output, Stool 1 Output, Urine 300 450 450 Patient 180 lb 179 lb 179 lb Weight Weight Bed scale Measurement Method Physical Exam: General: WD/overweight male in NAD; alert and oriented x 3 HEENT: NC/AT, PERRL, EOMI Neck: no JVD, no carotid bruit Heart: RRR with 2/6 systolic murmur Lungs: decreased breath sounds Abdomen: soft, NT, +ve bowel sounds Extremities: no edema Assessment/Plan Assessment/Plan * This patient demonstrated atrial fibrillation with rapid heart rate which occured in the setting of lung disease. I suspect this patient has elevated RV pressures which will predispose him to atrial fibrillation. He has likely had multiple similar episodes which he is not aware of since he does not feel palpitations during his bout of atrial fibrillation. I would not be inclined to begin a beta feroz such as Sotolol since he has some wheezing and would not begin Amiodarone due to his underlying lung disease. Continue Multaq 400mg BID to try and maintain a sinus rhythm. Ideally this patient should be on chronic anticoagulation but it is noted that his H/H is decreasing. If he has guaiac positive stools of evidence of bleeding then stop Eliquis. Multaq appears to be maintaining a sinus rhythm. Continue telemetry? Yes
--- NOTE | 2018-01-10 00:43 | RADIOLOGY REPORT ---
EXAMINATION: XR PORTABLE CHEST CLINICAL INFORMATION: Recent thoracentesis COMPARISON: 01/09/2018 TECHNIQUE: Portable frontal view of the chest was obtained. FINDINGS: Cardiac leads overlie the chest. Low lung volumes. No significant change in the small to moderate right pleural effusion layering along the right lateral chest wall. Prominence of the central vasculature with increase in prominence of perihilar markings and airspace opacities. No pneumothorax. The cardiomediastinal silhouette is unchanged. IMPRESSION: No change in the small to moderate pleural effusion layering along the right lateral chest wall. No pneumothorax. Increased perihilar interstitial and airspace opacities suggestive of worsening edema.
[2018-01-10 07:58] LABS: ABSOLUTE BASOPHIL COUNT 0 /CUMM (0.0-0.2); ABSOLUTE EOSINOPHIL COUNT 0 /CUMM (0.0-0.7); ABSOLUTE GRANULOCYTE CT 9.1 /CUMM (1.4-6.5); BASOPHIL % 0 % (0.0-2.0); MEAN PLATELET VOLUME 9.7 FL (7.4-10.4); RBC DISTRIBUTION WIDTH 17.9 % (11.5-14.5); WHITE BLOOD CELL COUNT 9.6 /CUMM (4.8-10.8)
[2018-01-10 08:21] LABS: ABSOLUTE LYMPH COUNT 0.4 /CUMM (1.2-3.4); ABSOLUTE MONOCYTE COUNT 0 /CUMM (0.10-0.60); EOSINOPHIL % 0 % (0-5); GRANULOCYTE % 95.1 % (42.2-75.2); HEMATOCRIT 27.6 % (42-52); MEAN CORPUSCULAR HGB CONC 32.4 G/DL (33.0-37.0); MEAN CORPUSCULAR VOLUME 86.4 FL (80.0-94.0)
[2018-01-10 08:29] LABS: PLATELET COUNT 210 /CUMM (130-400)
--- NOTE | 2018-01-10 09:01 | PN- Housestaff ---
David NICOLAS,Izaiah 01/10/18 0901: Subjective Follow-up For: empyema Subjective: Saw pt at bedside today, He was significantly dyspenic, more so than before. Pt was made to be HOST/HOSTESS HEAD. Review of Systems Constitutional: Reports: malaise, weakness. Denies: chills. EENTM: Denies: double vision. Cardiovascular: Denies: chest pain. Respiratory: Reports: cough, orthopnea, short of breath, sputum production, wheezing. Gastrointestinal: Reports: no symptoms. Genitourinary: Reports: no symptoms. Objective Last 24 Hrs of Vital Signs/I&O Vital Signs Date Time Temp Pulse Resp B/P B/P Pulse O2 O2 Flow FiO2 Mean Ox Delivery Rate 01/10 1854 98 20 116/72 74 01/10 1642 85 Nasal 100% Cannula 01/10 0957 99 122/64 01/10 0812 88 Nasal 100% Cannula 01/10 0800 Nasal 100% Cannula 01/10 0630 98.0 99 28 82 01/10 0605 91 Nasal 100% Cannula 01/10 0338 Nasal 100% Cannula 01/10 0109 91 Nasal 100% Cannula 01/10 0000 88 Nasal 100% Cannula 01/10 0000 84 Nasal 100% Cannula 01/09 2224 89 Nasal 95% Cannula Intake & Output 01/10 1600 01/10 0800 01/10 0000 Intake Total 240 275 700 Output Total Balance 240 275 700 Intake, IV 275 250 Intake, Oral 240 450 Number 1 2 2 Bowel Movements Physical Exam General Appearance: Alert, Oriented X3, Cooperative, Moderate Distress Skin: No Significant Lesion HEENT: Atraumatic, PERRLA Neck: Supple Cardiovascular: Regular Rate, Normal S1, Normal S2 Lungs: limited air movement, diffuse wheeze and rhonchi Abdomen: Soft, No Tenderness Current Medications: Current Medications Sig/Joel Start time Last Medication Dose Route Stop Time Status Admin Acetaminophen 650 MG Q8P PRN 01/06 1430 AC PO Albuterol Sulfate 3 ML TID 01/07 2200 AC 01/10 INH 1324 Apixaban 5 MG BID 01/07 2200 AC 01/10 PO 0909 Benzocaine/Menthol 1 MAKSIM Q4 HRS NEEDED PRN 01/06 2015 AC 01/09 PO 2145 Benzonatate 100 MG TID 01/06 2200 AC 01/10 PO 0909 Dronedarone 400 MG BID 01/06 2200 AC 01/10 PO 0957 Furosemide 40 MG .STK-MED ONE 01/10 0354 DC IV 01/10 0355 Furosemide 20 MG ONCE ONE 01/10 0200 DC 01/10 IV 01/10 0201 0325 Ipratropium [place] 2.5 ML Q8 PRN 01/10 1745 AC INH Lorazepam 1 MG ONCE ONE 01/10 1745 DC 01/10 IV 01/10 1746 1858 Mirtazapine 15 MG AT BEDTIME 01/08 2100 AC 01/09 PO 214 Morphine Sulfate 1 MG Q1P PRN 01/10 1430 AC 01/10 IV 2143 Morphine Sulfate 2 MG Q2P PRN 01/10 1415 DC 01/10 IV 1414 Morphine Sulfate 2.5 MG Q2P PRN 01/08 1700 DC 01/10 IV 1333 Nystatin 5 ML 4 TIMES/DAY 01/08 2100 AC 01/10 PO 0908 Prednisone 10 MG 1015 01/12 1015 AC PO 01/12 1016 Prednisone 20 MG 1015 01/11 1015 AC PO 01/11 1016 Prednisone 40 MG 1015 01/10 1015 DC 01/10 PO 01/10 1016 0909 Scopolamine HBr 1 PAT Q72H 01/10 1745 AC 01/10 TOP 1858 Vancomycin HCl 1,500 MG 01/08 AC 01/10 Dextrose/Water 250 ML IV 214 Last 24 Hrs of Lab/Luis Results Last 24 Hrs of Labs/Mics: Laboratory Tests 01/10/18 0640: Anion Gap 12, Estimated GFR > 60, BUN/Creatinine Ratio 42.9 H, CBC w Diff MAN DIFF ORDERED, RBC 3.20 L, MCV 86.4, MCH 28.0, MCHC 32.4 L, RDW 17.9 H, MPV 9.7, Gran % 95.1 H, Lymphocytes % 4.7 L, Monocytes % 0.2 L, Eosinophils % 0, Basophils % 0, Absolute Granulocytes 9.1 H, Segmented Neutrophils 86 H, Band Neutrophils 1, Absolute Lymphocytes 0.4 L, Lymphocytes 9 L, Monocytes 3, Absolute Monocytes 0 L, Absolute Eosinophils 0, Absolute Basophils 0, Metamyelocytes 1, Nucleated RBCs 6 H, Platelet Estimate ADEQUATE, Polychromasia 1+, Hypochromic-Microcytic 2+, Anisocytosis 1+ Assessment/Plan Assessment: Pt made HOST/HOSTESS HEAD today. ASSESSMENT: This is a 72 year old gentleman w/ a PMHx of hypertension, hyperlipidemia, non-small cell lung carcinoma (08/2015) his chemotherapy last week changed to Gemzar, PE on Eliquis, pulmonary hyeprtension who presented to the ED for CC SOB. CTA was negative for PE and it showed evidence of wrosening large r. pleural effusion w/ dense RLL consolidation and new dense RML consolidation. He was also noted to have "amorphous soft tissue encasing the right bronchus and the right lobar bronchi" along with subcarinal lymphadenopathy. His hospitalization was complicated by afib w/ RVR, which is now rate controlled, and worsening respiratory status. A thoracentesis performed on 01/07 was suggestive of empyema and further cytology is pending. PROBLEM LIST: Acute hypoxic respiratory failure: Pt does have evidence of worsening maligancy and bronchial obstruction and empyema. Though chest tube would be indicated for treatment of empyema, at this time pt seems reluctant to pursue aggressive intervention as he is gradually de- escalating treatment. We are pending hospic consult and he is amenable to palliative measures. HOST/HOSTESS HEAD today * Appreciate pulm consult * Appreciate Onc recommendations * Sputum cx pending * F/U Body fluid cx NSCLC: Pt has advanced stage NSCLS. Per Dr. Ross's note no plan for resumption of systemic chemotherapy. Have placed a palliative consult today. Currently made DNR/DNI from full code. Will consider hospice for pt. * Appreciate palliative care recs AFIB W/ RVR: Today he has been rate controlled. * Appreciate cardio consult * Started on Multaq on 01/07/2018 * TSH wnl * Eliquis re-started on 01/07/2018 Problem List: 1. Non-small cell lung cancer (NSCLC) Pain Ratin Pain Location: none Pain Goal: Remain pain free Pain Plan: none Tomorrow's Labs & Rationales: none Huey NICOLAS,Jessicar 01/10/18 1036: Attending MD Review Statement Attending Statement Attending MD Statement: examined this patient, discuss w/resident/PA/CHIEF ENGINEER RESEARCH, agreed w/resident/PA/CHIEF ENGINEER RESEARCH, reviewed EMR data (avail), discussed with nursing Attending Assessment/Plan: Chart reviewed. Currently pt requiring high flow O2, sleeping after receiving morphine. Appreciate palliative care and ID's input. Agree with family meeting to further discuss level of care vs hospice
--- NOTE | 2018-01-10 09:53 | PN- Infect Dx ---
Subjective Subjective: 72-year-old white male with non-small cell lung cancer currently with a right chest empyema. The patient is on high flow oxygen complains of shortness of breath. He is afebrile with a normal white blood cell count. His pleural fluid growing methicillin-resistant staph aureus and continues on vancomycin. Chest x -ray demonstrated no change in the small to moderate pleural effusion layering along the right lateral chest wall. Review of Systems Constitutional: Reports: no symptoms. EENTM: Reports: no symptoms. Cardiovascular: Reports: no symptoms. Respiratory: Reports: see HPI. Gastrointestinal: Reports: no symptoms. Genitourinary: Reports: no symptoms. Musculoskeletal: Reports: no symptoms. Skin: Reports: no symptoms. Neurological/Psychological: Reports: no symptoms. Hematologic/Endocrine: Reports: no symptoms. Objective Last 24 Hrs of Vital Signs/I&O Vital Signs Date Time Temp Pulse Resp B/P B/P Pulse O2 O2 Flow FiO2 Mean Ox Delivery Rate 01/10 0800 Nasal 100% Cannula 01/10 0630 98.0 99 28 82 01/10 0605 91 Nasal 100% Cannula 01/10 0338 Nasal 100% Cannula 01/10 0109 91 Nasal 100% Cannula 01/10 0000 88 Nasal 100% Cannula 01/10 0000 84 Nasal 100% Cannula 01/09 2224 89 Nasal 95% Cannula 01/09 2152 80 122/64 01/09 1927 90 Nasal 95% Cannula 01/09 1629 89 Nasal 95% Cannula 01/09 1600 88 95% 01/09 1456 97.9 83 26 102/62 91 Nasal Cannula Intake & Output 01/10 1600 01/10 0800 01/10 0000 Intake Total 275 700 Output Total Balance 275 700 Intake, IV 275 250 Intake, Oral 450 Number 2 2 Bowel Movements Physical Exam General Appearance: alert, awake, anxious Head: atraumatic Ears, Nose, Throat: normal ENT inspection Neck: normal inspection, supple Cardiovascular: regular rate/rhythm Respiratory: decreased breath sounds, accessory muscle use, crackles, rhonchi Abdomen: normal bowel sounds, soft, non-tender Results Last 24 Hours of Lab Results: Laboratory Tests 01/10 0640 Chemistry Sodium (137 - 145 mmol/L) 140 Potassium (3.5 - 5.1 mmol/L) 3.9 Chloride (98 - 107 mmol/L) 95 L Carbon Dioxide (22 - 30 mmol/L) 33 H Anion Gap (5 - 16) 12 BUN (9 - 20 mg/dL) 30 H Creatinine (0.7 - 1.2 mg/dL) 0.7 Estimated GFR (>60 ml/min) > 60 BUN/Creatinine Ratio (7 - 25 %) 42.9 H Hematology CBC w Diff MAN DIFF ORDERED WBC (4.8 - 10.8 /CUMM) 9.6 RBC (4.70 - 6.10 /CUMM) 3.20 L Hgb (14.0 - 18.0 G/DL) 8.9 L Hct (42 - 52 %) 27.6 L MCV (80.0 - 94.0 FL) 86.4 MCH (27.0 - 31.0 PG) 28.0 MCHC (33.0 - 37.0 G/DL) 32.4 L RDW (11.5 - 14.5 %) 17.9 H Plt Count (130 - 400 /CUMM) 210 MPV (7.4 - 10.4 FL) 9.7 Gran % (42.2 - 75.2 %) 95.1 H Lymphocytes % (20.5 - 51.1 %) 4.7 L Monocytes % (1.7 - 9.3 %) 0.2 L Eosinophils % (0 - 5 %) 0 Basophils % (0.0 - 2.0 %) 0 Absolute Granulocytes (1.4 - 6.5 /CUMM) 9.1 H Segmented Neutrophils (42.2 - 75.2 %) 86 H Band Neutrophils (0.0 - 5.0 %) 1 Absolute Lymphocytes (1.2 - 3.4 /CUMM) 0.4 L Lymphocytes (20.5 - 51.1 %) 9 L Monocytes (1.7 - 9.3 %) 3 Absolute Monocytes (0.10 - 0.60 /CUMM) 0 L Absolute Eosinophils (0.0 - 0.7 /CUMM) 0 Absolute Basophils (0.0 - 0.2 /CUMM) 0 Metamyelocytes (0.0 - 1.0 %) 1 Nucleated RBCs (0.0 - 0.0 /100WBC) 6 H Platelet Estimate (ADEQUATE) ADEQUATE Polychromasia 1+ Hypochromic-Microcytic 2+ Anisocytosis 1+ Last 24 Hours of Luis Results: None Assessment/Plan ID Impression: This patient is a 72-year-old white male with end-stage lung cancer indicated by a MRSA empyema. Patient appears to be having bouts of confusion but is currently a DNR/DNI. Patient is receiving active treatment for his infection with vancomycin however definitive therapy is drainage. Suggestion: 1 continue vancomycin 2 consider placement of pigtail catheter 3 will discuss hospice with patient tomorrow 4 recommend family meeting on Friday Please call with any further questions [phone]
--- NOTE | 2018-01-10 14:06 | Event Note ---
Event Note Event Note: Dr. Craig spoke to family about change of CODE STATUS to comfort measures and patient's family agreed with her. The nursing soft told me that we need to change the CODE STATUS to comfort management and ordered morphine 1 mg after every hour when necessary. Order to transfer the patient to general med was placed.
--- NOTE | 2018-01-10 14:40 | PN- Pulmonary ---
Subjective HPI/Critical Care Issues: Seen and examined Patient was noted to be profoundly hypoxemic despite high flow oxygen with supplemental Ventimask. His O2 sat to 70%. Patient was noted to be significantly short of breath and in severe discomfort. He was obviously in severe respiratory failure. Unable to answer most of the questions. Dyspnea and hypoxemia Recent thoracentesis did reveal that he has emphysema with staff Review of symptoms otherwise could not be obtained Objective Current Medications: Current Medications Sig/Joel Start time Last Medication Dose Route Stop Time Status Admin Acetaminophen 650 MG Q8P PRN 01/06 1430 AC PO Albuterol Sulfate 3 ML TID 01/07 2200 AC 01/10 INH 1324 Apixaban 5 MG BID 01/07 2200 AC 01/10 PO 0909 Benzocaine/Menthol 1 MAKSIM Q4 HRS NEEDED PRN 01/06 2015 AC 01/09 PO 2145 Benzonatate 100 MG TID 01/06 2200 AC 01/10 PO 0909 Dronedarone 400 MG BID 01/06 2200 AC 01/10 PO 0957 Furosemide 40 MG .STK-MED ONE 01/10 0354 DC IV 01/10 0355 Furosemide 20 MG ONCE ONE 01/10 0200 DC 01/10 IV 01/10 0201 0325 Mirtazapine 15 MG AT BEDTIME 01/08 PO 2145 Morphine Sulfate 1 MG Q1P PRN 01/10 1430 AC IV Morphine Sulfate 2 MG Q2P PRN 01/10 1415 DC 01/10 IV 1414 Morphine Sulfate 2.5 MG Q2P PRN 01/08 1700 DC 01/10 IV 1333 Nystatin 5 ML 4 TIMES/DAY 01/08 2100 AC 01/10 PO 0908 Prednisone 10 MG 01/12 1015 AC PO 01/12 1016 Prednisone 20 MG 01/11 1015 AC PO 01/11 1016 Prednisone 40 MG 01/10 1015 DC 01/10 PO 01/10 1016 0909 Vancomycin HCl 1,500 MG 01/08 AC 01/09 Dextrose/Water 250 ML IV 2144 Vital Signs & I&O Last 24 Hrs of Vitals and I&O: Vital Signs Date Time Temp Pulse Resp B/P B/P Pulse O2 O2 Flow FiO2 Mean Ox Delivery Rate 01/10 0957 99 122/64 01/10 0812 88 Nasal 100% Cannula 01/10 0800 Nasal 100% Cannula 01/10 0630 98.0 99 28 82 01/10 0605 91 Nasal 100% Cannula 01/10 0338 Nasal 100% Cannula 01/10 0109 91 Nasal 100% Cannula 01/10 0000 88 Nasal 100% Cannula 01/10 0000 84 Nasal 100% Cannula 01/09 2224 89 Nasal 95% Cannula 01/09 2152 80 122/64 01/09 1927 90 Nasal 95% Cannula 01/09 1629 89 Nasal 95% Cannula 01/09 1600 88 95% 01/09 1456 97.9 83 26 102/62 91 Nasal Cannula Intake & Output 01/10 1600 01/10 0800 01/10 0000 Intake Total 240 275 700 Output Total Balance 240 275 700 Intake, IV 275 250 Intake, Oral 240 450 Number 1 2 2 Bowel Movements Laboratory Tests 01/10 01/09 0640 0610 Chemistry Sodium (137 - 145 mmol/L) 140 138 Potassium (3.5 - 5.1 mmol/L) 3.9 4.2 Chloride (98 - 107 mmol/L) 95 L 96 L Carbon Dioxide (22 - 30 mmol/L) 33 H 31 H Anion Gap (5 - 16) 12 11 BUN (9 - 20 mg/dL) 30 H 29 H Creatinine (0.7 - 1.2 mg/dL) 0.7 0.7 Estimated GFR (>60 ml/min) > 60 > 60 BUN/Creatinine Ratio (7 - 25 %) 42.9 H 41.4 H Hematology CBC w Diff MAN DIFF ORDERED MAN DIFF ORDERED WBC (4.8 - 10.8 /CUMM) 9.6 6.8 RBC (4.70 - 6.10 /CUMM) 3.20 L 2.81 L Hgb (14.0 - 18.0 G/DL) 8.9 L 8.1 L Hct (42 - 52 %) 27.6 L 24.1 L MCV (80.0 - 94.0 FL) 86.4 86.0 MCH (27.0 - 31.0 PG) 28.0 28.6 MCHC (33.0 - 37.0 G/DL) 32.4 L 33.3 RDW (11.5 - 14.5 %) 17.9 H 18.2 H Plt Count (130 - 400 /CUMM) 210 139 MPV (7.4 - 10.4 FL) 9.7 9.9 Gran % (42.2 - 75.2 %) 95.1 H 93.3 H Lymphocytes % (20.5 - 51.1 %) 4.7 L 6.2 L Monocytes % (1.7 - 9.3 %) 0.2 L 0.4 L Eosinophils % (0 - 5 %) 0 0.1 Basophils % (0.0 - 2.0 %) 0 0 Absolute Granulocytes (1.4 - 6.5 /CUMM) 9.1 H 6.4 Segmented Neutrophils (42.2 - 75.2 %) 86 H 83 H Band Neutrophils (0.0 - 5.0 %) 1 5 Absolute Lymphocytes (1.2 - 3.4 /CUMM) 0.4 L 0.4 L Lymphocytes (20.5 - 51.1 %) 9 L 8 L Monocytes (1.7 - 9.3 %) 3 4 Absolute Monocytes (0.10 - 0.60 /CUMM) 0 L 0 L Absolute Eosinophils (0.0 - 0.7 /CUMM) 0 0 Absolute Basophils (0.0 - 0.2 /CUMM) 0 0 Metamyelocytes (0.0 - 1.0 %) 1 Nucleated RBCs (0.0 - 0.0 /100WBC) 6 H 3 H Platelet Estimate (ADEQUATE) ADEQUATE VERIFIED BY SMEAR Polychromasia 1+ 1+ Hypochromic-Microcytic 2+ Anisocytosis 1+ 1+ 01/083 Hematology CBC w Diff NO MAN DIFF REQ WBC (4.8 - 10.8 /CUMM) 8.8 RBC (4.70 - 6.10 /CUMM) 3.11 L Hgb (14.0 - 18.0 G/DL) 8.6 L Hct (42 - 52 %) 26.5 L MCV (80.0 - 94.0 FL) 85.1 MCH (27.0 - 31.0 PG) 27.8 MCHC (33.0 - 37.0 G/DL) 32.7 L RDW (11.5 - 14.5 %) 18.1 H Plt Count (130 - 400 /CUMM) 138 MPV (7.4 - 10.4 FL) 10.6 H Gran % (42.2 - 75.2 %) 94.6 H Lymphocytes % (20.5 - 51.1 %) 4.7 L Monocytes % (1.7 - 9.3 %) 0.7 L Eosinophils % (0 - 5 %) 0 Basophils % (0.0 - 2.0 %) 0 Absolute Granulocytes (1.4 - 6.5 /CUMM) 8.3 H Absolute Lymphocytes (1.2 - 3.4 /CUMM) 0.4 L Absolute Monocytes (0.10 - 0.60 /CUMM) 0.1 Absolute Eosinophils (0.0 - 0.7 /CUMM) 0 Absolute Basophils (0.0 - 0.2 /CUMM) 0 Microbiology Date/Time Procedure - Status Source Growth 01/09 0120 Clostridium difficile Toxin A & B - COMP STOOL 01/07 1525 Body Fluid Culture - COMP BODY FLUID METH RESIST STAPH AUREUS 01/07 152 Gram Stain - COMP BODY FLUID Impression/Plan Impression/Plan Impression/Plan: General Appearance: alert, awake, anxious, severely dyspneic and hypoxemic Head: atraumatic Ears, Nose, Throat: normal ENT inspection Neck: normal inspection, supple Cardiovascular: regular rate/rhythm systolic murmur noted Respiratory: decreased breath sounds, accessory muscle use, crackles, rhonchi Abdomen: normal bowel sounds, soft, non-tender Accessory muscle use noted Moving all limbs IMPRESSION This an unfortunate gentleman with very advanced non-small cell lung cancer, history of pulmonary embolism. Now he has MRSA empyema as well. 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 Patient has staph aureus MRSA empyema status post thoracentesis History of PE on Eliquis Preterminal state noted today. RECOMMENDATION Initially patient was treated with high flow with supplemental oxygen. Nebulizer therapy obviously did not help Clearly he has been terminal malignancy and despite maximum oxygen support is hypoxemic. Due to the fact that he is not able to maintain his posterior airway he's not a candidate for noninvasive ventilation. I did discuss CODE STATUS with the patient and he does not wish to be intubated. Family meeting held. Per patient's prior wishes will make him comfort care as he is not oxygenating. Change goal of care to Comfort Care Morphine 1-2 mg IV every when necessary Oral care with frequent suctioning Head of bed Elevated Discontinue unnecessary medicines Nebulizer as needed Scopolamine or Atrovent nebulizer to reduce his oral secretions Patient is critically ill Total time spent 40 minutes
[2018-01-10 18:54] VITALS: BP 116/72
[2018-01-10 22:37] VITALS: BP 100/60
[2018-01-11 06:22] VITALS: BP 102/64
--- NOTE | 2018-01-11 10:35 | PN- Housestaff ---
Subjective Follow-up For: empyema Subjective: Currently sedated but agitated. 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 Family requesting inpatient hospice. Review of Systems Constitutional: Reports: see HPI. Objective Last 24 Hrs of Vital Signs/I&O Vital Signs Date Time Temp Pulse Resp B/P B/P Pulse O2 O2 Flow FiO2 Mean Ox Delivery Rate 01/11 1105 Nasal 100% Cannula 01/11 0910 Nasal 100% Cannula 01/11 0800 73 Non ReBreather 01/11 0622 97.6 85 20 102/64 73 Nasal Cannula 01/11 0136 80 Nasal 100% Cannula 01/11 0000 80 Non 100% ReBreather 01/10 2237 97.4 90 20 100/60 93 01/10 1854 98 20 116/72 74 01/10 1642 85 Nasal 100% Cannula Intake & Output 01/11 1600 01/11 0800 01/11 0000 Intake Total 350 Output Total 25 Balance -25 350 Intake, IV 300 Intake, Oral 50 Output, Stool 25 Physical Exam General Appearance: sedated. closed eyes. agitated. attempting to take off nonrebreather mask Cardiovascular: tachycardia Lungs: diffuse rhonchi Abdomen: Normal Bowel Sounds, Soft, No Tenderness Extremities: 1+ LE edema Vascular: 2+ radial pulses Current Medications: Current Medications Sig/Joel Start time Last Medication Dose Route Stop Time Status Admin Acetaminophen 650 MG Q8P PRN 01/06 1430 DCD PO Albuterol Sulfate 3 ML Q4-PRN PRN 01/10 2330 DCD INH Albuterol Sulfate 3 ML TID 01/07 2200 DC 01/10 INH 1324 Apixaban 5 MG BID 01/07 2200 DCD 01/10 PO 0909 Benzocaine/Menthol 1 MAKSIM Q4 HRS NEEDED PRN 01/06 2015 DCD 01/09 PO 2145 Benzonatate 100 MG TID 01/06 2200 DCD 01/10 PO 0909 Dronedarone 400 MG BID 01/06 2200 DCD 01/10 PO 0957 Ipratropium [place] 2.5 ML Q8 PRN 01/10 1745 DC INH Lorazepam 1 MG ONCE ONE 01/11 0930 DC 01/11 IV 01/11 0931 0926 Lorazepam 1 MG Q4P PRN 01/10 2215 DCD 01/11 IV 0706 Lorazepam 1 MG ONCE ONE 01/10 1745 DC 01/10 IV 01/10 1746 1858 Mirtazapine 15 MG AT BEDTIME 01/08 2100 DCD 01/09 PO 2145 Morphine Sulfate 2 MG ONCE ONE 01/11 0845 DC 01/11 IV 01/11 0846 0853 Morphine Sulfate 1 MG Q1P PRN 01/10 1430 DCD 01/11 IV 0655 Nystatin 5 ML 4 TIMES/DAY 01/08 2100 DCD 01/10 PO 0908 Prednisone 10 MG 1015 01/12 1015 DCD PO 01/12 1016 Prednisone 20 MG 1015 01/11 1015 DC PO 01/11 1016 Scopolamine HBr 1 PAT Q72H 01/10 1745 DCD 01/10 TOP 1858 Vancomycin HCl 1,500 MG 2100 01/08 2100 DCD 01/10 Dextrose/Water 250 ML IV 4 Assessment/Plan Assessment: Assessment: 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 Spoke [facility] family who wanted hospice. Patient this AM. ASSESSMENT: This is a 72 year old gentleman w/ a PMHx of hypertension, hyperlipidemia, non-small cell lung carcinoma (08/2015) his chemotherapy last week changed to Gemzar, PE on Eliquis, pulmonary hyeprtension who presented to the ED for CC SOB. CTA was negative for PE and it showed evidence of wrosening large r. pleural effusion w/ dense RLL consolidation and new dense RML consolidation. He was also noted to have "amorphous soft tissue encasing the right bronchus and the right lobar bronchi" along with subcarinal lymphadenopathy. His hospitalization was complicated by afib w/ RVR, which is now rate controlled, and worsening respiratory status. A thoracentesis performed on 01/07 was suggestive of empyema and further cytology is pending. PROBLEM LIST: Acute hypoxic respiratory failure: Pt does have evidence of worsening maligancy and bronchial obstruction and empyema. Though chest tube would be indicated for treatment of empyema, at this time pt seems reluctant to pursue aggressive intervention as he is gradually de- escalating treatment. We are pending hospic consult and he is amenable to palliative measures. NON FERROUS MATERIAL HANDLER today * Appreciate pulm consult * Appreciate Onc recommendations * Sputum cx pending * F/U Body fluid cx NSCLC: Pt has advanced stage NSCLS. Per Dr. Ross's note no plan for resumption of systemic chemotherapy. Have placed a palliative consult today. Currently made DNR/DNI from full code. Will consider hospice for pt. * Appreciate palliative care recs AFIB W/ RVR: Today he has been rate controlled. * Appreciate cardio consult * Started on Multaq on 01/07/2018 * TSH wnl * Génesis re-started on 01/07/2018 Problem List: 1. Non-small cell lung cancer (NSCLC) Pain Ratin Pain Location: none Pain Goal: Remain pain free Pain Plan: as needed Tomorrow's Labs & Rationales: none
--- NOTE | 2018-01-11 11:06 | Event Note ---
Event Note Event Note: S:Called to see patient for unresponsiveness. B: Patient is 72-year-old gentleman with multiple comorbidities along with history of non-small cell carcinoma. He was currently comfortable measures only. And was being evaluated for inpatient hospice. A/R On exam the patient did not respond to verbal or physical stimuli. Absent heart and breath sounds Absent peripheral pulses. Pupils are fixed and dilated. Patient pronounced at 11:06 on 01/11/[address] Erika Aparicio notified. Family at bedside Autopsy declined. certificate filled and handed to the nurse
--- NOTE | 2018-01-11 12:41 | PN- Pulmonary ---
Subjective HPI/Critical Care Issues: ON comfort care no sig change agonal breathing Objective Current Medications: Current Medications Sig/Joel Start time Last Medication Dose Route Stop Time Status Admin Acetaminophen 650 MG Q8P PRN 01/06 1430 AC PO Albuterol Sulfate 3 ML Q4-PRN PRN 01/10 2330 AC INH Albuterol Sulfate 3 ML TID 01/07 2200 DC 01/10 INH 1324 Apixaban 5 MG BID 01/07 2200 AC 01/10 PO 0909 Benzocaine/Menthol 1 MAKSIM Q4 HRS NEEDED PRN 01/06 2015 AC 01/09 PO 2145 Benzonatate 100 MG TID 01/06 2200 AC 01/10 PO 0909 Dronedarone 400 MG BID 01/06 2200 AC 01/10 PO 0957 Ipratropium [place] 2.5 ML Q8 PRN 01/10 1745 DC INH Lorazepam 1 MG ONCE ONE 01/11 0930 DC 01/11 IV 01/11 0931 0926 Lorazepam 1 MG Q4P PRN 01/10 2215 AC 01/11 IV 0706 Lorazepam 1 MG ONCE ONE 01/10 1745 DC 01/10 IV 01/10 1746 1858 Mirtazapine 15 MG AT BEDTIME 01/08 2100 AC 01/09 PO 2145 Morphine Sulfate 2 MG ONCE ONE 01/11 0845 DC 01/11 IV 01/11 0846 0853 Morphine Sulfate 1 MG Q1P PRN 01/10 1430 AC 01/11 IV 0655 Morphine Sulfate 2 MG Q2P PRN 01/10 1415 DC 01/10 IV 1414 Morphine Sulfate 2.5 MG Q2P PRN 01/08 1700 DC 01/10 IV 1333 Nystatin 5 ML 4 TIMES/DAY 01/08 2100 AC 01/10 PO 0908 Prednisone 10 MG 1015 01/12 1015 AC PO 01/12 1016 Prednisone 20 MG 1015 01/11 1015 DC PO 01/11 1016 Scopolamine HBr 1 PAT Q72H 01/10 1745 AC 01/10 TOP 1858 Vancomycin HCl 1,500 MG 01/08 AC 01/10 Dextrose/Water 250 ML IV 2144 Vital Signs & I&O Last 24 Hrs of Vitals and I&O: Vital Signs Date Time Temp Pulse Resp B/P B/P Pulse O2 O2 Flow FiO2 Mean Ox Delivery Rate 01/11 1105 Nasal 100% Cannula 01/11 0910 Nasal 100% Cannula 01/11 0622 97.6 85 20 102/64 73 Nasal Cannula 01/11 0136 80 Nasal 100% Cannula 01/11 0000 80 Non 100% ReBreather 01/10 2237 97.4 90 20 100/60 93 01/10 1854 98 20 116/72 74 01/10 1642 85 Nasal 100% Cannula Intake & Output 01/11 1600 01/11 0800 01/11 0000 Intake Total 350 Output Total 25 Balance -25 350 Intake, IV 300 Intake, Oral 50 Output, Stool 25 Laboratory Tests 01/10 0640 Chemistry Sodium (137 - 145 mmol/L) 140 Potassium (3.5 - 5.1 mmol/L) 3.9 Chloride (98 - 107 mmol/L) 95 L Carbon Dioxide (22 - 30 mmol/L) 33 H Anion Gap (5 - 16) 12 BUN (9 - 20 mg/dL) 30 H Creatinine (0.7 - 1.2 mg/dL) 0.7 Estimated GFR (>60 ml/min) > 60 BUN/Creatinine Ratio (7 - 25 %) 42.9 H Hematology CBC w Diff MAN DIFF ORDERED WBC (4.8 - 10.8 /CUMM) 9.6 RBC (4.70 - 6.10 /CUMM) 3.20 L Hgb (14.0 - 18.0 G/DL) 8.9 L Hct (42 - 52 %) 27.6 L MCV (80.0 - 94.0 FL) 86.4 MCH (27.0 - 31.0 PG) 28.0 MCHC (33.0 - 37.0 G/DL) 32.4 L RDW (11.5 - 14.5 %) 17.9 H Plt Count (130 - 400 /CUMM) 210 MPV (7.4 - 10.4 FL) 9.7 Gran % (42.2 - 75.2 %) 95.1 H Lymphocytes % (20.5 - 51.1 %) 4.7 L Monocytes % (1.7 - 9.3 %) 0.2 L Eosinophils % (0 - 5 %) 0 Basophils % (0.0 - 2.0 %) 0 Absolute Granulocytes (1.4 - 6.5 /CUMM) 9.1 H Segmented Neutrophils (42.2 - 75.2 %) 86 H Band Neutrophils (0.0 - 5.0 %) 1 Absolute Lymphocytes (1.2 - 3.4 /CUMM) 0.4 L Lymphocytes (20.5 - 51.1 %) 9 L Monocytes (1.7 - 9.3 %) 3 Absolute Monocytes (0.10 - 0.60 /CUMM) 0 L Absolute Eosinophils (0.0 - 0.7 /CUMM) 0 Absolute Basophils (0.0 - 0.2 /CUMM) 0 Metamyelocytes (0.0 - 1.0 %) 1 Nucleated RBCs (0.0 - 0.0 /100WBC) 6 H Platelet Estimate (ADEQUATE) ADEQUATE Polychromasia 1+ Hypochromic-Microcytic 2+ Anisocytosis 1+ Microbiology Date/Time Procedure - Status Source Growth 01/09 0120 Clostridium difficile Toxin A & B - COMP STOOL Impression/Plan Impression/Plan Impression/Plan: General Appearance: agonal breathing on high flow and a mask Head: atraumatic Ears, Nose, Throat: normal ENT inspection Neck: normal inspection, supple Cardiovascular: regular rate/rhythm systolic murmur noted Respiratory: decreased breath sounds, accessory muscle use, crackles, rhonchi Abdomen: normal bowel sounds, soft, non-tender Accessory muscle use noted Moving all limbs IMPRESSION This an unfortunate gentleman with very advanced non-small cell lung cancer, history of pulmonary embolism. Now he has MRSA empyema as well. 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 Patient has staph aureus MRSA empyema status post thoracentesis History of PE on Eliquis Preterminal state noted today. RECOMMENDATION Comfort care change to nasal cannula to keep him comfortable Will sign off Hospice eval today
== END 2018-01-11 11:06 | disposition expired | DRG 177 ==
LOC: ERH 07:36 → ERHI 08:29 → 1NO 08:29 → ENRESERV 13:16 → CANRESERV 13:16 → ERHI 01-06 07:29 → EDBEDREQ 01-06 07:34 → ERHI 01-06 09:36 → ENRESERV 01-06 13:36 → ENTRNSPT 01-06 14:30 → EDTRNSPTSTS 01-06 14:32 → EDTRNSPT 01-06 14:32 → CMPTRNSPT 01-06 14:53 → 1NO 01-06 14:56 → ENTRNSPT 01-10 15:42 → 2NA 01-10 16:40 → CMPTRNSPT 01-10 16:46 → 2NA 01-11 11:06
PROVIDERS: Emergency Medicine; Internal Medicine; Internal Medicine Endocrinology, Diabetes & Metabolism; Student in an Organized Health Care Education/Training Program
PROC: 0W993ZX Drainage of Right Pleural Cavity, Percutaneous Approach, Diagnostic (ICD-10-PCS; principal; 2018-01-07)
PROC: 5A09357 Assistance with Respiratory Ventilation, Less than 24 Consecutive Hours, Continuous Positive Airway Pressure (ICD-10-PCS; 2018-01-07)
DX: J86.9 Pyothorax without fistula (principal); J96.21 Acute and chronic respiratory failure with hypoxia; E87.3 Alkalosis; B37.0 Candidal stomatitis; C77.1 Secondary and unspecified malignant neoplasm of intrathoracic lymph nodes; I27.20 Pulmonary hypertension, unspecified; C34.90 Malignant neoplasm of unspecified part of unspecified bronchus or lung; Z51.5 Encounter for palliative care; I48.91 Unspecified atrial fibrillation; Z99.81 Dependence on supplemental oxygen; I45.10 Unspecified right bundle-branch block; J44.9 Chronic obstructive pulmonary disease, unspecified; B95.62 Methicillin resistant Staphylococcus aureus infection as the cause of diseases classified elsewhere; Z66 Do not resuscitate; K12.31 Oral mucositis (ulcerative) due to antineoplastic therapy; T45.1X5A Adverse effect of antineoplastic and immunosuppressive drugs, initial encounter; E78.5 Hyperlipidemia, unspecified; F41.9 Anxiety disorder, unspecified; Z98.890 Other specified postprocedural states; F32.9 Major depressive disorder, single episode, unspecified; E66.3 Overweight; Z68.28 Body mass index [BMI] 28.0-28.9, adult; Z86.711 Personal history of pulmonary embolism; Z87.891 Personal history of nicotine dependence; Z86.718 Personal history of other venous thrombosis and embolism; Z92.21 Personal history of antineoplastic chemotherapy
CPT/HCPCS: 1NP; 1NSP; 2NAP; 84133; 84300; 87075; 87184; ERO; 36415; 36592; 71045; 82436; 82570; 87040; 87070; 87147; 88305; 93005; 93010; 94799; 96374; 99291; J1644; J1940; J2920; J3370; J3490; J7060; J7512